=== PATIENT | female | born 1975 | race Caucasian/White ===

== ENCOUNTER 2018-03-30 13:54 | Emergency (ER) | payer BC ==
--- OUTSIDE RECORDS SUMMARY | 2018-03-30 13:57 | XMS REPORT ---
:1975 Author Organization eClinicalWorks Care Team Providers Name Role Phone Karoline Kellerh Provider Role Unavailable Allergies No Known Allergies Problems Problem Type Condition Code Onset Dates Condition Status Assessment Hypothyroidism E03.9 Active Problem Asthma without status asthmaticus J45.909 Active or acute exacerbation Assessment Diabetes mellitus type 2, E11.9 Active uncontrolled, without complications Problem Diabetes mellitus type 2, E11.9 Active uncontrolled, without complications Problem Mixed hyperlipidemia E78.2 Active Problem Hypothyroidism E03.9 Active Problem Irritable bowel syndrome without K58.9 Active diarrhea Problem 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 Problem Benign essential hypertension I10 Active Problem Atherosclerotic heart disease of I25.10 Active [place] coronary artery without angina pectoris Assessment 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 Assessment Atherosclerotic heart disease of I25.10 Active [place] coronary artery without angina pectoris Assessment Asthma without status asthmaticus J45.909 Active or acute exacerbation Assessment Mixed hyperlipidemia E78.2 Active Assessment Irritable bowel syndrome without K58.9 Active diarrhea Assessment Benign essential hypertension I10 Active Medications Medication Code Code Instructions Start End Status Dosage System Date [facility] 69444934679 72 MCG Orally Active 1 capsule Once a day on an empty stomach Clopidogrel [facility] 89790077708 75 MG Orally Active 1 tablet Bisulfate Once a day Aspirin ND 58263592702 81 MG Orally Active 1 tablet Once a day Atorvastatin [facility] 90158785050 80 MG Orally Active 1 tablet Calcium Once a day Synthroid ND 88943690778 25 MCG Orally Active 1 tablet Once a day on an empty stomach in the morning Breo Ellipta ND 49726073261 100-25 MCG/INH Active 1 puff Inhalation Once a day Colace [facility] 82138399157 100 MG Orally Active 1 capsule Once a day as needed Toujeo SoloStar [facility] 71206836346 300 UNIT/ML Active Inject 50 Subcutaneous units Ventolin HFA [facility] 23059209017 90 MCG/ACT Active 2 puffs as Inhalation needed every 6 hrs Carvedilol [facility] 59127782049 12.5 MG Orally Active not defined Results No Known Results Summary Purpose eClinicalWorks Submission
--- OUTSIDE RECORDS SUMMARY | 2018-03-30 13:57 | XMS REPORT ---
:1975 Author Organization eClinicalWorks Care Team Providers Name Role Phone Keller, [facility] Provider Role Unavailable Allergies, Adverse Reactions, Alerts Substance Reaction Event Type MORPHINE breaks out in a rash Drug Allergy Problems Problem Type Condition Code Onset Dates [...] Problem Atherosclerotic heart disease of I25.10 Active [place] coronary artery without angina pectoris Assessment 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 Assessment Atherosclerotic heart disease of I25.10 Active [place] coronary artery without angina pectoris Assessment Asthma without status asthmaticus J45.909 Active or acute exacerbation Assessment Mixed hyperlipidemia E78.2 Active Assessment Irritable bowel syndrome without K58.9 Active diarrhea Assessment Benign essential hypertension I10 Active Medications Medication Code Code Instructions Start End Status Dosage System Date Date Aspirin ND 23661060865 81 MG Orally Active 1 tablet Once a day Toujeo SoloStar [facility] 71848231914 300 UNIT/ML Active Inject 30 Subcutaneous units BID Ventolin HFA ND 10778184128 90 MCG/ACT Active 2 puffs as Inhalation needed every 6 hrs Jardiance ND 17815874000 10 MG Orally February 23Apr 24, Active 1 tablet Once a day 2017 2017 Atorvastatin ND 53356505361 80 MG Orally Active 1 tablet Calcium Once a day Victoza ND 62039583608 18 MG/3ML February 23Apr 24, Active as directed Subcutaneous 2017 2017 Once a day Toujeo SoloStar ND 43005307311 300 unit/mL Active INJECT UNDER THE SKIN 15 UNITS AT BEDTIME DAILY Carvedilol ND 34788517663 12.5 MG Orally Active 1 tab BID Synthroid NDC 79938260375 25 MCG Orally Active 1 tablet on Once a day an empty stomach in the morning Breo Ellipta [facility] 16452174898 100-25 MCG/INH Active 1 puff Inhalation Once a day Colace [facility] 17470420544 100 MG Orally Active 1 capsule Once a day as needed Linzess [facility] 74688675530 72 MCG Orally Active 1 capsule Once a day on an empty stomach Clopidogrel [facility] 72750026934 75 MG Orally Active 1 tablet Bisulfate Once a day Results No Known Results Summary Purpose eClinicalWorks Submission
--- OUTSIDE RECORDS SUMMARY | 2018-03-30 13:57 | XMS REPORT ---
:1975 Author Organization eClinicalWorks Care Team Providers Name Role Phone Krishna He Provider Role Unavailable Allergies No Known Allergies Problems Problem Type Condition Code Onset Dates Condition Status Problem Asthma without status asthmaticus J45.909 Active or acute exacerbation Problem Diabetes mellitus type 2, E11.9 Active uncontrolled, without complications Problem Mixed hyperlipidemia E78.2 Active Problem Hypothyroidism E03.9 Active Problem Irritable bowel syndrome without K58.9 Active diarrhea Problem 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 Problem Benign essential hypertension I10 Active Problem Atherosclerotic heart disease of I25.10 Active [place] coronary artery without angina pectoris Medications No Known Medications Results No Known Results Summary Purpose eClinicalWorks Submission
[2018-03-30 16:59] LABS: Absolute Lymphocytes (CBC) 1.5 K/uL (0.7-4.9); Absolute Monocytes 0.5 K/uL (0.1-1.3); Absolute Neutrophil 5.5 K/uL (1.8-8.0); Basophils % 0.4 % (0-1.3); Eosinophils % 1.5 % (0-4.4); MCV 88.2 fL (80-100); MPV 9.4 fL (7.6-11.3); Monocytes % 6.7 % (3.3-12.3); RBC Red Blood Cell Count 4.77 M/uL (3.86-4.86)
[2018-03-30 17:02] LABS: Urine Blood 1+ (NEG); Urine Glucose 2+ (NEG); Urine Protein 3+ (NEG); Urine pH 5.5 (5.0-7.0)
[2018-03-30 17:02] LABS: Urine Bacteria <20 /HPF (<20); Urine RBC <5 /HPF (NONE SEEN)
[2018-03-30 17:03] LABS: Urine Culture Reflex Order NOT NEEDED; Urine Yeast FEW (NONE SEEN)
[2018-03-30 17:17] LABS: Bilirubin Direct 0.1 mg/dL (0-0.2); Bilirubin Total 0.4 mg/dL (0.2-1.0); Potassium 4.1 mmol/L (3.5-5.1); Protein, Total 7.1 g/dL (6.4-8.2)
--- NOTE | 2018-03-30 17:42 | RAD REPORT ---
EXAM DESCRIPTION: US - Abdomen Exam Limited - 03/30/2018 3:19 pm CLINICAL HISTORY: Abdominal pain. COMPARISON: 2014 FINDINGS: The patient was not NPO which limits evaluation somewhat The gallbladder wall is not thickened. A gallstone is not seen. The biliary tree is normal caliber. IMPRESSION: Unremarkable gallbladder ultrasound.
[2018-03-30] MEDS ORDERED: MAGNE/ALUM HYDROXD 30 ML UCUP ONE (18:28)
[2018-03-30] MEDS ORDERED: LIDOCAINE VISCOUS 2% SOLN 15 ML UDC ONE (18:29)
--- NOTE | 2018-03-30 18:32 | EDPHYS ---
Physician Documentation [facility] Name: Elis Smart Age: 42 yrs Sex: Female : 1975 Arrival Date: 03/30/2018 Time: 14:00 Bed 24 Private MD: None, None ED Physician Gustavo Rosas HPI: 03/30 16:00 This 42 yrs old Female presents to ER via Ambulatory with complaints of pm1 Abdominal Pain. 16:00 The patient presents with abdominal pain in the epigastric area. Onset: The pm1 symptoms/episode began/occurred 2 day(s) ago. The symptoms do not radiate. Associated signs and symptoms: Pertinent negatives: nausea, vomiting, and diarrhea, chest pain, dysuria, fever, shortness of breath. The symptoms are described as burning. Modifying factors: The symptoms are alleviated by Nexium from her father. the symptoms are aggravated by drinking, food. The patient has not recently seen a physician, the patient's primary care provider is Dr. Keller. 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 - Social history:: Smoking status: Patient/guardian denies using tobacco. - Ebola Screening: : No symptoms or risks identified at this time. ROS: 16:00 Constitutional: Negative for fever, chills, and weight loss, Eyes: Negative for injury, pm1 pain, redness, and discharge, ENT: Negative for injury, pain, and discharge, Neck: Negative for injury, pain, and swelling, Cardiovascular: Negative for chest pain, palpitations, and edema, Respiratory: Negative for shortness of breath, cough, wheezing, and pleuritic chest pain. 16:00 Back: Negative for injury and pain, : Negative for injury, bleeding, discharge, and swelling, MS/Extremity: Negative for injury and deformity, Skin: Negative for injury, rash, and discoloration, Neuro: Negative for headache, weakness, numbness, tingling, and seizure. 16:00 Abdomen/GI: Positive for abdominal pain, Negative for nausea, vomiting, and diarrhea. Exam: 16:00 Constitutional: This is a well developed, well nourished patient who is awake, alert, pm1 and in no acute distress. Head/Face: Normocephalic, atraumatic. Eyes: Pupils equal round and reactive to light, extra-ocular motions intact. Lids and lashes normal. Conjunctiva and sclera are non-icteric and not injected. Cornea within normal limits. Periorbital areas with no swelling, redness, or edema. ENT: Nares patent. No nasal discharge, no septal abnormalities noted. Tympanic membranes are normal and external auditory canals are clear. Oropharynx with no redness, swelling, or masses, exudates, or evidence of obstruction, uvula midline. Mucous membranes moist. Neck: Trachea midline, no thyromegaly or masses palpated, and no cervical lymphadenopathy. Supple, full range of motion without nuchal rigidity, or vertebral point tenderness. No Meningismus. Chest/axilla: Normal chest wall appearance and motion. Nontender with no deformity. No lesions are appreciated. Cardiovascular: Regular rate and rhythm with a normal S1 and S2. No gallops, murmurs, or rubs. Normal PMI, no JVD. No pulse deficits. Respiratory: Lungs have equal breath sounds bilaterally, clear to auscultation and percussion. No rales, rhonchi or wheezes noted. No increased work of breathing, no retractions or nasal flaring. 16:00 Back: No spinal tenderness. No costovertebral tenderness. Full range of motion. Skin: Warm, dry with normal turgor. Normal color with no rashes, no lesions, and no evidence of cellulitis. MS/ Extremity: Pulses equal, no cyanosis. Neurovascular intact. Full, normal range of motion. 16:00 Abdomen/GI: Inspection: abdomen appears normal, Bowel sounds: normal, Palpation: abdomen is soft and non-tender. 16:00 Neuro: Orientation: is normal, Motor: is normal, no acute changes, moves all fours. Vital Signs: 14:22 BP 143 / 83; Pulse 92; Resp 16; Temp 98.4; Pulse Ox 100% on R/A; Weight 83.46 kg; hb Height 5 ft. 3 in. (160.02 cm); Pain 7/10; 18:52 BP 140 / 88; Pulse 88; Resp 17; Pulse Ox 100% on R/A; kr2 14:22 Body Mass Index 32.59 (83.46 kg, 160.02 cm) hb MDM: 16:31 Patient medically screened. pm1 18:17 Data reviewed: vital signs. Data interpreted: Pulse oximetry: on room air is 100 %. pm1 Interpretation: normal. 18:25 Counseling: I had a detailed discussion with the patient and/or guardian regarding: the pm1 historical points, exam findings, and any diagnostic results supporting the discharge/admit diagnosis, lab results, radiology results, the need for outpatient follow up, to return to the emergency department if symptoms worsen or persist or if there are any questions or concerns that arise at home. 19:00 ED course: Pain resolved with Gi cocktail. pm1 03/30 15:07 Order name: Urine Culture [facility] 03/30 15:07 Order name: Urine Microscopic Only; Complete Time: 17:44 [facility] 03/30 16:30 Order name: Basic Metabolic Panel; Complete Time: 17:44 pm03/30 16:30 Order name: CBC with Diff; Complete Time: 17:44 pm03/30 16:30 Order name: Hepatic Function; Complete Time: 17:44 pm1 03/30 16:30 Order name: Lipase; Complete Time: 17:44 pm1 03/30 15:07 Order name: US Abdomen Limited; Complete Time: 17:44 sn 03/30 15:07 Order name: Urine Dipstick-Ancillary (obtain specimen); Complete Time: 15:46 [facility] 03/30 15:07 Order name: FSBS; Complete Time: 16:51 [facility] 03/30 16:40 Order name: Glucose, Ancillary Testing; Complete Time: 17:44 EDRI 03/30 16:48 Order name: Urine Dipstick--Ancillary (enter results); Complete Time: 17:44 ag 03/30 16:48 Order name: Urine --Ancillary (enter results); Complete Time: 17:44 ag 03/30 16:30 Order name: Urine Test (obtain specimen); Complete Time: 18:13 pm1 03/30 16:30 Order name: Labs collected and sent; Complete Time: 16:51 pm1 Administered Medications: 18:26 CANCELLED (Physician Discretion; donnatol unavailable): GI Cocktail with - pm1 (Maalox Suspension 30 ml, Lidocaine Liquid 2 % 20 ml, Phenobarbital-Belladonna 10 ml) PO once 18:31 Drug: GI Cocktail without - (Maalox Suspension 30 ml, Lidocaine Liquid 2 % 15 kr2 ml) Route: PO; 18:50 Follow up: Response: No adverse reaction; Pain is decreased kr2 Point of Care Testing: Blood Glucose: 16:37 Blood Glucose: 226 mg/dL; jp3 Ranges: Critical Glucose Levels:Adult <50 mg/dl or >400 mg/dl <40 mg/dl or >180 mg/dl Disposition: 03/31 09:33 Co-signature as Attending Physician, Gustavo Rosas MD I agree with the assessment and savanna plan of care. Disposition: 03/30/18 18:32 Discharged to Home. Impression: Unspecified abdominal pain. - Condition is Stable. - Discharge Instructions: Abdominal Pain, Adult, Gastroesophageal Reflux Disease, Adult. - Prescriptions for Pepcid 20 mg Oral Tablet - take 1 tablet by ORAL route every 12 hours for 10 days; 20 tablet. - Medication Reconciliation Form, Thank You Letter form. - Follow up: Orlando Tadeo MD; When: 2 - 3 days; Reason: Recheck today's complaints, Continuance of care, Re-evaluation by your physician. - Problem is new. - Symptoms have improved. Signatures: Dispatcher [employer] EDGustavo Lundberg MD MD cha Therrien, Shelly, LIVE IN HOUSEKEEPER NANNY-C LIVE IN HOUSEKEEPER NANNY-Csnw Homero Jessica, BUNDLE WRAPPER BUNDLE WRAPPER pm1 Sole Davila, DIANA RN Tameka Vasquez RN RN kr2 Corrections: (The following items were deleted from the chart) 03/30 18:26 18:21 GI Cocktail with - (Maalox 30 ml, Lidocaine 20 ml, pm1 Phenobarbital-Belladonna 10 ml) PO once ordered. pm1 18:38 16:30 IV Saline Lock ordered. pm1 kr2 18:54 18:32 03/30/2018 18:32 Discharged to Home. Impression: Unspecified abdominal pain. kr2 Condition is Stable. Forms are Medication Reconciliation Form, Thank You Letter, Antibiotic Education, Prescription Opioid Use. Follow up: Orlando Tadeo; When: 2 - 3 days; Reason: Recheck today's complaints, Continuance of care, Re-evaluation by your physician. Problem is new. Symptoms have improved. pm1
--- NOTE | 2018-03-30 18:32 | ER ---
Nurse's Notes [facility] Name: Elis Smart Age: 42 yrs Sex: Female : 1975 Arrival Date: 03/30/2018 Time: 14:00 Bed 24 Private MD: None, None Diagnosis: Unspecified abdominal pain Presentation: 03/30 14:20 Presenting complaint: Patient states: Heartburn x 3 days, upper abdominal pain since hb last night. Pain is wore after eating/drinking. Pt also reports she vomited x 2 yesterday. Denies fever/diarrhea. Transition of care: patient was not received from another setting of care. Onset of symptoms was March 28, 2018. Risk Assessment: Do you want to hurt yourself or someone else? Patient reports no desire to harm self or others. Initial Sepsis Screen: Does the patient meet any 2 criteria? No. Patient's initial sepsis screen is negative. Does the patient have a suspected source of infection? No. Patient's initial sepsis screen is negative. Care prior to arrival: None. 14:20 Method Of Arrival: Ambulatory hb 14:20 Acuity: ERIK 3 hb Triage Assessment: 16:58 General: Appears in no apparent distress. uncomfortable, well groomed, Behavior is kr2 calm, cooperative, appropriate for age. Pain: Complains of pain in diaphragm and xyphoid area Pain currently is 7 out of 10 on a pain scale. Quality of pain is described as burning, gnawing, Is continuous, Alleviated by nothing. Aggravated by eating. GI: Bowel sounds present X 4 quads. Abd is soft X 4 quads. 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 - Social history:: Smoking status: Patient/guardian denies using tobacco. - Ebola Screening: : No symptoms or risks identified at this time. Screenin:58 Abuse screen: Denies threats or abuse. Denies injuries from another. Nutritional kr2 screening: No deficits noted. Tuberculosis screening: No symptoms or risk factors identified. Fall Risk None identified. Assessment: 16:30 General: Appears in no apparent distress. uncomfortable, well groomed, well developed, kr2 well nourished, Behavior is calm, cooperative, appropriate for age. Pain: Complains of pain in diaphragm and xyphoid area Pain currently is 7 out of 10 on a pain scale. Quality of pain is described as burning, gnawing, Is continuous, Alleviated by nothing. Aggravated by eating. Neuro: Level of Consciousness is awake, alert, obeys commands, Oriented to person, place, time, situation, Appropriate for age. Cardiovascular: Capillary refill < 3 seconds in bilateral fingers Patient's skin is warm and dry. Respiratory: Airway is patent Respiratory effort is even, unlabored, Respiratory pattern is regular, symmetrical. GI: Abdomen is flat, non-distended, Reports nausea, vomiting. GI: Bowel sounds present X 4 quads. GI: Abd is soft X 4 quads. : Denies burning with urination. EENT: Oral mucosa is moist. Derm: Skin is intact, is healthy with good turgor, Skin is pink, warm \T\ dry. Musculoskeletal: Circulation, motion, and sensation intact. 17:30 Reassessment: Patient appears in no apparent distress at this time. Patient and/or kr2 family updated on plan of care and expected duration. Pain level reassessed. Patient is alert, oriented x 3, equal unlabored respirations, skin warm/dry/pink. 18:19 Reassessment: Patient appears in no apparent distress at this time. Patient and/or kr2 family updated on plan of care and expected duration. Pain level reassessed. Patient is alert, oriented x 3, equal unlabored respirations, skin warm/dry/pink. Vital Signs: 14:22 BP 143 / 83; Pulse 92; Resp 16; Temp 98.4; Pulse Ox 100% on R/A; Weight 83.46 kg; hb Height 5 ft. 3 in. (160.02 cm); Pain 7/10; 18:52 BP 140 / 88; Pulse 88; Resp 17; Pulse Ox 100% on R/A; kr2 14:22 Body Mass Index 32.59 (83.46 kg, 160.02 cm) hb ED Course: 14:00 Patient arrived in ED. sb2 14:00 None, None is Private Physician. sb2 14:22 Triage completed. hb 14:25 Arm band placed on right wrist. hb 15:10 Patient taken to ultrasound. hr 15:18 US Abdomen Limited In Process Unspecified. EDMS 15:46 Urine Culture Sent. mh5 15:46 Urine Microscopic Only Sent. mh5 15:47 Urine collected: clean catch specimen, clear. mh5 16:30 Homero Jessica NP is PHCP. pm1 16:30 Gustavo Rosas MD is Attending Physician. pm1 16:31 Tameka Benton, DIANA is Primary Nurse. kr2 16:50 Initial lab(s) drawn, by va, sent to lab. Missed attempt(s): 22 gauge in left forearm. kr2 16:59 Patient has correct armband on for positive identification. Bed in low position. Call kr2 light in reach. Side rails up X 1. Pulse ox on. NIBP on. Door closed. 18:31 Orlando Tadeo MD is Referral Physician. pm1 18:53 No provider procedures requiring assistance completed. kr2 18:53 Patient did not have IV access during this emergency room visit. kr2 Administered Medications: 18:26 CANCELLED (Physician Discretion; donnatol unavailable): GI Cocktail with - pm1 (Maalox Suspension 30 ml, Lidocaine Liquid 2 % 20 ml, Phenobarbital-Belladonna 10 ml) PO once 18:31 Drug: GI Cocktail without - (Maalox Suspension 30 ml, Lidocaine Liquid 2 % 15 kr2 ml) Route: PO; 18:50 Follow up: Response: No adverse reaction; Pain is decreased kr2 Point of Care Testing: Blood Glucose: 16:37 Blood Glucose: 226 mg/dL; jp3 Ranges: Outcome: 18:32 Discharge ordered by . pm1 18:53 Discharged to home ambulatory, with family. kr2 18:53 Condition: improved 18:53 Discharge instructions given to patient, Instructed on discharge instructions, follow up and referral plans. medication usage, Demonstrated understanding of instructions, follow-up care, medications, Prescriptions given X 1. 18:54 Patient left the ED. kr2 Signatures: Dispatcher [employer] EDMS Maria A Garcia Patrick, NP FEDERAL MEDIATOR pm1 Sole Davila RN RN Jacinta Carreno [facility] Tameka Benton RN RN kr2 Rosie Huizar 2 Vasile Bennett jp3 Corrections: (The following items were deleted from the chart) 18:53 18:53 IV discontinued, intact, bleeding controlled, No redness/swelling at site. kr2 Pressure dressing applied, kr2
[2018-03-30 19:49] VITALS: TEMP 98.4; O2SAT 100
[2018-03-30 19:50] VITALS: BP 140/88
== END 2018-03-30 18:54 | disposition home or self-care (01) ==
LOC: ER 13:54
DX: R10.9 Unspecified abdominal pain (principal); E11.9 Type 2 diabetes mellitus without complications; Z79.4 Long term (current) use of insulin; Z88.6 Allergy status to analgesic agent; Z88.0 Allergy status to penicillin
CPT/HCPCS: 36415; 76705; 80048; 80076; 81003; 81015; 81025; 82962; 83690; 85025; 87086; 87088; 99284

== ENCOUNTER 2021-06-25 13:07 | Observation (INO) | payer OTHER ==
[2021-06-25] MEDS ORDERED: ALBUTEROL 2.5 MG/3 ML NEB SOL NEB PRN (15:13)
[2021-06-25] MEDS ORDERED: ONDANSETRON 4 MG/2 ML VIAL IV PRN (15:13)
[2021-06-25 15:16] VITALS: BMI 33.8
--- NOTE | 2021-06-25 15:20 | P.HP ---
Certification for Inpatient Patient admitted to: Observation With expected LOS: <2 Midnights Practitioner: I am a practitioner with admitting privileges, knowledge of patient current condition, hospital course, and medical plan of care. Services: Services provided to patient in accordance with Admission requirements found in Title 42 Section 412.3 of the Code of Federal Regulations Patient History Date of Service: 06/25/21 Reason for admission: Bilateral pneumonia, hyperkalemia History of Present Illness: 46-year-old female, PMH: Encephalocele, CAD s/p CABGx3 2016, hypertension, insulin-dependent diabetes mellitus type 2, asthma, GERD, hyperlipidemia. Transferred to this hospital from [facility] due to bilateral pneumonia and electrolyte abnormalities. Potassium was 6, low calcium, THONY (creatinine 2). Patient reports having a "very bad" productive cough cough associated with some shortness of breath over the last 3 days. She denies any fevers/chills, reports some chest soreness from coughing episodes, no abdominal pain, no diarrhea, no dysuria. She reported feeling short of breath, and her oxygen saturation was 97 air with no movement. On arrival to our medical floor, she reports feeling a little bit better, still feels short of breath, requesting nebulizer treatment she has history of asthma, otherwise reports no significant issues/symptoms going on. ER provider reported patient was treated with Kayexalate, IV calcium and was transferred over here. Allergies morphine Allergy (Intermediate, Verified 06/25/21 15:35) Hives/Rash Home Medications: Ascorbic Acid [Vitamin C] 250 mg PO DAILY 06/25/21 Aspirin [Aspirin EC 81 MG] 81 mg PO BID 06/25/21 Aspirin [Karuna Chewable] 81 mg PO BID 6AM 6PM 06/25/21 Atorvastatin Calcium [Lipitor] 80 mg PO BEDTIME 06/25/21 Atorvastatin Calcium [Lipitor] 80 mg PO BEDTIME 06/25/21 Cholecalciferol (Vitamin D3) [Vitamin D3] 1,000 unit PO DAILY 06/25/21 Dulaglutide [Trulicity] 1.5 mg SQ EVERY 7TH DAY 06/25/21 Dulaglutide [Trulicity] 1.5 mg SQ EVERY 7TH DAY 06/25/21 Furosemide 40 mg PO DAILY 06/25/21 Furosemide [Lasix] 40 mg PO DAILY 06/25/21 Glipizide [Glipizide ER] 5 mg PO BEDTIME 06/25/21 Glipizide [Glipizide ER] 5 mg PO BEDTIME 06/25/21 Insulin Glargine,Hum.rec.anlog [Toujeo Solostar] 30 unit SQ BID 06/25/21 Insulin Glargine,Hum.rec.anlog [Toujeo Solostar] 50 unit SQ BID 06/25/21 Metoprolol Tartrate 100 mg PO BID 6AM 6PM 06/25/21 Metoprolol Tartrate [Lopressor] 100 mg PO BID 06/25/21 Pantoprazole [Protonix Tab] 40 mg PO DAILY 06/25/21 Pantoprazole [Protonix Tab] 40 mg PO DAILY 06/25/21 Ramipril [Altace] 10 mg PO DAILY 06/25/21 Ramipril [Altace] 10 mg PO DAILY 06/25/21 - Past Medical/Surgical History Has patient received pneumonia vaccine in the past: No Diabetic: Yes -: DM-2, insulin-dependent -: Omphalocele -: CAD s/p CABG -: Bilateral tubal ligation -: tonsilectomy -: CABG - Family History Father -: Hypertension, Lung disease, Diabetes mother' -: Hypertension, Diabetes, Stroke, Cancer - Social History Smoking Status: Never smoker Alcohol use: No CD- Drugs: No Caffeine use: No Place of Residence: Home Review of Systems 10-point ROS is otherwise unremarkable Physical Examination - Physical Exam General: Alert, In no apparent distress, Oriented x3 HEENT: Mucous membr. moist/pink, Sclerae nonicteric Neck: Supple, No LAD Respiratory: Crackles/rales (At bases bilaterally) Cardiovascular: Regular rate/rhythm, No murmurs Capillary refill: <2 Seconds Gastrointestinal: Soft and benign, Non-distended, No tenderness Musculoskeletal: No erythema, No tenderness Integumentary: No rashes, No significant lesion Neurological: Normal speech, Normal strength at 5/5 x4 extr, Normal affect Assessment and Plan - Advance Directives Does patient have a Living Will: No Does patient have a Durable POA for Healthcare: No Physician Review Additional Text: Problem list Bilateral pneumonia, without acute hypoxemia h/o asthma CAD s/p CABGx3 2016 h/o Phrenic nerve injury Hypertension Hyperlipidemia THONY, likely prerenal/hypovolemia Bilateral pneumonia, treated with IV Levaquin, continue Check chest x-ray tomorrow morning Repeat labs, evaluate potassium, received Kayexalate in the ER Patient with a history of asthma, continue with nebulizer treatments Continue home medications once confirmed Insulin sliding scale Pulmonology consulted Blood cultures ordered VTE: Lovenox Code: Full Dispo: Anticipate DC home in 1-2 days. Time Spent Managing Pts Care (In Minutes): 60
[2021-06-25 15:57] LABS: Basophils % 0.3 % (0-1.3); Hematocrit 30.3 % (36.0-45.0); Lymphocytes % 10.8 % (15.3-44.8); MPV 9.6 fL (7.6-11.3)
[2021-06-25] MEDS ORDERED: NA CHLORIDE 0.9% 1,000 ML IV SCH (16:00)
[2021-06-25] MEDS ORDERED: Levofloxacin 750mg IV 750 MG/150 ML BAG IV SCH (16:00)
[2021-06-25] MEDS ORDERED: INFLUENZA VACCINE (for 6+ mo) 0.5 ML DOSE IMVAC ONE (16:00)
[2021-06-25] MEDS: INSULIN -REGULAR HUMAN 50 UNIT/0.5 ML ML SQ SCH ×2 (16:02→21:00)
[2021-06-25] MEDS: ENOXAPARIN 40 MG/0.4 ML SQ SCH (16:05)
[2021-06-25 16:09] LABS: Albumin 2.1 g/dL (3.4-5.0); Bilirubin Total 0.3 mg/dL (0.2-1.0); Magnesium 1.9 mg/dL (1.8-2.4); Potassium 4.5 mmol/L (3.5-5.1); Protein, Total 5.8 g/dL (6.4-8.2)
[2021-06-25] MEDS: ALBUTEROL 2.5 MG/3 ML NEB SOL NEB SCH (19:52)
[2021-06-25] MEDS: IPRATROPIUM BROM 0.5MG/2.5ML NEB SCH (19:52)
[2021-06-25] MEDS: BENZONATATE 100 MG CAP PO PRN (21:10)
[2021-06-25] MEDS: ACETAMINOPHEN 500 MG TAB PO PRN (23:12)
[2021-06-25 23:38] LABS: Urine Appearance CLOUDY (Clear); Urine Bilirubin NEGATIVE (Negative); Urine Blood 2+ (Negative); Urine Color YELLOW (Yellow); Urine Glucose 2+ (Negative); Urine Protein 3+ (Negative); Urine Specific Gravity 1.015 (1.005-1.030); Urine pH 5.5 (5.0-7.0)
[2021-06-25 23:40] LABS: Urine Microscopic Reflex ORDER UMIC
[2021-06-25 23:56] LABS: UR PROTEIN 700.6 mg/dL (<11.9)
[2021-06-26 00:10] LABS: Urine Bacteria 20-50 /HPF (<20); Urine Coarse Granular Casts 0-5 /LPF (NONE SEEN); Urine RBC <5 /HPF (NONE SEEN); Urine Urothelial Cells <5 /HPF (NONE SEEN)
[2021-06-26] MEDS ORDERED: ZOLPIDEM TARTRATE 5 MG TABLET PO PRN (01:28)
[2021-06-26] MEDS: IPRATROPIUM BROM 0.5MG/2.5ML NEB SCH ×4 (02:00→20:00)
[2021-06-26] MEDS: ALBUTEROL 2.5 MG/3 ML NEB SOL NEB SCH ×4 (02:00→20:00)
[2021-06-26] MEDS: BENZONATATE 100 MG CAP PO PRN ×3 (04:19→18:17)
[2021-06-26 06:21] LABS: Albumin 1.9 g/dL (3.4-5.0); Bilirubin Total 0.2 mg/dL (0.2-1.0); Magnesium 1.7 mg/dL (1.8-2.4); Potassium 4.4 mmol/L (3.5-5.1); Protein, Total 5.6 g/dL (6.4-8.2)
[2021-06-26 07:05] LABS: Absolute Lymphocytes (CBC) 0.9 K/uL (0.7-4.9); Basophils % 0.2 % (0-1.3); Hematocrit 29.5 % (36.0-45.0); Lymphocytes % 12.9 % (15.3-44.8); MPV 9.5 fL (7.6-11.3)
[2021-06-26] MEDS: INSULIN -REGULAR HUMAN 50 UNIT/0.5 ML ML SQ SCH ×4 (07:30→20:37)
[2021-06-26] MEDS: HYDRALAZINE HCL 20 MG/ML VIAL IV PRN ×2 (08:07→21:52)
[2021-06-26] MEDS: ENOXAPARIN 40 MG/0.4 ML SQ SCH (08:07)
[2021-06-26] MEDS: ACETAMINOPHEN 500 MG TAB PO PRN (08:11)
[2021-06-26] MEDS ORDERED: VITAMIN D 1000 UNIT TAB PO SCH (09:00)
[2021-06-26] MEDS: ASPIRIN EC 81 MG TAB PO SCH ×2 (09:00→20:44)
[2021-06-26] MEDS ORDERED: FUROSEMIDE 40 MG/4 ML VIAL IV ONE (09:00)
[2021-06-26] MEDS: PANTOPRAZOLE 40MG TABLET PO SCH (10:49)
[2021-06-26] MEDS: INSULIN GLARGINE 100 UNITS/ML SQ SCH ×2 (10:49→20:44)
[2021-06-26] MEDS: ASCORBIC ACID 500 MG TABLET PO SCH (10:49)
--- NOTE | 2021-06-26 12:14 | P.CNS ---
Date of Consult: 06/26/21 Reason for Consult: Cough Chief Complaint: Bilateral pneumonia, hyperkalemia History of Present Illness: Patient is 38-year the patient is 46 years of age admitted with sudden onset of cough and some shortness of breath denies any fever chills no prior history of obstructive airways disease history of coronary artery disease status post CABG elevated right hemidiaphragm patient does not smoke Allergies morphine Allergy (Intermediate, Verified 06/25/21 15:35) Hives/Rash Home Medications: Ascorbic Acid [Vitamin C] 250 mg PO DAILY 06/25/21 Aspirin [Aspirin EC 81 MG] 81 mg PO BID 06/25/21 Aspirin [Karuna Chewable] 81 mg PO BID 6AM 6PM 06/25/21 Atorvastatin Calcium [Lipitor] 80 mg PO BEDTIME 06/25/21 Atorvastatin Calcium [Lipitor] 80 mg PO BEDTIME 06/25/21 Cholecalciferol (Vitamin D3) [Vitamin D3] 1,000 unit PO DAILY 06/25/21 Dulaglutide [Trulicity] 1.5 mg SQ EVERY 7TH DAY 06/25/21 Dulaglutide [Trulicity] 1.5 mg SQ EVERY 7TH DAY 06/25/21 Furosemide 40 mg PO DAILY 06/25/21 Furosemide [Lasix] 40 mg PO DAILY 06/25/21 Glipizide [Glipizide ER] 5 mg PO BEDTIME 06/25/21 Glipizide [Glipizide ER] 5 mg PO BEDTIME 06/25/21 Insulin Glargine,Hum.rec.anlog [Toujeo Solostar] 30 unit SQ BID 06/25/21 Insulin Glargine,Hum.rec.anlog [Toujeo Solostar] 50 unit SQ BID 06/25/21 Metoprolol Tartrate 100 mg PO BID 6AM 6PM 06/25/21 Metoprolol Tartrate [Lopressor] 100 mg PO BID 06/25/21 Pantoprazole [Protonix Tab] 40 mg PO DAILY 06/25/21 Pantoprazole [Protonix Tab] 40 mg PO DAILY 06/25/21 Ramipril [Altace] 10 mg PO DAILY 06/25/21 Ramipril [Altace] 10 mg PO DAILY 06/25/21 - Past Medical/Surgical History Diabetic: Yes -: DM-2, insulin-dependent -: Omphalocele -: CAD s/p CABG -: Bilateral tubal ligation -: tonsilectomy -: CABG - Family History Father Medical History: Hypertension, Lung disease, Diabetes mother' Medical History: Hypertension, Diabetes, Stroke, Cancer - Social History Smoking Status: Unknown if ever smoked Alcohol use: No CD- Drugs: No Caffeine use: No Place of Residence: Home Review of Systems 10-point ROS is otherwise unremarkable Respiratory: Cough, Shortness of Breath Physical Examination Temp Pulse Resp BP Pulse Ox 98.6 F 107 H 20 143/71 H 96 06/26/21 11:57 06/26/21 11:57 06/26/21 11:57 06/26/21 11:57 06/26/21 11:57 General: Alert, Oriented x3, Mild distress Respiratory: Clear to auscultation bilaterally, Friction rub Cardiovascular: Regular rate/rhythm, Normal S1 S2 Gastrointestinal: Soft and benign Musculoskeletal: No clubbing, No swelling, No warmth Integumentary: No rashes, No breakdown Neurological: Normal speech Laboratory Data (last 24 hrs) 06/26/21 06:51: WBC 6.70 D, Hgb 9.6 L, Hct 29.5 L, Plt Count 148 L 06/26/21 05:39: Sodium 140, Potassium 4.4, BUN 34 H, Creatinine 2.01 H, Glucose 191 H, Magnesium 1.7 L, Total Bilirubin 0.2, AST 20, ALT 20, Alkaline Phosphatase 73 06/25/21 15:32: Sodium 143, Potassium 4.5, BUN 33 H, Creatinine 1.72 H, Glucose 187 H, Magnesium 1.9, Total Bilirubin 0.3, AST 12 L, ALT 21, Alkaline Phosphatase 80 06/25/21 15:32: WBC 9.30, Hgb 10.1 L, Hct 30.3 L, Plt Count 155 - Problems (1) Cough Current Visit: Yes Status: Acute Plan: Patient is 46 years patient is 46 years of age admitted with sudden onset of cough chest x-ray shows cardiomegaly elevated right hemidiaphragm otherwise clear patient is mildly anemic patient is mildly anemic otherwise normal white count vital signs oxygen vital signs oxygenation stable patient patient has renal insufficiency procalcitonin level is procalcitonin level is negative doubt pneumonia 1 dose of Lasix 1 dose of Lasix labs for tomorrow including BNP/renal ultrasound
[2021-06-26] MEDS: METOPROLOL TAR 50 MG TAB PO SCH ×2 (12:59→18:18)
--- NOTE | 2021-06-26 13:13 | P.PN ---
Subjective Date of Service: 06/26/21 Chief Complaint: Bilateral pneumonia, hyperkalemia Patient complaining of generalized malaise, and headache. She denies nausea. She endorsed nonproductive cough. Renal function is worse today. No recorded fever. Physical Examination - Vital Signs Temperature: 98.6 F Blood Pressure: 143/71 Pulse: 107 Respirations: 20 Pulse Ox (%): 96 - Studies Laboratory Data (last 24 hrs) 06/26/21 06:51: WBC 6.70 D, Hgb 9.6 L, Hct 29.5 L, Plt Count 148 L 06/26/21 05:39: Sodium 140, Potassium 4.4, BUN 34 H, Creatinine 2.01 H, Glucose 191 H, Magnesium 1.7 L, Total Bilirubin 0.2, AST 20, ALT 20, Alkaline Phosphatase 73 06/25/21 15:32: Sodium 143, Potassium 4.5, BUN 33 H, Creatinine 1.72 H, Glucose 187 H, Magnesium 1.9, Total Bilirubin 0.3, AST 12 L, ALT 21, Alkaline Phosphatase 80 06/25/21 15:32: WBC 9.30, Hgb 10.1 L, Hct 30.3 L, Plt Count 155 Microbiology Data (last 24 hrs): 06/25/21 15:40 Blood - Blood Anaerobic Blood Culture - Final 06/25/21 15:32 Blood - Blood Anaerobic Blood Culture - Final Assessment And Plan Physician Review Additional Text: General: Not in acute distress. Eyes: Anicteric sclera. Conjunctiva not pale. Neck: Supple, no lymphadenopathy, no neck mass. Chest: Symmetrical breathing movement. Chest wall is nontender to palpation. Lungs: Clear to auscultation bilaterally. Adequate breath sounds bilaterally. No rhonchi, mild bibasilar rales. Heart: Heart sounds 1 and 2 heard and normal, tachycardia, regular rhythm. No murmur. Abdomen: Soft, nondistended, nontender, normal bowel sounds, no organomegaly. Extremities: No pitting edema bilateral lower extremities, no calf tenderness bilaterally lower extremities, no digital cyanosis. Neurology: Oriented x3, no focal motor deficits. Psychiatry: Normal thought content, normal behavior. Skin: Warm and dry. No rashes or ulcers. Problem list Bilateral pneumonia, without acute hypoxemia h/o asthma CAD s/p CABGx3 2017. Acute diastolic heart failure h/o Phrenic nerve injury Hypertension Hyperlipidemia THONY, likely prerenal. Hypoalbuminemia Metabolic acidosis Accelerated hypertension. Plan: Continue Levaquin for pneumonia. I suspect left-sided pleural effusion and acute diastolic heart failure. Patient with an anion gap metabolic acidosis and worsening renal function. Nephrology-Dr. Queen consulted to assist with management. Check urine protein, urea/creatinine ratio. Trial of IV Lasix. Patient with a history of asthma, continue with nebulizer treatments Continue home BP medications. Hydralazine IV p.r.n.. Insulin sliding scale Pulmonology input appreciated. Blood cultures and sputum cultures are pending. VTE: Lovenox Code: Full
--- NOTE | 2021-06-26 13:33 | RAD REPORT ---
EXAM DESCRIPTION: RAD - Chest Single View - 06/26/2021 6:26 am CLINICAL HISTORY: Pneumonia COMPARISON: October 2017 TECHNIQUE: AP portable chest image was obtained 06/26/2021 6:26 am . FINDINGS: The patient has significant right hemidiaphragm elevation similar to comparison. There is chronic atelectasis at the right base. Right base in posterior gutter acute lung parenchymal findings could be obscured. Overall lung volumes reduced compared to the prior study. No focal left lung fiel d finding identified. Cardiomediastinal silhouette is prominent due to portable technique and shallow inspiration. CABG prado rgical changes are present. Significant failure or volume overload are doubtful. No measurable pleural effusion and no pneumothorax. No acute bony abnormality seen. No acute aortic findings suspected. IMPRESSION: Chest exam is limited as detailed above. An acute cardiopulmonary process or significant change from 2018 not identified.
--- NOTE | 2021-06-26 14:47 | RAD REPORT ---
EXAM DESCRIPTION: US - Renal Ultrasound-Complete - 06/26/2021 2:34 pm COMPARISON: None FINDINGS: The right kidney measures 10 cm with a normal echotexture. The left kidney measures 9 cm with a normal echotexture. 1.6 centimeter hypoechoic mass Hydronephrosis is not seen. No gross abnormality of bladder IMPRESSION: 1.6 centimeter hypoechoic mass left kidney probably a benign complex cyst. Follow up ult rasound in 6 months is recommended for re-evaluation
--- NOTE | 2021-06-26 15:20 | RAD REPORT ---
EXAM DESCRIPTION: RAD - Chest Pa And Lat (2 Views) - 06/26/2021 2:27 pm CLINICAL HISTORY: Possible pneumonia COMPARISON: Chest Single View dated 06/26/2021; Chest Pa And Lat (2 Views) dated 10/16/2017; Chest Pa And Lat (2 Views) dated 08/21/2017; Chest Pa And Lat (2 Views) dated 05/19/2017 FINDINGS: Lines: None. Lungs: No evidence of edema or pneumonia. Similar elevation of the right hemidiaphragm. Pleural: No significant pleural effusions or pneumothorax. Cardiac: The heart size is within normal limits. Bones: No acute fractures. Other: IMPRESSION: No acute cardiopulmonary disease.
--- NOTE | 2021-06-26 17:58 | P.CNS ---
Date of Consult: 06/26/21 Reason for Consult: THONY/ CKD Requesting Physician: salma padilla Chief Complaint: Bilateral pneumonia, hyperkalemia History of Present Illness: 46-year-old female, PMH: Encephalocele, CAD s/p CABGx3 2016, hypertension, insulin-dependent diabetes mellitus type 2, asthma, GERD, hyperlipidemia. Transferred to this hospital from [facility] due to bilateral pneumonia and electrolyte abnormalities. Potassium was 6, low calcium, THONY (creatinine 2). Patient reports having a "very bad" productive cough cough associated with some shortness of breath over the last 3 days. She denies any fevers/chills, reports some chest soreness from coughing episodes, no abdominal pain, no diarrhea, no dysuria. She reported feeling short of breath, and her oxygen saturation was 97 air with no movement. On arrival to our medical floor, she reports feeling a little bit better, still feels short of breath, requesting nebulizer treatment she has history of asthma, otherwise reports no significant issues/symptoms going on. ER provider reported patient was treated with Kayexalate, IV calcium and was transferred over here. No NSAIDs. Good urine output. Allergies morphine Allergy (Intermediate, Verified 06/25/21 15:35) Hives/Rash Home medications list reviewed: Yes Home Medications: Ascorbic Acid [Vitamin C] 250 mg PO DAILY 06/25/21 Aspirin [Aspirin EC 81 MG] 81 mg PO BID 06/25/21 Aspirin [Karuna Chewable] 81 mg PO BID 6AM 6PM 06/25/21 Atorvastatin Calcium [Lipitor] 80 mg PO BEDTIME 06/25/21 Atorvastatin Calcium [Lipitor] 80 mg PO BEDTIME 06/25/21 Cholecalciferol (Vitamin D3) [Vitamin D3] 1,000 unit PO DAILY 06/25/21 Dulaglutide [Trulicity] 1.5 mg SQ EVERY 7TH DAY 06/25/21 Dulaglutide [Trulicity] 1.5 mg SQ EVERY 7TH DAY 06/25/21 Furosemide 40 mg PO DAILY 06/25/21 Furosemide [Lasix] 40 mg PO DAILY 06/25/21 Glipizide [Glipizide ER] 5 mg PO BEDTIME 06/25/21 Glipizide [Glipizide ER] 5 mg PO BEDTIME 06/25/21 Insulin Glargine,Hum.rec.anlog [Toujeo Solostar] 30 unit SQ BID 06/25/21 Insulin Glargine,Hum.rec.anlog [Toujeo Solostar] 50 unit SQ BID 06/25/21 Metoprolol Tartrate 100 mg PO BID 6AM 6PM 06/25/21 Metoprolol Tartrate [Lopressor] 100 mg PO BID 06/25/21 Pantoprazole [Protonix Tab] 40 mg PO DAILY 06/25/21 Pantoprazole [Protonix Tab] 40 mg PO DAILY 06/25/21 Ramipril [Altace] 10 mg PO DAILY 06/25/21 Ramipril [Altace] 10 mg PO DAILY 06/25/21 - Past Medical/Surgical History Diabetic: Yes -: DM-2, insulin-dependent -: Omphalocele -: CAD s/p CABG -: Bilateral tubal ligation -: tonsilectomy -: CABG - Family History Father Medical History: Hypertension, Lung disease, Diabetes mother' Medical History: Hypertension, Diabetes, Stroke, Cancer - Social History Smoking Status: Unknown if ever smoked Alcohol use: No CD- Drugs: No Caffeine use: No Place of Residence: Home Review of Systems 10-point ROS is otherwise unremarkable General: Weakness, Malaise Cardiovascular: Edema Physical Examination Temp Pulse Resp BP Pulse Ox 98.6 F 80 18 151/69 H 98 06/26/21 16:00 06/26/21 16:00 06/26/21 16:00 06/26/21 16:00 06/26/21 16:00 General: Oriented x3, Cooperative Neck: Supple Respiratory: Clear to auscultation bilaterally Cardiovascular: Regular rate/rhythm, Edema Gastrointestinal: Soft and benign, Non-distended Musculoskeletal: No clubbing, No contractures Integumentary: No rashes, No cyanosis Neurological: Normal speech Laboratory Data (last 24 hrs) 06/26/21 06:51: WBC 6.70 D, Hgb 9.6 L, Hct 29.5 L, Plt Count 148 L 06/26/21 05:39: Sodium 140, Potassium 4.4, BUN 34 H, Creatinine 2.01 H, Glucose 191 H, Magnesium 1.7 L, Total Bilirubin 0.2, AST 20, ALT 20, Alkaline Phosphatase 73 Imagings Data: EXAM DESCRIPTION: RAD - Chest Pa And Lat (2 Views) - 06/26/2021 2:27 pm CLINICAL HISTORY: Possible pneumonia COMPARISON: Chest Single View dated 06/26/2021; Chest Pa And Lat (2 Views) dated 10/16/2017; Chest Pa And Lat (2 Views) dated 08/21/2017; Chest Pa And Lat (2 Views) dated 05/19/2017 FINDINGS: Lines: None. Lungs: No evidence of edema or pneumonia. Similar elevation of the right hemidiaphragm. Pleural: No significant pleural effusions or pneumothorax. Cardiac: The heart size is within normal limits. Bones: No acute fractures. Other: IMPRESSION: No acute cardiopulmonary disease. EXAM DESCRIPTION: US - Renal Ultrasound-Complete - 06/26/2021 2:34 pm COMPARISON: None FINDINGS: The right kidney measures 10 cm with a normal echotexture. The left kidney measures 9 cm with a normal echotexture. 1.6 centimeter hypoechoic mass Hydronephrosis is not seen. No gross abnormality of bladder IMPRESSION: 1.6 centimeter hypoechoic mass left kidney probably a benign complex cyst. Follow up ultrasound in 6 months is recommended for re-evaluation EXAM DESCRIPTION: RAD - Chest Single View - 06/26/2021 6:26 am CLINICAL HISTORY: Pneumonia COMPARISON: October 2017 TECHNIQUE: AP portable chest image was obtained 06/26/2021 6:26 am . FINDINGS: The patient has significant right hemidiaphragm elevation similar to comparison. There is chronic atelectasis at the right base. Right base in posterior gutter acute lung parenchymal findings could be obscured. Overall lung volumes reduced compared to the prior study. No focal left lung field finding identified. Cardiomediastinal silhouette is prominent due to portable technique and shallow inspiration. CABG surgical changes are present. Significant failure or volume overload are doubtful. No measurable pleural effusion and no pneumothorax. No acute bony abnormality seen. No acute aortic findings suspected. IMPRESSION: Chest exam is limited as detailed above. An acute cardiopulmonary process or significant change from 2018 not identified. Conclusions/Impression: THONY of unclear etiology CKD III with protienuria likely nephrotic syndrome -No NSAIDs Acidosis -Monitor level Hypocalcemia -Increase Vitamin D3 Hypomagnesemia -Start MagOx qhs HTN with CKD/ CHF -Change Metoprolol to Coreg Diastolic CHF, chronic -Change Metoprolol to Coreg -Check echocardiogram DM II with CKD, Polyneuropathy and Hyperglycemia -Continue Lantus -RISS Severe Hypoalbuminemia likely nephrotic syndrome -Consider CELESTE/ ARB as tolerated Anemia in chronic illness -Monitor H&H Thank you kindly for the consultation. Case reviewed with Dr. Padilla.
[2021-06-26] MEDS ORDERED: ATORVASTATIN 80 MG TAB PO SCH (21:00)
[2021-06-26] MEDS: GUAIFENESIN/DM 5 ML UCUP PO PRN (21:51)
[2021-06-27] MEDS: IPRATROPIUM BROM 0.5MG/2.5ML NEB SCH ×3 (02:00→13:03)
[2021-06-27] MEDS: ALBUTEROL 2.5 MG/3 ML NEB SOL NEB SCH ×3 (02:00→13:02)
[2021-06-27 02:13] LABS: UR PROTEIN 511.2 mg/dL (<11.9); Urine Protein/Creatinine Ratio 10.02 ratio (<0.15)
[2021-06-27] MEDS ORDERED: carvediloL 25 MG TAB PO SCH (06:00)
[2021-06-27 07:07] LABS: Basophils % 0.4 % (0-1.3); Hematocrit 29.6 % (36.0-45.0); Lymphocytes % 17.7 % (15.3-44.8); MPV 9.7 fL (7.6-11.3); RBC Red Blood Cell Count 3.45 M/uL (3.86-4.86)
[2021-06-27 07:18] LABS: Magnesium 1.9 mg/dL (1.8-2.4); Phosphorus 3.5 mg/dL (2.5-4.9); Uric Acid 6.2 mg/dL (2.6-6.0)
[2021-06-27] MEDS: INSULIN -REGULAR HUMAN 50 UNIT/0.5 ML ML SQ SCH ×2 (07:30→11:30)
[2021-06-27] MEDS ORDERED: CALCITROL 0.25 MCG CAP PO SCH (09:00)
[2021-06-27] MEDS: INSULIN GLARGINE 100 UNITS/ML SQ SCH (09:00)
[2021-06-27] MEDS ORDERED: VITAMIN D 1000 UNIT TAB PO SCH (09:00)
[2021-06-27] MEDS ORDERED: ENOXAPARIN 30 MG/0.3 ML SQ SCH (09:00)
[2021-06-27 09:01] VITALS: O2SAT 99
[2021-06-27] MEDS: ASPIRIN EC 81 MG TAB PO SCH (10:11)
[2021-06-27] MEDS: ASCORBIC ACID 500 MG TABLET PO SCH (10:12)
[2021-06-27] MEDS: PANTOPRAZOLE 40MG TABLET PO SCH (10:12)
[2021-06-27] MEDS: GUAIFENESIN/DM 5 ML UCUP PO PRN (10:13)
--- NOTE | 2021-06-27 11:17 | P.DS ---
Admission Date: 06/25/21 Discharge Date: 06/27/21 Disposition: ROUTINE DISCHARGE Discharge Condition: FAIR Reason for Admission: Bilateral pneumonia, hyperkalemia - Problems (1) Hyperkalemia Status: Acute (2) Chronic kidney disease, stage 3 Status: Acute (3) Proteinuria Status: Acute (4) Urinary tract infectious disease Onset Date: 06/12/15 Status: Acute Brief History of Present Illness: 46-year-old female, PMH: Encephalocele, CAD s/p CABGx3 2016, hypertension, insulin-dependent diabetes mellitus type 2, asthma, GERD, hyperlipidemia. Transferred to this hospital from [facility] due to bilateral pneumonia and electrolyte abnormalities. Potassium was 6, low calcium, THONY (creatinine 2). Patient reports having a "very bad" productive cough cough associated with some shortness of breath over the last 3 days. She denies any fevers/chills, reports some chest soreness from coughing episodes, no abdominal pain, no diarrhea, no dysuria. She reported feeling short of breath, and her oxygen saturation was 97 air with no movement. On arrival to our medical floor, she reports feeling a little bit better, still feels short of breath, requesting nebulizer treatment she has history of asthma, otherwise reports no significant issues/symptoms going on. ER provider reported patient was treated with Kayexalate, IV calcium and was transferred to the medical floor. Hospital Course: h/o asthma CAD s/p CABGx3 2017 h/o Phrenic nerve injury Hypertension Hyperlipidemia Patient placed under observation on the medical floor and treated with antibiotics for possible pneumonia. Chest x-ray was read no acute infiltrate. I suspect patient cough is related to her asthma. Hyperkalemia was corrected in the ED after which potassium level was stable. Patient with an anion gap metabolic acidosis. It appears the renal function is baseline. Nephrology-Dr. Queen consulted to assist with management. Urine protein, urea/creatinine ratio suggests significant proteinuria. Patient treated with IV Lasix briefly and transitioned to home dose Lasix on discharge Patient with a history of asthma, treated with nebulizer treatments Continued home BP medications. Blood sugar managed with Insulin sliding scale Seen by pulmonary who recommended Lasix therapy. Urine culture: Mixed growth. Blood culture: / bottles yielded coagulase negative Staph which is likely a skin contaminant. Patient discharged with Levaquin to complete 7 days of antibiotic treatment. Vital Signs/Physical Exam: Temp Pulse Resp BP Pulse Ox 98.7 F 82 16 185/81 H 98 06/27/21 08:00 06/27/21 08:00 06/27/21 08:00 06/27/21 08:00 06/27/21 08:00 General: Alert, In no apparent distress HEENT: Mucous membr. moist/pink Neck: Supple, JVD not distended Respiratory: Clear to auscultation bilaterally, Normal air movement Cardiovascular: No edema, Regular rate/rhythm, Normal S1 S2 Gastrointestinal: Soft and benign, Non-distended Musculoskeletal: No swelling Integumentary: No rashes Neurological: Normal strength at 5/5 x4 extr Laboratory Data at Discharge: WBC 5.90 K/uL (4.3-10.9) 06/27/21 06:03 Hgb 10.0 g/dL (12.0-15.0) L 06/27/21 06:03 Hct 29.6 % (36.0-45.0) L 06/27/21 06:03 Plt Count 166 K/uL (152-406) 06/27/21 06:03 Sodium 143 mmol/L (136-145) 06/27/21 06:03 Potassium 4.0 mmol/L (3.5-5.1) 06/27/21 06:03 BUN 36 mg/dL (7-18) H 06/27/21 06:03 Creatinine 2.15 mg/dL (0.55-1.3) H 06/27/21 06:03 Glucose 102 mg/dL (74-106) 06/27/21 06:03 Uric Acid 6.2 mg/dL (2.6-6.0) H 06/27/21 06:03 Phosphorus 3.5 mg/dL (2.5-4.9) 06/27/21 06:03 Magnesium 1.9 mg/dL (1.8-2.4) 06/27/21 06:03 Total Bilirubin 0.2 mg/dL (0.2-1.0) 06/26/21 05:39 AST 20 U/L (15-37) 06/26/21 05:39 ALT 20 U/L (12-78) 06/26/21 05:39 Alkaline Phosphatase 73 U/L (45-117) 06/26/21 05:39 Home Medications: Ascorbic Acid [Vitamin C] 250 mg PO DAILY 06/25/21 Aspirin [Aspirin EC 81 MG] 81 mg PO BID 06/25/21 Aspirin [Karuna Chewable Aspirin] 81 mg PO BID 6AM 6PM 06/25/21 Atorvastatin Calcium [Lipitor] 80 mg PO BEDTIME 06/25/21 Atorvastatin Calcium [Lipitor] 80 mg PO BEDTIME 06/25/21 Cholecalciferol (Vitamin D3) [Vitamin D3] 1,000 unit PO DAILY 06/25/21 Dulaglutide [Trulicity] 1.5 mg SQ EVERY 7TH DAY 06/25/21 Furosemide 40 mg PO DAILY 06/25/21 Glipizide [Glipizide ER] 5 mg PO BEDTIME 06/25/21 Insulin Glargine,Hum.rec.anlog [Toujeo Solostar] 30 unit SQ BID 06/25/21 Pantoprazole [Protonix Tab*] 40 mg PO DAILY 06/25/21 Ramipril [Altace] 10 mg PO DAILY 06/25/21 Calcitrol [Rocaltrol*] 0.5 mcg PO DAILY #30 cap 06/27/21 Guaif/Dm [Robitussin Dm*] 10 ml PO Q6H PRN #30 ucup 06/27/21 Magnesium Oxide [Mag 0X*] 400 mg PO BEDTIME #30 tab 06/27/21 carvediloL [Coreg*] 25 mg PO BID 6AM 6PM #60 tab 06/27/21 levoFLOXacin [Levaquin*] 500 mg PO Q48H #3 tab 06/27/21 New Medications: carvediloL [Coreg*] 25 mg PO BID 6AM 6PM #60 tab levoFLOXacin [Levaquin*] 500 mg PO Q48H #3 tab Magnesium Oxide [Mag 0X*] 400 mg PO BEDTIME #30 tab Guaif/Dm [Robitussin Dm*] 10 ml PO Q6H PRN #30 ucup PRN Reason: Cough Calcitrol [Rocaltrol*] 0.5 mcg PO DAILY #30 cap Diet: ADA Activity: Ad alfredo Followup: Edwin Queen DO [ACTIVE - CAN ADMIT] - 1-2 Weeks
[2021-06-27 12:28] VITALS: BP 176/73; TEMP 97.5
--- NOTE | 2021-06-27 13:27 | ECHO ---
HEIGHT: 5 ft 2 in WEIGHT: 192 lb 3 oz DATE OF STUDY: 06/27/[address]: Marcio Leary MD 2-DIMENSIONAL: YES M.MODE: YES DOPPLER: YES COLOR FLOW: YES TDS: PORTABLE: DEFINITY: BUBBLE STUDY: DIAGNOSIS: RULE OUT CONGESTIVE HEART FAILURE CARDIAC HISTORY: CATHERIZATION: NO SURGERY: YES PROSTHETIC VALVE: NO PACEMAKER: NO MEASUREMENTS (cm) DIASTOLIC (NORMALS) SYSTOLIC (NORMALS) IVSd 1.1 (0.6-1.2) LA Diam 3.9 (1.9-4.0) LVEF 68% LVIDd 4.0 (3.5-5.7) LVIDs 2.5 (2.0-3.5) %FS 38% LVPWd 1.2 (0.6-1.2) Ao Diam 2.6 (2.0-3.7) 2 DIMENSIONAL ASSESSMENT: RIGHT ATRIUM: NORMAL LEFT ATRIUM: NORMAL RIGHT VENTRICLE: NORMAL LEFT VENTRICLE: NORMAL TRICUSPID VALVE: NORMAL MITRAL VALVE: NORMAL PULMONIC VALVE: NORMAL AORTIC VALVE: NORMAL PERICARDIAL EFFUSION: NONE AORTIC ROOT: NORMAL LEFT VENTRICULAR WALL MOTION: DECREASED LEFT VENTRICULAR COMPLIANCE DOPPLER/COLOR FLOW: MILD TRICUSPID REGURGITATION COMMENTS: DECREASED LEFT VENTRICULAR COMPLIANCE. DIASTOLIC DYSFUNCTION. MILD TRICUSPID REGURGITATION. NORMAL RIGHT VENTRICULAR SYSTOLIC PRESSURE. TECHNOLOGIST: CAM MCDONALD
[2021-06-27] MEDS ORDERED: INFLUENZA VACCINE (for 6+ mo) 0.5 ML DOSE IMVAC ONE (15:00)
[2021-06-27] MEDS ORDERED: levoFLOXacin 750 MG TAB PO SCH (18:00)
[2021-06-27] MEDS ORDERED: levoFLOXacin 500 MG TAB PO SCH (18:00)
[2021-06-27] MEDS ORDERED: MAGNESIUM OXIDE 400 MG TAB PO SCH (21:00)
--- OUTSIDE RECORDS SUMMARY | 2021-07-20 00:52 | XMS REPORT | Continuity of Care Document ---
:1975 Author Organization [facility] t Address [address] [place] [place] [address] Care Team Providers Name Role Phone Devyn, Kaila Attending Clinician Unavailable LARRY Attending Clinician Unavailable Fausto Warren DO Attending Clinician FAUSTINA Attending Clinician Unavailable Hunter ORTIZ, M Attending Clinician Varghese YOUNG S Attending Clinician Yaniv MESSER, Bruno Attending Clinician FARZAD SUAREZ Attending Clinician Unavailable Faustina MESSER Attending Clinician Larry MESSER Attending Clinician Wojciech Attending Clinician Saad DUGAN Attending Clinician Marge MESSER Attending Clinician Doctor Unassigned, Name Attending Clinician Unavailable Cj CYR Attending Clinician Unavailable Cj Galeana Attending Clinician Farzad Suarez MD Attending Clinician Tana CHAIREZ Attending Clinician Unavailable MARGE Admitting Clinician Unavailable Kaila Shepard Admitting Clinician Unavailable Yaniv MESSER, Osagbaroghemwetian Admitting Clinician [phone] Marge MESSER Admitting Clinician Payers Payer Name Policy Type Policy Number Effective Date Expiration Date S binta [employer] BLUE [id number] 2020 ADVANTAGE [facility] 00:00:00 Problems Condition Condition Condition Status Onset Resolution Last Treating Co mments Source Name Details Category Date Date Treatment Clinician Date Encounter Encounter Disease Active 2019-09 Uni vers for for 2-10 ity of pre-operat [place]oper[place] venancio venancio 00 Medical cardiovasc cardiovasc Br anch ular ular clearance clearance Abscess of Abscess of Disease Active 2019- U nivers pubic pubic 2-09 ity of region region 00:00: [place] [address] Medical Branch Anemia Anemia Disease Active 2020-0 Univers 9-13 ity of 00:00: [place] 00 Medical Branch Excessive Excessive Disease Active 2020-0 Uni vers bleeding bleeding 9-13 ity of in in 00:00: [place] premenopau premenopau 00 Me dical shivani period shivani period Br anch 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 9-13 ity of disease disease 00:00: [place] involving involving 00 [place] coronary coronary artery of artery of [place] heart heart without without angina angina pectoris pectoris Paroxysmal Paroxysmal Disease Active 2020-0 U nivers atrial atrial 9-13 ity of fibrillati fibrillati 00:00: [place] on with on with 00 Medical RVR RVR Branch Chronic Chronic Disease Active 2020-0 Univers diastolic diastolic 9-13 ity of congestive congestive 00:00: [place] heart heart 00 Medical failure failure Branch Essential Essential Disease Active 2020-0 Uni vers hypertensi hypertensi 9-13 it y of on on 00:00: [place] 00 Medical Branch THONY (acute THONY (acute Disease Active 2020-0 U nivers kidney kidney 9-13 ity of injury) injury) 00:00: [place] 00 Medical Branch Symptomati Symptomati Disease Active 2020-0 U nivers c anemia c anemia 9-12 ity of 00:00: [address] Obesity Obesity Disease Active 2020-0 Univers (BMI (BMI 9-12 ity of 30-39.9) 30-39.9) 00:00: [address] No known No known Disease Unive rs active active ity of problems problems [facility] Allergies, Adverse Reactions, Alerts Allergy Allergy Status Severity Reaction(s) Onset Inactive Treating Comm ents Source Name Type Date Date Clinician Morphine Propensi Active Rash 2016-09 Univer s ty to 09-21 ity of adverse 00:00: [place] reaction 00 Medical s Branch MORPHINE DRUG Active Low Rash 2016-09 Univers INGREDI 09-21 ity of 00:00: [place] [address] Medical Branch MORPHINE Adverse Active breaks out [facility] a [facility] Social History Social Habit Start Date Stop Date Quantity Comments Source Exposure to Not sure [facility] SARS-CoV-2 [facility] (event) [facility] Tobacco use and 2020-08-18 2020-08-18 Never used Universit y of exposure 00:00:00 00:00:00 [facility] Alcohol intake 2020-08-18 2020-08-18 Ex-drinker University 00:00:00 00:00:00 (finding) [facility] Sex [birth year] At [birth year] Universit y of 00:00:00 00:00:00 [facility] Smoking Status Start Date Stop Date Source Unknown if [facility] smoked [facility] Former smoker 2020-08-18 00:00:00 2020-08-18 00:00:00 Universi ty of [facility] Never smoker University [facility] Medications Ordered Filled Start Stop Current Ordering Indication Dosage Frequency Signature Comments Components Source Medication Medication Date Date Medication? Clinician (SIG) Name Name ergocalcife 2019-09- No [id number] Take 1 Univers rol, 2-17 03-18 capsule by ity of vitamin d2, 00:00: 04:[place] 1,250 mcg 00 :00 weekly for Medi [place] (50,000 90 days. Branch unit) capsule ergocalcife 2019-09- No [id number] Take 1 Univers rol, 2-17 03-18 capsule by ity of vitamin d2, 00:00: 04:59 [place] 1,250 mcg 00 :00 weekly for Medi [place] (50,000 90 days. Branch unit) capsule SITagliptin 2019-09 Yes 100mg Take 100 U nivers 100 mg 2-12 mg by ity of tablet 00:07: mouth [place] [address] daily. Medical Branch atorvastati 2019-09 Yes 80mg Take 80 mg Univers n 80 mg 2-12 by mouth ity of tablet 00:07: at [place] [address] bedtime. Medical Branch aspirin 81 2019-09 Yes 81mg Take 81 mg U nivers mg chewable 2-12 by mouth ity of tablet 00:07: daily. [place] [address] Medical Branch insulin 2019-09 Yes 50U inject 50 Unive rs glargine 2-12 Units ity of U-300 conc 00:07: under the [place] (TOUJEO MAX 17 skin 2 Medica l U-300 (two) Branch SOLOSTAR) times 300 unit/mL daily. (3 mL) InPn dulaglutide 2019-09 Yes 1.5U inject 1.5 Univers (TRULICITY) 2-12 Units ity of 1.5 mg/0.5 00:07: under the [place] mL PnIj 17 skin Medical weekly. Branch Every Friday vitC/E/Zn/c 2019-09 Yes Take by Un rupinder opper/lutei 2-12 mouth 2 ity o f n/zeaxan 00:07: (two) [place] (ICAPS 17 times Medical AREDS2 daily. Branch ORAL) bromfenac 2019-09 Yes 4[drp] Place 4 Uni vers sodium 2-12 Drops in ity of (PROLENSA 00:07: each [place] OPHTHALMIC) 17 daily. X Medi [place] 90 days Branch for cataract surgery prednisoLON 2019- Yes 1[drp] Place 1 U nivers E acetate 1 2-12 Drop in ity o f % 00:07: left eye 4 [place] ophthalmic 17 (four) Medical suspension times Branch drops daily. ciprofloxac 2019-09 Yes 1[drp] Place 1 U nivers in HCl 0.3 2-12 Drop in ity of % opthalmic 00:07: [place]. [place] drops 17 4 times Medical daily for Branch 10 days SITagliptin 2019- Yes 100mg Take 100 U nivers 100 mg 2-12 mg by ity of tablet 00:07: mouth [place] [address] daily. Medical Branch atorvastati 2019-09 Yes 80mg Take 80 mg Univers n 80 mg 2-12 by mouth ity of tablet 00:07: at [place] [address] bedtime. Medical Branch aspirin 81 2019-09 Yes 81mg Take 81 mg U nivers mg chewable 2-12 by mouth ity of tablet 00:07: daily. [place] [address] Medical Branch insulin 2019- Yes 50U inject 50 Unive rs glargine 2-12 Units ity of U-300 conc 00:07: under the [place] (TOUJEO MAX 17 skin 2 Medica l U-300 (two) Branch SOLOSTAR) times 300 unit/mL daily. (3 mL) InPn dulaglutide 2019-09 Yes 1.5U inject 1.5 Univers (TRULICITY) 2-12 Units ity of 1.5 mg/0.5 00:07: under the [place] mL PnIj 17 skin Medical weekly. Branch Every Friday vitC/E/Zn/c 2019- Yes Take by Un rupinder opper/lutei 2-12 mouth 2 ity o f n/zeaxan 00:07: (two) [place] (ICAPS 17 times Medical AREDS2 daily. Branch ORAL) bromfenac 2019-09 Yes 4[drp] Place 4 Uni vers sodium 2-12 Drops in ity of (PROLENSA 00:07: each eye [facility] s OPHTHALMIC) daily. X Medi [place] 90 days Branch for cataract surgery prednisoLON 2019- Yes 1[drp] Place 1 U nivers E acetate 1 2-12 Drop in ity o f % 00:07: left eye 4 [place] ophthalmic 17 (four) Medical suspension times Branch drops daily. ciprofloxac 2019- Yes 1[drp] Place 1 U nivers in HCl 0.3 2-12 Drop in ity of % opthalmic 00:07: left eye. [place] drops 17 4 times Medical daily for Branch 10 days SITagliptin 2019- Yes 100mg Take 100 U nivers 100 mg 2-12 mg by ity of tablet 00:07: mouth [place] [address] daily. Medical Branch atorvastati 2019-09 Yes 80mg Take 80 mg Univers n 80 mg 2-12 by mouth ity of tablet 00:07: at [place] [address] bedtime. Medical Branch aspirin 81 2019-09 Yes 81mg Take 81 mg U nivers mg chewable 2-12 by mouth ity of tablet 00:07: daily. [place] 17 Medical Branch insulin 2019-09 Yes 50U inject 50 Unive rs glargine 2-12 Units ity of U-300 conc 00:07: under the [place] (TOUJEO MAX 17 skin 2 Medica l U-300 (two) Branch SOLOSTAR) times 300 unit/mL daily. (3 mL) InPn dulaglutide 2019-09 Yes 1.5U inject 1.5 Univers (TRULICITY) 2-12 Units ity of 1.5 mg/0.5 00:07: under the [place] mL PnIj 17 skin Medical weekly. Branch Every Friday vitC/E/Zn/c 2019-09 Yes Take by Un rupinder opper/lutei 2-12 mouth 2 ity o f n/zeaxan 00:07: (two) [place] (ICAPS 17 times Medical AREDS2 daily. Branch ORAL) bromfenac 2019-09 Yes 4[drp] Place 4 Uni vers sodium 2-12 Drops in ity of (PROLENSA 00:07: each [place] OPHTHALMIC) 17 daily. X Medi [place] 90 days Branch for cataract surgery prednisoLON 2019-09 Yes 1[drp] Place 1 U nivers E acetate 1 2-12 Drop in ity o f % 00:07: left eye 4 [place] ophthalmic 17 (four) Medical suspension times Branch drops daily. ciprofloxac 2019-09 Yes 1[drp] Place 1 U nivers in HCl 0.3 2-12 Drop in ity of % opthalmic 00:07: left [place]. [place] drops 17 4 times Medical daily for Branch 10 days furosemide 2019-09- No [id number] 40mg Take 1 Univers 40 mg 2-12 -12 tablet by ity of tablet 00:00: 05:59 mouth [place] 00 :00 every Medical Friday, Branch and Friday for 30 days. furosemide 2019-09- No [id number] 40mg Take 1 Univers 40 mg 2-12 -12 tablet by ity of tablet 00:00: 05:59 mouth [place] 00 :00 every Medical Friday, Branch and Friday for 30 days. flu vaccine 2019-09 2020- No .5mL 0.5 mL, Un rupinder 6 months 10-19 Intramuscu ity of and up (PF) 21:45: 22:11 lar, ONCE, [place] (FLUZONE 00 :00 1 dose, Medical QUAD Fri Branch 08/18/20 (PF)) at 1545, syringe 0.5 Routine mL calcitrioL 2019-09 Yes .5ug 0.5 mcg, Uni vers (ROCALTROL) 10-19 Oral, ity of capsule 0.5 15:00: DAILY, [place] mcg 00 First dose Medical on Fri Branch 08/18/20 at 0900, Until Discontinu ed, Routine heparin 2019-09 Yes 5000U 5,000 Univers (porcine) 10-19 Units, ity of injection 12:00: Subcutaneo [place] 5,000 Units 00 us, Q8H, Medi [place] First dose Branch on Fri08/18/20 at 0600, Until Discontinu ed, Routine atorvastati 2019-09 Yes 80mg 80 mg, Univ ers n (LIPITOR) 10-19 Oral, QHS, it y of tablet 80 03:00: First dose [place] mg 00 on [place] Medical 08/17/20 Branch at 2100, Until Discontinu ed, Routine traMADoL 50 2019-09- No [id number] 50mg Take 1 Uni vers mg tablet 10-19 tablet by ity of 00:00: 05:59 mouth 2 [place] 00 :00 (two) Medical times Branch daily as needed for Pain (scale 4-6) for up to 7 days. Indication s: acute pain traMADoL 50 2019-09- No [id number] 50mg Take 1 Uni vers mg tablet 10-19 tablet by ity of 00:00: 05:59 mouth 2 [place] 00 :00 (two) Medical times Branch daily as needed for Pain (scale 4-6) for up to 7 days. Indication s: acute pain amoxicillin 2019-09- No [id number] 500mg Take 1 Univers -pot 10-19 tablet by ity of clavulanate 00:00: 05:59 mouth 3 [place] 500 mg 00 :00 (three) Medical 500-125 mg times Branch tablet daily for 5 days. amoxicillin 2019-09- No [id number] 500mg Take 1 Univers -pot 10-19 tablet by ity of clavulanate 00:00: 05:59 mouth 3 [place] 500 mg 00 :00 (three) Medical 500-125 mg times Branch tablet daily for 5 days. ascorbic 2019-09 Yes 500mg 500 mg, Unive rs acid 2-10 Oral, TID, ity of (vitamin C) 20:00: First dose [place] (VITAMIN C) 00 on [place] Medica l tablet 500 08/17/20 Branc h mg at 1400, Until Discontinu ed, Routine vancomycin 2019-09 Yes 1000mg 1,000 mg, Univers (VANCOCIN) 2-10 IV ity of 1,000 mg in 19:00: Piggyback, [place] NaCl 0.9% 00 Q18H, Medical (NS) 250 mL First dose Br anch VIAL-MATE (after IV last piggyback reorder) on [place] 08/17/20 at 1300, Until Discontinu ed, 250 mL
Reas on for Anti-Infec tive: Documented Infection< br>Documen benny Infection Site: Skin / Soft Tissue
Duration of Therapy: Other (see Comments) FENTanyl PF 2019-09- No 25ug 25 mcg, Un rupinder (SUBLIMAZE 10-18- Slow IV ity o f (PF)) 18:26: 20:27 Push, [place] injection 44 :32 Q5MIN PRN, Medi [place] 25 mcg 4 doses, Branch Starting [place] 08/17/20 at 1226, Until [place] 08/17/20 at 1427, Routine, Pain (scale 4-6), PACU HYDROcodone 2019-09 2020- No 1{tbl} 1 tablet, Univers -acetaminop -06 19-12 Oral, ity of hen (NORCO 18:15: 02:14 Q4HPRN, Raj[place] as 5) 5-325 mg 28 :28 Starting Medi [place] tablet 1 [place] Branch tablet 08/17/20 at 1215, Until Fri08/18/20 at 2014, Routine, Pain (scale 4-6), Hold for SBP<110, DBP<60, RR<12, and/or drowsiness /sedation FENTanyl PF 2019-09- No 50ug 50 mcg, Un rupinder (SUBLIMAZE 10-18 Slow IV ity o f (PF)) 18:15: 14:45 Push, [place] injection 00 :00 Q4HPRN, 4 Medic al 50 mcg doses, Branch Starting [place] 08/17/20 at 1215, Until Discontinu ed, Routine, Pain (scale 7-10), Hold for SBP<110, DBP<60, RR<12, and/or drowsiness /sedation magnesium 2019- Yes 400mg 400 mg, Univ ers oxide 2-10 Oral, BID, ity of (MAG-OX 17:00: First dose [place] 400) tablet 00 on [facility] Medica l 400 mg 08/17/20 Branch at 1100, Until Discontinu ed, Routine lactated 2019-09 2020- No 1000mL at 42 Unive rs ringers IV 2-10 12-10 mL/hr, ity of infusion 15:30: 15:41 1,000 mL, Raji as 1,000 mL 00 :00 IV Medical Infusion, Branch ONCE, 1 dose, [facility] 08/17/20 at 0930, Routine, DSU Pre-op furosemide 2019-09 Yes 20mg 20 mg, Unive rs (LASIX) 2-10 Oral, ity of tablet 20 15:00: DAILY, [place] mg 00 First dose Medical (after Branch last modificati on) on [place] 08/17/20 at 0900, Until Discontinu ed, Routine aspirin 2019-09 Yes 81mg 81 mg, Univers chewable 2-10 Oral, ity of tablet 81 15:00: DAILY, [place] mg 00 First dose Medical on [place] Branch 08/17/20 at 0900, Until Discontinu ed, Routine SITagliptin 2019-09 Yes 100mg 100 mg, Un rupinder (JANUVIA) 2-10 Oral, ity of tablet 100 15:00: DAILY, [place] mg 00 First dose Medical on [place] Branch 08/17/20 at 0900, Until Discontinu ed, Routine zinc 2019- Yes 220mg 220 mg, Univers sulfate 2-10 Oral, ity of (ORAZINC) 15:00: DAILY, [place] capsule 220 00 First dose Me dical mg on [facility] Branch 08/17/20 at 0900, Until Discontinu ed, Routine ergocalcife 2019- Yes [id number] 50,000 Un rupinder rol 2-10 Units, ity of (vitamin 15:00: Oral, [place] d2) 00 QWEEKLY, Medical (CALCIFEROL First dose Br anch ) capsule on [place] 50,000 08/17/20 Units at 0900, Until Discontinu ed, Routine insulin 2019- Yes 25U 25 Units, Unive rs glargine 2-10 Subcutaneo ity o f (LANTUS 14:00: us, BID, [place] U-100) 00 First dose Medical injection (after Branch 25 Units last modificati on) on [facility] 08/17/20 at 0800, Until Discontinu ed, Routine metoprolol 2019-09 Yes 100mg 100 mg, Uni vers tartrate 2-10 Oral, BID, ity o f (LOPRESSOR) 14:00: First dose [place] tablet 100 00 on [facility] Medical mg 08/17/20 Branch at 0800, Until Discontinu ed, Routine nystatin 2019-09 Yes Topical, Unive rs (NYSTOP) 2-10 BID, First ity o f powder 14:00: dose on [place] 00 [facility] Medical 08/17/20 Branch at 0800, Until Discontinu ed, Routine lactobacill 2019-09 Yes 1{tbl} 1 tablet, Univers us 2-10 Oral, BID, ity of acidophilus 13:30: First dose [place] (ACIDOPHILL 00 on [place] Medica l US) 25 08/17/20 Branch million at 0730, cell -100 Until mg captab 1 Discontinu tablet ed, Routine Sliding 2019-09 Yes Subcutaneo Univ ers Scale 2-10 us, AC, ity of Insulin-Reg 13:30: First dose [place] ular + Fsbg 00 on [place] Medica l Testing 08/17/20 Branch at 0730, Until Discontinu ed, Routine NaCl 0.9% 2019-09 2020- No 1000mL at 42 Univ ers (NS) IV 2-10 12-11 mL/hr, IV ity of infusion 13:30: 16:37 Infusion, [place] 1,000 mL 00 :08 CONTINUOUS Medic al , Starting Branch [place] 08/17/20 at 0730, Until 08/18/20 at 1037, Routine FENTanyl PF 2019-09 2020- No 50ug 50 mcg, Un rupinder (SUBLIMAZE 2-10 12-10 Slow IV ity o f (PF)) 06:37: 18:15 Push, [place] injection 58 :15 Q3HPRN, Medical 50 mcg Starting Branch Mayrjane 08/17/20 at 0037, Until [place] 08/17/20 at 1215, Routine, Pain (scale 7-10), Hold for SBP<110, DBP<60, RR<12, and/or drowsiness /sedation glucagon 2019-09 Yes 1mg 1 mg, Univers (GLUCAGEN 2-10 Intramuscu ity of DIAGNOSTIC 04:25: lar, PRN, [place] KIT) 38 Starting Medical injection 1 Wed Branch mg 08/16/20 at 2225, Until Discontinu ed, AMADO, Blood Glucose < or = 70 mg/dL and patient is unable to swallow or has mental changes. dextrose 50 2019-09 Yes 25mL 25 mL, Univ ers % in water 2-10 Slow IV ity of (D50W) 04:25: Push, PRN, [place] injection 38 Starting Medica l 25 mL Wed Branch 08/16/20 at 2225, Until Discontinu ed, AMADO, Blood Glucose < or = 70 mg/dL and patient is unable to swallow or has mental status changes. piperacilli 2019-09 Yes 3.375g 3.375 g, Univers n-tazobacta 2-10 IV ity of m (ZOSYN) 03:30: [place]back, [place] 3.375 g in 00 Q6H ABX, Medic al NaCl 0.9% First dose Bran ch (NS) 100 mL on Wed MINI-BAG 08/16/20 at 2130, Until Discontinu ed, 100 mL
R rui for Anti-Infec tive: Documented Infection< br>Documen benny Infection Site: Skin / Soft Tissue
Duration of Therapy: 14 days HYDROmorpho 2019-09 2020- No 1mg 1 mg, Slow Univers ne 2-10 12-10 IV Push, ity of (DILAUDID) 03:30: 02:25 ONCE, 1 [place] as injection 1 00 :00 dose, Wed Med ical mg 08/16/20 at Branch 2130, Routine
Use approved by (Faculty): ADC PROVIDER NaCl 0.9% 2019-09- No 1000mL at 125 Uni vers (NS) IV 2-10 12-10 mL/hr, IV ity of infusion 02:30: 13:20 Infusion, [place] as 1,000 mL 00 :18 CONTINUOUS Medic al , Starting Branch [facility] 08/16/20 at 2030, Until [place] 08/17/20 at 0720, Routine docusate 2019-09 Yes 100mg 100 mg, Unive rs (COLACE) 2-10 Oral, ity of capsule 100 02:24: BIDPRN, Raj[place] as mg 33 Starting Medical [facility] Branch 08/16/20 at 2023, Until Discontinu ed, Routine, Constipati on ondansetron 2019-09 Yes 4mg 4 mg, Slow Univers (ZOFRAN 2-10 IV Push, ity of (PF)) 02:24: Q6HPRN, [place] injection 4 23 Starting Medi [place] mg [facility] 08/16/20 at 2023, Until Discontinu ed, Routine, Nausea and Vomiting (N/V) FENTanyl PF 2019-09- No 50ug 50 mcg, Un rupinder (SUBLIMAZE 2-10 12-10 Slow IV ity o f (PF)) 02:24: 06:38 Push, [place] injection 19 :32 Q3HPRN, Medical 50 mcg Starting Branch [facility] 08/16/20 at 2023, Until [place] 08/17/20 at 0038, Routine, Pain (scale 7-10) acetaminoph 2019-09 Yes 650mg 650 mg, Un rupinder en 2-10 Oral, ity of (TYLENOL) 02:24: Q6HPRN, [place] tablet 650 12 Starting Medic al mg [facility] 08/16/20 at 2023, Until Discontinu ed, Routine, Pain (scale 1-3) ondansetron 2019-09- No 4mg 4 mg, Slow Univers (ZOFRAN 2-10 12-10 IV Push, ity of (PF)) 01:00: 00:23 ONCE, 1 [place] injection 4 00 :00 dose, Fri Med ical mg 08/16/20 at Branch 1900, AMADO FENTanyl PF 2019-09- No 50ug 50 mcg, Un rupinder (SUBLIMAZE 2-10 12-10 Slow IV ity o f (PF)) 01:00: 00:23 Push, [place] injection 00 :00 ONCE, 1 Medical 50 mcg dose, [facility] Branch 08/16/20 at 1900, STAT vancomycin 2019-09 2020- No 1000mg 1,000 mg, Univers (VANCOCIN) 2-10 12-10 IV ity of 1,000 mg in 01:00: 01:49 Piggyback, [place] NaCl 0.9% 00 :00 ONCE, 1 Medical (NS) 250 mL dose, Fri [facility] VIAL-MATE 08/16/20 at IV 1900, 250 piggyback mL
Reas on for Anti-Infec tive: Documented Infection< br>Documen benny Infection Site: Skin / Soft Tissue
Duration of Therapy: Other (see Comments) NaCl 0.9% 2019-09 No 30mL/kg at 999 Un rupinder (NS) bolus 2-10 12-10 mL/hr, ity of infusion 01:00: 02:38 2,625 mL [place] 2,625 mL 00 :00 (30 mL/kg Medica l ?87.5 kg), Branch IV Infusion, ONCE, 1 dose, Fri08/16/20 at 1900, STAT apixaban 2019-09 Yes 5144 2.5mg Take 1 Univer s (ELIQUIS) 2-01 tablet by ity o f 2.5 mg 00:00: mouth 2 [place] tablet 00 (two) Medical times Branch daily. Indication s: prevention of thromboemb olism in paroxysmal atrial fibrillati on apixaban 2019-09 Yes 5144 2.5mg Take 1 Univer s (ELIQUIS) 2-01 tablet by ity o f 2.5 mg 00:00: mouth 2 [place] tablet 00 (two) Medical times Branch daily. Indication s: prevention of thromboemb olism in paroxysmal atrial fibrillati on apixaban 2019-09 Yes 5144 2.5mg Take 1 Univer s (ELIQUIS) 2-01 tablet by ity o f 2.5 mg 00:00: mouth 2 [place] tablet 00 (two) Medical times Branch daily. Indication s: prevention of thromboemb olism in paroxysmal atrial fibrillati on apixaban 2019-09 Yes 5144 2.5mg Take 1 Univer s (ELIQUIS) 2-01 tablet by ity o f 2.5 mg 00:00: mouth 2 [place] tablet 00 (two) Medical times Branch daily. Indication s: prevention of thromboemb olism in paroxysmal atrial fibrillati on SITagliptin 2019-09 Yes 100mg Take 100 U nivers 100 mg 1-24 mg by ity of tablet 20:09: mouth [place] [address] daily. Medical Branch atorvastati 2019-09 Yes 80mg Take 80 mg Univers n 80 mg 1-24 by mouth ity of tablet 20:09: at [place] [address] bedtime. Medical Branch aspirin 81 2019-09 Yes 81mg Take 81 mg U nivers mg chewable 1-24 by mouth ity of tablet 20:09: daily. [place] 44 Medical Branch insulin 2019-09 Yes 50U inject 50 Unive rs glargine 1-24 Units ity of U-300 conc 20:09: under the [place] (TOUJEO MAX 44 skin 2 Medica l U-300 (two) Branch SOLOSTAR) times 300 unit/mL daily. (3 mL) InPn dulaglutide 2019-09 Yes 1.5U inject 1.5 Univers (TRULICITY) 1-24 Units ity of 1.5 mg/0.5 20:09: under the [place] mL PnIj 44 skin Medical weekly. Branch vitC/E/Zn/c 2019-09 Yes Take by Un rupinder opper/lutei 1-24 mouth 2 ity o f n/zeaxan 20:09: (two) [place] (ICAPS 44 times Medical AREDS2 daily. Branch ORAL) bromfenac 2019-09 Yes 4[drp] Place 4 Uni vers sodium 1-24 Drops in ity of (PROLENSA 20:09: each eye [facility] s OPHTHALMIC) 44 daily. X Medi [place] 90 days Branch for cataract surgery prednisoLON 2019-09 Yes 1[drp] Place 1 U nivers E acetate 1 1-24 Drop in ity o f % 20:09: left eye 4 [place] ophthalmic 44 (four) Medical suspension times Branch drops daily. ciprofloxac 2019-09 Yes 1[drp] Place 1 U nivers in HCl 0.3 1-24 Drop in ity of % opthalmic 20:09: left eye. [place] drops 44 4 times Medical daily for Branch 10 days SITagliptin 2019-09 Yes 100mg Take 100 U nivers 100 mg 1-24 mg by ity of tablet 20:09: mouth [place] [id number] daily. Medical Branch atorvastati 2019-09 Yes 80mg Take 80 mg Univers n 80 mg 1-24 by mouth ity of tablet 20:09: at [place] [address] bedtime. Medical Branch aspirin 81 2019-09 Yes 81mg Take 81 mg U nivers mg chewable 1-24 by mouth ity of tablet 20:09: daily. [place] [id number] Medical Branch insulin 2019-09 Yes 50U inject 50 Unive rs glargine 1-24 Units ity of U-300 conc 20:09: under the [place] (TOUJEO MAX 44 skin 2 Medica l U-300 (two) Branch SOLOSTAR) times 300 unit/mL daily. (3 mL) InPn dulaglutide 2019-09 Yes 1.5U inject 1.5 Univers (TRULICITY) 1-24 Units ity of 1.5 mg/0.5 20:09: under the [place] mL PnIj 44 skin Medical weekly. Branch vitC/E/Zn/c 2019-09 Yes Take by Un rupinder opper/lutei 1-24 mouth 2 ity o f n/zeaxan 20:09: (two) [place] (ICAPS 44 times Medical AREDS2 daily. Branch ORAL) bromfenac 2019-09 Yes 4[drp] Place 4 Uni vers sodium 1-24 Drops in ity of (PROLENSA 20:09: each eye [facility] s OPHTHALMIC) daily. X Medi [place] 90 days Branch for cataract surgery prednisoLON 2019-09 Yes 1[drp] Place 1 U nivers E acetate 1 1-24 Drop in ity o f % 20:09: left eye 4 [place] ophthalmic 44 (four) Medical suspension times Branch drops daily. ciprofloxac 2019-09 Yes 1[drp] Place 1 U nivers in HCl 0.3 1-24 Drop in ity of % opthalmic 20:09: left eye. [place] drops 44 4 times Medical daily for Branch 10 days SITagliptin 2019-09 Yes 100mg Take 100 U nivers 100 mg 1-24 mg by ity of tablet 20:09: mouth [place] [id number] daily. Medical Branch atorvastati 2019-09 Yes 80mg Take 80 mg Univers n 80 mg 1-24 by mouth ity of tablet 20:09: at [place] [address] bedtime. Medical Branch aspirin 81 2019-09 Yes 81mg Take 81 mg U nivers mg chewable 1-24 by mouth ity of tablet 20:09: daily. [place] [id number] Medical Branch insulin 2019-09 Yes 50U inject 50 Unive rs glargine 1-24 Units ity of U-300 conc 20:09: [place] (TOUJEO MAX 44 skin 2 Medica l U-300 (two) Branch [facility]) times 300 unit/mL daily. (3 mL) InPn dulaglutide 2019-09 Yes 1.5U inject 1.5 [facility] (TRULICITY) 1-24 Units ity of 1.5 mg/0.5 20:09: under the [place] mL PnIj 44 skin Medical weekly. Branch vitC/E/Zn/c 2019-09 Yes Take by Un rupinder opper/lutei 1-24 mouth 2 ity o f n/zeaxan 20:09: (two) [place] (ICAPS 44 times Medical AREDS2 daily. Branch ORAL) bromfenac 2019-09 Yes 4[drp] Place 4 Uni vers sodium 1-24 Drops in ity of (PROLENSA 20:09: [place] OPHTHAL[place] 44 daily. X Medi [place] 90 days Branch for cataract surgery prednisoLON 2019-09 Yes 1[drp] Place 1 U nivers E acetate 1 1-24 Drop in ity o f % 20:09: left eye 4 [place] ophthalmic 44 (four) Medical suspension times Branch drops daily. ciprofloxac 2019-09 Yes 1[drp] Place 1 U nivers in HCl 0.3 1-24 Drop in ity of % opthalmic 20:09: [place]. [place] drops 44 4 times Medical daily for Branch 10 days SITagliptin 2019-09 Yes 100mg Take 100 U nivers 100 mg 1-24 mg by ity of tablet 20:09: mouth [place] [id number] daily. Medical Branch atorvastati 2019-09 Yes 80mg Take 80 mg Univers n 80 mg 1-24 by mouth ity of tablet 20:09: at [place] [address] bedtime. Medical Branch aspirin 81 2019-09 Yes 81mg Take 81 mg U nivers mg chewable 1-24 by mouth ity of tablet 20:09: daily. [place] [address] Medical Branch insulin 2019-09 Yes 50U inject 50 Unive rs glargine 1-24 Units ity of U-300 conc 20:09: under the [place] (TOUJEO MAX 44 skin 2 Medica l U-300 (two) Branch [facility]) times 300 unit/mL daily. (3 mL) InPn dulaglutide 2019-09 Yes 1.5U inject 1.5 [facility] (TRULICITY) 1-24 Units ity of 1.5 mg/0.5 20:09: under the [place] mL PnIj 44 skin Medical weekly. Branch vitC/E/Zn/c 2019-09 Yes Take by Un rupinder opper/lutei 1-24 mouth 2 ity o f n/zeaxan 20:09: (two) [place] (ICAPS 44 times Medical AREDS2 daily. Branch ORAL) bromfenac 2019-09 Yes 4[drp] Place 4 Uni vers sodium 1-24 Drops in ity of (PROLENSA 20:09: [place] OPHTHALMIC) 44 daily. X Medi [place] 90 days Branch for cataract surgery prednisoLON 2019-09 Yes 1[drp] Place 1 U nivers E acetate 1 1-24 Drop in ity o f % 20:09: left eye 4 [place] ophthalmic 44 (four) Medical suspension times Branch drops daily. ciprofloxac 2019-09 Yes 1[drp] Place 1 U nivers in HCl 0.3 1-24 Drop in ity of % opthalmic 20:09: left eye. [place] drops 44 4 times Medical daily for Branch 10 days apixaban 2019-09 Yes 5144 5mg Take 2 Univers (ELIQUIS) 1-24 tablets by ity of 2.5 mg 00:00: mouth 2 [place] tablet 00 (two) Medical times Branch daily. Indication s: prevention of thromboemb olism in paroxysmal atrial fibrillati on apixaban 2019-09 Yes 5144 5mg Take 2 Univers (ELIQUIS) 1-24 tablets by ity of 2.5 mg 00:00: mouth 2 [place] tablet 00 (two) Medical times Branch daily. Indication s: prevention of thromboemb olism in paroxysmal atrial fibrillati on apixaban 2019-09 Yes 5144 5mg Take 2 [facility] (ELIQUIS) 1-24 tablets by ity of 2.5 mg 00:00: mouth 2 [place] tablet 00 (two) Medical times Branch daily. Indication s: prevention of thromboemb olism in paroxysmal atrial fibrillati on apixaban 2019-09 2020- No 5144 5mg Take 2 Univer s (ELIQUIS) 1-24 12-01 tablets by ity of 2.5 mg 00:00: 00:00 mouth 2 [place] tablet 00 :00 (two) Medical times Branch daily. Indication s: prevention of thromboemb olism in paroxysmal atrial fibrillati on aspirin 2020-0 Yes 81mg 81 mg, Univers chewable 9-15 Oral, ity of tablet 81 14:00: DAILY, [place] mg 00 First dose Medical on Fri Branch 05/23/20 at 0900, Until Discontinu ed, Routine SITagliptin 2020-0 Yes 100mg Take 100 U nivers 100 mg 9-14 mg by ity of tablet 17:03: mouth [place] daily. Medical Branch atorvastati 2020-0 Yes 80mg Take 80 mg Univers n 80 mg 9-14 by mouth ity of tablet 17:03: at [place] bedtime. Medical Branch aspirin 81 2020-0 Yes 81mg Take 81 mg U nivers mg chewable 9-14 by mouth ity of tablet 17:03: daily. [place] Medical Branch insulin 2020-0 Yes 50U inject 50 Unive rs glargine 9-14 Units ity of U-300 conc 17:03: under the [place] (TOUJEO MAX 01 skin 2 Medica l U-300 (two) Branch [facility]) times 300 unit/mL daily. (3 mL) InPn dulaglutide 2020-0 Yes 1.5U inject 1.5 [facility] (TRULICITY) 9-14 Units ity of 1.5 mg/0.5 17:03: under the [place] mL PnIj 01 skin Medical weekly. Branch vitC/E/Zn/c 2020-0 Yes Take by Un rupinder opper/lutei 9-14 mouth 2 ity o f n/zeaxan 17:03: (two) [place] (ICAPS 01 times Medical AREDS2 daily. Branch ORAL) bromfenac 2020-0 Yes 4[drp] Place 4 Uni vers sodium 9-14 Drops in ity of (PROLENSA 17:03: [place] OPHTHALMIC) 01 daily. X Medi [place] 90 days Branch for cataract surgery prednisoLON 2020-0 Yes 1[drp] Place 1 U nivers E acetate 1 9-14 Drop in ity o f % 17:03: left eye 4 [place] ophthalmic 01 (four) Medical suspension times Branch drops daily. ciprofloxac 2020-0 Yes 1[drp] Place 1 U nivers in HCl 0.3 9-14 Drop in ity of % opthalmic 17:03: left eye. [place] drops 01 4 times Medical daily for Branch 10 days SITagliptin 2020-0 Yes 100mg Take 100 U nivers 100 mg 9-14 mg by ity of tablet 17:03: mouth [place] 01 daily. Medical Branch atorvastati 2020-0 Yes 80mg Take 80 mg Univers n 80 mg 9-14 by mouth ity of tablet 17:03: at [place] bedtime. Medical Branch aspirin 81 2020-0 Yes 81mg Take 81 mg U nivers mg chewable 9-14 by mouth ity of tablet 17:03: daily. [place] Medical Branch insulin 2020-0 Yes 50U inject 50 Unive rs glargine 9-14 Units ity of U-300 conc 17:03: under the [place] (TOUJEO MAX 01 skin 2 Medica l U-300 (two) Branch [facility]) times 300 unit/mL daily. (3 mL) InPn dulaglutide 2020-0 Yes 1.5U inject 1.5 [facility] (TRULICITY) 9-14 Units ity of 1.5 mg/0.5 17:03: under the [place] mL PnIj 01 skin Medical weekly. Branch vitC/E/Zn/c 2020-0 Yes Take by Un rupinder opper/lutei 9-14 mouth 2 ity o f n/zeaxan 17:03: (two) [place] (ICAPS 01 times Medical AREDS2 daily. Branch ORAL) bromfenac 2020-0 Yes 4[drp] Place 4 Uni vers sodium 9-14 Drops in ity of (PROLENSA 17:03: [place] OPHTHALMIC) 01 daily. X [place]i [place] 90 days Branch for cataract surgery prednisoLON 2020-0 Yes 1[drp] Place 1 U nivers E acetate 1 9-14 Drop in ity o f % 17:03: left eye 4 [place] ophthalmic 01 (four) Medical suspension times Branch drops daily. ciprofloxac 2020-0 Yes 1[drp] Place 1 U nivers in HCl 0.3 9-14 Drop in ity of % opthalmic 17:03: left eye. [place] drops 01 4 times Medical daily for Branch 10 days SITagliptin 2020-0 Yes 100mg Take 100 U nivers 100 mg 9-14 mg by ity of tablet 17:03: mouth [place] 01 daily. Medical Branch atorvastati 2020-0 Yes 80mg Take 80 mg Univers n 80 mg 9-14 by mouth ity of tablet 17:03: at [place] bedtime. Medical Branch aspirin 81 2020-0 Yes 81mg Take 81 mg U nivers mg chewable 9-14 by mouth ity of tablet 17:03: daily. [place] Medical Branch insulin 2020-0 Yes 50U inject 50 Unive rs glargine 9-14 Units ity of U-300 conc 17:03: under the [place] (TOUJEO MAX 01 skin 2 Medica l U-300 (two) Branch [facility]) times 300 unit/mL daily. (3 mL) InPn dulaglutide 2020-0 Yes 1.5U inject 1.5 [facility] (TRULICITY) 9-14 Units ity of 1.5 mg/0.5 17:03: under the [place] mL PnIj 01 skin Medical weekly. Branch vitC/E/Zn/c 2020-0 Yes Take by Un rupinder opper/lutei 9-14 mouth 2 ity o f n/zeaxan 17:03: (two) [place] (ICAPS 01 times Medical AREDS2 daily. Branch ORAL) SITagliptin 2020-0 Yes 100mg Take 100 U nivers 100 mg 9-14 mg by ity of tablet 17:03: mouth [place] 01 daily. Medical Branch atorvastati 2020-0 Yes 80mg Take 80 mg Univers n 80 mg 9-14 by mouth ity of tablet 17:03: at [place] bedtime. Medical Branch aspirin 81 2020-0 Yes 81mg Take 81 mg U nivers mg chewable 9-14 by mouth ity of tablet 17:03: daily. [place] [address] Medical Branch insulin 2020-0 Yes 50U inject 50 Unive rs glargine 9-14 Units ity of U-300 conc 17:03: under the [place] (TOUJEO MAX 01 skin 2 Medica l U-300 (two) Branch [facility]) times 300 unit/mL daily. (3 mL) InPn dulaglutide 2020-0 Yes 1.5U inject 1.5 [facility] (TRULICITY) 9-14 Units ity of 1.5 mg/0.5 17:03: under the [place] mL PnIj 01 skin Medical weekly. Branch vitC/E/Zn/c 2020-0 Yes Take by Un rupinder opper/lutei 9-14 mouth 2 ity o f n/zeaxan 17:03: (two) [place] (ICAPS 01 times Medical AREDS2 daily. Branch ORAL) bromfenac 2020-0 Yes 4[drp] Place 4 Uni vers sodium 9-14 Drops in ity of (PROLENSA 17:03: each [place] OPHTHALMIC) 01 daily. X Medi [place] 90 days Branch for cataract surgery prednisoLON 2020-0 Yes 1[drp] Place 1 U nivers E acetate 1 9-14 Drop in ity o f % 17:03: left eye 4 [place] ophthalmic 01 (four) Medical suspension times Branch drops daily. ciprofloxac 2020-0 Yes 1[drp] Place 1 U nivers in HCl 0.3 9-14 Drop in ity of % opthalmic 17:03: left eye. [place] drops 01 4 times Medical daily for Branch 10 days SITagliptin 2020-0 Yes 100mg Take 100 U nivers 100 mg 9-14 mg by ity of tablet 17:03: mouth [place] daily. Medical Branch atorvastati 2020-0 Yes 80mg Take 80 mg Univers n 80 mg 9-14 by mouth ity of tablet 17:03: at [place] bedtime. Medical Branch aspirin 81 2020-0 Yes 81mg Take 81 mg U nivers mg chewable 9-14 by mouth ity of tablet 17:03: daily. [place] Medical Branch insulin 2020-0 Yes 50U inject 50 Unive rs glargine 9-14 Units ity of U-300 conc 17:03: under the [place] (TOUJEO MAX 01 skin 2 Medica l U-300 (two) Branch [facility]) times 300 unit/mL daily. (3 mL) InPn dulaglutide 2020-0 Yes 1.5U inject 1.5 [facility] (TRULICITY) 9-14 Units ity of 1.5 mg/0.5 17:03: under the [place] mL PnIj 01 skin Medical weekly. Branch vitC/E/Zn/c 2020-0 Yes Take by Un rupinder opper/lutei 9-14 mouth 2 ity o f n/zeaxan 17:03: (two) [place] (ICAPS 01 times Medical AREDS2 daily. Branch ORAL) bromfenac 2020-0 Yes 4[drp] Place 4 Uni vers sodium 9-14 Drops in ity of (PROLENSA 17:03: [place] OPHTHALMIC) 01 daily. X Medi [place] 90 days Branch for cataract surgery prednisoLON 2020-0 Yes 1[drp] Place 1 U nivers E acetate 1 9-14 Drop in ity o f % 17:03: left eye 4 [place] ophthalmic 01 (four) Medical suspension times Branch drops daily. ciprofloxac 2020-0 Yes 1[drp] Place 1 U nivers in HCl 0.3 9-14 Drop in ity of % opthalmic 17:03: left eye. [place] drops 01 4 times Medical daily for Branch 10 days furosemide 2019-0 2020- No 20mg Take 20 mg Univers 20 mg 05-22 by mouth ity of tablet 13:52: 00:00 every [place] 50 :00 morning Medical and Branch evening. atorvastati 0 Yes 80mg 80 mg, Univ ers n (LIPITOR) 05-22 Oral, QHS, it y of tablet 80 02:00: First dose [place] mg 00 on [facility] 05/21/20 at Branch 2100, Until Discontinu ed, Routine amiodarone 2019-2019- No .5mg/mi 0.5 mg/min Univers (CORDARONE) 05-22 n (16.6667 ity of 900 mg in 01:45: 13:26 mL/hr, [place] D5W 500 mL 00 :20 rounded to Med ical infusion 16.67 [facility] mL/hr), IV Infusion, CONTINUOUS , Starting 05/21/20 at 2045, For 18 hours
A ll amiodarone infusions must be administer ed using a 0.22 micron in line filter. Administer via central line if available. Amiodarone infusions with concentrat ions > 2 mg/mL must be administer ed via central line.
furosemide 2019-0 2020- No 40mg 40 mg, IV U nivers (LASIX) 05-22 Push, ity of injection 01:00: 12:04 Q12H, [place] 40 mg 00 :19 First dose Medical (after [facility] last modificati on) on [place] 05/21/20 at 2000, Until Discontinu ed, AMADO amiodarone 2019- 2020- No 1mg/min 1 mg/min Univers (CORDARONE) 05-21 (33.3333 ity of 900 mg in 19:45: 01:44 mL/hr, [place] D5W 500 mL 00 :00 rounded to Med ical infusion 33.33 Branch mL/hr), IV Infusion, CONTINUOUS , Starting [place] 05/21/20 at 1445, For 6 hours
A ll amiodarone infusions must be administer ed using a 0.22 micron in line filter. Administer via central line if available. Amiodarone infusions with concentrat ions > 2 mg/mL must be administer ed via central line.
metoprolol 2019- No 5mg 5 mg, Slow Univers (LOPRESSOR) 05-21 IV Push, ity of injection 5 19:00: 17:58 Q8H, First [place] mg 00 :04 dose on [facility] 05/21/20 at 1400, Until Discontinu ed, Routine amiodarone 2019- 2020- No 1mg/min 1 mg/min Univers (CORDARONE) 05-21 (33.3333 ity of 900 mg in 18:45: 19:33 mL/hr, [place] D5W 500 mL 00 :18 rounded to Med ical infusion 33.33 Branch mL/hr), IV Infusion, CONTINUOUS , Starting [place] 05/21/20 at 1345
Al l amiodarone infusions must be administer ed using a 0.22 micron in line filter. Administer via central line if available. Amiodarone infusions with concentrat ions > 2 mg/mL must be administer ed via central line.
amiodarone 2019- 2020- No 150mg 150 mg, IV Univers 150 mg/100 05-21 Piggyback, it y of mL 18:45: 18:03 ONCE, 1 [place] (NEXTERONE) 00 :00 dose, [place] Med ical RTU 05/21/20 at Branch infusion 1345 150 mg acetaminoph Yes 500mg 500 mg, Un rupinder en 05-21 Oral, ity of (TYLENOL) 17:50: Q6HPRN, [place] tablet 500 14 Starting Medic al mg [facility] 05/21/20 at 1250, Until Discontinu ed, Routine, Pain (scale 1-3), Temp > 38.5 C hydralAZINE 2020-0 Yes 10mg 10 mg, [facility] ers (APRESOLINE 05-21 Intravenou it y of ) injection 15:37: s, PRN - [place] 10 mg 05 SEE Medical INSTRUCTIO Branch NS, Starting [place] 05/21/20 at 1037, Until Discontinu ed, Routine, Hypertensi ve emergency, Hypertensi on, Q4h for SBP>160 or DBP>100 SITagliptin 2020-0 Yes 100mg 100 mg, Un rupinder (JANUVIA) 05-21 Oral, ity of tablet 100 14:00: DAILY, [place] mg 00 First dose Medical on [facility] 05/21/20 at 0900, Until Discontinu ed, Routine lisinopriL 2020-0 2020- No 10mg 10 mg, [facility] ers (PRINIVIL,Z 05-21-14 Oral, ity of ESTRIL) 14:00: 12:04 DAILY, [place] tablet 10 00 :19 First dose Medi [place] mg on [facility] 05/21/20 at 0900, Until Discontinu ed, Routine metoprolol 2020-0 Yes 100mg 100 mg, Uni vers tartrate 05-21 Oral, BID, ity o f (LOPRESSOR) 13:00: First dose [place] tablet 100 00 on [place] Medical mg 05/21/20 at Branch 0800, Until Discontinu ed, Routine cefTRIAXone 2020-0 Yes 1000mg 1,000 mg, Univers (ROCEPHIN) 05-21 IV ity of 1,000 mg in 07:00: Piggyback, [place] NaCl 0.9% 00 Q12H ABX, Medic al (NS) 50 mL First dose Bra [facility] MINI-BAG on [place] 05/21/20 at 0200, Until Discontinu ed, 50 mL
R rui for Anti-Infec tive: Empiric Therapy for Suspected Infection< br>Empiric Therapy Site: Urine
D uration of therapy: 7 days azithromyci 2020-0 2020- No 500mg 500 mg, IV Univers n 05-21-18 Piggyback, ity of (ZITHROMAX) 07:00: 06:59 Q24H ABX, [place] 500 mg in 00 :00 5 doses, Medica l NaCl 0.9% First dose Bran ch (NS) 250 mL on [place] VIAL-MATE 05/21/20 at IV 0200, Last piggyback dose on [place] 05/25/20 at 0200, 250 mL
Reas on for Anti-Infec tive: Empiric Therapy for Suspected Infection< br>Empiric Therapy Site: Respirator y
Durat ion of therapy: 7 days lactobacill 2020-0 Yes 1{tbl} 1 tablet, Univers us 05-21 Oral, BID, ity of acidophilus 06:00: First dose [place] (ACIDOPHILL 00 on [place] Medica l US) 25 05/21/20 at Branch million 0100, cell -100 Until mg captab 1 Discontinu tablet ed, Routine insulin 2020-0 Yes 50U 50 Units, Unive rs glargine 05-21 Subcutaneo ity o f (LANTUS 05:45: us, BID, [place] U-100) 00 First dose Medical injection on [facility] 50 Units 05/21/20 at 0045, Until Discontinu ed Polyethylen 2020-0 Yes 17g 17 g, Unive rs e Glycol 05-21 Oral, ity of 3350 05:45: DAILY, [place] (MIRALAX) 00 First dose Medi [place] powder 17 g on [facility] 05/21/20 at 0045, Until Discontinu ed, Routine sennosides 2020-0 Yes 8.6mg 8.6 mg, Uni vers (SENOKOT) 05-21 Oral, BID, ity of tablet 8.6 05:45: First dose [place] mg 00 on [facility] 05/21/20 at Branch 0045, Until Discontinu ed, Routine docusate 2020-0 Yes 100mg 100 mg, Unive rs (COLACE) 05-21 Oral, BID, ity o f capsule 100 05:45: First dose [place] mg 00 on [facility] 05/21/20 at Branch 0045, Until Discontinu ed, Routine Sliding 2020-0 Yes Subcutaneo Univ ers Scale 05-21 us, TID ity of Insulin - 05:45: MEALS+HS, [place] as Aspart 00 First dose Medical (NOVOLOG) + on [facility] Fsbg 05/21/20 at Testing 0045, Until Discontinu ed, Routine bisacodyL 2020-0 2020- No 10mg 10 mg, Unive rs (DULCOLAX) 05-21 Rectal, ity o f suppository 05:45: 01:59 QHS, 3 [place] 10 mg 00 :00 doses, Medical First dose Branch on [place] 05/21/20 at 0045, Last dose on 05/22/20 at 2100, Routine furosemide 2019- 2020- No 40mg 40 mg, IV U nivers (LASIX) 05-21 Push, Q8H, ity o f injection 05:45: 22:40 First dose [place] 40 mg 00 :39 on [facility] 05/21/20 at Branch 0045, Until Discontinu ed, AMADO ondansetron 2019-0 Yes 4mg 4 mg, Slow Univers (ZOFRAN 05-21 IV Push, ity of (PF)) 05:31: Q6HPRN, [place] injection 4 38 Starting Medi [place] mg [facility] 05/21/20 at 0031, Until Discontinu ed, Routine, Nausea and Vomiting (N/V) glucagon Yes 1mg 1 mg, Univers (GLUCAGEN 05-21 Intramuscu ity of DIAGNOSTIC 05:29: lar, PRN, [place] KIT) 27 Starting Medical injection 1 [facility] mg 05/21/20 at 0029, Until Discontinu ed, AMADO, Blood Glucose < or = 70 mg/dL and patient is unable to swallow or has mental changes. dextrose 50 2019-0 Yes 25mL 25 mL, Univ ers % in water 05-21 Slow IV ity of (D50W) 05:29: Push, PRN, [place] injection 27 Starting Medica l 25 mL [facility] 05/21/20 at 0029, Until Discontinu ed, AMADO, Blood Glucose < or = 70 mg/dL and patient is unable to swallow or has mental status changes. NaCl 0.9% 2019-2019- No 250mL 250 mL, IV Univers (NS) IV 05-21 Infusion, ity of Line 01:30: 03:11 ONCE, 1 [place] Priming and 00 :00 dose, Sat Med ical [place] 05/20/20 at Branc h Fluid Only 2029, 250 250 mL mL sulfamethox 2019-0 2020- No [id number] 1{tbl} Take 1 Univers azole-trime 8-17 -28 tablet by it y of thoprim 00:00: 04:59 mouth 2 [place] (BACTRIM 00 :00 (two) Medical DS) 800-160 times Branch mg per daily for tablet 10 days. sulfamethox 2020-0 2020- No [id number] 1{tbl} Take 1 Univers azole-trime 8-17 -28 tablet by it y of thoprim 00:00: 04:59 mouth 2 [place] (BACTRIM 00 :00 (two) Medical DS) 800-160 times Branch mg per daily for tablet 10 days. sulfamethox 2020-0 2020- No [id number] 1{tbl} Take 1 [facility] azole-trime 8-17 -28 tablet by it y of thoprim 00:00: 04:59 mouth 2 [place] (BACTRIM 00 :00 (two) Medical DS) 800-160 times Branch mg per daily for tablet 10 days. insulin 2020-0 Yes 50U inject 50 Unive rs glargine 7-22 Units ity of U-300 conc 19:04: under the [place] (TOUJEO MAX 03 skin 2 Medica l U-300 (two) Branch [facility]) times 300 unit/mL daily. (3 mL) InPn dulaglutide 2020-0 Yes 1.5U inject 1.5 Univers (TRULICITY) 7-22 Units ity of 1.5 mg/0.5 19:04: under the [place] mL PnIj 03 skin Medical weekly. Branch vitC/E/Zn/c 2020-0 Yes Take by Un rupinder opper/lutei 7-22 mouth 2 ity o f n/zeaxan 19:04: (two) [place] (ICAPS 03 times Medical AREDS2 daily. Branch ORAL) SITagliptin 2020-0 Yes 100mg Take 100 U nivers 100 mg 7-22 mg by ity of tablet 19:04: mouth [place] 03 daily. Medical Branch atorvastati 2020-0 Yes 80mg Take 80 mg Univers n 80 mg 7-22 by mouth ity of tablet 19:04: at [place] 03 bedtime. Medical Branch furosemide 2020-0 Yes 20mg Take 20 mg U nivers 20 mg 7-22 by mouth ity of tablet 19:04: every [place] 03 morning Medical and Branch evening. aspirin 81 2020-0 Yes 81mg Take 81 mg U nivers mg chewable 7-22 by mouth ity of tablet 19:04: daily. [place] [address] Medical Branch insulin 2020-0 Yes 50U inject 50 Unive rs glargine 7-22 Units ity of U-300 conc 19:04: under the [place] (TOUJEO MAX 03 skin 2 Medica l U-300 (two) Branch [facility]) times 300 unit/mL daily. (3 mL) InPn dulaglutide 2020-0 Yes 1.5U inject 1.5 Univers (TRULICITY) 7-22 Units ity of 1.5 mg/0.5 19:04: under the [place] mL PnIj 03 skin Medical weekly. Branch vitC/E/Zn/c 2020-0 Yes Take by Un rupinder opper/lutei 7-22 mouth 2 ity o f n/zeaxan 19:04: (two) [place] (ICAPS 03 times Medical AREDS2 daily. Branch ORAL) SITagliptin 2020-0 Yes 100mg Take 100 U nivers 100 mg 7-22 mg by ity of tablet 19:04: mouth [place] 03 daily. Medical Branch atorvastati 2020-0 Yes 80mg Take 80 mg Univers n 80 mg 7-22 by mouth ity of tablet 19:04: at [place] [address] bedtime. Medical Branch furosemide 2020-0 Yes 20mg Take 20 mg U nivers 20 mg 7-22 by mouth ity of tablet 19:04: every [place] 03 morning Medical and Branch evening. aspirin 81 2020-0 Yes 81mg Take 81 mg U nivers mg chewable 7-22 by mouth ity of tablet 19:04: daily. [place] [address] Medical Branch insulin 2020-0 Yes 50U inject 50 Unive rs glargine 7-22 Units ity of U-300 conc 19:04: under the [place] (TOUJEO MAX 03 skin 2 Medica l U-300 (two) Branch [facility]) times 300 unit/mL daily. (3 mL) InPn dulaglutide 2020-0 Yes 1.5U inject 1.5 Univers (TRULICITY) 7-22 Units ity of 1.5 mg/0.5 19:04: under the [place] mL PnIj 03 skin Medical weekly. Branch vitC/E/Zn/c 2020-0 Yes Take by Un rupinder opper/lutei 7-22 mouth 2 ity o f n/zeaxan 19:04: (two) [place] (ICAPS 03 times Medical AREDS2 daily. Branch ORAL) SITagliptin 2020-0 Yes 100mg Take 100 U nivers 100 mg 7-22 mg by ity of tablet 19:04: mouth [place] 03 daily. Medical Branch atorvastati 2020-0 Yes 80mg Take 80 mg Univers n 80 mg 7-22 by mouth ity of tablet 19:04: at [place] 03 bedtime. Medical Branch furosemide 2020-0 Yes 20mg Take 20 mg U nivers 20 mg 7-22 by mouth ity of tablet 19:04: every [place] 03 morning Medical and Branch evening. aspirin 81 2020-0 Yes 81mg Take 81 mg U nivers mg chewable 7-22 by mouth ity of tablet 19:04: daily. [place] 03 Medical Branch insulin 2020-0 Yes 50U inject 50 Unive rs glargine 7-22 Units ity of U-300 conc 19:04: under the [place] (TOUJEO MAX 03 skin 2 Medica l U-300 (two) Branch [facility]) times 300 unit/mL daily. (3 mL) InPn dulaglutide 2020-0 Yes 1.5U inject 1.5 [facility] (TRULICITY) 7-22 Units ity of 1.5 mg/0.5 19:04: under the [place] mL PnIj 03 skin Medical weekly. Branch vitC/E/Zn/c 2020-0 Yes Take by Un rupinder opper/lutei 7-22 mouth 2 ity o f n/zeaxan 19:04: (two) [place] [facility] Medical AREDS2 daily. Branch ORAL) SITagliptin 2020-0 Yes 100mg Take 100 U nivers 100 mg 7-22 mg by ity of tablet 19:04: mouth [place] 03 daily. Medical Branch atorvastati 2020-0 Yes 80mg Take 80 mg Univers n 80 mg 7-22 by mouth ity of tablet 19:04: at [place] 03 bedtime. Medical Branch furosemide 2020-0 Yes 20mg Take 20 mg U nivers 20 mg 7-22 by mouth ity of tablet 19:04: every [place] 03 morning Medical and Branch evening. aspirin 81 2020-0 Yes 81mg Take 81 mg U nivers mg chewable 7-22 by mouth ity of tablet 19:04: daily. [place] Medical Branch insulin 2020-0 Yes 50U inject 50 Unive rs glargine 7-22 Units ity of U-300 conc 19:04: under the [place] (TOUJEO MAX 03 skin 2 Medica l U-300 (two) Branch [facility]) times 300 unit/mL daily. (3 mL) InPn dulaglutide 2020-0 Yes 1.5U inject 1.5 [facility] (TRULICITY) 7-22 Units ity of 1.5 mg/0.5 19:04: under the [place] mL PnIj 03 skin Medical weekly. Branch vitC/E/Zn/c 2020-0 Yes Take by Un rupinder opper/lutei 7-22 mouth 2 ity o f n/zeaxan 19:04: (two) [place] (ICAPS 03 times Medical AREDS2 daily. Branch ORAL) SITagliptin 2020-0 Yes 100mg Take 100 U nivers 100 mg 7-22 mg by ity of tablet 19:04: mouth [place] 03 daily. Medical Branch atorvastati 2020-0 Yes 80mg Take 80 mg Univers n 80 mg 7-22 by mouth ity of tablet 19:04: at [place] 03 bedtime. Medical Branch furosemide 2020-0 Yes 20mg Take 20 mg U nivers 20 mg 7-22 by mouth ity of tablet 19:04: every [place] 03 morning Medical and Branch evening. aspirin 81 2020-0 Yes 81mg Take 81 mg U nivers mg chewable 7-22 by mouth ity of tablet 19:04: daily. [place] [address] Medical Branch insulin 2020-0 Yes 50U inject 50 Unive rs glargine 7-22 Units ity of U-300 conc 19:04: under the [place] (TOUJEO MAX 03 skin 2 Medica l U-300 (two) Branch [facility]) times 300 unit/mL daily. (3 mL) InPn dulaglutide 2020-0 Yes 1.5U inject 1.5 [facility] (TRULICITY) 7-22 Units ity of 1.5 mg/0.5 19:04: under the [place] mL PnIj 03 skin Medical weekly. Branch vitC/E/Zn/c 2020-0 Yes Take by Un rupinder opper/lutei 7-22 mouth 2 ity o f n/zeaxan 19:04: (two) [place] (ICAPS 03 times Medical AREDS2 daily. Branch ORAL) SITagliptin 2020-0 Yes 100mg Take 100 U nivers 100 mg 7-22 mg by ity of tablet 19:04: mouth [place] 03 daily. Medical Branch atorvastati 2020-0 Yes 80mg Take 80 mg Univers n 80 mg 7-22 by mouth ity of tablet 19:04: at [place] 03 bedtime. Medical Branch furosemide 2020-0 Yes 20mg Take 20 mg U nivers 20 mg 7-22 by mouth ity of tablet 19:04: every [place] 03 morning Medical and Branch evening. aspirin 81 2020-0 Yes 81mg Take 81 mg U nivers mg chewable 7-22 by mouth ity of tablet 19:04: daily. [place] 03 Medical Branch insulin 2020-0 Yes 50U inject 50 Unive rs glargine 7-22 Units ity of U-300 conc 19:04: [place] (TOUJEO MAX 03 skin 2 Medica l U-300 (two) Branch SOLOSTAR) times 300 unit/mL daily. (3 mL) InPn dulaglutide 2020-0 Yes 1.5U inject 1.5 Univers (TRULICITY) 7-22 Units ity of 1.5 mg/0.5 19:04: [place] the [place] mL PnIj 03 skin Medical weekly. Branch vitC/E/Zn/c 2020-0 Yes Take by Un rupinder opper/lutei 7-22 mouth 2 ity o f n/zeaxan 19:04: (two) [place] ([facility] 03 times Medical AREDS2 daily. Branch ORAL) SITagliptin 2020-0 Yes 100mg Take 100 U nivers 100 mg 7-22 mg by ity of tablet 19:04: mouth [place] 03 daily. Medical Branch atorvastati 2020-0 Yes 80mg Take 80 mg Univers n 80 mg 7-22 by mouth ity of tablet 19:04: at [place] 03 bedtime. Medical Branch furosemide 2020-0 Yes 20mg Take 20 mg U nivers 20 mg 7-22 by mouth ity of tablet 19:04: every [place] 03 morning Medical and Branch evening. aspirin 81 2020-0 Yes 81mg Take 81 mg U nivers mg chewable 7-22 by mouth ity of tablet 19:04: daily. [place] [address] Medical Branch insulin 2020-0 Yes 50U inject 50 Unive rs glargine 7-22 Units ity of U-300 conc 19:04: [place] (TOUJEO MAX 03 skin 2 Medica l U-300 (two) Branch [facility]) times 300 unit/mL daily. (3 mL) InPn dulaglutide 2020-0 Yes 1.5U inject 1.5 Univers (TRULICITY) 7-22 Units ity of 1.5 mg/0.5 19:04: [place] the [place] mL PnIj 03 skin Medical weekly. Branch vitC/E/Zn/c 2020-0 Yes Take by Un rupinder opper/lutei 7-22 mouth 2 ity o f n/zeaxan 19:04: (two) [place] ([facility] 03 times Medical AREDS2 daily. Branch ORAL) SITagliptin 2020-0 Yes 100mg Take 100 U nivers 100 mg 7-22 mg by ity of tablet 19:04: mouth [place] 03 daily. Medical Branch atorvastati 2020-0 Yes 80mg Take 80 mg Univers n 80 mg 7-22 by mouth ity of tablet 19:04: at [place] [address] bedtime. Medical Branch furosemide 2020-0 Yes 20mg Take 20 mg U nivers 20 mg 7-22 by mouth ity of tablet 19:04: every [place] [address] morning Medical and Branch evening. aspirin 81 2020-0 Yes 81mg Take 81 mg U nivers mg chewable 7-22 by mouth ity of tablet 19:04: daily. [place] [address] Medical Branch insulin 2020-0 Yes 50U inject 50 Unive rs glargine 7-22 Units ity of U-300 conc 19:04: [place] (TOUJEO MAX 03 skin 2 Medica l U-300 (two) Branch [facility]) times 300 unit/mL daily. (3 mL) InPn dulaglutide 2020-0 Yes 1.5U inject 1.5 Univers (TRULICITY) 7-22 Units ity of 1.5 mg/0.5 19:04: under the [place] mL PnIj 03 skin Medical weekly. Branch vitC/E/Zn/c 2020-0 Yes Take by Un rupinder opper/lutei 7-22 mouth 2 ity o f n/zeaxan 19:04: (two) [place] (IC[facility] 03 times Medical AREDS2 daily. Branch ORAL) SITagliptin 2020-0 Yes 100mg Take 100 U nivers 100 mg 7-22 mg by ity of tablet 19:04: mouth [place] 03 daily. Medical Branch atorvastati 2020-0 Yes 80mg Take 80 mg Univers n 80 mg 7-22 by mouth ity of tablet 19:04: at [place] 03 bedtime. Medical Branch furosemide 2020-0 Yes 20mg Take 20 mg U nivers 20 mg 7-22 by mouth ity of tablet 19:04: every [place] 03 morning Medical and Branch evening. aspirin 81 2020-0 Yes 81mg Take 81 mg U nivers mg chewable 7-22 by mouth ity of tablet 19:04: daily. [place] Medical Branch insulin 2020-0 Yes 50U inject 50 Unive rs glargine 7-22 Units ity of U-300 conc 19:04: under the [place] (TOUJEO MAX 03 skin 2 Medica l U-300 (two) Branch SOLOSTHI) times 300 unit/mL daily. (3 mL) InPn dulaglutide 2020-0 Yes 1.5U inject 1.5 Univers (TRULICITY) 7-22 Units ity of 1.5 mg/0.5 19:04: under the [place] mL PnIj 03 skin Medical weekly. Branch vitC/E/Zn/c 2020-0 Yes Take by Un rupinder opper/lutei 7-22 mouth 2 ity o f n/zeaxan 19:04: (two) [place] ([facility] 03 times Medical AREDS2 daily. Branch ORAL) SITagliptin 2020-0 Yes 100mg Take 100 U nivers 100 mg 7-22 mg by ity of tablet 19:04: mouth [place] 03 daily. Medical Branch atorvastati 2020-0 Yes 80mg Take 80 mg Univers n 80 mg 7-22 by mouth ity of tablet 19:04: at [place] 03 bedtime. Medical Branch furosemide 2020-0 Yes 20mg Take 20 mg U nivers 20 mg 7-22 by mouth ity of tablet 19:04: every [place] 03 morning Medical and Branch evening. aspirin 81 2020-0 Yes 81mg Take 81 mg U nivers mg chewable 7-22 by mouth ity of tablet 19:04: daily. [place] 03 Medical Branch insulin 2020-0 Yes 50U inject 50 Unive rs glargine 7-22 Units ity of U-300 conc 19:04: under the [place] (TOUJEO MAX 03 skin 2 Medica l U-300 (two) Branch SOLOSTAR) times 300 unit/mL daily. (3 mL) InPn dulaglutide 2020-0 Yes 1.5U inject 1.5 Univers (TRULICITY) 7-22 Units ity of 1.5 mg/0.5 19:04: under the [place] mL PnIj 03 skin Medical weekly. Branch vitC/E/Zn/c 2020-0 Yes Take by Un rupinder opper/lutei 7-22 mouth 2 ity o f n/zeaxan 19:04: (two) [place] ([facility] 03 times Medical AREDS2 daily. Branch ORAL) SITagliptin 2020-0 Yes 100mg Take 100 U nivers 100 mg 7-22 mg by ity of tablet 19:04: mouth [place] 03 daily. Medical Branch atorvastati 2020-0 Yes 80mg Take 80 mg Univers n 80 mg 7-22 by mouth ity of tablet 19:04: at [place] 03 bedtime. Medical Branch furosemide 2020-0 Yes 20mg Take 20 mg U nivers 20 mg 7-22 by mouth ity of tablet 19:04: every [place] 03 morning Medical and Branch evening. aspirin 81 2020-0 Yes 81mg Take 81 mg U nivers mg chewable 7-22 by mouth ity of tablet 19:04: daily. [place] 03 Medical Branch carvediloL 2020-0 Yes [id number] 12.5mg Take 1 Univers 12.5 mg 7-03 tablet by ity of tablet 00:00: mouth 2 [place] 00 (two) Medical times Branch daily with meals. carvediloL 2020-0 2020- No [id number] 12.5mg Take 1 Univers 12.5 mg 7-03 07-15 tablet by ity of tablet 00:00: 00:00 mouth 2 [place] 00 :00 (two) Medical times Branch daily with meals. metoprolol 2020-0 2020- No 100mg Take 100 U nivers tartrate 6-22 06-22 mg by ity of 100 mg 19:28: 00:00 mouth 2 [place] tablet 37 :00 (two) Medical times Branch daily. metoprolol 2020-0 2020- No 100mg Take 100 U nivers tartrate 6-22 06-22 mg by ity of 100 mg 19:28: 00:00 mouth 2 [place] tablet 37 :00 (two) Medical times Branch daily. vitC/E/Zn/c 2020-0 Yes Take by Un rupinder opper/lutei 6-22 mouth 2 ity o f n/zeaxan 19:00: (two) [place] (ICAPS 40 times Medical AREDS2 daily. Branch ORAL) vitC/E/Zn/c 2020-0 Yes Take by Un rupinder opper/lutei 6-22 mouth 2 ity o f n/zeaxan 19:00: (two) [place] (ICAPS 40 times Medical AREDS2 daily. Branch ORAL) vitC/E/Zn/c 2020-0 Yes Take by Un rupinder opper/lutei 6-22 mouth 2 ity o f n/zeaxan 19:00: (two) [place] (ICAPS 40 times Medical AREDS2 daily. Branch ORAL) vitC/E/Zn/c 2020-0 Yes Take by Un rupinder opper/lutei 6-22 mouth 2 ity o f n/zeaxan 19:00: (two) [place] ([facility] 40 times Medical AREDS2 daily. Branch ORAL) aspirin 81 2020-0 Yes 81mg Take 81 mg U nivers mg chewable 6-22 by mouth ity of tablet 19:00: daily. [address] Branch insulin 2020-0 Yes 50U inject 50 Unive rs glargine 6-22 Units ity of U-300 conc 19:00: under the [place] (TOUJEO MAX 39 skin 2 Medica l U-300 (two) Branch SOLOSTAR) times 300 unit/mL daily. (3 mL) InPn dulaglutide 2020-0 Yes 1.5U inject 1.5 Univers (TRULICITY) 6-22 Units ity of 1.5 mg/0.5 19:00: under the [place] mL PnIj 39 skin Medical weekly. Branch aspirin 81 2020-0 Yes 81mg Take 81 mg U nivers mg chewable 6-22 by mouth ity of tablet 19:00: daily. [address] insulin 2020-0 Yes 50U inject 50 Unive rs glargine 6-22 Units ity of U-300 conc 19:00: under the [place] (TOUJEO MAX 39 skin 2 Medica l U-300 (two) Branch [facility]) times 300 unit/mL daily. (3 mL) InPn dulaglutide 2020-0 Yes 1.5U inject 1.5 Univers (TRULICITY) 6-22 Units ity of 1.5 mg/0.5 19:00: under the [place] mL [facility] 39 skin Medical weekly. Branch aspirin 81 2020-0 Yes 81mg Take 81 mg U nivers mg chewable 6-22 by mouth ity of tablet 19:00: daily. [address] insulin 2020-0 Yes 50U inject 50 Unive rs glargine 6-22 Units ity of U-300 conc 19:00: under the [place] (TOUJEO MAX 39 skin 2 Medica l U-300 (two) Branch [facility]) times 300 unit/mL daily. (3 mL) InPn dulaglutide 2020-0 Yes 1.5U inject 1.5 Univers (TRULICITY) 6-22 Units ity of 1.5 mg/0.5 19:00: under the [place] mL [facility] 39 skin Medical weekly. Branch aspirin 81 2020-0 Yes 81mg Take 81 mg U nivers mg chewable 6-22 by mouth ity of tablet 19:00: daily. [address] insulin 2020-0 Yes 50U inject 50 Unive rs glargine 6-22 Units ity of U-300 conc 19:00: under the [place] (TOUJEO MAX 39 skin 2 Medica l U-300 (two) Branch [facility]) times 300 unit/mL daily. (3 mL) InPn dulaglutide 2020-0 Yes 1.5U inject 1.5 Univers (TRULICITY) 6-22 Units ity of 1.5 mg/0.5 19:00: under the [place] mL [facility] 39 skin Medical weekly. Branch SITagliptin 2020-0 Yes 100mg Take 100 U nivers 100 mg 6-22 mg by ity of tablet 18:57: mouth [place] 45 daily. Medical Branch atorvastati 2020-0 Yes 80mg Take 80 mg Univers n 80 mg 6-22 by mouth ity of tablet 18:57: at [place] 45 bedtime. Medical Branch furosemide 2020-0 Yes 20mg Take 20 mg U nivers 20 mg 6-22 by mouth ity of tablet 18:57: every [place] 45 morning Medical and Branch evening. SITagliptin 2020-0 Yes 100mg Take 100 U nivers 100 mg 6-22 mg by ity of tablet 18:57: mouth [place] 45 daily. Medical Branch atorvastati 2020-0 Yes 80mg Take 80 mg Univers n 80 mg 6-22 by mouth ity of tablet 18:57: at [place] 45 bedtime. Medical Branch furosemide 2020-0 Yes 20mg Take 20 mg U nivers 20 mg 6-22 by mouth ity of tablet 18:57: every [place] 45 morning Medical and Branch evening. SITagliptin 2020-0 Yes 100mg Take 100 U nivers 100 mg 6-22 mg by ity of tablet 18:57: mouth [place] 45 daily. Medical Branch atorvastati 2020-0 Yes 80mg Take 80 mg Univers n 80 mg 6-22 by mouth ity of tablet 18:57: at [place] 45 bedtime. Medical Branch furosemide 2020-0 Yes 20mg Take 20 mg U nivers 20 mg 6-22 by mouth ity of tablet 18:57: every [place] 45 morning Medical and Branch evening. SITagliptin 2020-0 Yes 100mg Take 100 U nivers 100 mg 6-22 mg by ity of tablet 18:57: mouth [place] 45 daily. Medical Branch atorvastati 2020-0 Yes 80mg Take 80 mg Univers n 80 mg 6-22 by mouth ity of tablet 18:57: at [place] 45 bedtime. Medical Branch furosemide 2020-0 Yes 20mg Take 20 mg U nivers 20 mg 6-22 by mouth ity of tablet 18:57: every [place] 45 morning Medical and Branch evening. ramipril 10 2020-0 Yes 10mg Take 1 Univ ers mg capsule 6-22 capsule by ity of 00:00: mouth [place] 00 daily. Medical Branch ramipril 10 2020-0 Yes 10mg Take 1 Univ ers mg capsule 6-22 capsule by ity of 00:00: mouth [place] 00 daily. Medical Branch ramipril 10 2020-0 Yes 10mg Take 1 Univ ers mg capsule 6-22 capsule by ity of 00:00: mouth [place] 00 daily. Medical Branch ramipril 10 2020-0 Yes 10mg Take 1 Univ ers mg capsule 6-22 capsule by ity of 00:00: mouth [place] 00 daily. Medical Branch ramipril 10 2020-0 Yes 10mg Take 1 Univ ers mg capsule 6-22 capsule by ity of 00:00: mouth [place] 00 daily. Medical Branch ramipril 10 2020-0 Yes 10mg Take 1 Univ ers mg capsule 6-22 capsule by ity of 00:00: mouth [place] 00 daily. Medical Branch ramipril 10 2020-0 Yes 10mg Take 1 Univ ers mg capsule 6-22 capsule by ity of 00:00: mouth [place] 00 daily. Medical Branch ramipril 10 2020-0 Yes 10mg Take 1 Univ ers mg capsule 6-22 capsule by ity of 00:00: mouth [place] 00 daily. Medical Branch ramipril 10 2020-0 Yes 10mg Take 1 Univ ers mg capsule 6-22 capsule by ity of 00:00: mouth [place] 00 daily. Medical Branch carvediloL 2020-0 Yes [id number] 25mg Take 1 U nivers 25 mg 6-22 tablet by ity of tablet 00:00: mouth 2 00 (two) Medical times Branch daily with meals. ramipril 10 2019-0 Yes 10mg Take 1 Univ ers mg capsule 6-22 capsule by ity of 00:00: mouth [place] 00 daily. Medical Branch ramipril 10 2019-0 Yes 10mg Take 1 Univ ers mg capsule 6-22 capsule by ity of 00:00: mouth [place] 00 daily. Medical Branch ramipril 10 2019-0 Yes 10mg Take 1 Univ ers mg capsule 6-22 capsule by ity of 00:00: mouth [place] 00 daily. Medical Branch carvediloL 2020-0 Yes [id number] 25mg Take 1 U nivers 25 mg 6-22 tablet by ity of tablet 00:00: mouth 2 (two) Medical times Branch daily with meals. ramipril 10 2019-0 Yes 10mg Take 1 Univ ers mg capsule 6-22 capsule by ity of 00:00: mouth [place] 00 daily. Medical Branch ramipril 10 2020-0 Yes 10mg Take 1 Univ ers mg capsule 6-22 capsule by ity of 00:00: mouth [place] 00 daily. Medical Branch ramipril 10 2020-0 Yes 10mg Take 1 Univ ers mg capsule 6-22 capsule by ity of 00:00: mouth [place] 00 daily. Medical Branch ramipril 10 2020-0 2020- No 10mg Take 1 Uni vers mg capsule 6-22 09-14 capsule by it y of 00:00: 00:00 mouth [place] 00 :00 daily. Medical Branch carvediloL 2020-0 2020- No [id number] 25mg Take 1 Univers 25 mg 02-27- tablet by ity of tablet 00:00: 00:00 mouth 2 [place] 00 :00 (two) Medical times Branch daily with meals. metoprolol 2020-0 Yes 100mg Take 100 Un rupinder tartrate 6-09 mg by ity of 100 mg 00:00: mouth 2 [place] tablet 00 (two) Medical times Branch daily. metoprolol 2020-0 Yes 100mg Take 100 Un rupinder tartrate 6-09 mg by ity of 100 mg 00:00: mouth 2 [place] tablet 00 (two) Medical times Branch daily. metoprolol 2020-0 Yes 100mg Take 100 Un rupinder tartrate 6-09 mg by ity of 100 mg 00:00: mouth 2 [place] tablet 00 (two) Medical times Branch daily. metoprolol 2020-0 Yes 100mg Take 100 Un rupinder tartrate 6-09 mg by ity of 100 mg 00:00: mouth 2 [place] tablet 00 (two) Medical times Branch daily. metoprolol 2020-0 Yes 100mg Take 100 Un rupinder tartrate 6-09 mg by ity of 100 mg 00:00: mouth 2 [place] tablet 00 (two) Medical times Branch daily. metoprolol 2020-0 Yes 100mg Take 100 Un rupinder tartrate 6-09 mg by ity of 100 mg 00:00: mouth 2 [place] tablet 00 (two) Medical times Branch daily. metoprolol 2020-0 Yes 100mg Take 100 Un rupinder tartrate 6-09 mg by ity of 100 mg 00:00: mouth 2 [place] tablet 00 (two) Medical times Branch daily. metoprolol 2020-0 Yes 100mg Take 100 Un rupinder tartrate 6-09 mg by ity of 100 mg 00:00: mouth 2 [place] tablet 00 (two) Medical times Branch daily. metoprolol 2020-0 Yes 100mg Take 100 Un rupinder tartrate 6-09 mg by ity of 100 mg 00:00: mouth 2 [place] tablet 00 (two) Medical times Branch daily. metoprolol 2020-0 Yes 100mg Take 100 Un rupinder tartrate 6-09 mg by ity of 100 mg 00:00: mouth 2 [place] tablet 00 (two) Medical times Branch daily. metoprolol 2020-0 Yes 100mg Take 100 Un rupinder tartrate 6-09 mg by ity of 100 mg 00:00: mouth 2 [place] tablet 00 (two) Medical times Branch daily. metoprolol 2020-0 Yes 100mg Take 100 Un rupinder tartrate 6-09 mg by ity of 100 mg 00:00: mouth 2 [place] tablet 00 (two) Medical times Branch daily. metoprolol 2020-0 Yes 100mg Take 100 Un rupinder tartrate 6-09 mg by ity of 100 mg 00:00: mouth 2 [place] tablet 00 (two) Medical times Branch daily. metoprolol 2020-0 Yes 100mg Take 100 Un rupinder tartrate 6-09 mg by ity of 100 mg 00:00: mouth 2 [place] tablet 00 (two) Medical times Branch daily. metoprolol 2020-0 Yes 100mg Take 100 Un rupinder tartrate 6-09 mg by ity of 100 mg 00:00: mouth 2 [place] tablet 00 (two) Medical times Branch daily. metoprolol 2020-0 Yes 100mg Take 100 Un rupinder tartrate 6-09 mg by ity of 100 mg 00:00: mouth 2 [place] tablet 00 (two) Medical times Branch daily. metoprolol 2020-0 Yes 100mg Take 100 Un rupinder tartrate 6-09 mg by ity of 100 mg 00:00: mouth 2 [place] tablet 00 (two) Medical times Branch daily. metoprolol 2020-0 Yes 100mg Take 100 Un rupinder tartrate 6-09 mg by ity of 100 mg 00:00: mouth 2 [place] tablet 00 (two) Medical times Branch daily. metoprolol 2020-0 Yes 100mg Take 100 Un rupinder tartrate 6-09 mg by ity of 100 mg 00:00: mouth 2 [place] tablet 00 (two) Medical times Branch daily. metoprolol 2020-0 Yes 100mg Take 100 Un rupinder tartrate 6-09 mg by ity of 100 mg 00:00: mouth 2 [place] tablet 00 (two) Medical times Branch daily. metoprolol 2020-0 Yes 100mg Take 100 Un rupinder tartrate 6-09 mg by ity of 100 mg 00:00: mouth 2 [place] tablet 00 (two) Medical times Branch daily. metoprolol 2020-0 Yes 100mg Take 100 Un rupinder tartrate 6-09 mg by ity of 100 mg 00:00: mouth 2 [place] tablet 00 (two) Medical times Branch daily. metoprolol 2020-0 Yes 100mg Take 100 Un rupinder tartrate 6-09 mg by ity of 100 mg 00:00: mouth 2 [place] tablet 00 (two) Medical times Branch daily. metoprolol 2020-0 Yes 100mg Take 100 Un rupinder tartrate 6-09 mg by ity of 100 mg 00:00: mouth 2 [place] tablet 00 (two) Medical times Branch daily. Eliquis Eliquis Yes He [address] [facility] Aspirin Aspirin Yes He [address] [facility] ProAir HFA ProAir HFA Yes He [address] [facility] Furosemide Furosemide Yes He T C [facility] Linzess Linzess Yes He [address] [facility] Breo Breo Yes He [address] [facility] Ellipta Ellipta [facility] Toujeo Toujeo Yes He inject [address] [facility] [address] SoloStar SoloStar [facility] Trulicity Trulicity Yes He [address] [facility] Januvia Januvia Yes He [address] [facility] Ramipril Ramipril Yes He [address] [facility] Atorvastati Atorvastati Yes He [address] [facility] n Calcium n Calcium [facility] Colace Colace Yes He [address] [facility] Metoprolol Metoprolol Yes He [address] Tartrate Tartrate [facility] with food [facility] Synthroid Synthroid Yes He [address] [facility] stomach in [facility] the Outpat[facility] morning ent Clinics No known No Univers medications ity of [facility] Immunizations Ordered Filled Immunization Date Status Comments [facility] e Immunization Name Name Influenza Virus 2020-08-18 Completed Universit y of Vaccine Quad .5 mL 00:00:00 [place] [facility] IM 6+ MO Branch Influenza Virus 2020-08-18 Completed Universit y of Vaccine Quad .5 mL 00:00:00 [place] [facility] IM 6+ MO Branch Influenza Virus 2020-08-18 Completed Universit y of Vaccine Quad .5 mL 00:00:00 [place] [facility] IM 6+ MO Branch Influenza Virus 2019-05-27 Completed Universit y of Vaccine Quad IM 3+ 00:00:00 [facility] Influenza Virus 2019-05-27 Completed Universit y of Vaccine Quad IM 3+ 00:00:00 [facility] Influenza Virus 2019-05-27 Completed Universit y of Vaccine Quad IM 3+ 00:00:00 [facility] Influenza Virus 2019-05-27 Completed Universit y of Vaccine Quad IM 3+ 00:00:00 [facility] Influenza Virus 2019-05-27 Completed Universit y of Vaccine Quad IM 3+ 00:00:00 [facility] Influenza Virus 2019-05-27 Completed Universit y of Vaccine Quad IM 3+ 00:00:00 [facility] Influenza Virus 2019-05-27 Completed Universit y of Vaccine Quad IM 3+ 00:00:00 [facility] Influenza Virus 2019-05-27 Completed Universit y of Vaccine Quad IM 3+ 00:00:00 [facility] Influenza Virus 2019-05-27 Completed Universit y of Vaccine Quad IM 3+ 00:00:00 [facility] Afluria single dose Afluria single dose 2019-05-27 Completed [facility] - 00:00:00 [facility] Vital Signs Vital Name Observation Time Observation Value Comments Source Systolic blood 2020-08-18 17:53:00 145 mm[Hg] Univer sity of pressure [facility] Diastolic blood 2020-08-18 17:53:00 77 mm[Hg] Unive rsity of pressure [facility] Heart rate 2020-08-18 17:53:00 68 /min [facility] Body temperature 2020-08-18 17:53:00 36.61 Mónica [facility] ersity [facility] Respiratory rate 2020-08-18 17:53:00 20 /min [facility] in 2020-08-18 17:53:00 95 /min University of Arterial blood by [place] [facility] [place] Pulse oximetry Branch Body height 2020-08-17 14:22:00 157.5 cm Universi ty of [place] [facility] Body weight 2020-08-17 14:22:00 87.5 kg [facility]i ty [facility] [place] [facility] BMI 2020-08-17 14:22:00 35.27 kg/m2 [facility] [place] [facility] Systolic blood 2020-08-01 20:08:00 147 mm[Hg] Univer sity of pressure [place] [facility] Diastolic blood 2020-08-01 20:08:00 85 mm[Hg] Unive rsity of pressure [place] [facility] Heart rate 2020-08-01 20:07:00 98 /min [facility]i [facility] [place] [facility] Body height 2020-08-01 20:07:00 157.5 cm [facility] [place] [facility] Body weight 2020-08-01 20:07:00 86.682 kg [facility] [place] [facility] BMI 2020-08-01 20:07:00 34.95 kg/m2 [facility] [place] [facility] Oxygen saturation in 2020-08-01 20:07:00 95 /min University of Arterial blood by [facility] [place] [facility] [place] Pulse oximetry Branch Systolic blood 2020-07-03 19:00:00 137 mm[Hg] Univer sity of pressure [place] [facility] Diastolic blood 2020-07-03 19:00:00 81 mm[Hg] Unive rsity of pressure [place] [facility] Heart rate 2020-07-03 19:00:00 87 /min Universi ty [facility] [place] [facility] Respiratory rate 2020-07-03 19:00:00 19 /min Univ ersity of [place] [facility] Body height 2020-07-03 19:00:00 160 cm Universi ty [facility] [place] [facility] Body weight 2020-07-03 19:00:00 87.091 kg [facility]i ty [facility] [place] [facility] BMI 2020-07-03 19:00:00 34.01 kg/m2 [facility] ty [facility] [place] [facility] Oxygen saturation in 2020-07-03 19:00:00 96 /min [facility] of Arterial blood by [place] [facility] [place] Pulse oximetry Branch Systolic blood 2020-05-22 13:00:00 131 mm[Hg] Univer sity of pressure [place] [facility] Diastolic blood 2020-05-22 13:00:00 114 mm[Hg] Unive rsity of pressure [place] [facility] Heart rate 2020-05-22 13:00:00 66 /min Universi ty [facility] [place] [facility] Respiratory rate 2020-05-22 13:00:00 17 /min Univ ersity of [place] [facility] Oxygen saturation in 2020-05-22 13:00:00 100 /min University of Arterial blood by [facility] [place] [facility] [place] Pulse oximetry Branch Body temperature 2020-05-22 12:19:00 35.72 Mónica Univ ersity of [place] [facility] Body weight 2020-05-21 14:01:00 92.806 kg [facility] [place] [facility] BMI 2020-05-21 14:01:00 37.42 kg/m2 [facility] [place] [facility] Systolic blood 2020-05-22 13:00:00 131 mm[Hg] Univer sity of pressure [place] [facility] Diastolic blood 2020-05-22 13:00:00 114 mm[Hg] Unive rsity of pressure [place] [facility] Heart rate 2020-05-22 13:00:00 66 /min [facility]i ty [facility] [place] [facility] Respiratory rate 2020-05-22 13:00:00 17 /min Univ ersity of [place] [facility] Oxygen saturation in 2020-05-22 13:00:00 100 /min University of Arterial blood by [facility] [place] [facility] [place] Pulse oximetry Branch Body temperature 2020-05-22 12:19:00 35.72 Mónica Univ ersity of [place] [facility] Body weight 2020-05-21 14:01:00 92.806 kg [facility]i ty [facility] [place] [facility] BMI 2020-05-21 14:01:00 37.42 kg/m2 [facility] [place] [facility] Systolic blood 2020-03-29 19:13:00 155 mm[Hg] Univer sity of pressure [place] [facility] Diastolic blood 2020-03-29 19:13:00 89 mm[Hg] Unive rsity of pressure [place] [facility] Heart rate 2020-03-29 19:07:00 105 /min [facility]i ty [facility] [place] [facility] Respiratory rate 2020-03-29 19:07:00 19 /min Univ ersity of [place] [facility] Body height 2020-03-29 19:07:00 160 cm [facility]i ty [facility] [place] [facility] Body weight 2020-03-29 19:07:00 90.357 kg [facility]i [facility] [place] [facility] BMI 2020-03-29 19:07:00 35.29 kg/m2 [facility]i ty [facility] [place] [facility] Oxygen saturation in 2020-03-29 19:07:00 94 /min University of Arterial blood by [facility] Pulse oximetry Branch Systolic blood 2020-03-29 19:13:00 155 mm[Hg] Univer sity of [facility] Diastolic blood 2020-03-29 19:13:00 89 mm[Hg] Unive rsity of pressure [facility] Heart rate 2020-03-29 19:07:00 105 /min [facility] Respiratory rate 2020-03-29 19:07:00 19 /min Univ [facility] Body height 2020-03-29 19:07:00 160 cm [facility] Body weight 2020-03-29 19:07:00 90.357 kg [facility] BMI 2020-03-29 19:07:00 35.29 kg/m2 [facility] Oxygen saturation in 2020-03-29 19:07:00 94 /min [facility] of Arterial blood by [facility] Pulse oximetry Branch Respiratory rate 2020-04-26 15:39:00 20 /min Univ [facility] Body height 2020-04-26 15:39:00 157.5 cm [facility] Body weight 2020-04-26 15:39:00 89.177 kg [facility] BMI 2020-04-26 15:39:00 35.96 kg/m2 [facility] Oxygen saturation in 2020-04-26 15:39:00 98 /min [facility] of Arterial blood by [facility] Pulse oximetry Branch Systolic blood 2020-04-21 15:21:00 157 mm[Hg] Univer sity of pressure [facility] Diastolic blood 2020-04-21 15:21:00 79 mm[Hg] Unive rsity of pressure [facility] Heart rate 2020-04-21 15:21:00 75 /min [facility] Body temperature 2020-04-21 15:21:00 36.11 Mónica [facility] Respiratory rate 2020-04-21 15:21:00 18 /min [facility] Body weight 2020-04-21 15:21:00 90.266 kg [facility] BMI 2020-04-21 15:21:00 35.25 kg/m2 [facility] Systolic blood 2020-02-28 19:09:00 171 mm[Hg] Univer sity of pressure [facility] Diastolic blood 2020-02-28 19:09:00 92 mm[Hg] [facility] Heart rate 2020-02-28 19:09:00 88 /min [facility] Respiratory rate 2020-02-28 18:56:00 20 /min [facility] Body height 2020-02-28 18:56:00 160 cm [facility] Body weight 2020-02-28 18:56:00 92.579 kg [facility] BMI 2020-02-28 18:56:00 36.15 kg/m2 [facility] Oxygen saturation in 2020-02-28 18:56:00 100 /min [facility] blood by [facility] Pulse oximetry Branch Procedures Procedure Date / Time Performing Clinician Source Performed POCT GLUCOSE 2020-08-18 17:53:00 Yaniv [facility] (AUTOMATED) [facility] POCT GLUCOSE 2020-08-18 13:37:00 Yaniv [facility] (AUTOMATED) [facility] URIC ACID 2020-08-18 11:15:00 Marge [facility] MAGNESIUM 2020-08-18 11:15:00 Marge [facility] COMP. METABOLIC PANEL 2020-08-18 11:15:00 Boris Hope [facility] ([id number]) [facility] CBC WITH DIFF 2020-08-18 11:15:00 Marge [facility] N-TERMINAL PRO-BNP 2020-08-18 11:15:00 Boris Hope [facility] FOLATE 2020-08-18 00:52:00 Yaniv [facility] VITAMIN D, 25-OH 2020-08-18 00:52:00 Marge [facility] POCT GLUCOSE 2020-08-17 22:36:00 Yaniv [facility] (AUTOMATED) [facility] POCT GLUCOSE 2020-08-17 19:35:00 Yaniv [facility] (AUTOMATED) [facility] ASPIRATE OR ABSCESS 2020-08-17 17:30:00 Vivian Mercer [facility] CULTURE(AEROBIC/ANAEROB [facility] IC) INCISION AND DRAINAGE 2020-08-17 16:52:00 Vivian Mercer [facility] ECHO ROUTINE W/DOPPLER 2020-08-17 15:01:45 Annabelle Chairez [facility] COLOR [facility] POCT GLUCOSE 2020-08-17 13:26:00 Yaniv [facility] (AUTOMATED) [facility] URIC ACID 2020-08-17 11:32:00 [facility] VITAMIN B12, LEVEL 2020-08-17 11:32:00 Yaniv [facility] N-TERMINAL PRO-BNP 2020-08-17 11:32:00 [facility] BASIC METABOLIC PANEL 2020-08-17 11:31:00 Yaniv [facility] (NA, K, CL, CO2, [facility] GLUCOSE, BUN, CREATININE, CA) IRON PANEL 2020-08-17 11:31:00 Yaniv [facility] CBC WITH DIFF 2020-08-17 11:31:00 Yaniv [facility] VITAMIN D, 25-OH 2020-08-17 11:30:00 Yaniv [facility] POCT TEST 2020-08-17 00:23:00 Elicia Kwong [facility] BLOOD CULTURE SCREEN 2020-08-17 00:14:00 Elicia Kwong [facility] MAGNESIUM 2020-08-17 00:14:00 [facility] COMP. METABOLIC PANEL 2020-08-17 00:14:00 Elicia Kwong [facility] ([id number]) Medical Branch CBC WITH DIFF 2020-08-17 00:14:[address] [facility] URINALYSIS 2020-08-17 00:14:[address] [facility] LACTIC ACID WHOLE BLOOD 2020-08-17 00:14:00 Elicia Kwong [facility] COVID-19 (ID NOW RAPID 2020-08-17 00:14:00 Elicia Kwong [facility] TESTING) Medical Branch CONSENT/REFUSAL FOR 2020-08-16 21:52:53 Doctor Unassigned, No Un [facility] DIAGNOSIS AND TREATMENT Name Medical Branch POCT GLUCOSE 2020-05-22 12:18:00 Marge [facility] (AUTOMATED) Medical Branch PHOSPHORUS 2020-05-22 07:03:00 Marge [facility] MAGNESIUM 2020-05-22 07:03:00 Marge [facility] BASIC METABOLIC PANEL 2020-05-22 07:03:[address] [facility] (NA, K, CL, CO2, Medical Branch GLUCOSE, BUN, CREATININE, CA) CBC WITH DIFF 2020-05-22 07:03:00 Marge [facility] N-TERMINAL PRO-BNP 2020-05-22 07:03:00 Marge venkata [facility] Medical Branch POCT GLUCOSE 2020-05-22 05:20:00 Marge [facility] (AUTOMATED) Medical Branch POCT GLUCOSE 2020-05-21 21:57:00 Marge [facility] (AUTOMATED) [facility] Branch BASIC METABOLIC PANEL 2020-05-21 18:54:[address] [facility] (NA, K, CL, CO2, Medical Branch GLUCOSE, BUN, CREATININE, CA) CBC WITH DIFF 2020-05-21 18:54:00 Marge [facility] POCT GLUCOSE 2020-05-21 16:44:00 Marge [facility] (AUTOMATED) [facility] TRANSFUSE PACKED RBC 2020-05-21 15:01:57 Marge venkata [facility] PREPARE PACKED RBC 2020-05-21 12:44:57 Marge venkata [facility] POCT GLUCOSE 2020-05-21 11:17:00 Marge [facility] (AUTOMATED) [facility] Branch TRANSFUSE PACKED RBC 2020-05-21 11:06:21 Tamar Nash [facility] PHOSPHORUS 2020-05-21 09:54:00 Marge [facility] MAGNESIUM 2020-05-21 09:54:00 Marge [facility] BASIC METABOLIC PANEL 2020-05-21 09:54:[address] [facility] (NA, K, CL, CO2, Medical Branch GLUCOSE, BUN, CREATININE, CA) CBC WITH DIFF 2020-05-21 09:54:00 Marge [facility] GLYCOSYLATED HEMOGLOBIN 2020-05-21 09:54:00 Marge [facility] (A1C) [facility] PROTHROMBIN TIME / INR 2020-05-21 09:54:00 Marge [facility] N-TERMINAL PRO-BNP 2020-05-21 09:54:00 Marge venkata [facility] PREPARE PACKED RBC 2020-05-21 08:33:02 Tamar Nash [facility] TRANSFUSE PACKED RBC 2020-05-21 08:15:36 Tamar Nash [facility] SODIUM, URINE RANDOM 2020-05-21 08:06:00 Marge venkata [facility] PROTEIN CREAT RATIO 2020-05-21 08:06:00 Marge [facility] URINE RANDOM [facility] URINE CULTURE 2020-05-21 07:53:00 Marge [facility] UREA NITROGEN, URINE 2020-05-21 07:52:00 Marge venkata [facility] Branch PROCALCITONIN 2020-05-21 07:43:00 Marge [facility] POCT GLUCOSE 2020-05-21 06:58:00 Marge [facility] (AUTOMATED) Medical Branch COVID-19 (ID NOW RAPID 2020-05-21 01:33:00 [facility] Medical Branch HB ABO GROUPING 2020-05-21 01:28:00 Saad [facility] ASSIGNMENT OF BENEFITS 2020-05-21 01:21:20 Doctor Unassigned, No [facility] Name [facility] XR CHEST 2 VW 2020-05-21 00:39:17 Saad [facility] CREATINE KINASE 2020-05-21 00:34:00 Marge [facility] URIC ACID 2020-05-21 00:34:00 Marge [facility] TROPONIN I 2020-05-21 00:34:00 Saad [facility] THYROID STIMULATING 2020-05-21 00:34:00 Marge [facility] HORMONE [facility] HEPATIC FUNCTION PANEL 2020-05-21 00:34:00 [facility] ([id number] (ALB,T.PRO,BILI [facility] T,BU/BC,ALT,AST,ALK PHOS) BASIC METABOLIC PANEL 2020-05-21 00:34:00 [facility] (NA, K, CL, CO2, Medical Branch GLUCOSE, BUN, CREATININE, CA) LIPID PANEL 2020-05-21 00:34:00 Marge [facility] ([id number])(TOTAL Medical Branch CHOLESTEROL, TRIGLYCERIDES, HDL) CBC WITH DIFF 2020-05-21 00:34:00 Saad [facility] URINALYSIS 2020-05-21 00:34[facility] 2020-05-21 00:34:[address] [facility]-12 LEAD 2020-05-21 00:17:58 Saad [facility] CONSENT/REFUSAL FOR 2020-05-21 00:02:02 Doctor Unassigned, No [facility] DIAGNOSIS AND TREATMENT Name Medical Branch MEDICAL 2020-05-17 05:01:00 Doctor Unassigned, No [facility] RELEASE/CLEARANCE FORMS Name Medical Branch EXTERNAL PROVIDER 2020-05-08 05:01:00 Doctor Unassigned, No Univ [facility] RECORDS Name Medical Branch REFERRAL- 2020-04-18 05:01:00 Doctor Unassigned, No [facility]QUEST/RESPONSE Name Medical [facility] EXTERNAL PROVIDER - [facility] 2020-02-15 05:01:00 Doctor Unassigned, N o [facility] REFERRAL Name Medical Branch Encounters Start End Encounter Admission Attending Care Care Encounter Source Date/Time Date/Time Type Type Clinicians Facility Department ID 2021-07-07 Emergency [facility] [id number] Univers 10:18:41 ity of [facility] 2021-07-[address] [facility] JACQUELINE [id number] Univers 17:22:44 ity of [facility] 2021-07-06 Emergency [facility] [id number] Univers 17:13:41 ity [facility] 2020-06-15 Inpatient JUAN FRANCISCO Shepard, [facility] [id number] [facility] 14:00:00 [place] [id number] [facility] 2021-06-27 2021-06-27 [id number] 2021-06-25 2021-06-25 Out[facility] [id number] [facility] 2021-05-30 2021-05-30 Out[facility] [id number] [facility] 2021-05-02 2021-05-02 [facility] [id number] [facility] 2021-04-25 2021-04-25 Outpatient [facility] [id number] [facility] 2021-04-10 2021-04-10 Outpatient [facility] [id number] [facility] 2021-04-05 2021-04-05 [facility] [id number] 2021-03-09 2021-03-09 Outpatient [facility] [id number] [facility] 2021-03-06 2021-03-06 Outpatient [facility] [id number] [facility] 2021-02-02 2021-02-02 [facility] [id number] [facility] 2021-01-31 2021-01-31 [facility] [id number] [facility] 2021-01-09 2021-01-09 [facility] [id number] [facility] 2021-01-01 2021-01-01 Outpatient Colten SHELDON [facility] [id number] Univers 13:00:00 13:00:00 [facility] [id number] [facility] 2021-01-01 2021-01-01 Outpatient Colten SHELDON [facility] [id number] Univers 13:00:00 13:00:00 [facility] 2020-12-13 2020-12-13 [facility] [id number] [facility] 2020-11-23 2020-11-[address] [facility] [id number] Univers 00:00:00 00:00:00 Outreach [facility] [id number] i ty of [facility] [id number] Agustin COVARRUBIAS [phone] Mt dical 388 Branch 2020-10-31 2020-10-31 Outpatient R FAUSTINA [facility] [id number] Univers 13:00:00 13:00:00 BRUNO [id number] ity [facility] 2020-10-31 2020-10-31 [facility] [id number] Univers 13:00:00 13:00:00 BRUNO ity [facility] 2020-10-09 2020-10-09 Outpatient [facility] [id number] Univers 13:00:00 13:00:00 [id number] ity [facility] 2020-10-09 2020-10-09 Outpatient R [facility] [id number] Univers 13:00:00 13:00:00 ity [facility] 2020-09-22 2020-09-22 Outpatient R [facility] [id number] Univers 16:00:00 16:00:00 [id number] ity [facility] 2020-09-22 2020-09-22 Outpatient R [facility] [id number] Univers 16:00:00 16:00:00 ity [facility] 2020-09-15 2020-09-15 Outpatient [facility]LMLC [facility] [id number] [facility] Renny [facility]man [facility] 2020-09-11 2020-09-11 Outpatient [facility] [id number] Univers 16:00:00 16:00:00 [id number] ity [facility] 2020-09-11 2020-09-11 Outpatient R [facility] [id number] Univers 16:00:00 16:00:00 ity [facility] 2020-08-21 2020-08-21 Transition Audelia Harrison 1.2.840.114 [id number] Univers 00:00:00 00:00:00 of Care Ailyn Bird [id number] i ty of [id number] [place] [phone] [address] 2020-08-16 2020-08-18 [facility] Elicia Kwong [facility] [id number] Univers 16:26:00 18:00:00 Encounter Elayne Purvis on [id number] ity of [id number] [id number] [address] 2020-08-18 2020-08-18 Outpatient Colten BEILA [facility] [id number] Univers 10:00:00 10:00:00 FLAKITA [id number] [facility] 2020-08-18 2020-08-18 Outpatient Colten SUAREZ [facility] [id number] Univers 10:00:00 10:00:00 FLAKITA [facility] 2020-08-18 2020-08-18 Outpatient STLMLC [facility]LML[facility] [id number] [facility] 2020-08-11 2020-08-11 Outpatient STLMLC [facility]LMLC [id number] [facility] 2020-08-09 2020-08-09 Outpatient STLMLC [facility]LMLC [id number] [facility] 2020-08-04 2020-08-04 [facility] [id number] Univers 00:00:00 00:00:00 Bruno Wolford [id number] i ty [place] [id number] Profess[place] [phone] [address] 2020-08-01 2020-08-01 Office [facility] 1.2.840.114 [id number] Univers 13:53:25 14:13:25 Visit Bruno Wolford [id number] i ty of [place] [id number] Profess[place] [phone] Mt dic[address] 2020-08-01 2020-08-01 Outpatient R FAUSTINA [facility] [id number] Univers 14:00:00 14:00:00 [facility]UNO [id number] [facility] 2020-08-01 2020-08-01 Outpatient R FAUSTINA, [facility] [id number] Univers 14:00:00 14:00:00 BRUNO ity [facility] 2020-07-21 2020-07-21 Outpatient STLMLC STLC [id number] [facility] 2020-07-03 2020-07-03 [facility] [id number] Univers 13:50:39 14:38:20 Visit Celso Meyer [id number] ity of [place] [id number] [phone] Mt dical nal 059 [facility] 2020-07-03 2020-07-03 [facility] [id number] Univers 14:00:00 14:00:00 CELSO [id number] ity o [facility] 2020-07-03 2020-07-03 [facility] [id number] Univers 14:00:00 14:00:00 [facility] 2020-06-02 2020-06-02 Outpatient [facility]LMLC [facility] [id number] [facility] 2020-06-02 2020-06-02 Outpatient [facility]LMLC [facility] [id number] [facility] 2020-05-26 2020-05-26 Outpatient Colten SUAREZ [facility] [id number] Univers 11:30:00 11:30:00 FLAKITA [facility] 2020-05-26 2020-05-26 Outpatient Colten SUAREZ [facility] [id number] Univers 11:00:00 11:00:00 FLAKITA [id number] [facility] 2020-05-23 2020-05-23 Transition Audelia Jeffrey [id number] Univers 00:00:00 00:00:00 of Care Beverley Bird [id number] ity of [place] [id number] [phone] [address] 2020-05-23 2020-05-23 Transition Audelia Jeffrey 1.2.840.114 [id number] 00:00:00 00:00:00 of Care Beverley iBrd [id number] [place] [id number] [facility] 2020-05-20 2020-05-22 [facility] 1.2.840. 114 [id number] [facility] 19:11:00 10:00:00 Encounter Boris Hope [id number] ity of [id number] [phone] [facility] [address] [place] [address] 2020-05-20 2020-05-22 [facility] 1.2.840. 114 [id number] 19:11:00 10:00:00 Encounter Boris Hope [id number] [place] [id number] [place] [phone] [facility] 2020-05-17 2020-05-17 Orders Doctor BOGGS 1.2.840.114 [id number] Univers 00:00:00 00:00:00 Only Unassigned, JONI [id number] ity of [place] [facility] [id number] Raji as [phone] [facility] [address] [facility] 2020-05-17 2020-05-17 Orders Doctor BOGGS 1.2.840.114 [id number] 00:00:00 00:00:00 Only Unassigned, JONI [id number] [place] [facility] [id number] [id number] 009 2020-03-29 2020-05-16 Office [facility] 1.2.840.114 [id number] Univers 13:49:58 10:41:42 Visit Celso Meyer [id number] ity of [place] [id number] [facility] [phone] [facility] 2020-03-29 2020-05-16 [facility] 1.2.840.114 [id number] 13:49:58 10:41:42 Visit Celso Meyer [id number] [place] [id number] Professio [phone] [address] 2020-05-16 2020-05-16 Telephone [facility] [id number] Univers 00:00:00 00:00:00 Zakpetey Meyer [id number] ity of [id number] [phone] Mt dical [address] 2020-05-16 2020-05-16 Telephone [facility] [id number] 00:00:00 00:00:00 Celso Meyer [id number] [place] [id number] Professio [phone] [address] 2020-05-08 2020-05-08 Orders Doctor FLAKITA 1.2.840.114 [id number] Univers 00:00:00 00:00:00 Only Unassigned, JONI [id number] [facility] [id number] Raji as [phone] [address] 2020-05-05 2020-05-05 Outpatient [facility] [id number] Univers 11:00:00 11:00:00 FLAKITA [id number] ity [facility] 2020-05-05 2020-05-05 Outpatient Colten [facility] [id number] Univers 11:00:00 11:00:00 FLAKITA mora [facility] 2020-04-26 2020-04-26 Outpatient R KLARISSA [facility] [id number] Univers 13:15:00 13:15:00 ANH [id number] ity [facility] 2020-04-26 2020-04-26 Outpatient R KLARISSA, [facility] [id number] Univers 13:15:00 13:15:00 ANH twyla [facility] 2020-04-26 2020-04-26 [facility] 1.2.840.114 [id number] Univers 10:26:49 10:53:55 Visit Anh Meyer [id number] ity of [place] [id number] [phone] Mt dic[address] 2020-04-24 2020-04-24 Telephone [facility] [id number] Univers 00:00:00 00:00:00 Flakita Mitch [id number] i ty of [place] [id number] [phone] Mt dic[address] 2020-04-21 2020-04-21 Office [facility] 1.2.840.114 [id number] Univers 10:00:40 10:38:55 Visit Flakita Meyer [id number] i ty of [place] [id number] [place] [phone] [address] 2020-04-21 2020-04-21 Outpatient Colten SUAREZ [facility] [id number] Univers 10:15:00 10:15:00 FLAKITA [id number] ity [facility] 2020-04-21 2020-04-21 Outpatient Colten SUAREZ [facility] [id number] Univers 10:15:00 10:15:00 FLAKITA mora [facility] 2020-04-18 2020-04-18 Orders Doctor FLAKITA 1.2.840.114 [id number] Univers 00:00:00 00:00:00 Only Unassigned, JONI [id number] ity of [place] [facility] [id number] Raji as [phone] [address] 2020-04-17 2020-04-17 [facility] [id number] 09:32:00 09:32:00 t [employer] [facility] Medicine Medicine Outpati ent Clinics 2020-04-12 2020-04-12 [facility] [id number] 11:30:00 11:30:00 t [employer] [facility] Medicine l Medicine Outpati ent [facility] 2020-03-29 2020-03-29 Outpatient Colten SHELDON [facility] [id number] Univers 14:00:00 14:00:00 CELSO [id number] ity o f [facility] 2020-03-29 2020-03-29 Outpatient R LARRY, [facility] [id number] Univers 14:00:00 14:00:00 ZAKPETEY ity o f [facility] 2020-03-16 2020-03-16 Telephone [facility] [id number] Univers 00:00:00 00:00:00 Celso Meyer [id number] ity of [id number] [phone] Mt dical nal 9 [facility] 2020-03-06 2020-03-06 Telephone [facility] [id number] Univers 00:00:00 00:00:00 Celso Meyer [id number] ity of [place] [id number] [phone] Mt dical nal 9 [facility] 2020-03-02 2020-03-02 Out[facility] [id number] [facility] 09:53:00 09:53:00 [employer] [facility] 2020-02-28 2020-02-28 Office [facility] 1.2.840.114 [id number] Univers 13:14:31 14:34:50 Visit Celso Meyer [id number] it[place] of [id number] [phone] Mt dicri nal 9 [facility] 2020-02-28 2020-02-28 Outpatient R LARRY, [facility] [id number] [facility] 13:40:00 13:40:00 CELSO mora o f [facility] 2020-02-24 2020-02-24 Outpatient R CONTRERAS, [facility] [id number] [facility] 14:00:00 14:00:00 SENDIL ittwyla [facility] 2020-02-22 2020-02-22 [id number] [facility] 16:41:00 16:41:00 [employer] [facility] 2020-02-15 2020-02-15 Orders Doctor FLAKITA [id number] Univers 00:00:00 00:00:00 Only Unassigned, JONI [id number] ity of [place] [facility] [id number] Raji as [id number] [address] 2020-02-11 2020-02-11 [facility] [id number] 10:45:00 10:45:00 t [employer] [facility] Medicine Outpati ent Clinics 2019-11-26 2019-11-26 [facility] [id number] 10:47:00 10:47:00 t [employer] [facility] Medicine Outpati ent Clinics 2019-11-23 2019-11-23 [facility] [id number] 14:00:00 14:00:00 t [employer] [facility] Medicine Outpati ent Clinics 2019-09-28 2019-09-28 [facility] [id number] 15:15:00 15:15:00 t [employer] [facility] Medicine Medicine Outpati ent Clinics 2019-07-06 2019-07-06 [facility] [id number] 10:00:00 10:00:00 t [employer] [facility] Medicine Outpati ent Clinics 2019-06-23 2019-06-23 [facility] [id number] 15:15:00 15:15:00 t [employer] [facility] Medicine Outpati ent Clinics 2019-05-27 2019-05-27 [facility] [id number] 15:00:00 15:00:00 t [employer] [facility] Medicine Outpati ent Clinics 2019-04-27 2019-04-27 [facility] [id number] 10:35:00 10:35:00 t [employer] [facility] Medicine Outpati ent Clinics 2019-04-22 2019-04-22 [facility] [id number] 15:15:00 15:15:[address] Luke s - Drive [facility] l Medicine Outpati ent Clinics 2019-02-25 2019-02-25 [facility] [id number] 10:15:00 10:15:[address] Luke s - Drive [facility] Medicine l Medicine Outpati ent Clinics 2018-09-21 2018-09-21 [facility] [id number] 14:30:00 14:30:00 t Swink [employer] Luke s - Drive [facility] Medicine l Medicine Outpati ent Clinics 2018-08-25 2018-08-25 [facility] [id number] 14:18:00 14:18:00 t Swink [employer] Please s - Drive [facility] Medicine l Medicine Outpati ent Clinics 2018-05-01 2018-05-01 [facility] [id number] 14:21:00 14:21:00 t Swink [employer] Please s - Drive [facility] Medicine l Medicine Outpati ent Clinics 2018-04-23 2018-04-23 [facility] [id number] 13:00:00 13:00:00 t Swink [employer] Luke s - Drive [facility] Medicine l Medicine Outpati ent Clinics 2018-04-01 2018-04-01 [facility] [id number] 15:48:00 15:48:00 t Swink [employer] Please s - Drive [facility] Medicine l Medicine Outpati ent Clinics 2018-03-31 2018-03-31 [facility] [id number] 10:18:00 10:18:00 t Swink [employer] Luke s - Drive [facility] Medicine l Medicine Outpati ent Clinics 2018-03-12 2018-03-12 [facility] [id number] 13:42:00 13:42:00 t Swink [employer] Please s - Drive [facility] Medicine l Medicine Outpati ent Clinics 2018-02-23 2018-02-23 [facility] [id number] 13:00:00 13:00:00 t Swink [employer] Please s - Drive [facility] Medicine l Medicine Outpati ent Clinics 2017-12-23 2017-12-23 Outpatient Eliezer Delacruz [id number] 14:00:00 14:00:00 [facility] Results Test Description Test Time Test Comments Results Result Comments Source POCT GLUCOSE (AUTOMATED) 2020-08-18 17:59:00 Test Item Value Reference Range Interpretation Comme nts POCT GLU (test code = 9333450334) 111 mg/dL 70-110 H Lab Interpretation (test code = 54620-8) [facility]normal [facility]2020-08-18 14:14:00 Test Item Value Reference Range Interpretation Comments POCT GLU (test code = 7669437744) 202 mg/dL 70-110 H Lab Interpretation (test code = Abnormal 25612-4) [facility] [id number] 13:29:00 Test Item Value Reference Range Interpretation Comments NT-proBNP (test code 2190 pg/mL See_Comment H [Autom ated = 8025774529) message] The system which generated this result transmitted reference range : <=125. The reference range was not used to interpret this result as normal/abnormal . JAQUELIN (test code = JAQUELIN) Biotin has been reported to cause a negative bias, interpret results relative to patient's use of biotin. Lab Interpretation Abnormal (test code = 94740-2) [facility]2020-12-11 13:21:00 Test Item Value Reference Range Interpretation Comments MAGNESIUM (test code = 7066147883) 2.1 mg/dL 1.7-2.4 Lab Interpretation (test code = Normal 15276-0) [facility] METABOLIC PANEL (79341)2020-08-18 13:21:00 Test Item Value Reference Range Interpretation Comments NA (test code = 135 mmol/L 135-145 8884903730) K (test code = 4.3 mmol/L 3.5-5 5332998657) CL (test code = 105 mmol/L 98-108 9401113341) CO2 TOTAL (test code = 23 mmol/L 23-31 5342405895) AGAP (test code = 2-16 4351044018) BUN (test code = 27 mg/dL 7-23 H 4346599162) GLUCOSE (test code = 213 mg/dL 70-110 H 5693245893) CREATININE (test code = 2.44 mg/dL 0.5-1.04 H 1470349813) TOTAL BILI (test code = 0.3 mg/dL 0.1-1.4 1574686049) CALCIUM (test code = 7.6 mg/dL 8.6-10.6 L 4088859845) T PROTEIN (test code = 5.8 g/dL 6.3-8.2 L 2604182231) ALBUMIN (test code = 2.8 g/dL 3.5-5 L 9707490408) ALK PHOS (test code = 91 U/L 34-122 7817668585) ALTv (test code = 10 U/L 5-35 1742-6) AST(SGOT) (test code = 18 U/L 13-40 5495074705) eGFR Calculation mL/min/1.73m2 (Non-) (test code = 7507225284) eGFR Calculation mL/min/1.73m2 () (test code = 1653443202) JAQUELIN (test code = JAQUELIN) Association of Glomerular Filtration Rate (GFR) and Staging of Kidney Disease* + --+ --+ ------+| GFR (mL/min/1.73 m2) ?| With Kidney Damage ?| ?Without Kidney Damage+ --------+ --------+ +| ?>90 ?| ?Stage one ?| ? Normal ?+ ---+ ---+ -------+| ?60-89 ?| ?Stage two ?| ? Decreased GFR ? + --+ --+ ------+| ?30-59 ?| ?Stage three ?| ? Stage three ? + --+ --+ ------+| ?15-29 ?| ?Stage four ? | ? Stage four ?+ ---+ ---+ -------+| ?<15 (or dialysis) ? ?| ?Stage five ? | ? Stage five ?+ ---+ ---+ -------+ *Each stage assumes the associated GFR level has been in effect for at least three months. ?Stages 1 to 5, with or without kidney disease, indicate chronic kidney disease. Notes: Determination of stages one and two (with eGFR >59mL/min/1.73 m2) requires estimation of kidney damage for at least three months as defined by structural or functional abnormalities of the kidney, manifested by either:Pathological abnormalities or Markers of kidney damage (including abnormalities in the composition of the blood or urine or abnormalities in imaging tests). Lab Interpretation Abnormal (test code = 00266-3) [facility] [id number] 13:21:00 Test Item Value Reference Range Interpretation Comments URIC ACID (test code = 4195782065) 6.2 mg/dL 2.9-6 H Lab Interpretation (test code = Abnormal 25638-7) [facility] TexasCB WITH [id number] 13:04:00 Test Item Value Reference Range Interpretation Comments WBC (test code = See_Comment [Automated 6690-2) message] The sy stem which generated this result transmitted reference range : 4.30 - 11.10 10*3/?L. The reference range was not used to interpret this result as normal/abnormal . RBC (test code = See_Comment L [Automated 789-8) message] The sy stem which generated this result transmitted reference range : 3.93 - 5.25 10*6/?L. The reference range was not used to interpret this result as normal/abnormal . HGB (test code = 8.9 g/dL 11.6-15 L 718-7) HCT (test code = 28.8 % 35.7-45.2 L 4544-3) MCV (test code = 88.9 fL 80.6-95.5 787-2) MCH (test code = 27.5 pg 25.9-32.8 785-6) MCHC (test code = 30.9 g/dL 31.6-35.1 L 786-4) RDW-SD (test code = 46.8 fL 39-49.9 27114-5) RDW-CV (test code = 14.7 % 12-15.5 788-0) PLT (test code = See_Comment L [Automated 777-3) message] The sy stem which generated this result transmitted reference range : 166 - 358 10*3/ ?L. The reference r michael was not used to interpret this result as normal/abnormal . MPV (test code = 11.4 fL 9.5-12.9 54416-3) NRBC/100 WBC (test See_Comment [Automat ed code = 9243123513) message] The system which generated this result transmitted reference range : 0.0 - 10.0 /100 WBCs. The refer ence range was not u sed to interpret th is result as normal/abnormal . NRBC x10^3 (test code <0.01 See_Comment [Auto mated = 8343029709) message] The s ystem which generated this result transmitted reference range : 10*3/?L. The reference range was not used to interpret this result as normal/abnormal . GRAN MAT (NEUT) % 71.6 % (test code = 770-8) IMM GRAN % (test code 0.30 % = 6857152055) LYMPH % (test code = 15.6 % 736-9) MONO % (test code = 8.7 % 5905-5) EOS % (test code = 3.5 % 713-8) BASO % (test code = 0.3 % 706-2) GRAN MAT x10^3(ANC) 4.44 10*3/uL 1.88-7.09 (test code = 9980871041) IMM GRAN x10^3 (test <0.03 0-0.06 code = 6950778996) LYMPH x10^3 (test code 0.97 10*3/uL 1.32-3.29 L = 731-0) MONO x10^3 (test code 0.54 10*3/uL 0.33-0.92 = 742-7) EOS x10^3 (test code = 0.22 10*3/uL 0.03-0.39 711-2) BASO x10^3 (test code <0.03 0.01-0.07 = 704-7) Lab Interpretation Abnormal (test code = 96941-7) [facility], [id number] 06:40:00 Test Item Value Reference Range Interpretation Comments VIT D 25OH (test code = <13 25-80 L 17294-6) JAQUELIN (test code = JAQUELIN) Deficiency: <20 ng/mLInsufficiency: 20-24 ng/mLOptimal: 25-80 ng/mL Lab Interpretation (test Abnormal code = 69687-1) [facility] TexasFOLATE2020-12-11 06:32:00 Test Item Value Reference Range Interpretation Comments FOLATE SER (test code = 9.5 ng/mL 3-20 Biot in has been 8307528388) reported to cau se a positive bias, interpret resul ts relative to patient's use o f biotin. Lab Interpretation (test Normal code = 38146-1) [facility] B12, [id number] 00:38:00 Test Item Value Reference Range Interpretation Comments VIT B12 (test code = 451 pg/mL 240-930 2083208925) JAQUELIN (test code = JAQUELIN) Biotin has been reported to cause a positive bias, interpret results relative to patient's use of biotin. Lab Interpretation (test Normal code = 47839-6) [facility] GLUCOSE (AUTOMATED)2020-08-17 22:47:00 Test Item Value Reference Range Interpretation Comments POCT GLU (test code = 271 mg/dL 70-110 H Notifi ed Provider [id number]) Lab Interpretation (test Abnormal code = 13712-2) [facility] GLUCOSE (AUTOMATED)2020-08-17 19:45:00 Test Item Value Reference Range Interpretation Comments POCT GLU (test code = 8238698675) 180 mg/dL 70-110 H Lab Interpretation (test code = Abnormal 19169-7) [facility] [id number] 18:40:00 Test Item Value Reference Range Interpretation Comments URIC ACID (test code = 6442833381) 6.7 mg/dL 2.9-6 H Lab Interpretation (test code = Abnormal 31897-0) [facility]AL [id number] 17:32:00 Test Item Value Reference Range Interpretation Comments NT-proBNP (test code 1970 pg/mL See_Comment H Hemolyz ed = 8490746944) specimen [Automated message] The system which generated this result transmitted reference range : <=125. The reference range was not used to interpret this result as normal/abnormal . JAQUELIN (test code = JAQUELIN) Biotin has been reported to cause a negative bias, interpret results relative to patient's use of biotin. Lab Interpretation Abnormal (test code = 98410-1) [facility], [id number] 17:23:00 Test Item Value Reference Range Interpretation Comments VIT D 25OH (test code = <13 25-80 L 45836-5) JAQUELIN (test code = JAQUELIN) Deficiency: <20 ng/mLInsufficiency: 20-24 ng/mLOptimal: 25-80 ng/mL Lab Interpretation (test Abnormal code = 69876-8) [facility] GLUCOSE (AUTOMATED)2020-08-17 14:13:00 Test Item Value Reference Range Interpretation Comments POCT GLU (test code = 5002857353) 191 mg/dL 70-110 H Lab Interpretation (test code = Abnormal 23132-1) [facility] Metabolic Panel (NA, K, CL, CO2, GLUCOSE, BUN, CREATININE, CA)2020-08-17 13:55:00 Test Item Value Reference Range Interpretation Comments NA (test code = 134 mmol/L 135-145 L 5468387161) K (test code = 4.2 mmol/L 3.5-5 2181216718) CL (test code = 107 mmol/L 98-108 2726389099) CO2 TOTAL (test code = 21 mmol/L 23-31 L 7843901576) AGAP (test code = 2-16 5576841773) BUN (test code = 26 mg/dL 7-23 H 9721825017) GLUCOSE (test code = 185 mg/dL 70-110 H 9025101960) CREATININE (test code = 1.69 mg/dL 0.5-1.04 H 6039216470) CALCIUM (test code = 8.1 mg/dL 8.6-10.6 L 3338487317) eGFR Calculation mL/min/1.73m2 (Non-) (test code = 0331759780) eGFR Calculation mL/min/1.73m2 () (test code = 1584235882) JAQUELIN (test code = JAQUELIN) Association of Glomerular Filtration Rate (GFR) and Staging of Kidney Disease* + --+ --+ ------+| GFR (mL/min/1.73 m2) ?| With Kidney Damage ?| ?Without Kidney Damage+ --------+ --------+ +| ?>90 ?| ?Stage one ?| ? Normal ?+ ---+ ---+ -------+| ?60-89 ?| ?Stage two ?| ? Decreased GFR ? + --+ --+ ------+| ?30-59 ?| ?Stage three ?| ? Stage three ? + --+ --+ ------+| ?15-29 ?| ?Stage four ? | ? Stage four ?+ ---+ ---+ -------+| ?<15 (or dialysis) ? ?| ?Stage five ? | ? Stage five ?+ ---+ ---+ -------+ *Each stage assumes the associated GFR level has been in effect for at least three months. ?Stages 1 to 5, with or without kidney disease, indicate chronic kidney disease. Notes: Determination of stages one and two (with eGFR >59mL/min/1.73 m2) requires estimation of kidney damage for at least three months as defined by structural or functional abnormalities of the kidney, manifested by either:Pathological abnormalities or Markers of kidney damage (including abnormalities in the composition of the blood or urine or abnormalities in imaging tests). Lab Interpretation Abnormal (test code = 42018-2) [facility] TexasIRON [id number] 13:45:00 Test Item Value Reference Range Interpretation Comments IRON (test code = 40 ug/dL 50-160 L Slight hem olysis 3763618788) TIBC (test code = 197 ug/dL 250-410 L 1242283760) % FE SAT (test code = 20 % 20-50 3427709073) Lab Interpretation (test Abnormal code = 65860-7) [facility] with [id number] 13:02:00 Test Item Value Reference Range Interpretation Comments WBC (test code = See_Comment [Automated 6690-2) message] The sy stem which generated this result transmitted reference range : 4.30 - 11.10 10*3/?L. The reference range was not used to interpret this result as normal/abnormal . RBC (test code = See_Comment L [Automated 789-8) message] The sy stem which generated this result transmitted reference range : 3.93 - 5.25 10*6/?L. The reference range was not used to interpret this result as normal/abnormal . HGB (test code = 9.0 g/dL 11.6-15 L 718-7) HCT (test code = 28.4 % 35.7-45.2 L 4544-3) MCV (test code = 89.9 fL 80.6-95.5 787-2) MCH (test code = 28.5 pg 25.9-32.8 785-6) MCHC (test code = 31.7 g/dL 31.6-35.1 786-4) RDW-SD (test code = 47.7 fL 39-49.9 39905-4) RDW-CV (test code = 14.8 % 12-15.5 788-0) PLT (test code = See_Comment L [Automated 777-3) message] The sy stem which generated this result transmitted reference range : 166 - 358 10*3/ ?L. The reference r michael was not used to interpret this result as normal/abnormal . MPV (test code = 12.5 fL 9.5-12.9 34515-9) NRBC/100 WBC (test See_Comment [Automat ed code = 5292840778) message] The system which generated this result transmitted reference range : 0.0 - 10.0 /100 WBCs. The refer ence range was not u sed to interpret th is result as normal/abnormal . NRBC x10^3 (test code <0.01 See_Comment [Auto mated = 1286804306) message] The s ystem which generated this result transmitted reference range : 10*3/?L. The reference range was not used to interpret this result as normal/abnormal . GRAN MAT (NEUT) % 76.0 % (test code = 770-8) IMM GRAN % (test code 0.20 % = 1645247330) LYMPH % (test code = 13.0 % 736-9) MONO % (test code = 8.1 % 5905-5) EOS % (test code = 2.3 % 713-8) BASO % (test code = 0.4 % 706-2) GRAN MAT x10^3(ANC) 6.26 10*3/uL 1.88-7.09 (test code = 0374012360) IMM GRAN x10^3 (test <0.03 0-0.06 code = 2679664908) LYMPH x10^3 (test code 1.07 10*3/uL 1.32-3.29 L = 731-0) MONO x10^3 (test code 0.67 10*3/uL 0.33-0.92 = 742-7) EOS x10^3 (test code = 0.19 10*3/uL 0.03-0.39 711-2) BASO x10^3 (test code 0.03 10*3/uL 0.01-0.07 = 704-7) Lab Interpretation Abnormal (test code = 85201-7) [facility] [id number] 02:45:00 Test Item Value Reference Range Interpretation Comments MAGNESIUM (test code = 3203936794) 1.7 mg/dL 1.7-2.4 Lab Interpretation (test code = Normal 02265-7) [facility]2020-12-10 01:13:00 Test Item Value Reference Range Interpretation Comments APPEARANCE (test code = Hazy Clear A 4909124002) COLOR (test code = Yellow Yellow 8435992172) PH (test code = 4.8-8.0 5248223687) SP GRAVITY (test code = 1.003-1.030 3519655777) GLU U QUAL (test code = 500 mg/dL Normal A 3249120845) BLOOD (test code = 1+ Negative A 2403893047) KETONES (test code = 5 mg/dL Negative A 5263508789) PROTEIN (test code = 500 mg/dL Negative A 2887-8) UROBILIN (test code = Normal Normal 5526518436) BILIRUBIN (test code = Negative Negative 1977809980) NITRITE (test code = Negative Negative 7112885545) LEUK DEBBIE (test code = Negative Negative 8915360886) RBC/HPF (test code = See_Comment H [Autom ated message] 5395821688) The system Intell[employer] generated this result transmit benny reference range : 0 - 3 HPF. The refe rence range was not u sed to interpret th is result as normal/abnormal . WBC/HPF (test code = See_Comment H [Autom ated message] 4687846753) The system Intell[employer] generated this result transmit benny reference range : 0 - 5 HPF. The refe rence range was not u sed to interpret th is result as normal/abnormal . BACTERIA (test code = Few Negative A 5397953347) MUCOUS (test code = Slight Negative LPF A 9918713780) SQ EPITH (test code = HPF 5652644539) HYAL CAST (test code = See_Comment H [Aut omated message] 5369627765) The system Intell[employer] generated this result transmit benny reference range : <=2 LPF. The refere nce range was not u sed to interpret th is result as normal/abnormal . Lab Interpretation (test Abnormal code = 60155-0) [facility]. METABOLIC PANEL (25333)2020-08-17 01:02:00 Test Item Value Reference Range Interpretation Comments NA (test code = 132 mmol/L 135-145 L 6314048338) K (test code = 4.7 mmol/L 3.5-5 3340822775) CL (test code = 101 mmol/L 98-108 8558090008) CO2 TOTAL (test code = 26 mmol/L 23-31 5710739862) AGAP (test code = 2-16 9378745077) BUN (test code = 24 mg/dL 7-23 H 4890905632) GLUCOSE (test code = 265 mg/dL 70-110 H 8189847584) CREATININE (test code = 1.33 mg/dL 0.5-1.04 H 0493486724) TOTAL BILI (test code = 0.4 mg/dL 0.1-1.1 7444213434) CALCIUM (test code = 9.2 mg/dL 8.6-10.6 2477792318) T PROTEIN (test code = 6.0 g/dL 6.3-8.2 L 0240508851) ALBUMIN (test code = 3.1 g/dL 3.5-5 L 8353151304) ALK PHOS (test code = 105 U/L 34-122 0477639885) ALTv (test code = 10 U/L 5-35 1742-6) AST(SGOT) (test code = 17 U/L 13-40 0051349138) eGFR Calculation mL/min/1.73m2 (Non-) (test code = 8496707831) eGFR Calculation mL/min/1.73m2 () (test code = 9602210538) JAQUELIN (test code = JAQUELIN) Association of Glomerular Filtration Rate (GFR) and Staging of Kidney Disease* + --+ --+ ------+| GFR (mL/min/1.73 m2) ?| With Kidney Damage ?| ?Without Kidney Damage+ --------+ --------+ +| ?>90 ?| ?Stage one ?| ? Normal ?+ ---+ ---+ -------+| ?60-89 ?| ?Stage two ?| ? Decreased GFR ? + --+ --+ ------+| ?30-59 ?| ?Stage three ?| ? Stage three ? + --+ --+ ------+| ?15-29 ?| ?Stage four ? | ? Stage four ?+ ---+ ---+ -------+| ?<15 (or dialysis) ? ?| ?Stage five ? | ? Stage five ?+ ---+ ---+ -------+ *Each stage assumes the associated GFR level has been in effect for at least three months. ?Stages 1 to 5, with or without kidney disease, indicate chronic kidney disease. Notes: Determination of stages one and two (with eGFR >59mL/min/1.73 m2) requires estimation of kidney damage for at least three months as defined by structural or functional abnormalities of the kidney, manifested by either:Pathological abnormalities or Markers of kidney damage (including abnormalities in the composition of the blood or urine or abnormalities in imaging tests). Lab Interpretation Abnormal (test code = 38103-2) [facility]OVID[facility] (ID NOW RAPID TESTING)2020-08-17 00:52:00 Test Item Value Reference Range Interpretation Comments SARS-CoV-2 Rapid ID NOW Not Detected Not Detected (test code = 98038-2) JAQUELIN (test code = JAQUELIN) ID NOW COVID-19 Assay is an isothermal nucleic acid amplification test intended for the qualitative detection of nucleic acid from SARS-CoV-2 viral RNA in nasopharyngeal (SHIFT NURSE MANAGER) specimens. It is used under Emergency Use Authorization (EUA) by FDA. The limit of detection (LOD) of the assay is 125 Genome Equivalents/mL. A positive result is indicative of the presence of SARS-CoV-2 RNA. ?Clinical correlation with patient history and other diagnostic information is necessary to determine patient infection status. A negative (Not Detected) result does not preclude SARS-CoV-2 infection. In patients with clinical symptoms and other tests that are consistent with SARS-CoV-2 infection, negative results should be treated as presumptive negative and a new specimen should be tested with alternative PCR molecular test. Invalid: Please collect a new specimen for repeat patient testing if clinically indicated. Lab Interpretation Normal (test code = 08230-4) [facility] WITH [id number] 00:40:00 Test Item Value Reference Range Interpretation Comments WBC (test code = See_Comment [Automated 4590-2) message] The sy stem which generated this result transmitted reference range : 4.30 - 11.10 10*3/?L. The reference range was not used to interpret this result as normal/abnormal . RBC (test code = See_Comment L [Automated 789-8) message] The sy stem which generated this result transmitted reference range : 3.93 - 5.25 10*6/?L. The reference range was not used to interpret this result as normal/abnormal . HGB (test code = 10.9 g/dL 11.6-15 L 718-7) HCT (test code = 33.1 % 35.7-45.2 L 4544-3) MCV (test code = 86.9 fL 80.6-95.5 787-2) MCH (test code = 28.6 pg 25.9-32.8 785-6) MCHC (test code = 32.9 g/dL 31.6-35.1 786-4) RDW-SD (test code = 44.7 fL 39-49.9 49160-4) RDW-CV (test code = 14.4 % 12-15.5 788-0) PLT (test code = See_Comment [Automated 777-3) message] The sy stem which generated this result transmitted reference range : 166 - 358 10*3/ ?L. The reference r michael was not used to interpret this result as normal/abnormal . MPV (test code = 11.3 fL 9.5-12.9 19535-6) NRBC/100 WBC (test See_Comment [Automat ed code = 6050951104) message] The system which generated this result transmitted reference range : 0.0 - 10.0 /100 WBCs. The refer ence range was not u sed to interpret th is result as normal/abnormal . NRBC x10^3 (test code <0.01 See_Comment [Auto mated = 9682149888) message] The s ystem which generated this result transmitted reference range : 10*3/?L. The reference range was not used to interpret this result as normal/abnormal . GRAN MAT (NEUT) % 83.2 % (test code = 770-8) IMM GRAN % (test code 0.20 % = 6534448046) LYMPH % (test code = 8.5 % 736-9) MONO % (test code = 6.7 % 5905-5) EOS % (test code = 1.1 % 713-8) BASO % (test code = 0.3 % 706-2) GRAN MAT x10^3(ANC) 8.55 10*3/uL 1.88-7.09 H (test code = 0948083255) IMM GRAN x10^3 (test <0.03 0-0.06 code = 0832932959) LYMPH x10^3 (test code 0.87 10*3/uL 1.32-3.29 L = 731-0) MONO x10^3 (test code 0.69 10*3/uL 0.33-0.92 = 742-7) EOS x10^3 (test code = 0.11 10*3/uL 0.03-0.39 711-2) BASO x10^3 (test code 0.03 10*3/uL 0.01-0.07 = 704-7) Lab Interpretation Abnormal (test code = 65141-3) [id number] 00:23:00 Test Item Value Reference Range Interpretation Comments POCT PREG (test code = 1605) negative On board controls acceptable with C present Line (test code = 3574) Lab Interpretation (test code = Normal 08904-2) [facility] [place] Whole [id number] 00:22:00 Test Item Value Reference Range Interpretation Comments LACTIC ACID (test code = 1.43 mmol/L 0702664574) [facility] [place]- PELVIS [id number] 15:08:00 Patient Name: MARIS KENNEY Unit No: [id number] EXAMS: CPT CODE: [id number] US PELVIS COMPLETE 55017 PELVIC ULTRASOUND, 06/15/2020: COMPARISON: None CLINICAL HISTORY: UTERINE VAG BLEEDING TECHNIQUE: Transabdominal and endovaginal scanning was performed. FINDINGS: The uterus measures 7.3 x 4.1 x 4.9 cm. The endometrial cavity is empty with a thickness of 4 mm. No uterine fibroids were seen. There is a nabothian cyst in the region of the cervix. The right ovary measures 1.9 x 1.0 x 1.5 cm and appears normal. Doppler flow is demonstrated in the right ovary.The left ovary measures 3.5 x 2.2 x 2.1 cm and contains a 2 cm small complex cyst, likely representing hemorrhagic cyst. Doppler flow is demonstrated in the left ovary. No free fluid is evident. IMPRESSION: Probable 2 cm small hemorrhagic left ovarian cyst. at 1508 Reported and signed by: Bobby Lafleur MD CC: France Shepard MD Technologist: Hermelinda Rich RDMS Probe: Trnscrbd D/ (5070) [id number].[email or web address] Orig Print D/T: S: 06/15/2020 (1337) [facility] NAME: MARIS KENNEY Radiology Department PHYS: France Covarrubias [address] : 1975 AGE: 44 SEX: F [place] [address] LOC: Enio.RAD PHONE #: [phone] EXAM DATE: 06/15/2020 STATUS: REG CLI FAX #: [phone] RAD NO: Page 1 Signed Report Patient Name: MARIS KENNEY Unit No: [id number] EXAMS: CPT CODE: [id number] US PELVIS COMPLETE 00291 <Continued> [facility] NAME: MARIS KENNEY Radiology Department PHYS: France Covarrubias [address] : 1975 AGE: 44 SEX: F [place] [address] LOC: Enio.RAD PHONE #: [phone] EXAM DATE: 06/15/2020 STATUS: REG CLI FAX #: [phone] RAD NO: Page 2 Signed Report- US TRANSVAGINAL W/[id number] 15:08:00 Patient Name: MARIS KENNEY Unit No: [id number] EXAMS: CPT CODE: [id number] US TRANSVAGINAL W/PELVIS 99950 PELVIC ULTRASOUND, 06/15/2020: COMPARISON: None CLINICAL HISTORY: UTERINE VAG BLEEDING TECHNIQUE: Transabdominal and endovaginal scanning was performed. FINDINGS: The uterus measures 7.3 x 4.1 x 4.9 cm. The endometrial cavity is empty with a thickness of 4 mm. No uterine fibroids were seen. There is a nabothian cyst in the region of the cervix. The right ovary measures 1.9 x 1.0 x 1.5 cm and appears normal. Doppler flow is demonstrated in the right ovary.The left ovary measures 3.5 x 2.2 x 2.1 cm and contains a 2 cm small complex cyst, likely representing hemorrhagic cyst. Doppler flow is demonstrated in the left ovary. No free fluid is evident. IMPRESSION: Probable 2 cm small hemorrhagic left ovarian cyst. at 1508 Reported and signed by: Bobby Lafleur MD CC: France Shepard MD Technologist: Hermelinda Rich RDMS Probe: [id number] Trnscrbd D/ (1508) [id number].[email or web address] Orig Print D/T: S: 06/15/2020 (1511) [facility] NAME: MARIS KENNEY Radiology Department PHYS: France Covarrubias [address] : 1975 AGE: 44 SEX: F [place], [place] [address] LOC: F.RAD PHONE #: [phone] EXAM DATE: 06/15/2020 STATUS: REG CLI FAX #: [phone] RAD NO: Page 1 Signed Report Patient Name: MARIS KENNEY Unit No: [id number] EXAMS: CPT CODE: [id number] US TRANSVAGINAL W/PELVIS 02055 <Continued> [facility] NAME: MARIS KENNEY Radiology Department PHYS: France Covarrubias [address] : 1975 AGE: 44 SEX: F [place], [place] [address] LOC: BernardinoRAD PHONE #: [phone] EXAM DATE: 06/15/2020 STATUS: REG CLI FAX #: [phone] RAD NO: Page 2 Signed Report- DUP AB/PEL/SC/[id number] 15:08:00 Patient Name: MARIS KENNEY Unit No: [id number] EXAMS: CPT CODE: [id number] DUP AB/PEL/SC/LTD 51952 PELVIC ULTRASOUND, 06/15/2020: COMPARISON: None CLINICAL HISTORY: UTERINE VAG BLEEDING TECHNIQUE: Transabdominal and endovaginal scanning was performed. FINDINGS: The uterus measures 7.3 x 4.1 x 4.9 cm. The endometrial cavity is empty with a thickness of 4 mm. No uterine fibroids were seen. There is a nabothian cyst in the region of the cervix. The right ovary measures 1.9 x 1.0 x 1.5 cm and appears normal. Doppler flow is demonstrated in the right ovary.The left ovary measures 3.5 x 2.2 x 2.1 cm and contains a 2 cm small complex cyst, likely representing hemorrhagic cyst. Doppler flow is demonstrated in the left ovary. No free fluid is evident. IMPRESSION: Probable 2 cm small hemorrhagic left ovarian cyst. at 1508 Reported and signed by: Bobby Lafleur MD CC: France Shepard MD Technologist: Hermelinda Rich RDMS Probe: Trnscrbd D/ (1508) t.[email or web address] Orig Print D/T: S: 06/15/2020 (1511) [facility] NAME: MARIS KENNEY Radiology Department PHYS: France Covarrubias [address] : 1975 AGE: 44 SEX: F [place], [place] [address] LOC: BernardinoRAD PHONE #: [phone] EXAM DATE: 06/15/2020 STATUS: REG CLI FAX #: [phone] RAD NO: Page 1 Signed Report Patient Name: MARIS KENNEY Unit No: [id number] EXAMS: CPT CODE: [id number] DUP AB/PEL/SC/LTD 15501 <Continued> [facility] NAME: MARIS KENNEY Radiology Department PHYS: France Covarrubias [address] : 1975 AGE: 44 SEX: F [place], [place] [address] LOC: F.RAD PHONE #: [phone] EXAM DATE: 06/15/2020 STATUS: REG CLI FAX #: [phone] RAD NO: Page 2 Signed ReportPOCT GLUCOSE (AUTOMATED)2020-05-22 13:45:00 Test Item Value Reference Range Interpretation Comments POCT GLU (test code = 6745779495) 109 mg/dL 70-110 Lab Interpretation (test code = Normal 19290-1) [facility] [id number] 12:05:00 Test Item Value Reference Range Interpretation Comments URINE CULTURE (test < 10,000 CFU/mL mixed code = 630-4) aerobic organisms - suggests endogenous microbial contamination [facility] TexasN-TERMINAL [id number] 09:00:00 Test Item Value Reference Range Interpretation Comments NT-proBNP (test code 3630 pg/mL See_Comment H [Autom ated = 2284550380) message] The system which generated this result transmitted reference range : <=125. The reference range was not used to interpret this result as normal/abnormal . JAQUELIN (test code = JAQUELIN) Biotin has been reported to cause a negative bias, interpret results relative to patient's use of biotin. Lab Interpretation Abnormal (test code = 81825-3) [facility] METABOLIC PANEL (NA, K, CL, CO2, GLUCOSE, BUN, CREATININE, CA)2020-05-22 08:51:00 Test Item Value Reference Range Interpretation Comments NA (test code = 135 mmol/L 135-145 7172440868) K (test code = 3.6 mmol/L 3.5-5 3884799136) CL (test code = 103 mmol/L 98-108 3853342113) CO2 TOTAL (test code = 25 mmol/L 23-31 6353956509) AGAP (test code = 2-16 0593296251) BUN (test code = 41 mg/dL 7-23 H 2805117777) GLUCOSE (test code = 110 mg/dL 70-110 6253971882) CREATININE (test code = 1.98 mg/dL 0.5-1.04 H 5026059747) CALCIUM (test code = 8.9 mg/dL 8.6-10.6 6882949833) eGFR Calculation mL/min/1.73m2 (Non-) (test code = 3953235052) eGFR Calculation mL/min/1.73m2 () (test code = 6927741493) JAQUELIN (test code = JAQUELIN) Association of Glomerular Filtration Rate (GFR) and Staging of Kidney Disease* + --+ --+ ------+| GFR (mL/min/1.73 m2) ?| With Kidney Damage ?| ?Without Kidney Damage+ --------+ --------+ +| ?>90 ?| ?Stage one ?| ? Normal ?+ ---+ ---+ -------+| ?60-89 ?| ?Stage two ?| ? Decreased GFR ? + --+ --+ ------+| ?30-59 ?| ?Stage three ?| ? Stage three ? + --+ --+ ------+| ?15-29 ?| ?Stage four ? | ? Stage four ?+ ---+ ---+ -------+| ?<15 (or dialysis) ? ?| ?Stage five ? | ? Stage five ?+ ---+ ---+ -------+ *Each stage assumes the associated GFR level has been in effect for at least three months. ?Stages 1 to 5, with or without kidney disease, indicate chronic kidney disease. Notes: Determination of stages one and two (with eGFR >59mL/min/1.73 m2) requires estimation of kidney damage for at least three months as defined by structural or functional abnormalities of the kidney, manifested by either:Pathological abnormalities or Markers of kidney damage (including abnormalities in the composition of the blood or urine or abnormalities in imaging tests). Lab Interpretation Abnormal (test code = 80693-8) [facility] Test Item Value Reference Range Interpretation Comments MAGNESIUM (test code = 1983234333) 2.3 mg/dL 1.7-2.4 Lab Interpretation (test code = Normal 80854-2) [facility]2020-09-14 08:51:00 Test Item Value Reference Range Interpretation Comments PHOSPHORUS (test code = 3476832181) 4.5 mg/dL 2.5-5 Lab Interpretation (test code = Normal 32448-1) [facility] WITH [id number] 08:48:00 Test Item Value Reference Range Interpretation Comments WBC (test code = See_Comment [Automated 6690-2) message] The sy stem which generated this result transmitted reference range : 4.30 - 11.10 10*3/?L. The reference range was not used to interpret this result as normal/abnormal . RBC (test code = See_Comment L [Automated 789-8) message] The sy stem which generated this result transmitted reference range : 3.93 - 5.25 10*6/?L. The reference range was not used to interpret this result as normal/abnormal . HGB (test code = 9.2 g/dL 11.6-15 L 718-7) HCT (test code = 29.0 % 35.7-45.2 L 4544-3) MCV (test code = 83.1 fL 80.6-95.5 787-2) MCH (test code = 26.4 pg 25.9-32.8 785-6) MCHC (test code = 31.7 g/dL 31.6-35.1 786-4) RDW-SD (test code = 43.6 fL 39-49.9 93421-4) RDW-CV (test code = 14.6 % 12-15.5 788-0) PLT (test code = See_Comment [Automated 777-3) message] The sy stem which generated this result transmitted reference range : 166 - 358 10*3/ ?L. The reference r michael was not used to interpret this result as normal/abnormal . MPV (test code = 12.2 fL 9.5-12.9 83850-3) NRBC/100 WBC (test See_Comment [Automat ed code = 6534882930) message] The system which generated this result transmitted reference range : 0.0 - 10.0 /100 WBCs. The refer ence range was not u sed to interpret th is result as normal/abnormal . NRBC x10^3 (test code See_Comment [Auto mated = 2806096912) message] The s ystem which generated this result transmitted reference range : 10*3/?L. The reference range was not used to interpret this result as normal/abnormal . GRAN MAT (NEUT) % 64.2 % (test code = 770-8) IMM GRAN % (test code 0.30 % = 5695558197) LYMPH % (test code = 24.4 % 736-9) MONO % (test code = 7.8 % 5905-5) EOS % (test code = 2.9 % 713-8) BASO % (test code = 0.4 % 706-2) GRAN MAT x10^3(ANC) 4.44 10*3/uL 1.88-7.09 (test code = 3085230096) IMM GRAN x10^3 (test <0.03 0-0.06 code = 2730879313) LYMPH x10^3 (test code 1.69 10*3/uL 1.32-3.29 = 731-0) MONO x10^3 (test code 0.54 10*3/uL 0.33-0.92 = 742-7) EOS x10^3 (test code = 0.20 10*3/uL 0.03-0.39 711-2) BASO x10^3 (test code 0.03 10*3/uL 0.01-0.07 = 704-7) Lab Interpretation Abnormal (test code = 84561-6) [facility] GLUCOSE (AUTOMATED)2020-05-22 05:24:00 Test Item Value Reference Range Interpretation Comments POCT GLU (test code = 3798069343) 100 mg/dL 70-110 Lab Interpretation (test code = Normal 17968-0) [facility] GLUCOSE (AUTOMATED)2020-05-21 21:59:00 Test Item Value Reference Range Interpretation Comments POCT GLU (test code = 8678262181) 295 mg/dL 70-110 H Lab Interpretation (test code = Abnormal 60249-5) [facility] (NA, K, CL, CO2, GLUCOSE, BUN, CREATININE, CA)2020-05-21 19:35:00 Test Item Value Reference Range Interpretation Comments NA (test code = 135 mmol/L 135-145 1076033714) K (test code = 3.9 mmol/L 3.5-5 4335260410) CL (test code = 101 mmol/L 98-108 5270582700) CO2 TOTAL (test code = 23 mmol/L 23-31 6834771299) AGAP (test code = 2-16 0428170235) BUN (test code = 39 mg/dL 7-23 H 9962722826) GLUCOSE (test code = 175 mg/dL 70-110 H 2566421333) CREATININE (test code = 1.75 mg/dL 0.5-1.04 H 1470943699) CALCIUM (test code = 8.7 mg/dL 8.6-10.6 4999783153) eGFR Calculation mL/min/1.73m2 (Non-) (test code = 2078074975) eGFR Calculation mL/min/1.73m2 () (test code = 3463557602) JAQUELIN (test code = JAQUELIN) Association of Glomerular Filtration Rate (GFR) and Staging of Kidney Disease* + --+ --+ ------+| GFR (mL/min/1.73 m2) ?| With Kidney Damage ?| ?Without Kidney Damage+ --------+ --------+ +| ?>90 ?| ?Stage one ?| ? Normal ?+ ---+ ---+ -------+| ?60-89 ?| ?Stage two ?| ? Decreased GFR ? + --+ --+ ------+| ?30-59 ?| ?Stage three ?| ? Stage three ? + --+ --+ ------+| ?15-29 ?| ?Stage four ? | ? Stage four ?+ ---+ ---+ -------+| ?<15 (or dialysis) ? ?| ?Stage five ? | ? Stage five ?+ ---+ ---+ -------+ *Each stage assumes the associated GFR level has been in effect for at least three months. ?Stages 1 to 5, with or without kidney disease, indicate chronic kidney disease. Notes: Determination of stages one and two (with eGFR >59mL/min/1.73 m2) requires estimation of kidney damage for at least three months as defined by structural or functional abnormalities of the kidney, manifested by either:Pathological abnormalities or Markers of kidney damage (including abnormalities in the composition of the blood or urine or abnormalities in imaging tests). Lab Interpretation Abnormal (test code = 70891-5) [facility] WITH [id number] 19:09:00 Test Item Value Reference Range Interpretation Comments WBC (test code = See_Comment [Automated 6690-2) message] The sy stem which generated this result transmitted reference range : 4.30 - 11.10 10*3/?L. The reference range was not used to interpret this result as normal/abnormal . RBC (test code = See_Comment L [Automated 789-8) message] The sy stem which generated this result transmitted reference range : 3.93 - 5.25 10*6/?L. The reference range was not used to interpret this result as normal/abnormal . HGB (test code = 9.5 g/dL 11.6-15 L 718-7) HCT (test code = 29.2 % 35.7-45.2 L 4544-3) MCV (test code = 83.0 fL 80.6-95.5 787-2) MCH (test code = 27.0 pg 25.9-32.8 785-6) MCHC (test code = 32.5 g/dL 31.6-35.1 786-4) RDW-SD (test code = 42.5 fL 39-49.9 38780-1) RDW-CV (test code = 14.2 % 12-15.5 788-0) PLT (test code = See_Comment [Automated 777-3) message] The sy stem which generated this result transmitted reference range : 166 - 358 10*3/ ?L. The reference r michael was not used to interpret this result as normal/abnormal . MPV (test code = 11.6 fL 9.5-12.9 80548-0) NRBC/100 WBC (test See_Comment [Automat ed code = 3894141842) message] The system which generated this result transmitted reference range : 0.0 - 10.0 /100 WBCs. The refer ence range was not u sed to interpret th is result as normal/abnormal . NRBC x10^3 (test code See_Comment [Auto mated = 6579285794) message] The s ystem which generated this result transmitted reference range : 10*3/?L. The reference range was not used to interpret this result as normal/abnormal . GRAN MAT (NEUT) % 72.3 % (test code = 770-8) IMM GRAN % (test code 0.40 % = 7001929727) LYMPH % (test code = 17.5 % 736-9) MONO % (test code = 7.1 % 5905-5) EOS % (test code = 2.3 % 713-8) BASO % (test code = 0.4 % 706-2) GRAN MAT x10^3(ANC) 4.99 10*3/uL 1.88-7.09 (test code = 7946479061) IMM GRAN x10^3 (test 0.03 10*3/uL 0-0.06 code = 5566879381) LYMPH x10^3 (test code 1.21 10*3/uL 1.32-3.29 L = 731-0) MONO x10^3 (test code 0.49 10*3/uL 0.33-0.92 = 742-7) EOS x10^3 (test code = 0.16 10*3/uL 0.03-0.39 711-2) BASO x10^3 (test code 0.03 10*3/uL 0.01-0.07 = 704-7) Lab Interpretation Abnormal (test code = 20748-1) [facility]ALCITONIN2020-09-13 18:37:00 Test Item Value Reference Range Interpretation Comments Procalcitonin (test 0.06 ng/mL <0.07 code = 6746481572) JAQUELIN (test code = JAQUELIN) INTERPRETATION OF PROCALCITONIN RESULTS IN ADULTS >= 18 YEARS OF AGE Initiation and discontinuation of antibiotics on patients with suspected or confirmed Lower Respiratory Tract Infection in Adults >= 18 years of age. + +-------- --------+ + -----+|Procalcitonin |Interpretation ?|Antibiotic ? ? |Considerations ? |ng/mL ? | ?|recommendation | ? + +-------- --------+ + -----+| <0.1 ? | Bacterial ? ? ?| Strongly ? ? ?| ? | ?| infection very | discouraged ? | Overruling: ? | ?| unlikely ? ? ? | ? | ? Clinically unstable ? ? ? + +-------- --------+ + ? High risk for adverse ? ? | <0.25 ?| Bacterial ? ? ?| Discouraged ? | ? outcome ? | ?| infection ? ? ?| ? | ? SEE IMPORTANT NOTE ?| ?| unlikely ? ? ? | ? | ? + +-------- --------+ + -----+| >=0.25 ? ? ? | Bacterial ? ? ?| Encouraged ? ?| ? | ?| infection ? ? ?| ? | ? | ?| likely ? | ? | Consider treatment failure ?+ +------- ---------+ -+ if levels does not decrease | >0.5 ? | Bacterial ? ? ?| Strongly ? ? ?| appropriately ? | ?| infection very | encouraged ? ?| ? | ?| likely ? | ? | ? + +-------- --------+ + -----+ Discontinuation of antibiotics in high-acuity patients with suspected or confirmed sepsis in Adults >= 18 years of age. + +-------- --------+ + -----+|Procalcitonin |Interpretation ?|Antibiotic ? ? |Considerations ? |ng/mL ? | ?|recommendation | ? + +-------- --------+ + -----+| <0.25 ?| Bacterial ? ? ?| Strongly ? ? ?| ? | ?| infection very | discouraged ? | Overruling: ? | ?| unlikely ? ? ? | ? | ? Clinically unstable ? ? ? + +-------- --------+ + ? High risk for adverse ? ? | <0.5 or drop | Bacterial ? ? ?| Discouraged ? | ? outcome ? | >80% from ? ?| infection ? ? ?| ? | ? SEE IMPORTANT NOTE ?| highest PCT ?| unlikely ? ? ? | ? | ? | level ?| ?| ? | ? + +-------- --------+ + -----+| >=0.5 ?| Bacterial ? ? ?| Encouraged ? ?| ? | ?| infection ? ? ?| ? | ? | ?| likely ? | ? | Consider treatment failure ?+ +------- ---------+ -+ if levels does not decrease | >1.0 ? | Bacterial ? ? ?| Strongly ? ? ?| appropriately ? | ?| infection very | encouraged ? ?| ? | ?| likely ? | ? | ? + +-------- --------+ + -----+ Percentage of drop of Procalcitonin calculation for Discontinuation of antibiotics in high-acuity patients with suspected or confirmed sepsis in Adults >= 18 years of age. ? Procalcitonin highest{}-Procalcitonin current{}Delta Procalcitonin = x100% ? Procalcitonin current {} IMPORTANT NOTE: Procalcitonin may be elevated without bacterial infection by physiologic stress related to trauma, nelson, chronic dialysis, metastatic cancer, surgery in the past seven days, malaria, some fungal infections, and some forms of vasculitis. The interpretation algorithm may not apply to patients with immunosuppression (equivalent of >10 mg of prednisone daily), HIV with CD4 cell count < 350 cells/mm3, active malignancy on systemic chemotherapy, solid organ transplant or hematopoietic stem cell transplantation, or hospital acquired pneumonia. Additionally, some clinical trials of procalcitonin have excluded patients with shock requiring vasopressor use, acute respiratory failure requiring mechanical ventilation, or those with known lung abscess/empyema. For further information please refer to:[email or web address] Lab Interpretation Normal (test code = 30452-0) [facility] GLUCOSE (AUTOMATED)2020-05-21 16:46:00 Test Item Value Reference Range Interpretation Comments POCT GLU (test code = 3452769440) 99 mg/dL 70-110 Lab Interpretation (test code = Normal 32423-6) [facility], URINE [id number] 16:27:00 Test Item Value Reference Range Interpretation Comments UREA N UR (test code = 6142354236) 212 mg/dL [facility] TexasPrepare Packed RBC (in units), 1 Units 2020-05-21 12:44:57 Test Item Value Reference Range Interpretation Comments Cross Match Result Compatible (test code = 4409) ISBT Blood Type Code (test code = 926089) Unit Blood Type (test A Pos code = 4410) Unit Number (test [id number] code = 4411) Blood Expiration Date & Time (test code = 396372) Status Information Issued (test code = 4412) Product Red Blood Cells Identification (test code = 4413) Product Code (test G2240G89 Performed at [facility] code = 4414) Laboratory Services - [facility] Blood [address] [place], [place] [id number] Free: [phone] A No. [id number] [facility] TexasPROTHROMBIN TIME / [id number] 11:22:00 Test Item Value Reference Range Interpretation Comments PROTIME PATIENT (test See_Comment H [Auto mated message] code = 5964-2) The system Diwanee generated this result transmitted ref erence range: 12.0 - 1 4.7 Seconds. The reference range was not used to int erpret this result as normal/abnormal . INR (test code = 6301-6) Nor mal INR <1.1; Warfarin Therap eutic range 2.0 to 3. 0 or 2.5 to 3.5, dep ending upon the indica tions. Lab Interpretation (test Abnormal code = 14004-8) [facility] GLUCOSE (AUTOMATED)2020-05-21 11:21:00 Test Item Value Reference Range Interpretation Comments POCT GLU (test code = 7720120038) 163 mg/dL 70-110 H Lab Interpretation (test code = Abnormal 67369-2) [facility] WITH [id number] 11:15:00 Test Item Value Reference Range Interpretation Comments WBC (test code = See_Comment [Automated 6690-2) message] The sy stem which generated this result transmitted reference range : 4.30 - 11.10 10*3/?L. The reference range was not used to interpret this result as normal/abnormal . RBC (test code = See_Comment L [Automated 789-8) message] The sy stem which generated this result transmitted reference range : 3.93 - 5.25 10*6/?L. The reference range was not used to interpret this result as normal/abnormal . HGB (test code = 6.6 g/dL 11.6-15 L 718-7) HCT (test code = 21.6 % 35.7-45.2 L 4544-3) MCV (test code = 85.4 fL 80.6-95.5 787-2) MCH (test code = 26.1 pg 25.9-32.8 785-6) MCHC (test code = 30.6 g/dL 31.6-35.1 L 786-4) RDW-SD (test code = 44.5 fL 39-49.9 76188-2) RDW-CV (test code = 14.4 % 12-15.5 788-0) PLT (test code = See_Comment [Automated 777-3) message] The sy stem which generated this result transmitted reference range : 166 - 358 10*3/ ?L. The reference r michael was not used to interpret this result as normal/abnormal . MPV (test code = 12.5 fL 9.5-12.9 40063-2) NRBC/100 WBC (test See_Comment [Automat ed code = 4853534272) message] The system which generated this result transmitted reference range : 0.0 - 10.0 /100 WBCs. The refer ence range was not u sed to interpret th is result as normal/abnormal . NRBC x10^3 (test code See_Comment [Auto mated = 2693740207) message] The s ystem which generated this result transmitted reference range : 10*3/?L. The reference range was not used to interpret this result as normal/abnormal . GRAN MAT (NEUT) % 67.3 % (test code = 770-8) IMM GRAN % (test code 0.50 % = 3438347412) LYMPH % (test code = 22.1 % 736-9) MONO % (test code = 7.8 % 5905-5) EOS % (test code = 2.0 % 713-8) BASO % (test code = 0.3 % 706-2) GRAN MAT x10^3(ANC) 4.14 10*3/uL 1.88-7.09 (test code = 3895367371) IMM GRAN x10^3 (test 0.03 10*3/uL 0-0.06 code = 3403797180) LYMPH x10^3 (test code 1.36 10*3/uL 1.32-3.29 = 731-0) MONO x10^3 (test code 0.48 10*3/uL 0.33-0.92 = 742-7) EOS x10^3 (test code = 0.12 10*3/uL 0.03-0.39 711-2) BASO x10^3 (test code <0.03 0.01-0.07 = 704-7) Lab Interpretation Abnormal (test code = 48540-4) [facility] METABOLIC PANEL (NA, K, CL, CO2, GLUCOSE, BUN, CREATININE, CA)2020-05-21 11:07:00 Test Item Value Reference Range Interpretation Comments NA (test code = 135 mmol/L 135-145 3780554291) K (test code = 3.9 mmol/L 3.5-5 7693148004) CL (test code = 103 mmol/L 98-108 9811456242) CO2 TOTAL (test code = 22 mmol/L 23-31 L 6586928910) AGAP (test code = 2-16 8531430116) BUN (test code = 43 mg/dL 7-23 H 8900279023) GLUCOSE (test code = 195 mg/dL 70-110 H 1742492380) CREATININE (test code = 1.73 mg/dL 0.5-1.04 H 1350388385) CALCIUM (test code = 8.5 mg/dL 8.6-10.6 L 7294148528) eGFR Calculation mL/min/1.73m2 (Non-) (test code = 5560062908) eGFR Calculation mL/min/1.73m2 () (test code = 3229222538) JAQUELIN (test code = JAQUELIN) Association of Glomerular Filtration Rate (GFR) and Staging of Kidney Disease* + --+ --+ ------+| GFR (mL/min/1.73 m2) ?| With Kidney Damage ?| ?Without Kidney Damage+ --------+ --------+ +| ?>90 ?| ?Stage one ?| ? Normal ?+ ---+ ---+ -------+| ?60-89 ?| ?Stage two ?| ? Decreased GFR ? + --+ --+ ------+| ?30-59 ?| ?Stage three ?| ? Stage three ? + --+ --+ ------+| ?15-29 ?| ?Stage four ? | ? Stage four ?+ ---+ ---+ -------+| ?<15 (or dialysis) ? ?| ?Stage five ? | ? Stage five ?+ ---+ ---+ -------+ *Each stage assumes the associated GFR level has been in effect for at least three months. ?Stages 1 to 5, with or without kidney disease, indicate chronic kidney disease. Notes: Determination of stages one and two (with eGFR >59mL/min/1.73 m2) requires estimation of kidney damage for at least three months as defined by structural or functional abnormalities of the kidney, manifested by either:Pathological abnormalities or Markers of kidney damage (including abnormalities in the composition of the blood or urine or abnormalities in imaging tests). Lab Interpretation Abnormal (test code = 71240-4) [facility] [id number] 10:53:00 Test Item Value Reference Range Interpretation Comments NT-proBNP (test code 3750 pg/mL See_Comment H [Autom ated = 9495757106) message] The system which generated this result transmitted reference range : <=125. The reference range was not used to interpret this result as normal/abnormal . JAQUELIN (test code = JAQUELIN) Biotin has been reported to cause a negative bias, interpret results relative to patient's use of biotin. Lab Interpretation Abnormal (test code = 47046-2) [facility]Glycosylated Hemoglobin (A1C)2020-05-21 10:46:00 Test Item Value Reference Range Interpretation Comments HGB A1C (test code = 9.8 % 4-6 H 4548-4) JAQUELIN (test code = JAQUELIN) %A1C (NGSP) Interpretation (ADA)4.8-5.6 ? ? Normal or (Non-Diabetic Range)5.7-6.4 ? ? Increased Risk (Pre-Diabetic)>6.5 ?Diabetes Indicated Lab Interpretation Abnormal (test code = 69375-0) [facility]2020-09-13 10:45:00 Test Item Value Reference Range Interpretation Comments MAGNESIUM (test code = 8621891490) 2.3 mg/dL 1.7-2.4 Lab Interpretation (test code = Normal 29588-2) [facility]PHOSPHORUS2020-09-13 10:45:00 Test Item Value Reference Range Interpretation Comments PHOSPHORUS (test code = 4432546916) 3.8 mg/dL 2.5-5 Lab Interpretation (test code = Normal 84599-6) [facility] TexasPROTEIN CREAT RATIO URINE [id number] 09:00:00 Test Item Value Reference Range Interpretation Comments T. PROT U (test code = 123 mg/dL 2888-6) CREAT U (test code = 21.7 mg/dL 1329260501) Protein/Creatinine Ratio 0.0-2.0 H Urine (test code = 9118652477) JAQUELIN (test code = JAQUELIN) Random Urine Total Protein Reference Ranges Random Specimen: ? Less than 10 mg/dLFirst Morning Specimen: ? ?Less than 20 mg/dL ? Lab Interpretation (test Abnormal code = 29743-3) [facility] TexasSODIUM, URINE [id number] 08:55:00 Test Item Value Reference Range Interpretation Comments NA URINE (test code = 6050769057) 105 mmol/L [facility] TexasTHYROID STIMULATING [id number] 08:35:00 Test Item Value Reference Range Interpretation Comments TSH (test code = See_Comment [Automated message] 6664519434) The system Intellicyt generated this result transmitted ref erence range: 0.45 - 4 .70 mIU/L. The refe rence range was not u sed to interpret this result as normal/abnor mal. Lab Interpretation (test Normal code = 41656-4) [facility] TexasPrepare Packed RBC (in units), 2 Units 2020-05-21 08:33:02 Test Item Value Reference Range Interpretation Comments Cross Match Result Compatible (test code = 4409) ISBT Blood Type Code (test code = 165716) Unit Blood Type (test A Pos code = 4410) Unit Number (test [id number] code = 4411) Blood Expiration Date & Time (test code = 470795) Status Information Issued (test code = 4412) Product Red Blood Cells Identification (test code = 4413) Product Code (test J5532X71 Performed at [facility] code = 4414) Laboratory Services - [facility] [address] [place], [place] [address]Toll Free: [phone] A No. [id number] [facility] TexasURIC [id number] 08:15:00 Test Item Value Reference Range Interpretation Comments URIC ACID (test code = 5546058632) 10.4 mg/dL 2.9-6 H Lab Interpretation (test code = Abnormal 07568-6) [facility] TexasCREATINE [id number] 08:15:00 Test Item Value Reference Range Interpretation Comments CK (test code = 0106611207) 108 U/L 33-194 Lab Interpretation (test code = Normal 47850-7) [facility] TexasLipid Panel (Total Cholesterol, Triglycerides, HDL) - [id number] 08:05:00 Test Item Value Reference Range Interpretation Comments CHOL (test code = 101 mg/dL 120-200 L 8686785307) HDL (test code = 32 mg/dL >50 L 6931023651) HDLC RATIO (test code = See_Comment [Au tomated message] 4833966252) The system Sirnaomicsic h generated this result transmit benny reference range : <=4.5. The refe rence range was not u sed to interpret th is result as normal/abnormal . TRIG (test code = 277 mg/dL 30-170 H 7760852592) LDL CHOL (test code = 14 mg/dL See_Comment [Auto mated message] 66187-1) The system Intellicyt generated this result transmit benny reference range : <=160. The refe rence range was not u sed to interpret th is result as normal/abnormal . VLDL (test code = 55 mg/dL 5-60 3595566759) Lab Interpretation (test Abnormal code = 47481-7) [facility] TexasPOCT GLUCOSE (AUTOMATED)2020-05-21 07:18:00 Test Item Value Reference Range Interpretation Comments POCT GLU (test code = 5298963696) 318 mg/dL 70-110 H Lab Interpretation (test code = Abnormal 68650-4) [facility] TexasChest 2 [id number] 05:14:57 Right lower lobe consolidation, atelectasis versus pneumonia. Stable cardiomegaly. Preliminary Report Dictated by Resident: Elvis Deleon MD., have reviewed this study and agree with the abovereport.XR CHEST 2 VW Comparison: 07/22/2017 History: SOB Technique: Frontal radiograph Findings: Stable elevation of the right hemidiaphragm noted with right basilarconsolidation. Dense consolidation overlies in the lower thoracic spine inthe lateral projection. No pleural effusion, focal consolidation, orpneumothorax is identified. The cardiomediastinal silhouette is enlarged, un changed. Prior sternotomy. No acute osseous abnormality is present. [facility], Radiant Results Inft User - 05/21/2020 12:16 AM CDTXR CHEST 2 VWComparison: 07/22/2017History: SOB Technique: Frontal radiographFindings:Stable elevation of the right hemidiaphragm noted with right basilarconsolidation. Dense con solidation overlies in the lower thoracic spine inthe lateral projection. No pleural effusion, focalconsolidation, orpneumothorax is identified. The cardiomediastinal silhouette is enlarged, unchanged. Prior sternotomy.No acute osseous abnormality is present.IMPRESSIONRight lower lobe consolidation, a telectasis versus pneumonia.Stable cardiomegaly.Preliminary Report Dictated by Resident: Elvis Goldberg MD., have reviewed this study and agree with the abovereport.[facility] TexasType and Screen - ONCE [id number] 02:33:43 Test Item Value Reference Range Interpretation Comments ABO & RH (test AB Positive Performed at [facility] code = 20) Laboratory Serv [facility] Blood Bank[address] [place], [place] [address]Toll Free: [phone] A No. [id number] IAT (test code = Negative Performed a t [facility] 1185) Laboratory Serv [facility] Blood Bank[address] [place], [place] [address]Toll Free: [phone] A No. [id number] [facility] TexasCOVID-19 (ID NOW RAPID TESTING)2020-05-21 02:15:00 Test Item Value Reference Range Interpretation Comments SARS-CoV-2 Rapid ID NOW Not Detected Not Detected (test code = 17498-2) JAQUELIN (test code = JAQUELIN) ID NOW COVID-19 Assay is an isothermal nucleic acid amplification test intended for the qualitative detection of nucleic acid from SARS-CoV-2 viral RNA in nasopharyngeal (SHIFT NURSE MANAGER) specimens. It is used under Emergency Use Authorization (EUA) by FDA. The limit of detection (LOD) of the assay is 125 Genome Equivalents/mL. A positive result is indicative of the presence of SARS-CoV-2 RNA. ?Clinical correlation with patient history and other diagnostic information is necessary to determine patient infection status. A negative (Not Detected) result does not preclude SARS-CoV-2 infection. In patients with clinical symptoms and other tests that are consistent with SARS-CoV-2 infection, negative results should be treated as presumptive negative and a new specimen should be tested with alternative PCR molecular test. Invalid: Please collect a new specimen for repeat patient testing if clinically indicated. Lab Interpretation Normal (test code = 97398-5) [facility] TexasTroponin [id number] 01:34:00 Test Item Value Reference Range Interpretation Comments TROPONIN I (test 0.020 ng/mL See_Comment [Automated code = 2764141023) message] The system which generated this result transmitted reference range : <=0.034. The reference range was not used to interpret this result as normal/abnormal . JAQUELIN (test code = Equal or Less than JAQUELIN) 0.034 ng/ml---Normal ?Note: Cardiac troponin begins to rise 3-4 hours after the onset of ischemia. Repeat in 4-6 hours if the sample was drawn within 3-4 hours of the onset of the symptom and found normal. Between 0.035 and 0.120 ng/mL--- Borderline. Questionable myocardial injury or necrosis ? ?Note: Serial measurement may be necessary to confirm or exclude the diagnosis of myocardial injury or necrosis; Clinical correlation (symptoms, EKGs, imaging studies, and others) required; Repeat in 4-6 hours if clinically indicated. ? Equal or Higher than 0.121 ng/mL---Abnormal. Myocardial Injury or Necrosis Likely ? Biotin has been reported to cause a negative bias, interpret results relative to patient's use of biotin. ? Lab Interpretation Normal (test code = 33168-2) [facility] TexasUrinalysis2020-09-13 01:31:00 Test Item Value Reference Range Interpretation Comments APPEARANCE (test code = Hazy Clear A 9911966139) COLOR (test code = Yellow Yellow 6381044243) PH (test code = 4.8-8.0 0970224448) SP GRAVITY (test code = 1.003-1.030 4661672471) GLU U QUAL (test code = 500 mg/dL Normal A 5243147352) BLOOD (test code = 1+ Negative A 5305968565) KETONES (test code = Negative Negative 0964387543) PROTEIN (test code = 100 mg/dL Negative A 2887-8) UROBILIN (test code = Normal Normal 8886501855) BILIRUBIN (test code = Negative Negative 0980788431) NITRITE (test code = Negative Negative 0311420304) LEUK DEBBIE (test code = 500/uL Negative A 0017955714) RBC/HPF (test code = See_Comment H [Autom ated message] 8135224918) The system Intellicyt generated this result transmit benny reference range : 0 - 3 HPF. The refe rence range was not u sed to interpret th is result as normal/abnormal . WBC/HPF (test code = See_Comment H [Autom ated message] 6446945144) The system Intellicyt generated this result transmit benny reference range : 0 - 5 HPF. The refe rence range was not u sed to interpret th is result as normal/abnormal . BACTERIA (test code = Few Negative A 3276414948) MUCOUS (test code = Slight Negative LPF A 8169923237) SQ EPITH (test code = HPF 0145252293) Lab Interpretation (test Abnormal code = 45919-5) [facility] TexasN-TERMINAL [id number] 01:30:00 Test Item Value Reference Range Interpretation Comments NT-proBNP (test code 4010 pg/mL See_Comment H [Autom ated = 6058165365) message] The system which generated this result transmitted reference range : <=125. The reference range was not used to interpret this result as normal/abnormal . JAQUELIN (test code = JAQUELIN) Biotin has been reported to cause a negative bias, interpret results relative to patient's use of biotin. Lab Interpretation Abnormal (test code = 15483-8) [facility] TexasBasi Metabolic Panel (NA, K, CL, CO2, GLUCOSE, BUN, CREATININE, CA)2020-05-21 01:23:00 Test Item Value Reference Range Interpretation Comments NA (test code = 133 mmol/L 135-145 L 8588099982) K (test code = 4.7 mmol/L 3.5-5 0169859014) CL (test code = 98 mmol/L 98-108 6440773771) CO2 TOTAL (test code = 22 mmol/L 23-31 L 7733587721) AGAP (test code = 2-16 1497644748) BUN (test code = 39 mg/dL 7-23 H 8735820232) GLUCOSE (test code = 303 mg/dL 70-110 H 9120353525) CREATININE (test code = 1.96 mg/dL 0.5-1.04 H 5003429043) CALCIUM (test code = 9.0 mg/dL 8.6-10.6 5701621127) eGFR Calculation mL/min/1.73m2 (Non-) (test code = 3425164129) eGFR Calculation mL/min/1.73m2 () (test code = 6645377327) JAQUELIN (test code = JAQUELIN) Association of Glomerular Filtration Rate (GFR) and Staging of Kidney Disease* + --+ --+ ------+| GFR (mL/min/1.73 m2) ?| With Kidney Damage ?| ?Without Kidney Damage+ --------+ --------+ +| ?>90 ?| ?Stage one ?| ? Normal ?+ ---+ ---+ -------+| ?60-89 ?| ?Stage two ?| ? Decreased GFR ? + --+ --+ ------+| ?30-59 ?| ?Stage three ?| ? Stage three ? + --+ --+ ------+| ?15-29 ?| ?Stage four ? | ? Stage four ?+ ---+ ---+ -------+| ?<15 (or dialysis) ? ?| ?Stage five ? | ? Stage five ?+ ---+ ---+ -------+ *Each stage assumes the associated GFR level has been in effect for at least three months. ?Stages 1 to 5, with or without kidney disease, indicate chronic kidney disease. Notes: Determination of stages one and two (with eGFR >59mL/min/1.73 m2) requires estimation of kidney damage for at least three months as defined by structural or functional abnormalities of the kidney, manifested by either:Pathological abnormalities or Markers of kidney damage (including abnormalities in the composition of the blood or urine or abnormalities in imaging tests). Lab Interpretation Abnormal (test code = 07025-7) [facility] TexasHepatic Function Panel (ALB, T.PRO, BILI T, BU/BC, ALT, AST, ALK PHOS)2020-05-21 01:23:00 Test Item Value Reference Range Interpretation Comments TOTAL BILI (test code = 2946010541) 0.3 mg/dL 0.1-1.1 BILI UNCON (test code = 5345731340) 0.5 mg/dL 0.1-1.1 BILI CONJ (test code = 0377816107) 0.0 mg/dL 0-0.3 T PROTEIN (test code = 2800513606) 6.2 g/dL 6.3-8.2 L ALBUMIN (test code = 7334147584) 3.4 g/dL 3.5-5 L ALK PHOS (test code = 6289999570) 90 U/L 34-122 ALTv (test code = 1742-6) 26 U/L 5-35 AST(SGOT) (test code = 0749750978) 26 U/L 13-40 Lab Interpretation (test code = Abnormal 95688-3) [facility] with [id number] 01:09:00 Test Item Value Reference Range Interpretation Comments WBC (test code = See_Comment [Automated 6690-2) message] The sy stem which generated this result transmitted reference range : 4.30 - 11.10 10*3/?L. The reference range was not used to interpret this result as normal/abnormal . RBC (test code = See_Comment L [Automated 789-8) message] The sy stem which generated this result transmitted reference range : 3.93 - 5.25 10*6/?L. The reference range was not used to interpret this result as normal/abnormal . HGB (test code = 5.2 g/dL 11.6-15 L 718-7) HCT (test code = 17.3 % 35.7-45.2 L 4544-3) MCV (test code = 82.4 fL 80.6-95.5 787-2) MCH (test code = 24.8 pg 25.9-32.8 L 785-6) MCHC (test code = 30.1 g/dL 31.6-35.1 L 786-4) RDW-SD (test code = 42.9 fL 39-49.9 97869-1) RDW-CV (test code = 14.5 % 12-15.5 788-0) PLT (test code = See_Comment [Automated 777-3) message] The sy stem which generated this result transmitted reference range : 166 - 358 10*3/ ?L. The reference r michael was not used to interpret this result as normal/abnormal . MPV (test code = 12.3 fL 9.5-12.9 13662-9) NRBC/100 WBC (test See_Comment [Automat ed code = 8170043090) message] The system which generated this result transmitted reference range : 0.0 - 10.0 /100 WBCs. The refer ence range was not u sed to interpret th is result as normal/abnormal . NRBC x10^3 (test code See_Comment [Auto mated = 5728060863) message] The s ystem which generated this result transmitted reference range : 10*3/?L. The reference range was not used to interpret this result as normal/abnormal . GRAN MAT (NEUT) % 71.5 % (test code = 770-8) IMM GRAN % (test code 0.30 % = 0443593240) LYMPH % (test code = 20.2 % 736-9) MONO % (test code = 6.2 % 5905-5) EOS % (test code = 1.5 % 713-8) BASO % (test code = 0.3 % 706-2) GRAN MAT x10^3(ANC) 4.82 10*3/uL 1.88-7.09 (test code = 4485397950) IMM GRAN x10^3 (test <0.03 0-0.06 code = 4358255714) LYMPH x10^3 (test code 1.36 10*3/uL 1.32-3.29 = 731-0) MONO x10^3 (test code 0.42 10*3/uL 0.33-0.92 = 742-7) EOS x10^3 (test code = 0.10 10*3/uL 0.03-0.39 711-2) BASO x10^3 (test code <0.03 0.01-0.07 = 704-7) Lab Interpretation Abnormal (test code = 25597-5) [facility]"
== END 2021-06-27 15:00 | disposition home or self-care (01) ==
LOC: 2ND 14:30
PROVIDERS: ADMIT Hospitalist; ATTEND Internal Medicine
DX: E87.5 Hyperkalemia (principal); N39.0 Urinary tract infection, site not specified; R80.9 Proteinuria, unspecified; I13.0 Hypertensive heart and chronic kidney disease with heart failure and stage 1 through stage 4 chronic kidney disease, or unspecified chronic kidney disease; I50.32 Chronic diastolic (congestive) heart failure; N18.30 Chronic kidney disease, stage 3 unspecified; E11.22 Type 2 diabetes mellitus with diabetic chronic kidney disease; N17.9 Acute kidney failure, unspecified; D63.8 Anemia in other chronic diseases classified elsewhere; J45.909 Unspecified asthma, uncomplicated; E11.65 Type 2 diabetes mellitus with hyperglycemia; E11.42 Type 2 diabetes mellitus with diabetic polyneuropathy; E87.2 Acidosis; E83.51 Hypocalcemia; E83.42 Hypomagnesemia; E88.09 Other disorders of plasma-protein metabolism, not elsewhere classified; E86.1 Hypovolemia; Q79.2 Exomphalos; I25.10 Atherosclerotic heart disease of native coronary artery without angina pectoris; E78.5 Hyperlipidemia, unspecified; K21.9 Gastro-esophageal reflux disease without esophagitis; Q01.9 Encephalocele, unspecified; Z23 Encounter for immunization; Z95.1 Presence of aortocoronary bypass graft; Z79.4 Long term (current) use of insulin; Z79.82 Long term (current) use of aspirin; Z88.6 Allergy status to analgesic agent; Z87.828 Personal history of other (healed) physical injury and trauma; Z98.51 Tubal ligation status; Z82.49 Family history of ischemic heart disease and other diseases of the circulatory system; Z83.3 Family history of diabetes mellitus; Z82.3 Family history of stroke; Z80.9 Family history of malignant neoplasm, unspecified
CPT/HCPCS: 36415; 71045; 71046; 76770; 80048; 80053; 81003; 81015; 82570; 82947; 83735; 83880; 84100; 84145; 84156; 84300; 84550; 85025; 86335; 87040; 87070; 87086; 87088; 87205; 90471; 93306; 94010; 94640; 94760; G0378; G0379; J0360; J1650; J1815; J1940; J7030; Q2035

== ENCOUNTER 2022-05-16 09:30 | Emergency (ER) | payer OTHER ==
--- OUTSIDE RECORDS SUMMARY | 2022-05-16 09:50 | XMS REPORT | Continuity of Care Document ---
:1975 Author Organization [facility] t Address [address] [place] [place] [address] Care Team Providers Name Role Phone He Keller Primary Care Physician He Keller Attending Clinician Unavailable France Shepard Attending Clinician Unavailable Thomas Benítez Attending Clinician Unavailable Quentin MESSER, Iker BLoren Attending Clinician Yandy Abdi MA Attending Clinician Unavailable Hang Crandall Attending Clinician Provider , Not In System Attending Clinician Unavailable ANG HARDING Attending Clinician Unavailable Only, Ang Db Test Attending Clinician Unavailable Marko DUGAN, Ang Attending Clinician LARRY, CELSO Attending Clinician Unavailable Alex Warren DO Attending Clinician BRUNO WEEMS Attending Clinician Unavailable Hunter ORTIZ, Ailyn Hsieh Attending Clinician Varghese YOUNG, Elicia S Attending Clinician Yaniv MESSER, Elayne Carr Attending Clinician [phone] FLAKITA CELAYA Attending Clinician Unavailable Faustina MESSER, Bruno Attending Clinician Larry MESSER, Celso Attending Clinician Beverley Jeffrey Attending Clinician Saad LACQUER MAKER, Tamar Attending Clinician Herminia MESSER, Sherrie Attending Clinician Doctor Unassigned, Herricks Attending Clinician Unavailable KLARISSA, ANH A Attending Clinician Unavailable Klarissa DUGAN, Anh A Attending Clinician Belia MESSER, Flakita Valentin Attending Clinician ANNABELLE CHAIREZ.H. Attending Clinician Unavailable Coleen Saavedra Attending Clinician Valeria Wing Attending Clinician Keny Lebron Attending Clinician Konstantin Saavedra Attending Clinician Jaiden Palafox Attending Clinician SHERRIE HOPE Admitting Clinician Unavailable France Shepard Admitting Clinician Unavailable Yaniv MESSER, Elayne Carr Admitting Clinician [phone] Sherrie Hope MD Admitting Clinician Coleen Saavedra Admitting Clinician Valeria Wing Admitting Clinician Keny Lebron Admitting Clinician Konstantin Saavedra Admitting Clinician Jaiden Palafox Admitting Clinician Payers Payer Name Policy Type Policy Number Effective Date Expiration Date Kaila REDDY [id number] 2020 ADVANTAGE HMO 00:00:00 MAURA SHETH PLS [id number] 2020 HMO 00:00:00 Problems Condition Condition Condition Status Onset [...] pubic 2-09 ity of region region 00:00: [place] 00 Medical Branch Anemia Anemia Disease Active 2020- Univers 9-13 ity of 00:00: [place] 00 Medical Branch Excessive Excessive Disease Active 2019- Uni vers bleeding bleeding 9-13 ity of in in 00:00: [place] premenopau premenopau 00 Me dical shivani period shivani period Br anch Coronary Coronary Disease Active 2019- Unive rs artery artery 9-13 ity of disease disease 00:00: [place] involving involving 00 [place] Branch coronary coronary artery of artery of quina[place] quinault heart heart without without angina angina pectoris pectoris PAF PAF Disease Active 2020- Univers (paroxysma (paroxysma 9-13 it y of l atrial l atrial 00:00: [place] fibrillati fibrillati 00 Me dical on) on) Branch Chronic Chronic Disease Active 2019- Univers diastolic diastolic 9-13 ity of congestive congestive [place] heart heart 00 Medical failure failure Branch Essential Essential Disease Active 2020- Uni vers hypertensi hypertensi 9-13 it y of on on 00:00: [place] 00 Medical Branch TOHNY (acute THONY (acute Disease Active 2020-0 U nivers kidney kidney 9-13 ity of injury) injury) 00:00: [place] 00 Medical Branch Paroxysmal Paroxysmal Disease Active 2020-0 U nivers atrial atrial 9-13 ity of fibrillati fibrillati [place] with on with 00 Medical RVR RVR Branch Symptomati Symptomati Disease Active 2020-0 U nivers c anemia c anemia 9-12 ity of 00:00: [address] Obesity Obesity Disease Active Univers (BMI (BMI 9-12 ity of 30-39.9) 30-39.9) 00:00: [address] Atrial Atrial Disease Active 2017-09 Methodi fibrillati fibrillati 0-29 st on with on with 00:00: Hospita rapid rapid 00 l ventricula ventricula r response r response Dyspnea Dyspnea Disease Active 2017-09 Methodi 0-11 st 00:00: Hospita 00 l HYPOTENSIO HYPOTENSI Diagnosis Active 2016-092017-08-06 Memoria N ON Active 09-21 21:48:00 l 07/22/2017 00:00: Bruce over[place] [address] CORONARY CORONARY Diagnosis Active 2017-06-12 Memoria ARTERY ARTERY 05-30 09:19:00 l DISEASE DISEASE 00:00: Caleb Active 00 05/30/2017 [facility] SOB, SOB, Diagnosis Active 2017-05-26 Mem oria TACHYCARDI TACHYCARDI 05-26 17:40:00 l A A Active 00:00: Claeb 05/26/[address] [facility] DIABETES, DIABETES, Diagnosis Active 2017-05-26 Memoria A FIB A FIB 05-26 20:23:00 l Active 00:00: Caleb 05/26/[address] [facility] DIABETES, DIABETES, Diagnosis Active 2017-06-03 Memoria PAROXYSMAL PAROXYSMAL 05-26 21:56:00 l A FIB, A FIB, 00:00: [place] NSTEMI NSTEMI 00 Active 05/26/[address] [facility] SMALL SMALL Diagnosis Active 2016-10-02 Mem oria BOWEL BOWEL 09-26 22:07:00 l OBSTRUCTIO OBSTRUCTIO 00:00: Patrick gibson N N Active 00 09/26/[address] [facility] ABDOMINAL ABDOMINAL Diagnosis Active 2014-092015-07-02 Memoria PAIN PAIN 16:16:00 l Active 00:00: [place]aleb 07/02/2015 00 [facility] SEPSIS SEPSIS Diagnosis Active 2014-092015-07-04 Me moria Active 13:58:00 l 07/02/2015 00:00: Bruce overton [address] Shortness Shortness Problem 2017-06-01 Memoria of breath of breath 02:08:08 l 06/01/2017 Bruce overton [facility] Hypertensi Hypertens Problem Resolve 2022-03-31 Memoria ve venancio d 03:51:08 l disorder, disorder, Herm maynor systemic systemic arterial arterial (disorder) (disorder) Resolved Problem 03/31/2022 [facility] Acute Acute Problem Active 2022-03-31 Memor ia non-ST non-ST 03:51:08 l segment segment Caleb elevation elevation myocardial myocardial infarction infarction (disorder) (disorder) Active Problem 03/31/2022 [facility] Coronary Coronary Problem Active 2022-03-31 Memoria arterioscl arterioscl 03:51:08 l erosis erosis Caleb (disorder) (disorder) Active Problem 03/31/2022 [facility] Diabetes Diabetes Problem Active 2022-03-31 Memoria mellitus mellitus 03:51:08 l (disorder) (disorder) He rmann Active Problem 03/31/2022 [facility] 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 SEPSIS DUE SEPSIS Diagnosis Active 2015-07-04 Memoria TO OTHER DUE TO 13:58:00 l SPECIFIED OTHER [place] STAPHYLOCO SPECIFIED STAPHYLOCO Active [facility] SHORTNESS SHORTNESS Diagnosis Active 2017-05-26 Memoria OF BREATH OF BREATH 17:40:00 l [facility] 2 TYPE 2 Diagnosis Active 2017-06-03 Me moria DIABETES DIABETES 21:56:00 l MELLITUS MELLITUS Bruce n WITHOUT WITHOUT COMPLIC COMPLIC Active [facility] UNSPECIFIE UNSPECIFI Diagnosis Active 2017-06-03 Memoria D ATRIAL ED ATRIAL 21:56:00 l FIBRILLATI FIBRILLATI He rmann ON ON Active [facility] NON-ST NON-ST Diagnosis Active 2017-06-03 Me moria ELEVATION ELEVATION 21:56:00 l (NSTEMI) (NSTEMI) Bruce n MYOCARDIAL MYOCARDIAL INF INF Active [facility] No known No known Disease Unive rs active active ity of problems problems [facility] Allergies, Adverse Reactions, Alerts Allergy Allergy Status Severity Reaction(s) Onset Inactive Treating Comm ents Source Name Type Date Date Clinician Morphine Propensi Active Method i ty to 06-02 st adverse 00:00: Hospita reaction 00 l s to drug Morphine Propensi Active Rash 2016-09 Univer s ty to 09-21 ity of adverse 00:00: [place] reaction 00 Medical s Branch MORPHINE DRUG Active Low Rash 2016-09 Univers INGREDI 09-21 ity of 00:00: [place] 00 Medical Branch penicill penicill Active Memori a ins ins l [place] iodine iodine Active Memoria l [place] Morphine Morphine Active Moderate Judson el Sulfate Sulfate l Caleb MORPHINE Adverse Active breaks out Com mon Reaction in a rash Spiri t [facility] Family History Family Member Diagnosis Comments Start Date Stop Date Source Natural mother Arthritis [facility] Natural mother Lymphoma [facility] Natural betsy [facility] Stroke [facility] Social History Social Habit Start Date Stop Date Quantity Comments Source Exposure to Yes University of SARS-CoV-2 [facility] (event) [place] Alcohol intake 2022-03-22 2022-03-22 Current [facility] 00:00:00 00:00:00 non-drinker of alcohol (finding) Tobacco use and 2018-06-02 2018-06-02 Smokeless tobacco [facility] exposure 00:00:00 00:00:00 non-user Social History 2017-06-05 2017-06-05 [facility] 12:10:13 12:10:13 Sex [birth year] [facility] 00:00:00 00:00:00 Smoking Status Start Date Stop Date Source Unknown if ever smoked [facility] Former smoker 2020-05-21 00:00:00 2020-05-21 00:00:00 [facility] Never smoked tobacco [facility] ospital Medications Ordered Filled Start Stop Current Ordering Indication Dosage Frequency Signature Comments Components Source Medication Medication Date Date Medication? Clinician (SIG) Name Name budesonide/ Inhale. [facility] formoterol 04-19 st fumarate 11:42: 00:00 Hospita (SYMBICORT 48 :00 l INHL) aspirin Yes 81mg Q.5D Take 81 mg Meth crissy (ECOTRIN) 8-[address] 81 MG 14:52: (two) Hospita enteric 48 times a l coated day. tablet amIODarone Yes 1 tablet Met hodi (PACERONE) 8-[address] 200 MG 14:52: for 90 Hospita tablet 48 days l glipiZIDE Yes 5mg Take 5 mg Met hodi (GLUCOTROL) 8-[address] 5 MG tablet 14:52: Hospit a 48 l famotidine Yes Methodi (PEPCID) 40 5-01 st MG tablet 00:00: Hospita 00 l ramipriL 2020-09 Yes 10mg Take 10 mg Met hodi (ALTACE) 10 2-[address] MG capsule 00:00: Hospita 00 l sodium 2020-09- No 650mg Take 650 Metho di bicarbonate 2-09 12-[address] 650 mg 00:00: 05:59 mouth. Hospita tablet 00 :00 l calcitrioL 2020-09 Yes 2 capsules M ethodi (ROCALTROL) 1-[address] 0.25 MCG 00:00: Once a day Hos robbie capsule 00 for 90 l days carvediloL 2020-09 Yes 1 tablet Met hodi (COREG) 25 1-[address] MG tablet 00:00: Orally Hospit a 00 Twice a l day for 90 days ergocalcife 2019-09- No [id number] Take 1 Univers rol, 2-17 03-18 capsule by ity of vitamin d2, 00:00: 04:59 [place] 1,250 mcg 00 :00 weekly for Medi [place] (50,000 90 days. Branch unit) capsule ergocalcife 2019-09- No [id number] Take 1 Univers rol, 2-17 03-18 capsule by ity of vitamin d2, 00:00: 04:59 [place] 1,250 mcg 00 :00 weekly for Medi [place] (50,000 90 days. Branch unit) capsule SITagliptin 2019-09 Yes 100mg Take 100 U nivers 100 mg 2-12 mg by ity of tablet 00:07: mouth [place] 17 daily. Medical Branch atorvastati 2019-09 Yes 80mg Take 80 mg Univers n 80 mg 2-12 by mouth ity of tablet 00:07: at [place] [address] bedtime. Medical Branch aspirin 81 2019-09 Yes 81mg Take 81 mg U nivers mg chewable 2-12 by mouth ity of tablet 00:07: daily. [place] [address] Medical Branch insulin 2019- Yes 50U inject [...] Every Friday vitC/E/Zn/c 2019-09 Yes Take by Uni vers opper/lutei 2-12 mouth 2 ity o f n/zeaxan 00:07: (two) [place] (ICAPS 17 times Medical AREDS2 daily. Branch ORAL) bromfenac 2019-09 Yes 4[drp] Place 4 Uni vers sodium 2-12 Drops in ity of (PROLENSA 00:07: each eye [facility] OPHTHALMIC) daily. X Medi [place] 90 days Branch for cataract surgery prednisoLON 2019-09 Yes 1[drp] Place 1 U nivers E acetate 1 2-12 Drop in ity o f % 00:07: left eye 4 [place] ophthalmic 17 (four) Medical suspension times Branch drops daily. ciprofloxac 2019-09 Yes 1[drp] Place 1 U nivers in HCl 0.3 2-12 Drop in ity of % opthalmic 00:07: [place]. [place] drops 17 4 times Medical daily for Branch 10 days SITagliptin 2019- Yes 100mg Take 100 U nivers 100 mg 2-12 mg by ity of tablet 00:07: mouth [place] [address] daily. Medical Branch atorvastati 2019-09 Yes 80mg Take 80 mg Univers n 80 mg 2-12 by mouth ity of tablet 00:07: at [place] [address] bedtime. Medical Branch aspirin 81 2019-09 Yes 81mg Take 81 mg U nivers mg chewable 2-12 by mouth ity of tablet 00:07: daily. [place] [address] Medical Branch insulin 2019-09 Yes 50U inject [...] Every Friday vitC/E/Zn/c 2019-09 Yes Take by Uni vers opper/lutei 2-12 mouth 2 ity o f n/zeaxan 00:07: (two) [place] (ICAPS 17 times Medical AREDS2 daily. Branch ORAL) bromfenac 2019-09 Yes 4[drp] Place 4 Uni vers sodium 2-12 Drops in ity of (PROLENSA 00:07: each eye [facility] s OPHTHALMIC) daily. X Medi [place] 90 days Branch for cataract surgery prednisoLON 2019-09 Yes 1[drp] Place 1 U nivers E acetate 1 2-12 Drop in ity o f % 00:07: left eye 4 [place] ophthalmic 17 (four) Medical suspension times Branch drops daily. ciprofloxac 2019-09 Yes 1[drp] Place 1 U nivers in HCl 0.3 2-12 Drop in ity of % opthalmic 00:07: [place]. [place] drops 17 4 times Medical daily for Branch 10 days SITagliptin 2019- Yes 100mg Take 100 U nivers 100 mg 2-12 mg by ity of tablet 00:07: mouth [place] [address] daily. Medical Branch atorvastati 2019-09 Yes 80mg Take 80 mg Univers n 80 mg 2-12 by mouth ity of tablet 00:07: at [place] [address] bedtime. Medical Branch aspirin 81 2019-09 Yes 81mg Take 81 mg U nivers mg chewable 2-12 by mouth ity of tablet 00:07: daily. [place] [address] Medical Branch insulin 2019-09 Yes 50U inject [...] Every Friday vitC/E/Zn/c 2019-09 Yes Take by Uni vers opper/lutei 2-12 mouth 2 ity o f n/zeaxan 00:07: (two) [place] (ICAPS 17 times Medical AREDS2 daily. Branch ORAL) bromfenac 2019-09 Yes 4[drp] Place 4 Uni vers sodium 2-12 Drops in ity of (PROLENSA 00:07: each eye [place] OPHTHALMIC) 17 daily. X Medi [place] 90 days Branch for cataract surgery prednisoLON 2019-09 Yes 1[drp] Place 1 U nivers E acetate 1 2-12 Drop in ity o f % 00:07: left eye 4 [place] ophthalmic 17 (four) Medical suspension times Branch drops daily. ciprofloxac 2019-09 Yes 1[drp] Place 1 U nivers in HCl 0.3 2-12 Drop in ity of % opthalmic 00:07: left eye. [place] drops 17 4 times Medical daily for Branch 10 days furosemide 2019-09- No [id number] 40mg Take 1 Univers 40 mg 2-12 -12 tablet by ity of tablet 00:00: 05:59 mouth [place] 00 :00 every Medical Friday, Branch and Friday for 30 days. furosemide 2019-09- No [id number] 40mg Take 1 Univers 40 mg 2-12 -12 tablet by ity of tablet 00:00: 05:59 mouth [place] 00 :00 every Medical Friday, Branch and Friday for 30 days. flu vaccine 2019-09 2020- No .5mL 0.5 mL, Un rupinder 6 months 2-11 12-11 Intramuscu ity of and up (PF) 21:45: 22:11 lar, ONCE, [place] (FLUZONE 00 :00 1 dose, Medical QUAD Fri Branch 08/18/20 (PF)) at 1545, syringe 0.5 Routine mL SITagliptin 2019-09 Yes 100mg Take 100 U nivers 100 mg 2-11 mg by ity of tablet 18:07: mouth [place] [address] daily. Medical Branch atorvastati 2019-09 Yes 80mg Take 80 mg Univers n 80 mg 2-11 by mouth ity of tablet 18:07: at [place] [address] bedtime. Medical Branch aspirin 81 2019-09 Yes 81mg Take 81 mg U nivers mg chewable 2-11 by mouth ity of tablet 18:07: daily. [place] [address] Medical Branch insulin 2019-09 Yes 50U inject 50 Unive rs glargine 2-11 Units ity of U-300 conc 18:07: [place] (TOUJEO MAX 17 skin 2 Medica l U-300 (two) Branch SOLOSTAR) times 300 unit/mL daily. (3 mL) InPn dulaglutide 2019-09 Yes 1.5U inject 1.5 Univers (TRULICITY) 2-11 Units ity of 1.5 mg/0.5 18:07: under the [place] mL PnIj 17 skin Medical weekly. Branch Every Friday vitC/E/Zn/c 2019-09 Yes Take by Uni vers opper/lutei 2-11 mouth 2 ity o f n/zeaxan 18:07: (two) [place] (ICAPS 17 times Medical AREDS2 daily. Branch ORAL) bromfenac 2019-09 Yes 4[drp] Place 4 Uni vers sodium 2-11 Drops in ity of (PROLENSA 18:07: each eye [place] OPHTHALMIC) 17 daily. X Medi [place] 90 days Branch for cataract surgery prednisoLON 2019-09 Yes 1[drp] Place 1 U nivers E acetate 1 2-11 Drop in ity o f % 18:07: left eye 4 [place] ophthalmic 17 (four) Medical suspension times Branch drops daily. ciprofloxac 2019-09 Yes 1[drp] Place 1 U nivers in HCl 0.3 2-11 Drop in ity of % opthalmic 18:07: left eye. [place] drops 17 4 times Medical daily for Branch 10 days calcitrioL 2019-09 Yes .5ug 0.5 mcg, Uni vers (ROCALTROL) 2-11 Oral, ity of capsule 0.5 15:00: DAILY, [place] mcg 00 First dose Medical on Fri Branch 08/18/20 at 0900, Until Discontinu ed, Routine heparin 2019-09 Yes 5000U 5,000 Univers (porcine) 2-11 Units, ity of injection 12:00: Subcutaneo [place] 5,000 Units 00 us, Q8H, Medi [place] First dose Branch on Fri08/18/20 at 0600, Until Discontinu ed, Routine atorvastati 2019-09 Yes 80mg 80 mg, Univ ers n (LIPITOR) 2-11 Oral, QHS, it y of tablet 80 03:00: First dose [place] mg 00 on [facility] Medical 08/17/20 Branch at 2100, Until Discontinu ed, Routine traMADoL 50 2019-09 2020- No [id number] 50mg Take 1 Uni vers [...] Indication s: acute pain amoxicillin 2019-09- No [id number] 500mg Take 1 Univers -pot 10-19 tablet by ity of clavulanate 00:00: 05:59 mouth 3 [place] 500 mg 00 :00 (three) Medical 500-125 mg times Branch tablet daily for 5 days. amoxicillin 2019-09 2020- No [id number] 500mg Take 1 Univers -pot 10-19 tablet by ity of clavulanate 00:00: 05:59 mouth 3 [place] 500 mg 00 :00 (three) Medical 500-125 mg times Branch tablet daily for 5 days. ascorbic 2019-09 Yes 500mg 500 mg, Unive rs acid 2-10 Oral, TID, ity of (vitamin C) 20:00: First dose [place] (VITAMIN C) 00 on [facility] Medica l tablet 500 08/17/20 Branc h mg at 1400, Until Discontinu ed, Routine vancomycin 2019-09 Yes 1000mg 1,000 mg, Univers (VANCOCIN) 2-10 IV ity of 1,000 mg in 19:00: Piggyback, [place] NaCl 0.9% 00 Q18H, Medical (NS) 250 mL First dose Br anch VIAL-MATE (after IV last piggyback reorder) on Maryjane 08/17/20 at 1300, Until Discontinu ed, 250 mL
Reas on for Anti-Infec tive: Documented Infection< br>Documen benny Infection Site: Skin / Soft Tissue
Duration of Therapy: Other (see Comments) FENTanyl PF 2019-09- No 25ug 25 mcg, Un rupinder (SUBLIMAZE 2- 12-10 Slow IV ity o f (PF)) 18:26: 20:27 Push, [place] injection 44 :32 Q5MIN PRN, Medi [place] 25 mcg 4 doses, Branch Starting [place] 08/17/20 at 1226, Until [place] 08/17/20 at 1427, Routine, Pain (scale 4-6), PACU HYDROcodone 2019-09- No 1{tbl} 1 tablet, Univers -acetaminop 2-10 12-12 Oral, ity of hen (NORCO 18:15: 02:14 Q4HPRN, Raji as 5) 5-325 mg 28 :28 Starting Medi [place] tablet 1 [place] Branch tablet 08/17/20 at 1215, Until 08/18/20 at 2014, Routine, Pain (scale 4-6), Hold for SBP<110, DBP<60, RR<12, and/or drowsiness /sedation FENTanyl PF 2019-09- No 50ug 50 mcg, Un rupinder (SUBLIMAZE 2- 12-11 Slow IV ity o f (PF)) 18:15: 14:45 Push, [place] injection 00 :00 Q4HPRN, 4 Medic al 50 mcg doses, Branch Starting [place] 08/17/20 at 1215, Until Discontinu ed, Routine, Pain (scale 7-10), Hold for SBP<110, DBP<60, RR<12, and/or drowsiness /sedation magnesium 2019-09 Yes 400mg 400 mg, Univ ers oxide 2-10 Oral, BID, ity of (MAG-OX 17:00: First dose [place] 400) tablet 00 on [facility] Medica l 400 mg 08/17/20 Branch at 1100, Until Discontinu ed, Routine lactated 2019-09 2020- No 1000mL at 42 Unive rs ringers IV 2-10 12-10 mL/hr, ity of infusion 15:30: 15:41 1,000 mL, Raji as 1,000 mL 00 :00 IV Medical Infusion, Branch ONCE, 1 dose, [facility] 08/17/20 at 0930, Routine, DSU Pre-op furosemide 2019-09 Yes 20mg 20 mg, Unive rs (LASIX) 2-10 Oral, ity of tablet 20 15:00: DAILY, [place] mg 00 First dose Medical (after Branch last modificati on) on [facility] 08/17/20 at 0900, Until Discontinu ed, Routine aspirin 2019-09 Yes 81mg 81 mg, Univers chewable 2-10 Oral, ity of tablet 81 15:00: DAILY, [place] mg 00 First dose Medical on [facility] 08/17/20 at 0900, Until Discontinu ed, Routine SITagliptin 2019-09 Yes 100mg 100 mg, Un rupinder (JANUVIA) 2-10 Oral, ity of tablet 100 15:00: DAILY, [place] mg 00 First dose Medical on [facility] 08/17/20 at 0900, Until Discontinu ed, Routine zinc 2019-09 Yes 220mg 220 mg, Univers sulfate 2-10 Oral, ity of (ORAZINC) 15:00: DAILY, [place] capsule 220 00 First dose Me dical mg on [facility] 08/17/20 at 0900, Until Discontinu ed, Routine ergocalcife 2019-09 Yes [id number] 50,000 Un rupinder rol 2-10 Units, ity of (vitamin 15:00: Oral, [place] d2) 00 QWEEKLY, Medical (CALCIFEROL First dose Br anch ) capsule on [facility] 50,000 08/17/20 Units at 0900, Until Discontinu ed, Routine insulin 2019-09 Yes 25U 25 Units, Unive rs glargine 2-10 Subcutaneo ity o f (LANTUS 14:00: us, BID, [place] U-100) 00 First dose Medical injection (after Branch 25 Units last modificati on) on [facility] 08/17/20 at 0800, Until Discontinu ed, Routine metoprolol 2019-09 Yes 100mg 100 mg, Uni vers tartrate 2-10 Oral, BID, ity o f (LOPRESSOR) 14:00: First dose [place] tablet 100 00 on [place] Medical mg 08/17/20 Branch at 0800, Until Discontinu ed, Routine nystatin 2019-09 Yes Topical, Unive rs (NYSTOP) 2-10 BID, First ity o f powder 14:00: dose on [place] 00 [facility] Medical 08/17/20 Branch at 0800, Until Discontinu ed, Routine lactobacill 2019-09 Yes 1{tbl} 1 tablet, Univers us 2-10 Oral, BID, ity of acidophilus 13:30: First dose [place] (ACIDOPHILL 00 on [place] Medica l US) 25 08/17/20 Branch million at 0730, cell -100 Until mg captab 1 Discontinu tablet ed, Routine Sliding 2019-09 Yes Subcutaneo Univ ers Scale 2-10 us, AC, ity of Insulin-Reg 13:30: First dose [place] ular + Fsbg 00 on [place] Medica l Testing 08/17/20 Branch at 0730, Until Discontinu ed, Routine NaCl 0.9% 2019-09 2020- No 1000mL at 42 [facility] ers (NS) IV 2-10 12-11 mL/hr, IV ity of infusion 13:30: 16:37 Infusion, Raji as 1,000 mL 00 :08 CONTINUOUS Medic al , Starting Branch [facility] 08/17/20 at 0730, Until Fri08/18/20 at 1037, Routine FENTanyl PF 2019-09 2020- No 50ug 50 mcg, Un rupinder (SUBLIMAZE 2-10 12-10 Slow IV ity o f (PF)) 06:37: 18:15 Push, [place] injection 58 :15 Q3HPRN, Medical 50 mcg Starting Branch [facility] 08/17/20 at 0037, Until [place] 08/17/20 at [...] dose Bran ch (NS) 100 mL on Fri MINI-BAG 08/16/20 at 2130, Until Discontinu ed, [...] approved by (Faculty): ADC PROVIDER NaCl 0.9% 2019-09 2020- No 1000mL at 125 Uni vers (NS) IV 2-10 12-10 mL/hr, IV ity of infusion 02:30: 13:20 Infusion, Raji as 1,000 mL 00 :18 CONTINUOUS Medic al , Starting Branch 08/16/20 at 2030, Until [place] 08/17/20 at 0720, Routine docusate 2019-09 Yes 100mg 100 mg, Unive rs (COLACE) 2-10 Oral, ity of capsule 100 02:24: BIDPRN, Raji as mg 33 Starting Medical Wed Branch 08/16/20 at 2024, Until Discontinu ed, Routine, Constipati on ondansetron 2019-09 Yes 4mg 4 mg, Slow Univers (ZOFRAN 2-10 IV Push, ity of (PF)) 02:24: Q6HPRN, [place] injection 4 23 Starting Medi [place] mg [facility] 08/16/20 at 2023, Until Discontinu ed, Routine, Nausea and Vomiting (N/V) FENTanyl PF 2019-09- No 50ug 50 mcg, Un rupinder (SUBLIMAZE 2-10 12-10 Slow IV ity o f (PF)) 02:24: 06:38 Push, [place] injection 19 :32 Q3HPRN, Medical 50 mcg Starting Branch [facility] 08/16/20 at 2023, Until [place] 08/17/20 at 0038, Routine, Pain (scale 7-10) acetaminoph 2019-09 Yes 650mg 650 mg, Un rupinder en 2-10 Oral, ity of (TYLENOL) 02:24: Q6HPRN, [place] tablet 650 12 Starting Medic al mg [facility] 08/16/20 at 2023, Until Discontinu ed, Routine, Pain (scale 1-3) ondansetron 2019-09- No 4mg 4 mg, Slow Univers (ZOFRAN 2-10 12-10 IV Push, ity of (PF)) 01:00: 00:23 ONCE, 1 [place] injection 4 00 :00 dose, [facility] Med ical mg 08/16/20 at Branch 1900, AMADO FENTanyl PF 2019-09- No 50ug 50 mcg, Un rupinder (SUBLIMAZE 2-10 12-10 Slow IV ity o f (PF)) 01:00: 00:23 Push, [place] injection 00 :00 ONCE, 1 Medical 50 mcg dose, [facility] 08/16/20 at 1900, STAT vancomycin 2019-09 2020- No 1000mg 1,000 mg, Univers (VANCOCIN) 2-10 12-10 IV ity of 1,000 mg in 01:00: 01:49 Piggyback, [place] NaCl 0.9% 00 :00 ONCE, 1 Medical (NS) 250 mL dose, [facility] VIAL-MATE 08/16/20 at IV 1900, 250 piggyback mL
Reas on for Anti-Infec tive: Documented Infection< br>Documen benny Infection Site: Skin / Soft Tissue
Duration of Therapy: Other (see Comments) NaCl 0.9% 2019-09 2020- No 30mL/kg at 999 Un rupinder (NS) bolus 2-10 12-10 mL/hr, ity of infusion 01:00: 02:38 2,625 mL [place] 2,625 mL 00 :00 (30 mL/kg Medica l ?87.5 kg), Branch IV Infusion, ONCE, 1 dose, 08/16/20 at 1900, STAT apixaban 2019-09 Yes 5144 [...] mg by ity of tablet 20:09: mouth [place] 44 daily. Medical Branch atorvastati 2019-09 Yes 80mg Take 80 mg Univers n 80 mg 1-24 by mouth ity of tablet 20:09: at [place] 44 bedtime. Medical Branch aspirin 81 2019-09 Yes 81mg Take 81 mg U nivers mg chewable 1-24 by mouth ity of tablet 20:09: daily. [place] [address] Medical Branch insulin 2019-09 Yes 50U inject [...] weekly. Branch vitC/E/Zn/c 2019-09 Yes Take by Uni vers opper/lutei 1-24 mouth 2 ity o f n/zeaxan 20:09: (two) [place] (ICAPS 44 times Medical AREDS2 daily. Branch [...] mg by ity of tablet 20:09: mouth [place] [address] daily. Medical Branch atorvastati 2019-09 Yes 80mg Take 80 mg Univers n 80 mg 1-24 by mouth ity of tablet 20:09: at [place] [address] bedtime. Medical Branch aspirin 81 2019-09 Yes 81mg Take 81 mg U nivers mg chewable 1-24 by mouth ity of tablet 20:09: daily. [place] [address] Medical Branch insulin 2019-09 Yes 50U inject 50 Unive rs glargine 1-24 Units ity of U-300 conc 20:09: under the [place] (TOUJEO MAX 44 skin 2 Medica l U-300 (two) Branch [facility]) times 300 unit/mL daily. (3 mL) InPn dulaglutide 2019-09 Yes 1.5U inject 1.5 Univers (TRULICITY) 1-24 Units ity of 1.5 mg/0.5 20:09: under the [place] mL PnIj 44 skin Medical weekly. Branch vitC/E/Zn/c 2019-09 Yes Take by Uni vers opper/lutei 1-24 mouth 2 ity o f n/zeaxan 20:09: (two) [place] (ICAPS 44 times Medical AREDS2 daily. Branch ORAL) bromfenac 2019-09 Yes 4[drp] Place 4 Uni vers sodium 1-24 Drops in ity of (PROLENSA 20:09: each eye [place] OPHTHALMIC) 44 daily. X Medi [place] 90 days Branch for cataract surgery prednisoLON 2019-09 Yes 1[drp] Place 1 U nivers E acetate 1 1-24 Drop in ity o f % 20:09: left eye 4 [place] ophthalmic 44 (four) Medical suspension times Branch drops daily. ciprofloxac 2019-09 Yes 1[drp] Place 1 U nivers in HCl 0.3 1-24 Drop in ity of % opthalmic 20:09: left eye. [place] drops 44 4 times Medical daily for Branch 10 days SITagliptin 2019-09 Yes 100mg Take 100 U nivers 100 mg 1-24 mg by ity of tablet 20:09: mouth [place] [address] daily. Medical Branch atorvastati 2019-09 Yes 80mg Take 80 mg Univers n 80 mg 1-24 by mouth ity of tablet 20:09: at [place] [address] bedtime. Medical Branch aspirin 81 2019-09 Yes 81mg Take 81 mg U nivers mg chewable 1-24 by mouth ity of tablet 20:09: daily. [place] [address] Medical Branch insulin 2019-09 Yes 50U inject 50 Unive rs glargine 1-24 Units ity of U-300 conc 20:09: under the [place] (TOUJEO MAX 44 skin 2 Medica l U-300 (two) Branch [facility]) times 300 unit/mL daily. (3 mL) InPn dulaglutide 2019-09 Yes 1.5U inject 1.5 Univers (TRULICITY) 1-24 Units ity of 1.5 mg/0.5 20:09: under the [place] mL PnIj 44 skin Medical weekly. Branch vitC/E/Zn/c 2019-09 Yes Take by Uni vers opper/lutei 1-24 mouth 2 ity o f n/zeaxan 20:09: (two) [place] (ICAPS 44 times Medical AREDS2 daily. Branch ORAL) bromfenac 2019-09 Yes 4[drp] Place 4 Uni vers sodium 1-24 Drops in ity of (PROLENSA 20:09: each [place] OPHTHALMIC) 44 daily. X Medi [place] 90 days Branch for cataract surgery prednisoLON 2019-09 Yes 1[drp] Place 1 U nivers E acetate 1 1-24 Drop in ity o f % 20:09: left eye 4 [place] ophthalmic 44 (four) Medical suspension times Branch drops daily. ciprofloxac 2019-09 Yes 1[drp] Place 1 U nivers in HCl 0.3 1-24 Drop in ity of % opthalmic 20:09: left eye. [place] drops 44 4 times Medical daily for Branch 10 days SITagliptin 2019-09 Yes 100mg Take 100 U nivers 100 mg 1-24 mg by ity of tablet 20:09: mouth [place] [address] daily. Medical Branch atorvastati 2019-09 Yes 80mg Take 80 mg Univers n 80 mg 1-24 by mouth ity of tablet 20:09: at [place] [address] bedtime. Medical Branch aspirin 81 2019-09 Yes 81mg Take 81 mg U nivers mg chewable 1-24 by mouth ity of tablet 20:09: daily. [place] [address] Medical Branch insulin 2019-09 Yes 50U inject 50 Unive rs glargine 1-24 Units ity of U-300 conc 20:09: under the [place] (TOUJEO MAX 44 skin 2 Medica l U-300 (two) Branch [facility]) times 300 unit/mL daily. (3 mL) InPn dulaglutide 2019-09 Yes 1.5U inject 1.5 Univers (TRULICITY) 1-24 Units ity of 1.5 mg/0.5 20:09: under the [place] mL PnIj 44 skin Medical weekly. Branch vitC/E/Zn/c 2019-09 Yes Take by Uni vers opper/lutei 1-24 mouth 2 ity o f n/zeaxan 20:09: (two) [place] (ICAPS 44 times Medical AREDS2 daily. Branch [...] olism in paroxysmal atrial fibrillati on aspirin Yes 81mg 81 mg, Univers chewable 9-15 [...] by mouth ity of tablet 17:03: at [place] [address] bedtime. Medical Branch aspirin 81 2020-0 Yes 81mg Take 81 mg U nivers mg chewable 9-14 by mouth ity of tablet 17:03: daily. [place] [address] Medical Branch insulin 2020-0 Yes 50U inject [...] weekly. Branch vitC/E/Zn/c 2020-0 Yes Take by Uni vers opper/lutei 9-14 mouth 2 ity o f n/zeaxan 17:03: (two) [place] (ICAPS 01 times Medical AREDS2 daily. Branch [...] by mouth ity of tablet 17:03: at [place] bedtime. Medical Branch aspirin 81 2020-0 Yes 81mg Take 81 mg U nivers mg chewable 9-14 by mouth ity of tablet 17:03: daily. [place] Medical Branch insulin 2020-0 Yes 50U inject [...] weekly. Branch vitC/E/Zn/c 2020-0 Yes Take by Uni vers opper/lutei 9-14 mouth 2 ity o f n/zeaxan 17:03: (two) [place] (ICAPS 01 times Medical AREDS2 daily. Branch [...] by mouth ity of tablet 17:03: at [place] [address] bedtime. Medical Branch aspirin 81 2020-0 Yes 81mg Take 81 mg U nivers mg chewable 9-14 by mouth ity of tablet 17:03: daily. [place] [address] Medical Branch insulin 2020-0 Yes 50U inject 50 Unive rs glargine 9-14 Units ity of U-300 conc 17:03: under the [place] (TOUJEO MAX 01 skin 2 Medica l U-300 (two) Branch [facility]) times 300 unit/mL daily. (3 mL) InPn dulaglutide 2020-0 Yes 1.5U inject 1.5 Univers (TRULICITY) 9-14 Units ity of 1.5 mg/0.5 17:03: under the [place] mL PnIj skin Medical weekly. Branch vitC/E/Zn/c 2020-0 Yes Take by Uni vers opper/lutei 9-14 mouth 2 ity o f n/zeaxan 17:03: (two) [place] [facility] Medical AREDS2 daily. Branch ORAL) SITagliptin 2020-0 Yes 100mg Take 100 U nivers 100 mg 9-14 mg by ity of tablet 17:03: mouth [place] 01 daily. Medical Branch atorvastati 2020-0 Yes 80mg Take 80 mg Univers n 80 mg 9-14 by mouth ity of tablet 17:03: at [place] [address] bedtime. Medical Branch aspirin 81 2020-0 Yes 81mg Take 81 mg U nivers mg chewable 9-14 by mouth ity of tablet 17:03: daily. [place] [address] Medical Branch insulin 2020-0 Yes 50U inject 50 Unive rs glargine 9-14 Units ity of U-300 conc 17:03: under the [place] (TOUJEO MAX 01 skin 2 Medica l U-300 (two) Branch [facility]) times 300 unit/mL daily. (3 mL) InPn dulaglutide 2020-0 Yes 1.5U inject 1.5 Univers (TRULICITY) 9-14 Units ity of 1.5 mg/0.5 17:03: under the [place] mL PnIj 01 skin Medical weekly. Branch vitC/E/Zn/c 2020-0 Yes Take by Uni vers opper/lutei 9-14 mouth 2 ity o f n/zeaxan 17:03: (two) [place] (ICAPS 01 times Medical AREDS2 daily. Branch ORAL) bromfenac 2020-0 Yes 4[drp] Place 4 Uni vers sodium 9-14 Drops in ity of (PROLENSA 17:03: each [place] OPHTHALMIC) 01 daily. X Medi [place] 90 days Branch for cataract surgery prednisoLON 2020-0 Yes 1[drp] Place 1 U nivers E acetate 1 9-14 Drop in ity o f % 17:03: left eye 4 [place] ophthalmic 01 (four) Medical suspension times Branch drops daily. ciprofloxac 2020-0 Yes 1[drp] Place 1 U nivers in HCl 0.3 9-14 Drop in ity of % opthalmic 17:03: left eye. [place] drops 01 4 times Medical daily for Branch 10 days SITagliptin 2020-0 Yes 100mg Take 100 U nivers 100 mg 9-14 mg by ity of tablet 17:03: mouth [place] daily. Medical Branch atorvastati 2020-0 Yes 80mg Take 80 mg Univers n 80 mg 9-14 by mouth ity of tablet 17:03: at [place] bedtime. Medical Branch aspirin 81 2020-0 Yes 81mg Take 81 mg U nivers mg chewable 9-14 by mouth ity of tablet 17:03: daily. [place] [address] Medical Branch insulin 2020-0 Yes 50U inject [...] weekly. Branch vitC/E/Zn/c 2020-0 Yes Take by Uni vers opper/lutei 9-14 mouth 2 ity o f n/zeaxan 17:03: (two) [place] (ICAPS 01 times Medical AREDS2 daily. Branch ORAL) bromfenac 2020-0 Yes 4[drp] Place 4 Uni vers sodium 9-14 Drops in ity of (PROLENSA 17:03: each [place] OPHTHALMIC) 01 daily. X Medi [place] 90 days Branch for cataract surgery prednisoLON 2020-0 Yes 1[drp] Place 1 U nivers E acetate 1 -14 Drop in ity o f % 17:03: left eye 4 [place] ophthalmic 01 (four) Medical suspension times Branch drops daily. ciprofloxac 2020-0 Yes 1[drp] Place 1 U nivers in HCl 0.3 -14 Drop in ity of % opthalmic 17:03: left eye. [place] drops 01 4 times Medical daily for Branch 10 days furosemide 2019-0 2020- No 20mg Take 20 mg Univers 20 mg 05-22 by mouth ity of tablet 13:52: 00:00 every [place] 50 :00 morning Medical and Branch evening. atorvastati 2019-0 Yes 80mg 80 mg, Univ ers n (LIPITOR) 05-22 Oral, QHS, it y of tablet 80 02:00: First dose [place] mg 00 on [facility] 05/21/20 at Branch 2100, Until Discontinu ed, Routine amiodarone 2019- No .5mg/mi 0.5 mg/min Univers (CORDARONE) 05-22 n (16.6667 ity of 900 mg in 01:45: 13:26 mL/hr, [place] D5W 500 mL 00 :20 rounded to Med ical infusion 16.67 [place] mL/hr), IV Infusion, CONTINUOUS , Starting 05/21/20 at 2045, For 18 hours
A ll amiodarone infusions must be administer ed using a 0.22 micron in line filter. Administer via central line if available. Amiodarone infusions with concentrat ions > 2 mg/mL must be administer ed via central line.
furosemide 2019-2019- No 40mg 40 mg, IV U nivers (LASIX) 05-22 Push, ity of injection 01:00: 12:04 Q12H, [place] 40 mg 00 :19 First dose Medical (after [place] last modificati on) on [place] 05/21/20 at 2000, Until Discontinu ed, AMADO amiodarone 2019-2019- No 1mg/min 1 mg/min Univers (CORDARONE) 05-21 (33.3333 ity of 900 mg in 19:45: 01:44 mL/hr, [place] D5W 500 mL 00 :00 rounded to Med ical infusion 33.33 Branch mL/hr), IV Infusion, CONTINUOUS , Starting [place] 05/21/20 at 1445, For 6 hours
A [...] First [place] mg 00 :04 dose on Medical [facility] 05/21/20 at 1400, Until Discontinu ed, Routine amiodarone 2019- No 1mg/min 1 mg/min Univers (CORDARONE) 05-21 (33.3333 ity of 900 mg in 18:45: 19:33 mL/hr, [place] D5W 500 mL 00 :18 rounded to Med ical infusion 33.33 Branch mL/hr), IV Infusion, CONTINUOUS , Starting [place] 05/21/20 at 1345
Al l amiodarone infusions must be administer ed using a 0.22 micron in line filter. Administer via central line if available. Amiodarone infusions with concentrat ions > 2 mg/mL must be administer ed via central line.
amiodarone 2019- No 150mg 150 mg, IV Univers 150 mg/100 05-21 Piggyback, it y of mL 18:45: 18:03 ONCE, 1 [place] (NEXTERONE) 00 :00 dose, [place] Med ical RTU 05/21/20 at Branch infusion 1345 150 mg acetaminoph Yes 500mg 500 mg, Un rupinder en 05-21 Oral, ity of (TYLENOL) 17:50: Q6HPRN, [place] tablet 500 14 Starting Medic al mg Sun [place] 05/21/20 at 1250, Until Discontinu ed, Routine, Pain (scale 1-3), Temp > 38.5 C hydralAZINE Yes 10mg 10 mg, Univ ers (APRESOLINE 05-21 Intravenou it y of ) injection 15:37: s, PRN - [place] 10 mg 05 SEE Medical INSTRUCTIO Branch NS, Starting [place] 05/21/20 at 1037, Until Discontinu ed, Routine, Hypertensi ve emergency, Hypertensi on, Q4h for SBP>160 or DBP>100 SITagliptin 2020-0 Yes 100mg 100 mg, Un rupinder (JANUVIA) 05-21 Oral, ity of tablet 100 14:00: DAILY, [place] mg 00 First dose Medical on [place] Branch 05/21/20 at 0900, Until Discontinu ed, Routine lisinopriL 2020-0 2020- No 10mg 10 mg, [facility] ers (PRINIVIL,Z 05-2114 Oral, ity of ESTRIL) 14:00: 12:04 DAILY, [place] tablet 10 00 :19 First dose Medi [place] mg on [place] Branch 05/21/20 at 0900, Until Discontinu ed, Routine metoprolol 2020-0 Yes 100mg 100 mg, Uni vers tartrate 05-21 Oral, BID, ity o f (LOPRESSOR) 13:00: First dose [place] tablet 100 00 on [place] Medical mg 05/21/20 at Branch 0800, Until Discontinu ed, Routine cefTRIAXone 2020-0 Yes 1000mg 1,000 mg, Univers (ROCEPHIN) 05-21 IV ity of 1,000 mg in 07:00: Piggyback, [place] NaCl 0.9% 00 Q12H ABX, Medic al (NS) 50 mL First dose Bra [facility] MINI-BAG on [place] 05/21/20 at 0200, Until Discontinu ed, 50 mL
R rui for Anti-Infec tive: Empiric Therapy for Suspected Infection< br>Empiric Therapy Site: Urine
D uration of therapy: 7 days azithromyci 2020-0 2020- No 500mg 500 mg, IV Univers n [id number] Piggyback, ity of (ZITHROMAX) 07:00: 06:59 Q24H ABX, [place] 500 mg in 00 :00 5 doses, Medica l NaCl 0.9% First dose Bran ch (NS) 250 mL on Sun VIAL-MATE 05/21/20 at IV 0200, Last piggyback dose on [place] 05/25/20 at 0200, 250 mL
Reas on for Anti-Infec tive: Empiric Therapy for Suspected Infection< br>Empiric Therapy Site: Respirator y
Durat ion of therapy: 7 days lactobacill 2020-0 Yes 1{tbl} 1 tablet, Univers us 05-21 Oral, BID, ity of acidophilus 06:00: First dose [place] ([facility]OPHILL [facility] 05/21/20 at Branch million 0100, cell -100 Until mg captab 1 Discontinu tablet ed, Routine insulin 2020-0 Yes 50U 50 Units, Unive rs glargine 05-21 Subcutaneo ity o f (LANTUS 05:45: us, BID, [place] U-100) 00 First dose Medical injection on [facility] 50 Units 05/21/20 at 0045, Until Discontinu ed Polyethylen 2020-0 Yes 17g 17 g, Unive rs e Glycol 05-21 Oral, ity of 3350 05:45: DAILY, [place] (MIRALAX) 00 First dose Medi [place] powder 17 g on [facility] 05/21/20 at 0045, Until Discontinu ed, Routine sennosides 2020-0 Yes 8.6mg 8.6 mg, Uni vers (SENOKOT) 05-21 Oral, BID, ity of tablet 8.6 05:45: First dose [place] mg 00 on [facility] 05/21/20 at Branch 0045, Until Discontinu ed, Routine docusate 2020-0 Yes 100mg 100 mg, Unive rs (COLACE) 05-21 Oral, BID, ity o f capsule 100 05:45: First dose [place] mg 00 on [facility] 05/21/20 at Branch 0045, Until Discontinu ed, Routine Sliding 2020-0 Yes Subcutaneo Univ ers Scale 05-21 us, TID ity of Insulin - 05:45: MEALS+HS, [place] Aspart 00 First dose Medical (NOVOLOG) + on [facility]sbg 05/21/20 at Testing 0045, Until Discontinu ed, Routine bisacodyL 2020-0 2020- No 10mg 10 mg, Unive rs (DULCOLAX) 05-21 09-16 Rectal, ity o f suppository 05:45: 01:59 QHS, 3 [place] 10 mg 00 :00 doses, Medical First dose Branch on [place] 05/21/20 at 0045, Last dose on 05/22/20 at 2100, Routine furosemide 2020-0 2020- No 40mg 40 mg, IV U nivers (LASIX) 05-21 Push, Q8H, ity o f injection 05:45: 22:40 First dose [place] 40 mg 00 :39 on [place] Medical 05/21/20 at Branch 0045, Until Discontinu ed, AMADO ondansetron 2020-0 Yes 4mg 4 mg, Slow Univers (ZOFRAN 05-21 IV Push, ity of (PF)) 05:31: Q6HPRN, [place] injection 4 38 Starting Medi [place] mg [facility] 05/21/20 at 0031, Until Discontinu ed, Routine, Nausea and Vomiting (N/V) glucagon 2020-0 Yes 1mg 1 mg, Univers (GLUCAGEN 05-21 Intramuscu ity of DIAGNOSTIC 05:29: lar, PRN, [place] KIT) 27 Starting Medical injection 1 Sun Branch mg 05/21/20 at 0029, Until Discontinu ed, AMADO, Blood Glucose < or = 70 mg/dL and patient is unable to swallow or has mental changes. dextrose 50 2020-0 Yes 25mL 25 mL, Univ ers % in water 05-21 Slow IV ity of (D50W) 05:29: Push, PRN, [place] injection 27 Starting Medica l 25 mL [facility] 05/21/20 at 0029, Until Discontinu ed, AMADO, Blood Glucose < or = 70 mg/dL and patient is unable to swallow or has mental status changes. NaCl 0.9% 2020-0 2020- No 250mL 250 mL, IV Univers (NS) IV 05-21 Infusion, ity of Line 01:30: 03:11 ONCE, 1 [place] Priming and 00 :00 dose, Sat Med ical [place] 05/20/20 at [facility] h Fluid Only 2029, 250 250 mL mL sulfamethox 2020-0 2020- No [id number] 1{tbl} Take 1 [facility] azole-trime 8-17 08-28 tablet by it y of oprim 00:00: 04:59 mouth 2 [place] (BACTRIM 00 :00 (two) Medical DS) 800-160 times Branch mg per daily for tablet 10 days. sulfamethox 2020-0 2020- No [id number] 1{tbl} Take 1 Univers azole-trime 8-28 tablet by it y of thoprim 00:00: 04:59 mouth 2 [place] (BACTRIM 00 :00 (two) Medical DS) 800-160 times Branch mg per daily for tablet 10 days. sulfamethox 2020-0 2020- No [id number] 1{tbl} Take 1 Univers azole-trime 04-24-28 tablet by it y of thoprim 00:00: [...] weekly. Branch vitC/E/Zn/c 2020-0 Yes Take by Uni vers opper/lutei 7-22 mouth 2 ity o f n/zeaxan 19:04: (two) [place] (ICAPS 03 times Medical AREDS2 daily. Branch ORAL) SITagliptin 2020-0 Yes 100mg Take 100 U nivers 100 mg 7-22 mg by ity of tablet 19:04: mouth [place] 03 daily. Medical Branch atorvastati 2020-0 Yes 80mg Take 80 mg Univers n 80 mg 7-22 by mouth ity of tablet 19:04: at [place] 03 bedtime. Medical Branch furosemide 2020-0 Yes 20mg Take 20 mg U nivers 20 mg 7-22 by mouth ity of tablet 19:04: every [place] 03 morning Medical and Branch evening. aspirin 81 2020-0 Yes 81mg Take 81 mg U nivers mg chewable 7-22 by mouth ity of tablet 19:04: daily. [place] 03 Medical Branch insulin 2020-0 Yes 50U inject 50 Unive rs glargine 7-22 Units ity of U-300 conc 19:04: under the [place] (TOUJEO MAX 03 skin 2 Medica l U-300 (two) Branch [facility]) times 300 unit/mL daily. (3 mL) InPn dulaglutide 2020-0 Yes 1.5U inject 1.5 Univers (TRULICITY) 7-22 Units ity of 1.5 mg/0.5 19:04: under the [place] mL PnIj 03 skin Medical weekly. Branch vitC/E/Zn/c 2020-0 Yes Take by Uni vers opper/lutei 7-22 mouth 2 ity o f n/zeaxan 19:04: (two) [place] (ICA 03 times Medical AREDS2 daily. Branch ORAL) SITagliptin 2020-0 Yes 100mg Take 100 U nivers 100 mg 7-22 mg by ity of tablet 19:04: mouth [place] 03 daily. Medical Branch atorvastati 2020-0 Yes 80mg Take 80 mg Univers n 80 mg 7-22 by mouth ity of tablet 19:04: at [place] 03 bedtime. Medical Branch furosemide 2020-0 Yes 20mg Take 20 mg U nivers 20 mg 7-22 by mouth ity of tablet 19:04: every [place] 03 morning Medical and Branch evening. aspirin 81 2020-0 Yes 81mg Take 81 mg U nivers mg chewable 7-22 by mouth ity of tablet 19:04: daily. [place] 03 Medical Branch insulin 2020-0 Yes 50U inject 50 Unive rs glargine 7-22 Units ity of U-300 conc 19:04: under the [place] (TOUJEO MAX 03 skin 2 Medica l U-300 (two) Branch [facility]) times 300 unit/mL daily. (3 mL) InPn dulaglutide 2020-0 Yes 1.5U inject 1.5 Univers (TRULICITY) 7-22 Units ity of 1.5 mg/0.5 19:04: under the [place] mL PnIj 03 skin Medical weekly. Branch vitC/E/Zn/c 2020-0 Yes Take by Uni vers opper/lutei 7-22 mouth 2 ity o f n/zeaxan 19:04: (two) [place] (ICA 03 times Medical AREDS2 daily. Branch ORAL) SITagliptin 2020-0 Yes 100mg Take 100 U nivers 100 mg 7-22 mg by ity of tablet 19:04: mouth [place] 03 daily. Medical Branch atorvastati 2020-0 Yes 80mg Take 80 mg Univers n 80 mg 7-22 by mouth ity of tablet 19:04: at [place] 03 bedtime. Medical Branch furosemide 2020-0 Yes 20mg Take 20 mg U nivers 20 mg 7-22 by mouth ity of tablet 19:04: every [place] 03 morning Medical and Branch evening. aspirin 81 2020-0 Yes 81mg Take 81 mg U nivers mg chewable 7-22 by mouth ity of tablet 19:04: daily. [place] Medical Branch insulin 2020-0 Yes 50U inject [...] weekly. Branch vitC/E/Zn/c 2020-0 Yes Take by Uni vers opper/lutei 7-22 mouth 2 ity o f n/zeaxan 19:04: (two) [place] (ICAPS 03 times Medical AREDS2 daily. Branch ORAL) SITagliptin 2020-0 Yes 100mg Take 100 U nivers 100 mg 7-22 mg by ity of tablet 19:04: mouth [place] 03 daily. Medical Branch atorvastati 2020-0 Yes 80mg Take 80 mg Univers n 80 mg 7-22 by mouth ity of tablet 19:04: at [place] 03 bedtime. Medical Branch furosemide 2020-0 Yes 20mg Take 20 mg U nivers 20 mg 7-22 by mouth ity of tablet 19:04: every [place] 03 morning Medical and Branch evening. aspirin 81 2020-0 Yes 81mg Take 81 mg U nivers mg chewable 7-22 by mouth ity of tablet 19:04: daily. [place] 03 Medical Branch insulin 2020-0 Yes 50U inject 50 Unive rs glargine 7-22 Units ity of U-300 conc 19:04: under the [place] (TOUJEO MAX 03 skin 2 Medica l U-300 (two) Branch [facility]) times 300 unit/mL daily. (3 mL) InPn dulaglutide 2020-0 Yes 1.5U inject 1.5 Univers (TRULICITY) 7-22 Units ity of 1.5 mg/0.5 19:04: under the [place] mL PnIj 03 skin Medical weekly. Branch vitC/E/Zn/c 2020-0 Yes Take by Uni vers opper/lutei 7-22 mouth 2 ity o f n/zeaxan 19:04: (two) [place] (ICAPS 03 times Medical AREDS2 daily. Branch ORAL) SITagliptin 2020-0 Yes 100mg Take 100 U nivers 100 mg 7-22 mg by ity of tablet 19:04: mouth [place] 03 daily. Medical Branch atorvastati 2020-0 Yes 80mg Take 80 mg Univers n 80 mg 7-22 by mouth ity of tablet 19:04: at [place] 03 bedtime. Medical Branch furosemide 2020-0 Yes 20mg Take 20 mg U nivers 20 mg 7-22 by mouth ity of tablet 19:04: every [place] 03 morning Medical and Branch evening. aspirin 81 2020-0 Yes 81mg Take 81 mg U nivers mg chewable 7-22 by mouth ity of tablet 19:04: daily. [place] [address] Medical Branch insulin 2020-0 Yes 50U inject 50 Unive rs glargine 7-22 Units ity of U-300 conc 19:04: under the [place] (TOUJEO MAX 03 skin 2 Medica l U-300 (two) Branch [facility]) times 300 unit/mL daily. (3 mL) InPn dulaglutide 2020-0 Yes 1.5U inject 1.5 Univers (TRULICITY) 7-22 Units ity of 1.5 mg/0.5 19:04: under the [place] mL PnIj 03 skin Medical weekly. Branch vitC/E/Zn/c 2020-0 Yes Take by Uni vers opper/lutei 7-22 mouth 2 ity o f n/zeaxan 19:04: (two) [place] (ICAPS 03 times Medical AREDS2 daily. Branch ORAL) SITagliptin 2020-0 Yes 100mg Take 100 U nivers 100 mg 7-22 mg by ity of tablet 19:04: mouth [place] 03 daily. Medical Branch atorvastati 2020-0 Yes 80mg Take 80 mg Univers n 80 mg 7-22 by mouth ity of tablet 19:04: at [place] 03 bedtime. Medical Branch furosemide 2020-0 Yes 20mg Take 20 mg U nivers 20 mg 7-22 by mouth ity of tablet 19:04: every [place] 03 morning Medical and Branch evening. aspirin 81 2020-0 Yes 81mg Take 81 mg U nivers mg chewable 7-22 by mouth ity of tablet 19:04: daily. [place] Medical Branch insulin 2020-0 Yes 50U inject [...] weekly. Branch vitC/E/Zn/c 2020-0 Yes Take by Uni vers opper/lutei 7-22 mouth 2 ity o f n/zeaxan 19:04: (two) [place] (ICAPS 03 times Medical AREDS2 daily. Branch ORAL) SITagliptin 2020-0 Yes 100mg Take 100 U nivers 100 mg 7-22 mg by ity of tablet 19:04: mouth [place] 03 daily. Medical Branch atorvastati 2020-0 Yes 80mg Take 80 mg Univers n 80 mg 7-22 by mouth ity of tablet 19:04: at [place] 03 bedtime. Medical Branch furosemide 2020-0 Yes 20mg Take 20 mg U nivers 20 mg 7-22 by mouth ity of tablet 19:04: every [place] 03 morning Medical and Branch evening. aspirin 81 2020-0 Yes 81mg Take 81 mg U nivers mg chewable 7-22 by mouth ity of tablet 19:04: daily. [place] Medical Branch insulin 2020-0 Yes 50U inject 50 Unive rs glargine 7-22 Units ity of U-300 conc 19:04: under the [place] (TOUJEO MAX 03 skin 2 Medica l U-300 (two) Branch [facility]) times 300 unit/mL daily. (3 mL) InPn dulaglutide 2020-0 Yes 1.5U inject 1.5 Univers (TRULICITY) 7-22 Units ity of 1.5 mg/0.5 19:04: under the [place] mL PnIj 03 skin Medical weekly. Branch vitC/E/Zn/c 2020-0 Yes Take by Uni vers opper/lutei 7-22 mouth 2 ity o f n/zeaxan 19:04: (two) [place] (ICAPS 03 times Medical AREDS2 daily. Branch ORAL) SITagliptin 2020-0 Yes 100mg Take 100 U nivers 100 mg 7-22 mg by ity of tablet 19:04: mouth [place] 03 daily. Medical Branch atorvastati 2020-0 Yes 80mg Take 80 mg Univers n 80 mg 7-22 by mouth ity of tablet 19:04: at [place] 03 bedtime. Medical Branch furosemide 2020-0 Yes 20mg Take 20 mg U nivers 20 mg 7-22 by mouth ity of tablet 19:04: every [place] 03 morning Medical and Branch evening. aspirin 81 2020-0 Yes 81mg Take 81 mg U nivers mg chewable 7-22 by mouth ity of tablet 19:04: daily. [place] [facility] insulin 2020-0 Yes 50U inject 50 Unive rs glargine 7-22 Units ity of U-300 conc 19:04: [place] (TOUJEO MAX 03 skin 2 Medica l U-300 (two) Branch [facility]) times 300 unit/mL daily. (3 mL) InPn dulaglutide 2020-0 Yes 1.5U inject 1.5 Univers (TRULICITY) 7-22 Units ity of 1.5 mg/0.5 19:04: [place] mL PnIj 03 skin Medical weekly. Branch vitC/E/Zn/c 2020-0 Yes Take by Uni vers opper/lutei 7-22 mouth 2 ity o f n/zeaxan 19:04: (two) [place] (ICAPS 03 times Medical AREDS2 daily. Branch ORAL) SITagliptin 2020-0 Yes 100mg Take 100 U nivers 100 mg 7-22 mg by ity of tablet 19:04: mouth [place] 03 daily. Medical Branch atorvastati 2020-0 Yes 80mg Take 80 mg Univers n 80 mg 7-22 by mouth ity of tablet 19:04: at [place] 03 bedtime. Medical Branch furosemide 2020-0 Yes 20mg Take 20 mg U nivers 20 mg 7-22 by mouth ity of tablet 19:04: every [place] 03 morning Medical and Branch evening. aspirin 81 2020-0 Yes 81mg Take 81 mg U nivers mg chewable 7-22 by mouth ity of tablet 19:04: daily. [place] [facility] insulin 2020-0 Yes 50U inject 50 Unive rs glargine 7-22 Units ity of U-300 conc 19:04: [place] (TOUJEO MAX 03 skin 2 Medica l U-300 (two) Branch [facility]) times 300 unit/mL daily. (3 mL) InPn dulaglutide 2020-0 Yes 1.5U inject 1.5 Univers (TRULICITY) 7-22 Units ity of 1.5 mg/0.5 19:04: [place] mL PnIj 03 skin Medical weekly. Branch vitC/E/Zn/c 2020-0 Yes Take by Uni vers opper/lutei 7-22 mouth 2 ity o f n/zeaxan 19:04: (two) [place] (ICAPS 03 times Medical AREDS2 daily. Branch ORAL) SITagliptin 2020-0 Yes 100mg Take 100 U nivers 100 mg 7-22 mg by ity of tablet 19:04: mouth [place] 03 daily. Medical Branch atorvastati 2020-0 Yes 80mg Take 80 mg Univers n 80 mg 7-22 by mouth ity of tablet 19:04: at [place] 03 bedtime. Medical Branch furosemide 2020-0 Yes 20mg Take 20 mg U nivers 20 mg 7-22 by mouth ity of tablet 19:04: every [place] 03 morning Medical and Branch evening. aspirin 81 2020-0 Yes 81mg Take 81 mg U nivers mg chewable 7-22 by mouth ity of tablet 19:04: daily. [place] [facility] insulin 2020-0 Yes 50U inject [...] weekly. Branch vitC/E/Zn/c 2020-0 Yes Take by Uni vers opper/lutei 7-22 mouth 2 ity o f n/zeaxan 19:04: (two) [place] (ICAPS 03 times Medical AREDS2 daily. Branch ORAL) SITagliptin 2020-0 Yes 100mg Take 100 U nivers 100 mg 7-22 mg by ity of tablet 19:04: mouth [place] 03 daily. Medical Branch atorvastati 2020-0 Yes 80mg Take 80 mg Univers n 80 mg 7-22 by mouth ity of tablet 19:04: at [place] 03 bedtime. Medical Branch furosemide 2020-0 Yes 20mg Take 20 mg U nivers 20 mg 7-22 by mouth ity of tablet 19:04: every [place] 03 morning Medical and Branch evening. aspirin 81 2020-0 Yes 81mg Take 81 mg U nivers mg chewable 7-22 by mouth ity of tablet 19:04: daily. [place] 03 Medical Branch carvediloL 2020-0 Yes [id number] 12.5mg Take 1 Univers 12.5 mg 7-03 tablet by ity of tablet 00:00: mouth 2 [place] 00 (two) Medical times Branch daily with meals. carvediloL 2020-0 2020- No [id number] 12.5mg Take 1 Univers 12.5 mg 7-03 07-15 tablet by ity of tablet 00:00: 00:00 mouth 2 [place] 00 :00 (two) Medical times Branch daily with meals. metoprolol 2020-0 2020- No 100mg Take 100 U nivers tartrate 6-22 06-22 mg by ity of 100 mg 19:28: 00:00 mouth 2 [place] tablet 37 :00 (two) Medical times Branch daily. metoprolol 2020-0 2020- No 100mg Take 100 U nivers tartrate 6-22 06-22 mg by ity of 100 mg 19:28: 00:00 mouth 2 [place] tablet 37 :00 (two) Medical times Branch daily. vitC/E/Zn/c 2020-0 Yes Take by Uni vers opper/lutei 6-22 mouth 2 ity o f n/zeaxan 19:00: (two) [place] (ICAPS 40 times Medical AREDS2 daily. Branch ORAL) vitC/E/Zn/c 2020-0 Yes Take by Uni vers opper/lutei 6-22 mouth 2 ity o f n/zeaxan 19:00: (two) [place] (ICAPS 40 times Medical AREDS2 daily. Branch ORAL) vitC/E/Zn/c 2020-0 Yes Take by Uni vers opper/lutei 6-22 mouth 2 ity o f n/zeaxan 19:00: (two) [place] (ICAPS 40 times Medical AREDS2 daily. Branch ORAL) vitC/E/Zn/c 2020-0 Yes Take by Uni vers opper/lutei 6-22 mouth 2 ity o f n/zeaxan 19:00: (two) [place] (ICAPS 40 times Medical AREDS2 daily. Branch ORAL) aspirin 81 2020-0 Yes 81mg Take 81 mg U nivers mg chewable 6-22 by mouth ity of tablet 19:00: daily. [address] insulin 2020-0 Yes 50U inject 50 Unive rs glargine 6-22 Units ity of U-300 conc 19:00: [place] (TOUJEO MAX 39 skin 2 Medica l U-300 (two) [place] [facility]) times 300 unit/mL daily. (3 mL) InPn dulaglutide 2020-0 Yes 1.5U inject 1.5 Univers (TRULICITY) 6-22 Units ity of 1.5 mg/0.5 19:00: [place] mL PnIj 39 skin Medical weekly. Branch aspirin 81 2020-0 Yes 81mg Take 81 mg U nivers mg chewable 6-22 by mouth ity of tablet 19:00: daily. [address] insulin 2020-0 Yes 50U inject 50 Unive rs glargine 6-22 Units ity of U-300 conc 19:00: [place] (TOUJEO MAX 39 skin 2 Medica l U-300 (two) [place] [facility]) times 300 unit/mL daily. (3 mL) InPn dulaglutide 2020-0 Yes 1.5U inject 1.5 Univers (TRULICITY) 6-22 Units ity of 1.5 mg/0.5 19:00: under the [place] mL PnIj 39 skin Medical weekly. Branch aspirin 81 2020-0 Yes 81mg Take 81 mg U nivers mg chewable 6-22 by mouth ity of tablet 19:00: daily. [address] Branch insulin 2020-0 Yes 50U inject 50 Unive rs glargine 6-22 Units ity of U-300 conc 19:00: [place] (TOUJEO MAX 39 skin 2 Medica l U-300 (two) Branch [facility]) times 300 unit/mL daily. (3 mL) InPn dulaglutide 2020-0 Yes 1.5U inject 1.5 Univers (TRULICITY) 6-22 Units ity of 1.5 mg/0.5 19:00: under the [place] mL PnIj 39 skin Medical weekly. Branch aspirin 81 2020-0 Yes 81mg Take 81 mg U nivers mg chewable 6-22 by mouth ity of tablet 19:00: daily. [address] Branch insulin 2020-0 Yes 50U inject 50 Unive rs glargine 6-22 Units ity of U-300 conc 19:00: [place] the [place] (TOUJEO MAX 39 skin 2 Medica l U-300 (two) Branch [facility]) times 300 unit/mL daily. (3 mL) InPn dulaglutide 2020-0 Yes 1.5U inject 1.5 Univers (TRULICITY) 6-22 Units ity of 1.5 mg/0.5 19:00: [place] the [place] mL PnIj 39 skin Medical weekly. Branch SITagliptin 2020-0 Yes 100mg Take 100 U nivers 100 mg 6-22 mg by ity of tablet 18:57: mouth [place] [id number] daily. Medical Branch atorvastati 2020-0 Yes 80mg Take 80 mg Univers n 80 mg 6-22 by mouth ity of tablet 18:57: at [place] [id number] bedtime. Medical Branch furosemide 2020-0 Yes 20mg Take 20 mg U nivers 20 mg 6-22 by mouth ity of tablet 18:57: every [place] morning Medical and Branch evening. SITagliptin 2020-0 Yes 100mg Take 100 U nivers 100 mg 6-22 mg by ity of tablet 18:57: mouth [place] [id number] daily. Medical Branch atorvastati 2020-0 Yes 80mg [...] 00 daily. Medical Branch carvediloL 2020-0 Yes [id number] 25mg Take 1 U nivers 25 mg 6-22 tablet by ity of tablet 00:00: mouth 2 00 (two) Medical times Branch daily with meals. ramipril 10 2020-0 Yes 10mg Take 1 [...] 00 daily. Medical Branch carvediloL 2020-0 Yes [id number] 25mg Take 1 U nivers 25 mg 6-22 tablet by ity of tablet 00:00: mouth 2 00 (two) Medical times Branch daily with meals. ramipril 10 2020-0 Yes 10mg Take 1 [...] daily. Medical Branch carvediloL 2020-0 2020- No [id number] 25mg Take 1 Univers 25 mg 6-22 07-03 tablet by ity of tablet 00:00: 00:00 [...] 00 (two) Medical times Branch daily. metoprolol Yes 100mg Take 100 Un rupinder tartrate 6-09 mg by ity of 100 mg 00:00: mouth 2 [place] tablet 00 (two) Medical times Branch daily. metoprolol Yes 100mg Take 100 Un rupinder tartrate 6-09 mg by ity of 100 mg 00:00: mouth 2 [place] tablet 00 (two) Medical times Branch daily. atorvastati Yes 1{tbl} 1 tablet. Methodi n (LIPITOR) 3-03 st 80 MG 00:00: Hospita tablet 00 l lisinopril 2017-09 Yes 10mg QD Take 1 Metho di (PRINIVIL,Z 1-01 tablet (10 st ESTRIL) 10 00:00: mg total) [facility] mg tablet 00 by mouth l daily. apixaban 2017-09- No 5mg Q.5D Take 1 Method i (ELIQUIS) 5 03-22 tablet (5 st mg tablet 00:00: 00:00 mg total) [facility]ita 00 :00 by mouth 2 l (two) times a day. clopidogrel No 75mg QD 75 mg Meth crissy (PLAVIX) 75 06-[address] mg tablet 00:00: 00:00 Hospita 00 :00 l TOUJEO 2021- No daily. Methodi SOLOSTAR 06-01 st U-300 00:00: 00:00 Hospita INSULIN 300 00 :00 l unit/mL (1.5 mL) insulin pen TRULICITY No Q7D once a Metho di 0.75 mg/0.5 06-[address] mL pen 00:00: 00:00 Hospita injector 00 :00 l levothyroxi 2021- No 50ug QD 50 mcg Met hodi ne 04-[address] (SYNTHROID, 00:00: 00:00 morning. H ospita LEVOXYL) 50 00 :00 l mcg tablet 1.5 ML 2016-09 No Notes: [facility]oria Insulin 16 Same as: l Glargine 03:00: Lantus) Do Her camara 300 UNT/ML 00 not hold Prefilled insulin Syringe without [Tomas] contacting prescriber WASTE: F/P - Black; E - Municipal Trash Bin atorvastati 2016-09 No Notes: [place] el n 1-16 (Same as: l 03:00: Lipitor) metoprolol 2016-09 No Notes: Memor ia tartrate 1-15 (Same as: l 15:00: Lopressor) Furosemide 2016-09 No Notes: Memor ia 40 MG Oral 1-15 (Same as: l Tablet 15:00: Lasix) May cause GI upset. Give with food or milk. Fenofibrate 2016-09 No Notes: Judson el 145 MG Oral 1-15 (Same as: l Tablet 15:00: Tricor) clopidogrel 2016-09 No Notes: Judson el 1-15 (Same As: l 15:00: Plavix) carvedilol 2016-09 No Notes: Memor ia 1-15 Give with l 15:00: food. (Same As: Coreg) aspirin 81 2016-09 No Notes: Do Me moria mg tablet, 1-15 not crush l enteric 15:00: or chew. Bruce n coated 00 (Same As: Ecotrin) Docusate 2016-09 No Notes: Memoria 1-15 (Same as: l 15:00: Colace) (Do Not Crush) gabapentin 2016-09 No Notes: Memor ia 300 MG Oral 1-15 (Same as: l Capsule 14:00: Neurontin) Ondansetron 2016-09 No Notes: Judson el 1-15 (Same as: l 07:06: Zofran) MEDICATION WASTE Product Size: 4 mg Product Wasted: 0 mg carvedilol 2016-09 Yes 12.5 mg = Me moria 12.5 mg 1-15 1 tab, PO, l oral tablet 05:15: Daily, 0 [place] 00 Refill(s) 1.5 ML 2016-09 Yes 15 unit, Memoria Insulin 1-15 SUB-Q, l Glargine 05:15: Bedtime, 0 Her camara 300 UNT/ML 00 Refill(s) Prefilled Syringe [Toujeo] Amiodarone 2016-09 No Notes: Memor ia 0-11 (Same as: l 22:00: Cordarone) [place] 00 Furosemide 2016-09 No Notes: Memor ia 40 MG Oral 0-10 (Same as: l Tablet 14:00: Lasix) [place] 00 cause GI upset. Give with food or milk. NPH 2016-09 Yes See [facility]oria Insulin, 0-09 Instructio l Human 70 18:28: ns, 10 [place] UNT/ML / 00 units Regular SUB-Q Insulin, before Human 30 breakfast UNT/ML and Injectable dinner, # Suspension 10 mL, 0 [Novolin Refill(s) 70/30] Furosemide 2016-09 Yes 40 mg = 1 Me moria 40 MG Oral 0-09 tab, PO, l Tablet 17:06: Daily, # 7 Radha nn 00 tab, 0 Refill(s) Fenofibrate 2016-09 Yes 145 mg = 1 Memoria 145 MG Oral 0-09 tab, PO, l Tablet 17:06: Daily, # [place] 00 30 tab, 0 Refill(s) insulin 2016-09 No 10 unit, Memori a detemir 100 0-09 SUB-Q, l units/mL 17:06: Daily, # 3 camara subcutaneou 00 mL, 0 s solution Refill(s) Docusate 2016-09 Yes 1 tab, PO, Mem oria Sodium 50 0-09 Daily, X l MG / 17:06: 10 day, # Caleb sennosides, 00 10 tab, 0 CORRECTION 8.6 MG Refill(s) Oral Tablet clopidogrel 2016-09 Yes 75 mg = 1 M emoria 75 mg oral 0-09 tab, PO, l tablet 17:06: Daily, # [place] 00 30 tab, 0 Refill(s) atorvastati 2016-09 Yes 40 mg = 1 M emoria n 40 mg 0-09 tab, PO, l oral tablet 17:06: Bedtime, # [place] 00 30 tab, 0 Refill(s) Cardiac 2016-09 Yes See [facility] 0-09 Instructio l ion 17:06: ns, [place] cardiac rehab Phase II, # 1 ea, 0 Refill(s) aspirin 81 2016-09 Yes 162 mg = 2 M emoria mg tablet, 0-09 tab, PO, l enteric 17:06: Daily, # Bruce n coated 00 60 tab, 0 Refill(s) metoprolol 2016-09 Yes 50 mg = 1 Me moria tartrate 50 0-09 tab, PO, l mg oral 17:06: BID, # 60 Radha nn tablet 00 tab, 0 Refill(s) levofloxaci 2016-09 Yes 750 mg = 1 Memoria n 750 mg 0-09 tab, PO, l oral tablet 17:06: [id number], X [place] 00 3 day, # 3 tab, 0 Refill(s) gabapentin 2016-09 Yes 300 mg = 1 M emoria 300 MG Oral 0-09 cap, PO, l Capsule 17:06: Q8H, # 63 Radha nn 00 cap, 0 Refill(s) insulin 2016-09 No See Memoria lispro 100 0-09 Instructio l units/mL 17:06: ns, 2 unit Her camara subcutaneou 00 SUB-Q s injection TID-Before Meals, # 3 mL, 0 Refill(s) Levofloxaci 2016-09 No Notes: Do M emoria n 0-09 not give l 17:00: w/antacids , dairy pdt & minerals Take 1 hr before or 2 hr after dairy products tramadol 2016-09 Yes 50 mg = 1 Judson el hydrochlori 0-09 tab, PO, l de 50 MG 16:58: Q6H, X 10 Herm maynor Oral Tablet 00 day, # 40 tab, 0 Refill(s) Insulin 2016-09 No 60 units) Judson le Lispro 0-09 WASTE: F/P l 02:14: - Black; E - Municipal Trash Bin Stable for 28 days at room temperatur e. Expires in days from ____Date molasses 2016-09 No Notes: Memoria 0-08 (Same l 17:13: as:Molasse [place] 00 s) Metoclopram 2016-09 No Notes: Judson el damian 0-08 (Same as: l 16:30: Reglan) [place] 00 Lasix 2016-09 No Notes: [facility]oria 0-08 (Same as: l 14:00: Lasix) MEDICATION WASTE Product Size: 40 mg Product Wasted: ___ mg Protonix 2016-09 No Notes: For Mem oria 0-08 IV push l 13:00: reconstitu [place] 00 te with 10 ml 0.9% sodium chloride and push over 2 minutes. (Same as: Protonix) Insulin 2016-09 No 60 units) Judson el Lispro 0-06 WASTE: F/P l 21:30: - Black; E [place] 00 - Municipal Trash Bin Stable for 28 days at room temperatur e. 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 Give with food or milk. Lovenox 2016-09 No Notes: Memoria 0-05 Nurse to l 16:00: ensure [place] 00 documentat ion of patient education per anticoagul ation policy. (Same as: Lovenox) Garrickhin 2016-09 No Notes: Memoria 0-05 (Same As: l 15:00: Rocephin). [place] 00 Use with 100 mL NS and infuse over 30 min MEDICATION WASTE Product Size: 1000 mg Product Wasted: __0_ mg Magnesium 2016-09 No Notes: Memori a Oxide 0-05 (Same as: l 14:59: Mag-Ox [place] 00 400) Magnesium oxide 166ni=579h g elemental magnesium Dose=____m g magnesium oxide (___mg elemental magnesium) sodium 2016-09 No 15 mmol, 5 Memor ia phosphate 0-05 mL, Route: l 14:59: IVPB, PRN, [place] 00 Dosing Weight 82.33, kg, PRN Abnormal Lab Result, For NON-ICU Patients Only., Start date: 06/12/17 9:59:00 CDT, Duration: 30 day, Stop date: 07/12/17 9:58:00 CDT Magnesium 2016-09 No Notes: Memori a Sulfate 0-05 WASTE: F/P l 14:59: - Sink; E [place] - Municipal Trash Bin Potassium 2016-09 No Notes: Memori a Chloride 0-05 (Same as: l 14:59: K-Dur 20) [place] 00 "Do Not Crush" With food and full glass of water Calcium 2016-09 No Notes: [facility]oria Gluconate 0-05 WASTE: F/P l 14:59: - Sink; E [place] - Municipal Trash Bin potassium 2016-09 No Notes: Memori a phosphate-s 0-05 (Same as: l odium 14:59: Phos-NaK) [place] phosphate 00 Each 1.5 250 mg-280 gm pkt has mg-160 mg 250mg oral powder phosphorou for s. Mix reconstitut w/2.5oz ion water and stir. potassium 2016-09 No Notes: Memori a phosphate 0-05 (Same as: l 14:59: K [place] Phosphate. ) 1 mMol phoshate has 1.47 mEq potassium Infuse over 4 hours Doc-Q-Lax 2016-09 No Notes: Memori a 0-05 (Same as l 14:00: Senokot-S) [place] 00 Equiv. to Doris-Colac e. pneumococca 2016-09 No Notes: Judson el l capsular 0-05 (Same as: l polysacchar 14:00: Pneumovax H ermann damian type 1 00 23) vaccine / Refrigerat pneumococca e l capsular polysacchar damian type 10A vaccine / pneumococca l capsular polysacchar damian type 11A vaccine / pneumococca l capsular polysacchar damian type 12F vaccine / pneumococca l capsular polysacchar Amiodarone 2016-09 No Notes: Memor ia 0-04 (Same as: l 22:00: Cordarone) Insulin 2016-09 No 60 units) Judson el Lispro 0-04 WASTE: F/P l 19:58: - Black; E - [facility] Trash Bin Stable for 28 days at room temperatur e. Expires in days from ____Date Dextrose 2016-09 No 12.5 gm, Memor ia 50% Syringe 0-04 25 mL, l 19:58: Route: IVP, Drug Form: INJ, Dosing Weight 82.33, kg, PRN, PRN Blood Glucose Results, Start date: 06/11/17 14:58:00 CDT, Duration: 30 day, Stop date: 07/11/17 14:57:00 CDT Glucagon 2016-09 No 1 mg, Memoria 0-04 Route: IM, l 19:58: Drug form: PDR/INJ, PRN, Dosing Weight 82.33, kg, PRN Blood Glucose Results, Start date: 06/11/17 14:58:00 CDT, Duration: 30 day, Stop date: 07/11/17 14:57:00 CDT Ipratropium 2016-09 No Notes: SEE Memoria [place] 0.2 0-04 RT l MG/ML 17:16: DOCUMENTAT Bruce n Inhalant 00 ION (Same Solution as:Atroven t) metoprolol 2016-09 No Notes: Memor ia tartrate 0-04 (Same as: l 16:08: Lopressor) Amiodarone 2016-09 No Notes: Memor ia 0-04 (Same as: l 16:08: Cordarone) Amiodarone 2016-09 No Notes: Memor ia 0-04 (Same as: l 14:07: Cordarone) metoprolol 2016-09 No Notes: Memor ia tartrate 0-04 (Same as: l 04:00: Lopressor) [place] 00 Versed 2016-09 No Notes: Memoria 0-03 (Same as: l 16:00: Versed) [place] 00 MEDICATION WASTE Product Size: 2 mg Product Wasted: ___ mg Fentanyl 2016-09 No Notes: Memoria 0-03 (Same as: l 16:00: Sublimaze) [place] 00 Preservati ve free. Levemir 2016-09 No Notes: Memoria 0-03 Non-Formul l 15:35: nicko Drug (Same as Levemir) Do not hold insulin without contacting prescriber WASTE: F/P - Black; E - Municipal Trash Bin "single patient use only" Xopenex 2016-09 No Notes: SEE Judson el 0-03 RT l 14:57: DOCUMENTAT [place] 00 ION (Same as:Xopenex ) Non-Formul nicko potassium 2016-09 No Notes: Memori a phosphate 0-03 (Same as: l 14:43: K Phosphate. ) 1 mMol phoshate has 1.47 mEq potassium Infuse over 4 hours potassium 2016-09 No Notes: Memori a phosphate-s 0-03 (Same as: l odium 14:43: Phos-NaK) phosphate 00 Each 1.5 250 mg-280 gm pkt has mg-160 mg 250mg oral powder phosphorou for s. Mix reconstitut w/2.5oz ion water and stir. Magnesium 2016-09 No Notes: Memori a Sulfate 0-03 WASTE: F/P l 14:43: - Sink; E - Municipal Trash Bin Potassium 2016-09 No Notes: Memori a Chloride 0-03 (Same as: l 14:43: KCL) [place] 00 Infuse over 2 hours. Magnesium 2016-09 No Notes: Memori a Oxide 0-03 (Same as: l 14:43: Mag-Ox [place] 00 400) Magnesium oxide 145jj=169x g elemental magnesium Dose=____m g magnesium oxide (___mg elemental magnesium) sodium 2016-09 No 30 mmol, Memoria phosphate 0-03 10 mL, l 14:43: Route: [place] 00 IVPB, PRN, Dosing Weight 82.33, kg, PRN Abnormal Lab Result, Start date: 06/10/17 9:43:00 CDT, Duration: 30 day, Stop date: 07/10/17 9:42:00 CDT, FOR ICU USE ONLY Calcium 2016-09 No Notes: Memoria Carbonate 0-03 (Same As: l 500 MG 14:43: Tums) [place] Chewable 00 Calcium Tablet Carbonate 500 mg = 200 mg elemental calcium Dose = mg calcium carbonate ( mg elemental calcium) Calcium 2016-09 No Notes: [facility]oria Gluconate 0-03 WASTE: F/P l 14:43: - Sink; E [place] 00 - Municipal Trash Bin Ipratropium 2016-09 No Notes: SEE Memoria [place] 0.2 0-03 RT l MG/ML 14:14: DOCUMENTAT Bruce n Inhalant 00 ION (Same Solution as:Atroven t) 200 ACTUAT 2016-09 No Notes: Memor ia Ipratropium 0-03 (ipratropi l [place] 14:00: um [place] 0.017 00 17microgra MG/ACTUAT m/inh 14gm Metered AER) (Same Dose as:Atroven Inhaler t) WASTE: [Atrovent] Aerosol - Return to Pharmacy Furosemide 2016-09 No Notes: Memor ia 0-03 (Same as: l 14:00: Lasix) [place] 00 MEDICATION WASTE Product Size: 40 mg Product Wasted: ___ mg SMOG Enema 2016-09 No Notes: Non M emoria 0-03 formulary l 12:19: item [place] 00 saline for irrigation (1L bottle) 100 mL, mineral oil 100 mL, glycerine 100 mL. Dispense (300 ml) in 1L NS bottle Ofirmev 2016-09 No Notes: Memoria 0-03 Infuse l 09:37: over 15 [place]aleb 00 minutes Do not exceed 4gm/day of acetaminop hen MEDICATION WASTE Product Size: 1000 mg Product Wasted: ___ mg Lasix 2016-09 No Notes: Memoria 0-03 (Same as: l 09:35: Lasix) [place] 00 AMIODarone 2016-09 No 2 mg/ml. Me moria INJ 900 mg 0-03 Use Glass l + D5W 500 09:35: Bottle or Her camara ml INJ 482 00 Non PVC mL Bag "Use 0.22 micron in-line filter" MEDICATION WASTE Product Size: 900 mg Product Wasted: ___ mg Amiodarone 2016-09 No 2 mg/ml. Me moria 0-03 "Recommend l 09:35: ation: Use [place] 00 an in-line filter during administra tion for continuous infusions to reduce the incidence of phlebitis" (Same as Codarone) MEDICATION WASTE Product Size: 150 mg Product Wasted: ___ mg Metoprolol 2016-09 No Notes: Memor ia 0-03 (Same as: l 09:23: Lopressor) [place]aleb Push over 2 minutes Glucagon 2016-09 No 1 mg, Memoria 0-02 Route: IM, l 22:19: PRN, [place] Dosing Weight 82.33, kg, PRN Blood Glucose Results, Start date: 06/09/17 17:19:00 CDT, Duration: 30 day, Stop date: 07/09/17 17:18:00 CDT Dextrose 2016-09 No 50 mL, Memoria 50% Syringe 0 Route: l 22:19: IVP, [place] 00 Dosing Weight 82.33, kg, PRN, PRN Blood Glucose Results, Start date: 06/09/17 17:19:00 CDT, Duration: 30 day, Stop date: 07/09/17 17:18:00 CDT Sodium 2016-09 No Notes: SEE Memor ia Chloride 3% 0-02 RT l inhalation 15:56: DOCUMENTAT H ermann solution 00 ION (Same as: Hypertonic Saline 3%, Inhalation ) Lasix 2016-09 No 20 mg, Memoria 0-02 Route: l 14:00: IVP, Drug [place]aleb 00 form: INJ, Q12H, Dosing Weight 82.33, kg, Start date: 06/09/17 9:00:00 CDT, Duration: 1 day, Stop date: 06/09/17 21:00:00 CDT Lasix 2016-09 No Notes: [facility]oria 0-02 (Same as: l 12:17: Lasix) [place] 00 Melatonin 2016-09 No Notes: Memori a 0-02 (Same as: l 04:14: Melatonin) Caleb Levemir 2016-09 No Notes: Memoria 0-02 Non-Formul l 02:00: nicko Drug [place] (Same as Levemir) Do not hold insulin without contacting prescriber WASTE: F/P - Black; E - Municipal Trash Bin "single patient use only" Magnesium 2016-09 No Notes: Memori a Sulfate 0- WASTE: F/P l 23:16: - Sink; E - Municipal Trash Bin Magnesium 2016-09 No Notes: Memori a Oxide 0-01 (Same as: l 23:16: Mag-Ox [place] 00 400) Magnesium oxide 815rd=307r g elemental magnesium Dose=____m g magnesium oxide (___mg elemental magnesium) Calcium 2016-09 No Notes: Memoria Gluconate 0- WASTE: F/P l 23:16: - Sink; E - Municipal Trash Bin sodium 2016-09 No 15 mmol, 5 Memor ia phosphate 0-01 mL, Route: l 23:16: IVPB, PRN, Dosing Weight 82.33, kg, PRN Abnormal Lab Result, For NON-ICU Patients Only., Start date: 06/08/17 18:16:00 CDT, Duration: 30 day, Stop date: 07/08/17 18:15:00 CDT potassium 2016-09 No Notes: Memori a phosphate 0-01 (Same as: l 23:16: K [place] Phosphate. ) 1 mMol phoshate has 1.47 mEq potassium Infuse over 4 hours potassium 2016-09 No Notes: Memori a phosphate-s 0-01 (Same as: l odium 23:16: Phos-NaK) phosphate 00 Each 1.5 250 mg-280 gm pkt has mg-160 mg 250mg oral powder phosphorou for s. Mix reconstitut w/2.5oz ion water and stir. Potassium 2016-09 No Notes: Memori a Chloride 0-01 (Same as: l 23:16: K-Dur 20) "Do Not Crush" With food and full glass of water Acetaminoph 2016-09 No Notes: Do M emoria en 300 MG / 0-01 not exceed l Codeine 23:15: 4gm/day of Herm maynor Phosphate acetaminop 30 MG Oral hen. (Same Tablet as: [Tylenol Tylenol with with Codeine #3] Codeine # 3) tramadol 2016-09 No Notes: Not Mem oria hydrochlori 0 to exceed l de 50 MG 17:00: 400mg/day. Her camara Oral Tablet 00 (Same As: Ultram) Insulin 2016-09 No 60 units) Judson el Lispro WASTE: F/P l 16:30: - Black; E - Municipal Trash Bin Stable for 28 days at room temperatur e. Expires in days from ____Date Ativan 2016-09 No Notes: Memoria 0 (Same as: l 09:20: Ativan) Caleb 00 Insulin No 60 units) Judson el Lispro 06-07 WASTE: F/P l 18:35: - Black; E - Municipal Trash Bin Stable for 28 days at room temperatur e. Expires in days from ____Date Dextrose No 12.5 gm, Memor ia 50% Syringe 06-07 25 mL, l 18:35: Route: Caleb 00 IVP, Drug Form: INJ, Dosing Weight 82.33, kg, PRN, PRN Blood Glucose Results, Start date: 06/07/17 13:35:00 CDT, Duration: 30 day, Stop date: 07/07/17 13:34:00 CDT Glucagon No 1 mg, Memoria 06-07 Route: IM, l 18:35: Drug form: Caleb 00 PDR/INJ, PRN, Dosing Weight 82.33, kg, PRN Blood Glucose Results, Start date: 06/07/17 13:35:00 CDT, Duration: 30 day, Stop date: 07/07/17 13:34:00 CDT Isolyte S No Notes: Memori a PH-7.4 06-07 (Same as: l (Bolus) IV 17:14: Isolyte S He rm PH7.4) Metoprolol No Notes: Memor ia 06-07 (Same as: l 17:11: Lopressor) Caleb 00 Push over 2 minutes metoprolol No Notes: Memor ia tartrate 06-07 (Same as: l 16:00: Lopressor) 12.5 mg=1/2 X 25 mg TAB Levemir No Notes: Memoria 06-07 Non-Formul l 15:29: nicko Drug (Same as Levemir) Do not hold insulin without contacting prescriber WASTE: F/P - Black; E - Municipal Trash Bin "single patient use only" Acetaminoph No Notes: Judson el en 325 MG / 06-07 (Same as: l Hydrocodone 15:17: [place] Radha nn Bitartrate 00 325/5) Do 5 MG Oral not exceed Tablet 4gm/day of [[place] acetaminop 5/325] hen. Flomax No Notes: Memoria 06-07 (Same As: l 14:56: Flomax) "Do Not Crush" Dextrose No 12.5 gm, Memor ia 50% Syringe 06-07 25 mL, l 14:56: Route: IVP, Drug Form: INJ, Dosing Weight 82.33, kg, PRN, PRN Blood Glucose Results, Start date: 06/07/17 9:56:00 CDT, Duration: 30 day, Stop date: 07/07/17 9:55:00 CDT Insulin No Notes: Memoria regular 100 06-07 (Same as: l unit + 14:56: Humulin R Bruce n sodium 00 and chloride NovoLIN R) 0.9% INJ 99 WASTE: F/P mL - Black; E - Municipal Trash Bin (Do not shake) Insulin No 1 unit, Memoria Lispro 06-07 Route: l 14:42: SUB-Q, Bedtime, Dosing Weight 82.33, kg, PRN Blood Glucose Results, Start date: 06/07/17 9:42:00 CDT, Duration: 30 day, Stop date: 07/07/17 9:41:00 CDT Dextrose No 25 mL, Memoria 50% Syringe 06-07 Route: l 14:42: IVP, Dosing Weight 82.33, kg, PRN, PRN Blood Glucose Results, Start date: 06/07/17 9:42:00 CDT, Duration: 30 day, Stop date: 07/07/17 9:41:00 CDT Glucagon No 1 mg, Memoria 06-07 Route: IM, l 14:42: PRN, [place] 00 Dosing Weight 82.33, kg, PRN Blood Glucose Results, Start date: 06/07/17 9:42:00 CDT, Duration: 30 day, Stop date: 07/07/17 9:41:00 CDT Insulin No 10 unit, Memori a Glargine 06-07 Route: l 14:42: SUB-Q, [place] Daily, Dosing Weight 82.33, kg, Priority: NOW, Start date: 06/07/17 9:42:00 CDT, Duration: 30 day, Stop date: 07/07/17 9:00:00 CDT Miralax No Notes: Memoria 06-07 Dissolve l 14:00: in 8 oz of Caleb 00 water or juice. (Same as: Miralax) Calcium No 1,000 mg, Memor ia Gluconate 06-07 Route: l 09:40: IVPB, Drug form: INJ, ONCE, Dosing Weight 82.33, kg, Start date: 06/07/17 4:40:00 CDT, Stop date: 06/07/17 4:40:00 CDT Magnesium No 2 gm, Memoria Sulfate 06-07 Route: l 09:38: IVPB, Drug form: INJ, ONCE, Dosing Weight 82.33, kg, Total dose = 2 gm, Start date: 06/07/17 4:38:00 CDT, Duration: 1 doses or times, Stop date: 06/07/17 4:38:00 CDT albumin 2016-0 No Notes: Memoria human 5% 06-06 LOT#: l intravenous 17:55: [place] solution 00 ___ Mfg: WASTE: F/P - Red; E -Red (Same as: Albuminar) "blood product derivative " Metoclopram 0 No 10 mg, Judson el damian 06-06 Route: l 17:00: IVP, Drug form: INJ, Q6H, Dosing Weight 82.33, kg, Start date: 06/06/17 12:00:00 CDT, Duration: 30 day, Stop date: 07/06/17 6:00:00 CDT clopidogrel No Notes: Judson el 06-06 (Same As: l 15:00: Plavix) Metoclopram No Notes: Judson el damian 06-06 (Same as: l 14:45: Reglan) Blistex Lip No 1 appl, Mem oria Revitalizer 06-06 Route: l 14:00: TOP, TID, Drug form: STIC, PRN Dry Lips, Start date: 06/06/17 9:00:00 CDT, Stop date: 07/05/17 17:00:00 CDT Milk of No Notes: Memoria Magnesia 06-06 (Same as: l 14:00: Milk of Magnesia, MOM) pantoprazol No Notes: Judson el e 06-06 Tablet l 14:00: should not be chewed or crushed. (Same as: Protonix) aspirin 81 No Notes: Do Me moria mg tablet, 06-06 not crush l enteric 14:00: or chew. Bruce n coated 00 (Same As: Ecotrin) Fenofibrate No Notes: Judson el 145 MG Oral 06-06 (Same as: l Tablet 14:00: Tricor) NS (Bolus) No 500 mL, Judson el IV 06-06 500 ml/hr, l 12:57: Infuse Over: 1 hr, Route: IV, 500, Drug form: INJ, ONCE, Priority: STAT, Dosing Weight 82.33 kg, Start date: 06/06/17 7:57:00 CDT, Duration: 1 doses or times, Stop date: 06/06/17 7:57:00 CDT Isolyte S No Notes: Memori a PH-7.4 06-06 (Same as: l (Bolus) IV 11:13: Isolyte S He rmann 00 PH 7.4) Isolyte S No Notes: Memori a PH-7.4 06-06 (Same as: l (Bolus) IV 09:49: Isolyte S He rmann 00 PH 7.4) remove No Notes: Memoria patch 06-06 Remove l 09:00: patch 12 [place] 00 hours after applicatio n each day. sennosides, No Notes: Judson el CORRECTION 06-06 (Same as: l 02:00: Senokot) Caleb phenol No Notes: Memoria topical 06-06 Chlorasept l 1.4% spray 02:00: ic [place] Her (Same as: Chlorasept ic, Sore Throat [place]) WASTE: F/P - Black; E - Municipal Trash Bin chlorhexidi No Notes: Judson el ne 06-06 (Same As: l gluconate 02:00: Peridex) Herm maynor 1.2 MG/ML 00 Mouthwash Vancomycin No 2000 mg: Me moria 06-06 infuse l 02:00: over 2.5 Caleb 00 hours atorvastati No Notes: Judson el n 06-06 (Same as: l 02:00: Lipitor) Cefazolin No Notes: Memori a 06-06 Same as: l 01:15: Ancef Albuterol No Notes: Memori a 0.833 MG/ML 06-06 (Same as: l / 01:00: Duoneb) Ipratropium 00 [place] 0.167 MG/ML Inhalant Solution [DuoNeb] Hydromorpho No Notes: Judson el ne 06-05 (Same as: l 23:02: Dilaudid) conc = 0.5 mg/ml 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: ;Delay: ;Basal: Naloxone No Notes: Memoria 06-05 Same as l 23:02: Narcan [place] 00 Simethicone No Notes: Judson el 06-05 (Same as: l 23:00: Mylicon) ocular No Notes: Memoria lubricant 06-05 (Same as: l 23:00: Lacri-Lube Caleb 00 , Duratears Naturale, Artificial Tears, and Tears Again ) Docusate No Notes: Memoria 06-05 (Same as: l 22:00: Colace) Caleb 00 (Do Not Crush) chlorhexidi No Notes: Judson el ne 06-05 (Same As: l gluconate 21:34: Peridex) Herm maynor 1.2 MG/ML 00 Mouthwash gabapentin No Notes: Memor ia 06-05 (Same as: l 21:00: Neurontin) Caleb 00 Lidocaine No Notes: Memori a Hydrochlori 06-05 Apply only l de 0.05 21:00: once for Bruce n MG/MG 00 up to 12 Transdermal hours in a Patch 24-hour [Lidoderm] period (12 hours on and 12 hours off). (Same as: Lidoderm) "Remove old patch before applicatio n of new patch" Al No Notes: Memoria hydroxide/M 06-05 (aluminum l g 20:20: hydroxide- Caleb hydroxide/s 00 magnesium imethicone hyd-simeth 200 mg-200 icone mg-20 mg/5 200-200-20 mL oral mg/5ml 30 suspension ml ud BRET) Bisacodyl No Notes: Memori a 06-05 (Same As: l 20:20: Dulcolax, [place] 00 Correctol) (Do Not Crush) "Do Not Crush" Oxycodone No Notes: Memori a Hydrochlori 06-05 (Same as: l de 5 MG 20:20: Roxicodone Herm maynor Oral Tablet 00 ) Zofran No Notes: Memoria 06-05 (Same as: l 20:15: Zofran) [place] 00 MEDICATION WASTE Product Size: 4 mg Product Wasted: _0_ mg Isolyte S No Notes: Memori a (PH 7.4) 06-05 (Same as: l 1000 mL 20:14: Isolyte S Radha nn 1,000 mL 00 PH 7.4) Isolyte S No Notes: Memori a (PH 7.4) 06-05 (Same as: l 500 mL 500 20:14: Isolyte S He rmann mL 00 PH7.4) Ofirmev No Notes: Memoria 06-05 Infuse l 20:14: over 15 Caleb 00 minutes Do not exceed 4gm/day of acetaminop hen MEDICATION WASTE Product Size: 1000 mg Product Wasted: _0_ mg Albuterol No Notes: Memori a 0.833 MG/ML 06-05 (Same as: l / 20:14: Duoneb) Ipratropium 00 [place] 0.167 MG/ML Inhalant Solution [DuoNeb] Hydralazine No Notes: Judson el 06-05 (Same as: l 20:14: Apresoline Caleb 00 ) Push over 5 minutes Metoprolol No Notes: Memor ia 06-05 (Same as: l 20:14: Lopressor) [place] 00 Push over 2 minutes Fentanyl No Notes: Memoria 06-05 (Same as: l 20:13: Sublimaze) [place] 00 Preservati ve free. Magnesium No Notes: Memori a Sulfate 06-05 WASTE: F/P l 19:00: - Sink; E Caleb 00 - Municipal Trash Bin Calcium No Notes: Memoria Carbonate 06-05 (Same As: l 500 MG 19:00: Tums) Caleb Chewable 00 Calcium Tablet Carbonate 500 mg = 200 mg elemental calcium Dose = mg calcium carbonate ( mg elemental calcium) Calcium No Notes: Memoria Gluconate 06-05 WASTE: F/P l 19:00: - Sink; E [place] - Municipal Trash Bin Magnesium No Notes: Memori a Oxide 06-05 (Same as: l 19:00: Mag-Ox Caleb 00 400) Magnesium oxide 396rn=766i g elemental magnesium Dose=____m g magnesium oxide (___mg elemental magnesium) potassium No Notes: Memori a phosphate 06-05 (Same as: l 19:00: K [place] 00 Phosphate. ) 1 mMol phoshate has 1.47 mEq potassium Infuse over 4 hours sodium No 45 mmol, Memoria phosphate 06-05 15 mL, l 19:00: Route: IVPB, PRN, Dosing Weight 82.33, kg, PRN Abnormal Lab Result, Start date: 06/05/17 14:00:00 CDT, Duration: 30 day, Stop date: 07/05/17 13:59:00 CDT, FOR ICU USE ONLY potassium No Notes: Memori a phosphate-s 06-05 (Same as: l odium 19:00: Phos-NaK) Caleb phosphate 00 Each 1.5 250 mg-280 gm pkt has mg-160 mg 250mg oral powder phosphorou for s. Mix reconstitut w/2.5oz ion water and stir. Potassium No Notes: Memori a Chloride 06-05 (Same as: l 19:00: K-Dur 20) "Do Not Crush" With food and full glass of water Dextrose No 25 gm, 50 Judson el 50% Syringe 06-05 mL, Route: l 19:00: IVP, Drug Form: INJ, Dosing Weight 82.33, kg, PRN, PRN Blood Glucose Results, Start date: 06/05/17 14:00:00 CDT, Duration: 30 day, Stop date: 07/05/17 13:59:00 CDT Insulin No Notes: Memoria regular 100 06-05 Final l unit + 19:00: Concentrat Radha ion 1unit/1ml WASTE: F/P - Black; E - Municipal Trash Bin protamine No Route: IV, Me moria (ANES) 06-05 Drug form: l (ANES) 17:39: INJ, Start Radha date: 06/05/17 12:39:00 CDT, Stop date: 06/05/17 13:39:00 CDT EPINEPHrine No Route: IV, Memoria (ANES) 06-05 Drug form: l (ANES) 17:38: INJ, Start Radha nn date: 06/05/17 12:38:00 CDT, Stop date: 06/05/17 13:38:00 CDT cisatracuri No Route: IV, Memoria um (ANES) 06-05 Drug form: l 16:42: INJ, ONCE, [place] 00 Stop date: 06/05/17 11:42:00 CDT heparin No Route: IV, Judson el (ANES) 06-05 Drug form: l 16:12: INJ, ONCE, Stop date: 06/05/17 11:12:00 CDT esmolol No Route: IV, Judson el (ANES) 06-05 Drug form: l 14:52: INJ, ONCE, Stop date: 06/05/17 9:52:00 CDT ceFAZolin No Route: IV, Me moria (ANES) 06-05 Drug form: l 14:47: INJ, ONCE, Stop date: 06/05/17 9:47:00 CDT vancomycin No Route: IV, M emoria (ANES) 06-05 Drug form: l 14:47: INJ, ONCE, Stop date: 06/05/17 9:47:00 CDT propofol No Route: IV, Mem oria (ANES) 06-05 Drug form: l 14:37: INJ, ONCE, Stop date: 06/05/17 9:37:00 CDT fentaNYL No Route: IV, Mem oria (ANES) 06-05 Drug form: l 14:37: INJ, ONCE, Stop date: 06/05/17 9:37:00 CDT rocuronium No Route: IV, M emoria (ANES) 06-05 Drug form: l 14:37: INJ, ONCE, Stop date: 06/05/17 9:37:00 CDT tranexamic No Route: IV, M emoria acid (ANES) 06-05 Drug form: l (ANES) 14:15: INJ, Start Radha nn date: 06/05/17 9:15:00 CDT, Stop date: 06/05/17 10:15:00 CDT midazolam No Route: IV, Me moria (ANES) 06-05 Drug form: l 14:11: SOLN, 00 ONCE, Stop date: 06/05/17 9:11:00 CDT sodium No Route: IV, Memor ia chloride 06-05 Total l 0.9% 1000 13:38: Volume: Radha nn ml INJ 00 1,000, (ANES) Start date: 06/05/17 8:38:00 CDT, Stop date: 06/05/17 9:38:00 CDT NovoLIN No SUB-Q, 0 Memori a 70/30 9-25 Refill(s) l 18:42: [place] 00 Xarelto No Notes: Memoria 05-29 (Same as: l 22:00: Xarelto) [place] Do Not Crush insulin Yes 10 unit, Memori a lispro 100 05-29 SUB-Q, l units/mL 17:39: TID-Before Her camara subcutaneou 00 Meals, # s injection 15 mL, 2 Refill(s) insulin Yes 20 unit, Memori a isophane 05-29 SUB-Q, l (NPH) 100 17:39: Q12H, # 10 He rmann units/mL 00 mL, 2 human Refill(s) recombinant subcutaneou s suspension rivaroxaban Yes 20 mg = 1 M emoria 20 MG Oral 21 tab, PO, l Tablet 16:43: QPM, # 30 Bruce n [Xarelto] 00 tab, 0 Refill(s) Fenofibrate Yes 145 mg = 1 Memoria 145 MG Oral -21 tab, PO, l Tablet 16:43: Daily, # Caleb 00 30 tab, 0 Refill(s) atorvastati Yes 80 mg = 1 M emoria n 80 mg -21 tab, PO, l oral tablet 16:43: Bedtime, # [place] 00 30 tab, 0 Refill(s) aspirin 81 Yes 81 mg = 1 Me moria mg tablet, 21 tab, PO, l enteric 16:43: Daily, # Bruce n coated 00 30 tab, 0 Refill(s) carvedilol Yes 12.5 mg = Me moria 12.5 mg 05-29 1 tab, PO, l oral tablet 16:43: Q12H, # 60 Caleb 00 tab, 0 Refill(s) Coreg No Notes: Memoria - Give with l 14:00: food. [place] (Same As: Coreg) Xarelto No Notes: Memoria 9-20 (Same as: l 23:45: Xarelto) Caleb 00 Do Not Crush Reglan No Notes: Memoria 9-20 (Same as: l 18:47: Reglan) [place] 00 Reglan No Notes: Memoria 9-20 (Same as: l 18:29: Reglan) Humalog No Notes: Memoria 9-20 Roll in l 16:30: palms of [place] 00 hands gently; Do not shake `vigorousl y. (Same as: Humalog ) "Single Patient Use Only " WASTE: F/P - Black; E - Municipal Trash Bin Stable for 28 days at room temperatur e. Expires in days from ____Date Insulin, No 10 unit, Memor ia Aspart, - Route: l Human 16:30: SUB-Q, [place] 00 TID-Before Meals, Dosing Weight 81.005, kg, Start date: 05/28/17 11:30:00 CDT, Duration: 30 day, Stop date: 06/27/17 7:30:00 CDT Fenofibrate No Notes: Judson el 145 MG Oral 9-20 (Same as: l Tablet 15:10: Tricor) Coreg No Notes: Memoria 9-20 Give with l 14:58: food. (Same As: Coreg) influenza No Notes: Memori a virus 9-20 (Same as: l vaccine, 14:00: Fluzone Bruce n inactivated 00 Quadrivale nt, Fluarix Quadrivale nt) For 3 years of age and older (0.5 mL IM) Shake well before use Ambien No Notes: Memoria 9-20 (Same As: l 02:50: Ambien) atorvastati No Notes: Judson el n 9-20 (Same as: l 02:00: Lipitor) heparin No 5,000 Memoria 9-19 unit, l 21:00: Route: [place] 00 SUB-Q, Q8H, Dosing Weight 81.005, kg, Start date: 05/27/17 16:00:00 CDT, Duration: 30 day, Stop date: 06/26/17 8:00:00 CDT metoprolol No Notes: Memor ia tartrate 05-27 (Same as: l 14:52: Lopressor) [place] 00 Plavix No Notes: ( Memoria 05-27 Same as: l 14:51: Plavix) Lovenox No Notes: Memoria 05-27 Nurse to l 14:50: ensure [place] 00 documentat ion of patient education per [facility] ation policy. (Same as: Lovenox) Budesonide No Notes: Memor ia 0.25 MG/ML 05-27 (Same As: l Inhalant 14:40: Pulmicort) Her camara Solution 00 Xopenex No Notes: SEE Judson el 05-27 RT l 14:37: DOCUMENTAT Caleb 00 ION (Same as:Xopenex ) Non-Formul nicko Docusate No Notes: Memoria 05-27 (Same as: l 14:00: Colace) (Do Not Crush) insulin, No Notes: Memoria isophane 05-27 Roll in l 14:00: palms of hands gently; Do not shake vigorously . (Same as: NovoLIN N, Humulin N) Do not hold insulin without contacting prescriber "single patient use only" WASTE: F/P - Black; E - Municipal Trash Bin Stable for 14 days at room temperatur e Expires in days from ____Date Dextrose No 12.5 gm, Memor ia 50% Syringe 05-27 25 mL, l 13:59: Route: IVP, Drug Form: INJ, Dosing Weight 81.005, kg, PRN, PRN Blood Glucose Results, Start date: 05/27/17 8:59:00 CDT, Duration: 30 day, Stop date: 06/26/17 8:58:00 CDT Glucagon No 1 mg, Memoria 05-27 Route: IM, l 13:59: Drug form: C[place] 00 PDR/INJ, PRN, Dosing Weight 81.005, kg, PRN Blood Glucose Results, Start date: 05/27/17 8:59:00 CDT, Duration: 30 day, Stop date: 06/26/17 8:58:00 CDT Insulin No Notes: Memoria Lispro 05-27 Roll in l 13:59: palms of [place] 00 hands gently; Do not shake `vigorousl y. (Same as: Humalog ) "Single Patient Use Only " WASTE: F/P - Black; E - Municipal Trash Bin Stable for 28 days at room temperatur e. Expires in days from ____Date Hydralazine No Notes: Judson el 05-27 (Same as: l 00:58: Apresoline ) Push over 5 minutes sodium No 1,000 mL, Memori a chloride 05-27 Rate: 50 l 0.9% 1000 00:50: ml/hr, Bruce n ml INJ 00 Infuse 1,000 mL over: 20 hr, Route: IV, Dosing Weight 81.005 kg, Total Volume: 1,000, Start date: 05/26/17 19:50:00 CDT, Stop date: 06/25/17 19:49:00 CDT Diltiazem No Notes: Memori a 05-27 (Same as: l 00:49: Cardizem) Caleb 00 Lovenox No Notes: Memoria 05-27 Nurse to l 00:47: ensure Caleb 00 documentat ion of patient education per [facility] ation policy. (Same as: Lovenox) aspirin 81 No Notes: Do Me moria mg tablet, 05-27 not crush l enteric 00:47: or chew. Bruce n coated 00 (Same As: Ecotrin) Ondansetron No Notes: Judson el 05-26 (Same as: l 22:33: Zofran) Caleb MEDICATION WASTE Product Size: 4 mg Product Wasted: ___ mg Acetaminoph No Notes: Judson el en 325 MG / 05-26 (Same as: l Hydrocodone 22:33: [place] Radha nn Bitartrate 00 325/5) Do 5 MG Oral not exceed Tablet 4gm/day of acetaminop hen. Acetaminoph No Notes: Do M emoria en 05-26 not exceed l 22:33: 4 gm/day. [place] 00 (Same as: Tylenol) NovoLIN Yes 40 units, Memor ia /30 1-21 SUB-Q, l 01:04: QAM, 0 [place] 00 Refill(s) NPH Yes See Memoria Insulin, 09-27 Instructio l Human 70 22:28: ns, 40 [place] UNT/ML / 00 units in Regular the AM, 25 Insulin, units in Human 30 the PM, UNT/ML SUB-Q, # 3 Injectable mL, 0 Suspension Refill(s) [Novolin ] Levemir No Notes: Memoria -20 Same as l 16:41: Levemir Do [place] not hold insulin without contacting prescriber WASTE: F/P - Black; E - [facility] "single patient use only" sodium No 1,000 mL, Memori a chloride 09-27 Rate: 100 l 0.45% 1000 16:38: ml/hr, Radha nn ml INJ 00 Infuse 1,000 mL over: 10 hr, Route: IV, Dosing Weight 84.801 kg, Total Volume: 1,000, Start date: 09/27/16 10:38:00 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 Bruce n coated 00 (Same As: Ecotrin) Amlodipine No Notes: Memor ia - (Same as: l 15:00: Norvasc) Insulin, No Notes: Memoria Aspart, -19 Roll in l Human 11:57: palms of hands gently; Do not shake vigorously . (Same as: NovoLOG) "single patient use only" WASTE: F/P - Black; E - Municipal Trash Bin Stable for 28 days at room temperatur e. 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, Duration: 30 day, Stop date: 10/26/16 5:56:00 SCREW DRIVER OPERATOR Dilaudid No Notes: Memoria -19 Same as: l 11:55: Dilaudid Saline No Notes: Memoria Flush 0.9% - (Same as: l 11:55: BD Posiflush) Sodium No 1,000 mL, Memori a Chloride - Rate: 125 l 0.154 11:55: ml/hr, Caleb MEQ/ML 00 Infuse Injectable over: 8 Solution hr, Route: IV, Dosing Weight 81.591 kg, Total Volume: 1,000, Start date: 09/26/16 5:55:00 SCREW DRIVER 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 Acetaminoph No Notes: Do M emoria en 09-26 not exceed l 11:55: 4 gm/day. Caleb 00 (Same as: Tylenol) lisinopril Yes 20 mg = 1 Me moria 20 mg oral 1-19 tab, PO, l tablet 11:43: Daily, # Caleb 00 30 tab, 0 Refill(s) amLODIPine Yes 5 mg = 1 Mem oria 5 mg oral 1-19 tab, PO, l tablet 11:40: Daily, # [place] 00 30 tab, 0 Refill(s) aspirin 81 Yes 81 mg = 1 Me moria mg tablet, 1-19 tab, PO, l enteric 11:40: Daily, # Bruce n coated 00 90 tab, 3 Refill(s) lisinopril No 2, PO, Memor ia 10 mg oral -19 Daily, # l tablet 11:40: 30 tab, 0 Bruce n 00 Refill(s) Glycopyrrol 2014-09 No 2 mg, Memor ia ate 0-27 Route: PO, l 18:00: Drug form: Caleb 00 TAB, TID, Dosing Weight 81.591, kg, Start date: 07/04/15 13:00:00, Duration: 30 day, Stop date: 08/03/15 9:00:00 Dicyclomine 2014-09 Yes 10 mg = 1 M emoria Hydrochlori 0-27 cap, PO, l de 10 MG 16:42: QID-Before Her camara Oral 00 Meals, # Capsule 28 cap, 0 [Bentyl] Refill(s) naproxen 2014-09 Yes 500 mg = 1 Mem oria 500 mg oral 0-27 tab, PO, l tablet 16:42: Q12H, PRN Bruce n 00 Pain, # 20 tab, 0 Refill(s) Ondansetron 2014-09 Yes 4 mg = 1 Me moria 4 MG 0-27 tab, PO, l Disintegrat 16:42: Q8H, PRN He rmann ing Tablet 00 Nausea, X 3 day, # 9 tab, 0 Refill(s) tramadol 2014-09 Yes 100 mg = 2 Mem oria hydrochlori 0-27 tab, PO, l de 50 MG 16:42: Q6H, PRN Radha nn Oral Tablet 00 Pain Score [Ultram] 4-6, X 7 day, # 56 tab, 0 Refill(s) glyBURIDE 5 2014-09 Yes 5 mg = 1 Me moria mg oral 0-27 tab, PO, l tablet 16:42: Breakfast, Radha nn 00 # 30 tab, 0 Refill(s) Benadryl 2014-09 No Notes: Memoria 0-27 (Same as: l 12:41: Benadryl) Caleb 00 Lantus 2014-09 No Notes: Memoria 0-27 Same as l 02:00: Lantus [place] 00 Solostar PEN Do not hold insulin without contacting prescriber "single patient use only" Stable for 28 days at room temperatur e. Expires in days from ____Date Levaquin 2014-09 No Notes: Do Judson el 0-26 not give l 22:30: w/antacids [place] 00 , dairy pdt & minerals Take 1 hr before or 2 hr after dairy products Oxycodone 2014-09 No Notes: Memori a Hydrochlori 0-26 (Same as: l de 5 MG 14:43: Roxicodone Herm maynor Oral Tablet 00 ) tramadol 2014-09 No Notes: Not Mem oria hydrochlori 0-26 to exceed l de 50 MG 14:43: 400mg/day. Her camara Oral Tablet 00 (Same As: [Ultram] Ultram) docusate 2014-09 No Notes: Memoria sodium 100 0-26 (Same as: l mg oral 14:00: Colace) Caleb capsule 00 (Do Not Crush) Miralax 2014-09 No Notes: Memoria 0-26 Dissolve l 14:00: in 8 oz of Caleb 00 water or juice. (Same as: Miralax) heparin 2014-09 No Notes: Memoria sodium, 0-26 porcine l porcine 13:00: heparin [place] 2500 UNT/ML 00 Injectable Solution Zofran ODT 2014-09 No Notes: Memor ia 0-26 (Same as: l 11:31: Zofran ODT) Milk of 2014-09 No Notes: Memoria Magnesia 0-26 (Same as: l 11:07: Milk of Magnjuanjo, MOM) senna 8.6 2014-09 No Notes: Memori a mg oral 0-26 (Same as: l tablet 11:07: Senokot) Metformin 2014-09 Yes PO, 0 Memoria 0-26 Refill(s) l 11:05: Insulin, 2014-09 No Notes: Memoria Aspart, 0-26 Roll in l Human 10:20: palms of hands gently; Do not shake vigorously . (Same as: NovoLOG) "single patient use only" Stable for 28 days at room temperatur e. Expires in days from ____Date Dextrose 2014-09 No 25 gm, 50 Judson el 50% Syringe 0-26 mL, Route: l 10:20: IVP, Drug Form: INJ, Dosing Weight 77.273, kg, PRN, PRN Blood Glucose Results, Start date: 07/03/15 5:20:00, Duration: 30 day, Stop date: 08/02/15 4:19:00 Glucagon 2014-09 No 1 mg, Memoria 0-26 Route: IM, l 10:20: Drug form: PDR/INJ, PRN, Dosing Weight 77.273, kg, PRN Blood Glucose Results, Start date: 07/03/15 5:20:00, Duration: 30 day, Stop date: 08/02/15 4:19:00 Morphine 2014-09 No Notes: Memoria 0-26 (Same l 10:17: as:MORPhin e Sulfate) Acetaminoph 2014-09 No Notes: Judson el en 325 MG / 0-26 (Same as: l Hydrocodone 10:17: [place] Radha nn Bitartrate 00 325/5) Do 5 MG Oral not exceed Tablet 4gm/day of [[place] acetaminop 5/325] hen. Sodium 2014-09 No 1,000 mL, Memori a Chloride 0-26 Rate: 100 l 0.154 10:15: ml/hr, [place] MEQ/ML 00 Infuse Injectable over: 10 Solution hr, Route: IV, Dosing Weight 77.273 kg, Total Volume: 1,000, Start date: 07/03/15 5:15:00, Duration: 30 day, Stop date: 08/02/15 5:14:00 Saline 2014-09 No Notes: Memoria Flush 0.9% 0-26 Same as: l 10:15: BD Caleb 00 Posiflush Sterile Dilaudid 2014-09 No 0.5 mg, Memori a 0-26 Route: l 09:49: IVP, ONCE, [place]aleb 00 Dosing Weight 77.273, kg, Priority: STAT, Start date: 07/03/15 4:49:00, Stop date: 07/03/15 4:49:00 Insulin 2014-09 No 60 units) Judson el regular 0-26 Stable for l 03:56: 28 days at Caleb 00 room temperatur e Expires in days from ____Date PlasmaLyte 2014-09 No Notes: Memor ia A PH-7.4 0- (Same as: l 1,000 mL 03:55: Isolyte S Herm PH 7.4) Tylenol 2014-09 No 975 mg, Memoria 0-26 Route: PO, l 03:17: Drug form: Caleb 00 TAB, ONCE, Dosing Weight 77.273, kg, Priority: STAT, Start date: 07/02/15 22:17:00, Stop date: 07/02/15 22:17:00 Sodium 2014-09 No 1,000 mL, Memori a Chloride 0-26 1,000 l 0.154 01:28: ml/hr, Caleb MEQ/ML 00 Infuse Injectable Over: 1 Solution hr, Route: IV, 1,000, Drug form: INJ, ONCE, Priority: STAT, Dosing Weight 77.273 kg, Start date: 07/02/15 20:28:00, Duration: 1 doses or times, Stop date: 07/02/15 20:28:00 Vancomycin 2014-09 No 2001 mg: Me moria 0-26 infuse l 01:28: over 2.5 Caleb 00 hours MEDICATION WASTE Product Size: 1000 mg Product Wasted: 0 mg Dilaudid 2014-09 No 0.5 mg, Memori a 0- Route: l 01:11: IVP, ONCE, [place] 00 Dosing Weight 77.273, kg, Priority: STAT, Start date: 07/02/15 20:11:00, Stop date: 07/02/15 20:11:00 Morphine 2014-09 No Notes: Memoria 0-26 (Same l 00:46: as:MORPhin Caleb 00 e Sulfate) Iohexol 2014-09 No 99 mL, Memoria 0-25 Route: l 22:48: IVP, Drug [place] 00 Form: SOLN, Dosing Weight 77.273, kg, ONCALL, STAT, Start date: 07/02/15 17:48:00, Duration: 1 doses or times, Dose = 2.2ml/kg, Max dose = 100ml -- "To be infused by Radiology Staff ONLY" Flagyl 2014-09 No Notes: Memoria 0-25 (Same as: l 21:42: Flagyl) [place] 00 Avoid alcohol. Levaquin 2014-09 No Notes: Memoria 0-25 (Same l 21:42: as:Levaqui Caleb 00 n) Hydromorpho 2014-09 No Notes: Judson el ne 0-25 Same as: l 21:36: Dilaudid Caleb 00 Ondansetron 2014-09 No Notes: Judson el 0-25 (Same as: l 20:57: Zofran) Caleb MEDICATION WASTE Product Size: 4 mg Product Wasted: ___ mg Sodium 2014-09 No 1,000 mL, Memori a Chloride 0-25 1,000 l 0.154 20:57: ml/hr, Caleb MEQ/ML 00 Infuse Injectable Over: 1 Solution hr, Route: IV, 1,000, Drug form: INJ, ONCE, Priority: STAT, Dosing Weight 77.273 kg, Start date: 07/02/15 15:57:00, Duration: 1 doses or times, Stop date: 07/02/15 15:57:00 Eliquis Eliquis Yes He [address] [facility] Aspirin Aspirin Yes He [address] [facility] ProAir HFA ProAir HFA Yes He 2 puffs as Common [facility] needed [facility] Furosemide Furosemide Yes He T C ommon Keller [facility] Linzess Linzess Yes He 1 capsule Co mmon [facility] on an Spirit empty - CHI stomach [facility] Breo Breo Yes He 1 puff Common Ellipta Ellipta Keller [facility] Toujeo Tousanjayo Yes He inject 50 Comm on SoloStar SoloStar Keller units Spiri t [facility] Trulicity Trulicity Yes He 1 Com mon [facility] injection [facility] Januvia Januvia Yes He 1 tablet Com mon Keller [facility] Ramipril Ramipril Yes He 1 capsule Common Keller [facility] Atorvastati Atorvastati Yes He 1 tablet Common n Calcium n Calcium Keller Spir it [facility] Colace Colace Yes He 1 capsule Comm on Keller as needed [facility] Metoprolol Metoprolol Yes He 1 tablet Common Tartrate Tartrate Keller with food S pirit [facility] Synthroid Synthroid Yes He 1 tablet Common [facility] on an Spirit empty - CHI stomach in [facility] No known No Univers medications ity [facility] Immunizations Ordered Filled Immunization Date Status Comments [facility] e Immunization Name Name Influenza Virus 2020-08-18 Completed Universit y of Vaccine Quad .5 mL 00:00:00 [facility] 6+ [place] Branch Influenza Virus 2020-08-18 Completed Universit y of Vaccine Quad .5 mL 00:00:00 [facility] 6+ [place] Branch Influenza Virus 2020-08-18 Completed Universit y of Vaccine Quad .5 mL 00:00:00 [facility] 6+ MO Branch Influenza Virus 2020-08-18 Completed Universit y of Vaccine Quad .5 mL 00:00:00 [facility] 6+ [place] Branch Influenza Virus 2019-05-27 Completed Universit y of Vaccine Quad IM 3+ 00:00:00 [facility] Influenza Virus 2019-05-27 Completed Universit y of Vaccine Quad IM 3+ 00:00:00 [facility] Influenza Virus 2019-05-27 Completed Universit y of Vaccine Quad IM 3+ 00:00:00 [facility] Influenza Virus 2019-05-27 Completed Universit y of Vaccine Quad IM 3+ 00:00:00 [facility] Influenza Virus 2019-05-27 Completed Universit y of Vaccine Quad IM 3+ 00:00:00 [facility] Influenza Virus 2019-05-27 Completed Universit y of Vaccine Quad IM 3+ 00:00:00 [facility] Influenza Virus 2019-05-27 Completed Universit y of Vaccine Quad IM 3+ 00:00:00 [facility] Influenza Virus 2019-05-27 Completed Universit y of Vaccine Quad IM 3+ 00:00:00 [facility] Influenza Virus 2019-05-27 Completed Universit y of Vaccine Quad IM 3+ 00:00:00 [facility] Influenza Virus 2019-05-27 Completed Universit y of Vaccine Quad IM 3+ 00:00:00 [facility] Afluria single dose Afluria single dose 2019-05-27 Completed [facility] - 00:00:00 [facility] pneumococcal 2017-06-16 Completed [facility] camara 23-valent vaccine 18:57:00 influenza virus 2017-05-28 Completed [facility] vaccine, 21:08:00 inactivated influenza virus 2016-09-27 Completed [facility] [place] vaccine, 16:27:00 inactivated Vital Signs Vital Name Observation Time Observation Value Comments Source Systolic blood 2020-08-18 17:53:00 145 mm[Hg] Univer sity of pressure [facility] Diastolic blood 2020-08-18 17:53:00 77 mm[Hg] Unive rsity of pressure [facility] Heart rate 2020-08-18 17:53:00 68 /min [facility] Body temperature 2020-08-18 17:53:00 36.61 Mónica [facility] 2020-08-18 17:53:00 20 /min [facility] Oxygen saturation in 2020-08-18 17:53:00 95 /min [facility] Arterial blood by [facility] Pulse oximetry Branch Body height 2020-08-17 14:22:00 157.5 cm Universi ty [facility] Body weight 2020-08-17 14:22:00 87.5 kg [facility] BMI 2020-08-17 14:22:00 35.27 kg/m2 [facility] Systolic blood 2020-08-01 20:08:00 147 mm[Hg] Univer sity of pressure [facility] Diastolic blood 2020-08-01 20:08:00 85 mm[Hg] Unive rsity of pressure [facility] Heart rate 2020-08-01 20:07:00 98 /min [facility] Body height 2020-08-01 20:07:00 157.5 cm [facility] Body weight 2020-08-01 20:07:00 86.682 kg [facility] BMI 2020-08-01 20:07:00 34.95 kg/m2 [facility] Oxygen saturation in 2020-08-01 20:07:00 95 /min [facility] of [facility]ial blood by [facility] Pulse oximetry Branch Systolic blood 2020-07-03 19:00:00 137 mm[Hg] Univer sity of pressure [facility] Diastolic blood 2020-07-03 19:00:00 81 mm[Hg] Unive rsity of pressure [facility] Heart rate 2020-07-03 19:00:00 87 /min [facility] Respiratory rate 2020-07-03 19:00:00 19 /min Univ ers[facility] Body height 2020-07-03 19:00:00 160 cm [facility] Body weight 2020-07-03 19:00:00 87.091 kg [facility] BMI 2020-07-03 19:00:00 34.01 kg/m2 [facility] Oxygen saturation in 2020-07-03 19:00:00 96 /min [facility]terial blood by [facility] Pulse oximetry [facility] Systolic blood 2020-05-22 13:00:00 131 mm[Hg] Univer sity of pressure [facility] Diastolic blood 2020-05-22 13:00:00 114 mm[Hg] Unive rsity of pressure [facility] Heart rate 2020-05-22 13:00:00 66 /min [facility] Respiratory rate 2020-05-22 13:00:00 17 /min Univ ersity [facility] Oxygen saturation in 2020-05-22 13:00:00 100 /min [facility]ial blood by [facility] Pulse oximetry [facility] Body temperature 2020-05-22 12:19:00 35.72 Mónica Univ ersity [facility] Body weight 2020-05-21 14:01:00 92.806 kg [facility] BMI 2020-05-21 14:01:00 37.42 kg/m2 [facility] Systolic blood 2020-05-22 13:00:00 131 mm[Hg] Univer sity of pressure [facility] Diastolic blood 2020-05-22 13:00:00 114 mm[Hg] Unive rsity of pressure [facility] Heart rate 2020-05-22 13:00:00 66 /min [facility] Respiratory rate 2020-05-22 13:00:00 17 /min Univ ersity [facility] Oxygen saturation in 2020-05-22 13:00:00 100 /min University of Arterial blood by [facility] [place] Pulse oximetry Branch Body temperature 2020-05-22 12:19:00 35.72 Mónica Univ ersity [facility] Body weight 2020-05-21 14:01:00 92.806 kg [facility] BMI 2020-05-21 14:01:00 37.42 kg/m2 [facility] Systolic blood 2020-03-29 19:13:00 155 mm[Hg] Univer sity of pressure [facility] Diastolic blood 2020-03-29 19:13:00 89 mm[Hg] Unive rsity of pressure [facility] Heart rate 2020-03-29 19:07:00 105 /min [facility] Respiratory rate 2020-03-29 19:07:00 19 /min Univ ersity [facility] Body height 2020-03-29 19:07:00 160 cm [facility] Body weight 2020-03-29 19:07:00 90.357 kg [facility] BMI 2020-03-29 19:07:00 35.29 kg/m2 [facility] Oxygen saturation in 2020-03-29 19:07:00 94 /min [facility] Arterial blood by [facility] Pulse oximetry [facility] Systolic blood 2020-03-29 19:13:00 155 mm[Hg] Univer sity of pressure [facility] Diastolic blood 2020-03-29 19:13:00 89 mm[Hg] Unive rsity of pressure [facility] Heart rate 2020-03-29 19:07:00 105 /min [facility] Respiratory rate 2020-03-29 19:07:00 19 /min Univ ersity [facility] Body height 2020-03-29 19:07:00 160 cm [facility] Body weight 2020-03-29 19:07:00 90.357 kg [facility] BMI 2020-03-29 19:07:00 35.29 kg/m2 Universi ty of [facility] Oxygen saturation in 2020-03-29 19:07:00 94 /min University of Arterial blood by [facility] Pulse oximetry Branch Respiratory rate 2020-04-26 15:39:00 20 /min Univ ersity of [facility] Body height 2020-04-26 15:39:00 157.5 cm [facility] Body weight 2020-04-26 15:39:00 89.177 kg [facility] BMI 2020-04-26 15:39:00 35.96 kg/m2 [facility] Oxygen saturation in 2020-04-26 15:39:00 98 /min University of Arterial blood by [facility] Pulse oximetry Branch Systolic blood 2020-04-21 15:21:00 157 mm[Hg] Univer sity of pressure [facility] Diastolic blood 2020-04-21 15:21:00 79 mm[Hg] Unive rsity of pressure [facility] Heart rate 2020-04-21 15:21:00 75 /min [facility] Body temperature 2020-04-21 15:21:00 36.11 Mónica Univ ersity of [facility] Respiratory rate 2020-04-21 15:21:00 18 /min Univ ersity of [facility] Body weight 2020-04-21 15:21:00 90.266 kg [facility] BMI 2020-04-21 15:21:00 35.25 kg/m2 [facility] Systolic blood 2020-02-28 19:09:00 171 mm[Hg] Univer sity of pressure [facility] Diastolic blood 2020-02-28 19:09:00 92 mm[Hg] Unive rsity of pressure [facility] Heart rate 2020-02-28 19:09:00 88 /min Universi ty [facility] Respiratory rate 2020-02-28 18:56:00 20 /min [facility] Body height 2020-02-28 18:56:00 160 cm Universi ty [facility] Body weight 2020-02-28 18:56:00 92.579 kg Universi [facility] BMI 2020-02-28 18:56:00 36.15 kg/m2 [facility] Oxygen saturation in 2020-02-28 18:56:00 100 /min [facility] Arterial blood by [facility] Pulse oximetry [place] Body height 2022-04-14 13:30:00 157.5 cm [facility] Body weight 2022-04-14 13:30:00 87.181 kg [facility] BMI 2022-04-14 13:30:00 35.15 kg/m2 [facility] Systolic blood 2022-04-10 19:46:00 177 mm[Hg] [facility] pressure Diastolic blood 2022-04-10 19:46:00 78 mm[Hg] [facility] pressure Heart rate 2022-04-10 19:46:00 90 /min [facility] Body temperature 2022-04-10 19:46:00 36.89 Mónica [facility] Respiratory rate 2022-04-10 19:46:00 14 /min [facility] Oxygen saturation in 2022-04-10 19:46:00 100 /min [facility] Arterial blood by Pulse oximetry Systolic (mm Hg) 2017-07-23 16:01:00 Judson rial [place] Diastolic (mm Hg) 2017-07-23 16:01:00 Mem orial [place] Respitory Rate 2017-07-23 16:01:00 Memori al [place] Temperature Oral (F) 2017-07-23 14:04:00 97.5 F [facility] [place] Systolic (mm Hg) 2017-07-23 14:04:00 Judson rial [place] Diastolic (mm Hg) 2017-07-23 14:04:00 Mem orial [place] Respitory Rate 2017-07-23 14:04:00 Memori al [place] Heart Rate 2017-07-23 14:04:00 [facility] [place] Systolic (mm Hg) 2017-07-23 09:56:00 Judson rial [place] Diastolic (mm Hg) 2017-07-23 09:56:00 Mem orial [place] Temperature Oral (F) 2017-07-23 09:56:00 96.4 F [facility] [place] Heart Rate 2017-07-23 09:56:00 [facility] [place] Respitory Rate 2017-07-23 09:56:00 Memori al [place] Temperature Oral (F) 2017-07-23 05:09:00 97.8 F [facility] [place] Heart Rate 2017-07-23 05:09:00 [facility] [place] Weight 2017-07-23 04:59:00 [facility] [place] Height 2017-07-23 04:59:00 157.48 cm [facility] [place] BMI Calculated 2017-07-23 04:59:00 Memori al [place] Respitory Rate 2017-06-16 19:11:00 Memori al [place] Respitory Rate 2017-06-16 18:29:00 Memori al [place] Systolic (mm Hg) 2017-06-16 17:00:00 Judson rial [place] Diastolic (mm Hg) 2017-06-16 17:00:00 Mem orial [place] Respitory Rate 2017-06-16 17:00:00 Memori al [place] Systolic (mm Hg) 2017-06-16 16:00:00 Judson rial [place] Diastolic (mm Hg) 2017-06-16 16:00:00 Mem orial [place] Temperature Oral (F) 2017-06-16 16:00:00 97.3 F [facility] [place] Systolic (mm Hg) 2017-06-16 15:00:00 Judson rial [place] Diastolic (mm Hg) 2017-06-16 15:00:00 Mem orial [place] Temperature Oral (F) 2017-06-16 12:00:00 96.1 F [facility] [place] Temperature Oral (F) 2017-06-16 09:00:00 98.4 F [facility] [place] Height 2017-06-05 19:25:00 157.48 cm [facility] [place] BMI Calculated 2017-06-05 11:56:00 Memori al [place] Height 2017-06-05 11:56:00 157.48 cm [facility] [place] Weight 2017-06-05 11:56:00 [facility] [place] BMI Calculated 2017-06-02 20:33:00 Mem[facility] al [place] Weight 2017-06-02 20:33:00 [facility] [place] Height 2017-06-02 20:33:00 157.48 cm [facility] [place] Temperature Oral (F) 2017-05-29 17:00:00 97.7 F [facility] [place] Respitory Rate 2017-05-29 17:00:00 Mem[facility] [place] Systolic (mm Hg) 2017-05-29 17:00:00 Judson rial [place] Diastolic (mm Hg) 2017-05-29 17:00:00 Mem orial [place] Heart Rate 2017-05-29 17:00:00 [facility] [place] Respitory Rate 2017-05-29 12:31:00 Memori al [place] Heart Rate 2017-05-29 12:31:00 [facility] [place] Temperature Oral (F) 2017-05-29 12:31:00 98.4 F [facility] [place] Systolic (mm Hg) 2017-05-29 12:31:00 Judson rial [place] Diastolic (mm Hg) 2017-05-29 12:31:00 Mem orial [place] Respitory Rate 2017-05-29 12:29:00 Memori al [place] Temperature Oral (F) 2017-05-29 09:03:00 98.3 F [facility] [place] Systolic (mm Hg) 2017-05-29 09:03:00 Judson rial [place] Diastolic (mm Hg) 2017-05-29 09:03:00 Mem orial [place] BMI Calculated 2017-05-26 22:26:00 Memori al [place] Weight 2017-05-26 22:26:00 [facility] [place] Height 2017-05-26 22:26:00 157.48 cm [facility] [place] Respitory Rate 2016-09-27 22:27:00 Memori al [place] Systolic (mm Hg) 2016-09-27 22:27:00 Judson rial [place] Diastolic (mm Hg) 2016-09-27 22:27:00 Mem orial [place] Temperature Oral (F) 2016-09-27 22:27:00 97.5 F [facility] [place] Heart Rate 2016-09-27 22:27:00 [facility] [place] Systolic (mm Hg) 2016-09-27 17:19:00 Judson rial [place] Diastolic (mm Hg) 2016-09-27 17:19:00 Mem orial [place] Heart Rate 2016-09-27 17:19:00 [facility] [place] Temperature Oral (F) 2016-09-27 17:19:00 97.8 F [facility] [place] Respitory Rate 2016-09-27 17:19:00 Memori al [place] Respitory Rate 2016-09-27 15:21:00 Memori al [place] Systolic (mm Hg) 2016-09-27 15:21:00 Judson rial [place] Diastolic (mm Hg) 2016-09-27 15:21:00 Mem orial [place] Heart Rate 2016-09-27 15:21:00 [facility] [place] Temperature Oral (F) 2016-09-27 15:21:00 97.7 F [facility] [place] BMI Calculated 2016-09-26 12:51:00 Memori al [place] Height 2016-09-26 12:51:00 160.02 cm [facility] [place] Weight 2016-09-26 12:51:00 [facility] [place] Temperature Oral (F) 2015-07-04 16:45:00 98.1 F [facility] [place] Respitory Rate 2015-07-04 16:45:00 Mem[facility] [place] Systolic (mm Hg) 2015-07-04 16:45:00 Judson rial [place] Diastolic (mm Hg) 2015-07-04 16:45:00 Mem orial [place] Heart Rate 2015-07-04 16:45:00 [facility] [place] Systolic (mm Hg) 2015-07-04 13:00:00 Judson rial [place] Diastolic (mm Hg) 2015-07-04 13:00:00 Mem orial [place] Respitory Rate 2015-07-04 13:00:00 Mem[facility] al [place] Temperature Oral (F) 2015-07-04 13:00:00 97.5 F [facility] [place] Heart Rate 2015-07-04 13:00:00 [facility] [place] Systolic (mm Hg) 2015-07-04 10:03:00 Judson rial [place] Diastolic (mm Hg) 2015-07-04 10:03:00 Mem orial [place] Respitory Rate 2015-07-04 10:03:00 Memori al [place] Heart Rate 2015-07-04 10:03:00 [facility] [place] Temperature Oral (F) 2015-07-04 10:03:00 98.0 F [facility] [place] Weight 2015-07-04 00:33:00 [facility] [place] Height 2015-07-03 10:59:[address] [facility] Weight 2015-07-03 10:59:[address] [facility] BMI Calculated 2015-07-03 10:59:00 Phil beck [place] Height 2015-07-02 20:34:[address] [facility] BMI Calculated 2015-07-02 20:34:00 Phil [facility] Weight 2015-07-02 20:34:[address] [facility] Procedures Procedure Date / Time Performing Clinician Source Performed POLYSOMNOGRAPHY 4 OR 2022-04-16 Iker Saavedra [facility] MORE PARAMETERS 21:27:00 XR CHEST 2 VW 2022-03-20 Iker Saavedra [facility] 20:11:24 [id number] 2022-01-23 Provider, Not In System [facility] 00:00:00 POCT GLUCOSE (AUTOMATED) 2020-08-18 [facility] 17:53:00 [facility] POCT GLUCOSE (AUTOMATED) 2020-08-18 [facility] 13:37:00 [facility] URIC ACID 2020-08-18 [facility] 11:15:00 [facility] MAGNESIUM 2020-08-18 [facility] 11:15:00 [facility] COMP. METABOLIC PANEL 2020-08-[address] [facility] ([id number]) 11:15:00 [facility] CBC WITH DIFF 2020-08-18 [facility] 11:15:00 [facility] N-TERMINAL PRO-BNP 2020-08-[address] [facility] 11:15:00 [facility] FOLATE 2020-08-18 [facility] 00:52:00 [facility] VITAMIN D, 25-[place] 2020-08-18 [facility] exas 00:52:00 [facility] POCT GLUCOSE (AUTOMATED) 2020-08-17 [facility] 22:36:00 [facility] POCT GLUCOSE (AUTOMATED) 2020-08-17 [facility] 19:35:00 [facility] ASPIRATE OR ABSCESS 2020-08-17 Ruslan [facility] CULTURE(AEROBIC/ANAEROBI 17:30:00 [facility] C) INCISION AND DRAINAGE OF 2020-08-17 Vivian Mercer [facility] ABSCESS 16:52:00 [facility] ECHO ROUTINE W/DOPPLER 2020-08-17 Annabelle Chairez [facility] COLOR 15:01:45 [facility] POCT GLUCOSE (AUTOMATED) 2020-08-17 [facility] 13:26:00 [facility] URIC ACID 2020-08-17 [facility] 11:32:00 [facility] VITAMIN B12, LEVEL 2020-08-17 [facility] 11:32:00 [facility] N-TERMINAL PRO-BNP 2020-08-[address] [facility] 11:32:00 [facility] BASIC METABOLIC PANEL 2020-08-17 [facility] (NA, K, CL, CO2, 11:31:00 [facility] GLUCOSE, BUN, CREATININE, CA) IRON PANEL 2020-08-17 [facility] xas 11:31:00 [facility] CBC WITH DIFF 2020-08-17 [facility] xa 11:31:00 [facility] VITAMIN D, 25-[place] 2020-08-17 [facility] exas 11:30:00 [facility] POCT TEST 2020-08-17 Elicia Kwong [facility] 00:23:00 [facility] BLOOD CULTURE SCREEN 2020-08-17 Elicia Kwong [facility] 00:14:00 [facility] MAGNESIUM 2020-08-17 [facility] xa 00:14:00 [facility] COMP. METABOLIC PANEL 2020-08-17 Elicia Kwong [facility] ([id number]) 00:14:00 [facility] CBC WITH DIFF 2020-08-[address] [facility] xa 00:14:00 [facility] URINALYSIS 2020-08-17 Kwong [facility] 00:14:00 [facility] Branch LACTIC ACID WHOLE BLOOD 2020-08-17 Elicia Kwong [facility] 00:14:00 Medical Branch COVID-19 (ID NOW RAPID 2020-08-17 Elicia Kwong [facility] TESTING) 00:14:00 [facility] CONSENT/REFUSAL FOR 2020-08-16 Doctor Unassigned, No [facility] DIAGNOSIS AND TREATMENT 21:52:53 Name [facility] POCT GLUCOSE (AUTOMATED) 2020-05-22 [facility] 12:18:00 [facility] PHOSPHORUS 2020-05-22 [facility] 07:03:00 [facility] MAGNESIUM 2020-05-22 [facility] 07:03:00 [facility] BASIC METABOLIC PANEL 2020-05-[address] [facility] (NA, K, CL, CO2, 07:03:00 [facility] GLUCOSE, BUN, CREATININE, CA) CBC WITH DIFF 2020-05-22 [facility] 07:03:00 [facility] N-TERMINAL PRO-BNP 2020-05-[address] [facility] 07:03:00 [facility] POCT GLUCOSE (AUTOMATED) 2020-05-22 [facility]20[facility]00 [facility] POCT GLUCOSE (AUTOMATED) 2020-05-21 [facility] 21:57:00 [facility] BASIC METABOLIC PANEL 2020-05-[address] [facility] (NA, K, CL, CO2, 18:54:00 [facility] GLUCOSE, BUN, CREATININE, CA) CBC WITH DIFF 2020-05-21 [facility] 18:54:00 [facility] POCT GLUCOSE (AUTOMATED) 2020-05-21 [facility] 16:44:00 [facility] TRANSFUSE PACKED RBC 2020-05-[address] [facility] 15:01:57 [facility] PREPARE PACKED RBC 2020-05-[address] [facility] 12:44:57 [facility] [facility]UCOSE (AUTOMATED) 2020-05-21 [facility] 11:17:00 [facility] TRANSFUSE PACKED RBC 2020-05-21 Tamar Nash [facility] 11:06:21 [facility] PHOSPHORUS 2020-05-21 [facility] xa 09:54:00 [facility] MAGNESIUM 2020-05-21 [facility] 09:54:00 [facility] BASIC METABOLIC PANEL 2020-05-[address] [facility] (NA, K, CL, CO2, 09:54:00 Medical Branch GLUCOSE, BUN, CREATININE, CA) CBC WITH DIFF 2020-05-21 [facility] 09:54:00 [facility] GLYCOSYLATED HEMOGLOBIN 2020-05-21 [facility] (A1C) 09:54:00 [facility] PROTHROMBIN TIME / INR 2020-05-21 [facility] 09:54:00 [facility] N-TERMINAL PRO-BNP 2020-05-[address] [facility] 09:54:00 [facility] PREPARE PACKED RBC 2020-05-21 Tamar Nash [facility] 08:33:02 [facility] TRANSFUSE PACKED RBC 2020-05-21 Tamar Nash [facility] 08:15:36 [facility] SODIUM, URINE RANDOM 2020-05-[address] [facility] 08:06:00 [facility] PROTEIN CREAT RATIO 2020-05-21 [facility] URINE RANDOM 08:06:00 [facility] URINE CULTURE 2020-05-21 [facility] 07:53:00 [facility] UREA NITROGEN, URINE 2020-05-[address] [facility] RANDOM 07:52:00 [facility] PROCALCITONIN 2020-05-21 [facility] xa 07:43:00 [facility] POCT GLUCOSE (AUTOMATED) 2020-05-21 [facility] 06:58:00 [facility] COVID-19 (ID NOW RAPID 2020-05-21 [facility] 01:33:00 [facility] HB ABO GROUPING 2020-05-[facility] 01:[facility] ASSIGNMENT OF BENEFITS 2020-05-21 Doctor Unassigned, No [facility] 01:21:20 Name Medical [place] XR CHEST 2 VW 2020-05-21 [facility] exas 00:39:17 Medical Branch CREATINE KINASE 2020-05-21 [facility] 00:34:00 Medical [facility] URIC ACID 2020-05-21 [facility] 00:34:00 [facility] Branch TROPONIN I 2020-05-21 [facility]as 00:34:00 Medical Branch THYROID STIMULATING 2020-05-21 [facility] HORMONE 00:34:00 Medical Branch HEPATIC FUNCTION PANEL 2020-05-21 [facility] ([id number]) (ALB,T.PRO,BILI 00:34:00 Medical Branch T,BU/BC,ALT,AST,ALK PHOS) BASIC METABOLIC PANEL 2020-05-21 [facility] (NA, K, CL, CO2, 00:34:00 Medical Branch GLUCOSE, BUN, CREATININE, CA) LIPID PANEL 2020-05-21 [facility] ([id number])(TOTAL 00:34:00 Medical Branch CHOLESTEROL, TRIGLYCERIDES, HDL) CBC WITH DIFF 2020-05-21 [facility] exas 00:34:00 Medical Branch URINALYSIS 2020-05-21 [facility]as 00:34:00 Medical Branch N-TERMINAL PRO-BNP 2020-05-21 [facility] 00:34:00 Medical Branch EKG-12 LEAD 2020-05-21 [facility] exas 00:17:58 Medical Branch CONSENT/REFUSAL FOR 2020-05-21 Doctor Unassigned, No [facility] DIAGNOSIS AND TREATMENT 00:02:02 Name Medical Branch MEDICAL 2020-05-17 Doctor Unassigned, No [facility] RELEASE/CLEARANCE FORMS 05:01:00 Name Medical Branch EXTERNAL PROVIDER 2020-05-08 Doctor Unassigned, No [facility] RECORDS 05:01:00 Name Medical Branch REFERRAL- 2020-04-18 Doctor Unassigned, No [facility] REQUEST/RESPONSE 05:01:00 Name Medical Branch EXTERNAL PROVIDER - ADC 2020-02-15 [facility] 05:01:00 Name Medical Branch Tonsillectomy [facility] Abdominal wall [facility] operations<sup>1</sup> Plan of Care Planned Activity Planned Date Details Comments Source Future Scheduled 2022-05-09 HEPATITIS B VACCINES Met [facility] Test 14:06:05 (1 of 3 - 3-dose series) [code = HEPATITIS B VACCINES (1 of 3 - 3-dose series)] Future Scheduled 2022-05-09 Pneumococcal Vaccine: [facility] Test 14:06:05 Pediatrics (0 to 5 Years) and At-Risk Patients (6 to 64 Years) (1 - PCV) [code = Pneumococcal Vaccine: Pediatrics (0 to 5 Years) and At-Risk Patients (6 to 64 Years) (1 - PCV)] Future Scheduled 2022-05-09 Hepatitis C screening [facility] Test 14:06:05 (procedure) [code = 336895546] Future Scheduled 2022-05-09 Screening for [facility] Test 14:06:05 malignant neoplasm of cervix (procedure) [code = 783533466] Future Scheduled 2022-05-09 BREAST CANCER [facility] Test 14:06:05 SCREENING [code = BREAST CANCER SCREENING] Future Scheduled 2022-05-09 COLONOSCOPY SCREENING [facility] Test 14:06:05 [code = COLONOSCOPY SCREENING] Future Scheduled 2022-05-09 INFLUENZA VACCINE Method [facility] Test 14:06:05 [code = INFLUENZA VACCINE] Encounters Start End Encounter Admission Attending Care Care Encounter Source Date/Time Date/Time Type Type Clinicians Facility Department ID 2022-04-29 Outpatient Keller, [facility] [id number] Common 16:06:00 He [facility] 2022-01-29 Outpatient Keller, [facility] [id number] Common 14:36:00 He [facility] 2021-10-04 Outpatient Keller, STLMLC STLMLC [id number] Common 15:04:00 He [facility] 2021-10-03 Outpatient Keller, STLMLC STLMLC [id number] Common 14:37:38 He [facility] 2021-10-03 Outpatient Keller, STLMLC STLMLC [id number] Common 13:51:33 He [facility] 2021-10-03 Outpatient Keller, STLMLC STLMLC [id number] Common 13:41:18 He [facility] 2021-10-03 Outpatient Keller, STLMLC STLMLC [id number] Common 13:35:07 He [facility] 2021-10-03 Outpatient Keller, STLMLC STLMLC [id number] Common 13:34:23 He [facility] 2021-10-03 Outpatient Keller, STLMLC STLMLC [id number] Common 12:50:20 He [id number] [facility] 2021-10-03 Outpatient Keller, STLMLC STLMLC [id number] Common 12:49:08 He 38902 [facility] 2021-10-03 Outpatient Keller, STLMLC STLMLC [id number] Common 12:19:59 He 69698 [facility] 2021-10-03 Outpatient Keller, STLMLC STLMLC [id number] Common 12:11:36 He 40879 [facility] 2021-10-03 Outpatient Keller, STLMLC STLMLC [id number] Common 12:09:34 He 17040 [facility] 2021-10-03 Outpatient Keller, STLMLC STLMLC [id number] Common 12:02:08 He 58920 [facility] 2021-10-03 Outpatient Keller, STLMLC STLMLC [id number] Common 11:49:34 He 99634 [facility] 2021-10-03 Outpatient Keller, STLMLC STLMLC [id number] Common 11:36:47 He 66647 [facility] 2021-10-03 Outpatient Keller, STLMLC STLMLC [id number] Common 11:25:31 He 26992 [facility] 2021-10-03 Outpatient Keller, STLMLC STLMLC [id number] Common 11:25:05 He 12084 [facility] 2021-10-03 Outpatient Keller, STLMLC STLMLC [id number] Common 11:18:31 He 16916 [facility] 2021-10-03 Outpatient Keller, STLMLC STLMLC [id number] Common 11:14:19 He 59849 [facility] 2021-07-07 Emergency [facility] [id number] Univers 10:18:41 [facility] 2021-07-06 Outpatient X [facility] JACQUELINE [id number] Univers 17:22:44 [facility] 2021-07-06 Emergency [facility] [id number] Univers 17:13:41 [facility] 2020-06-15 Inpatient JUAN FRANCISCO Shepard, [facility] [id number] [facility] 14:00:00 [facility] 2022-05-01 2022-05-01 ambulatory STLMLC STLMLC [id number] Common 00:00:00 00:00:00 [facility] 2022-04-26 2022-04-26 ambulatory STLMLC STLMLC [id number] Common 00:00:00 00:00:00 [facility] 2022-04-25 2022-04-25 ambulatory STLMLC STLMLC [id number] Common 00:00:00 00:00:00 [facility] 2022-04-22 2022-04-22 Telephone Jeyson, 1.2.840.1 [id number] Methodi 00:00:00 00:00:[address] 3.430.2.7 Hospit a .3.798614 l .8 2022-04-13 2022-04-13 Clinical Quentin, 1.2.840.1 [id number] 52154 82491 Methodi 20:30:00 20:40:17 Support Iker Foster. 32151.1.[address] 3.430.2.7 Hospit a .3.261977 l .8 2022-04-13 2022-04-13 Travel 1.2.840.1 1.2.376.434 3770 188016 Methodi 00:00:00 00:00:[address] 3.430.2.7 0.2.7.3.698 Ho spita .3.590355 084.8 l .8 2022-04-13 2022-04-13 Outpatient [facility] [id number] [address] [place] 00:00:00 00:00:[address] 2022-04-12 2022-04-12 Travel 1.2.840.1 1.2.186.686 5785 696642 Methodi 00:00:00 00:00:[address] 3.430.2.7 0.2.7.3.698 Ho spita .3.458240 084.8 l .8 2022-04-11 2022-04-11 Lindsey Abdi, 1.2.840.1 [id number] 1454 Methodi 00:00:00 00:00:00 Only Yandy 95766.1.[address] 3.430.2.7 Hospit a .3.233890 l .8 2022-04-10 2022-04-10 Office Quentin, 1.2.840.1 [id number] 783683 4926 Methodi 14:00:00 15:27:07 Visit Iker Foster. 00582.1.[address] 3.430.2.7 Hospit a .3.170807 l .8 2022-04-10 2022-04-10 Travel 1.2.840.1 1.2.797.988 3844 728610 Methodi 00:00:00 00:00:[address] 3.430.2.7 0.2.7.3.698 Ho spita .3.788113 084.8 l .8 2022-04-10 2022-04-10 Outpatient [facility] [id number] [address] [place] 00:00:00 00:00:[address] 2022-03-28 2022-03-29 Outpatient nullFlavo MNA [id number] Memoria 13:15:00 04:59:59 r Neurology 01 l Monique Ellis 2022-03-28 2022-03-28 [id number] 08:15:00 23:59:59 Hang 01 Leonel 2022-03-28 2022-03-28 Outpatient LUL NELLI [id number] Memoria 08:15:00 08:15:00 01 l Caleb 2022-03-26 2022-03-26 Telephone Quentin, 1.2.840.1 [id number] [id number] Methodi 00:00:00 00:00:[address].1.[address] 3.430.2.7 Hospit a .3.549768 l .8 2022-03-25 2022-03-25 Orders Provider, 1.2.840.1 [id number] 2100 482386 Methodi 00:00:00 00:00:00 Only [place] 54504.1.[address] System 3.430.2.7 Hospit a .3.991615 l .8 2022-03-20 2022-03-20 Hospital Quentin, 1.2.840.1 [id number] 31692 70848 Methodi 14:58:43 23:59:00 Encounter Iker Castellon 53502.1.[address] 3.430.2.7 Hospit a .3.104339 l .8 2022-03-20 2022-03-20 Office Quentin 1.2.840.1 [id number] 445884 9618 Methodi 12:45:00 14:18:30 Visit Iker Castellon 53835.1.[address] 3.430.2.7 Hospit a .3.671671 l .8 2022-03-20 2022-03-20 Travel 1.2.840.1 1.2.645.699 6481 769931 Methodi 00:00:00 00:00:[address] 3.430.2.7 0.2.7.3.698 Ho spita .3.621987 084.8 l .8 2022-03-20 2022-03-20 Outpatient [facility] [id number] [place] 00:00:00 00:00:00 IKER [address] 2022-03-20 2022-03-20 Outpatient [facility] [id number] [address] [place] 00:00:00 00:00:00 IKER [address] 2022-02-28 2022-02-28 ambulatory STLMLC STLMLC [id number] Common 00:00:00 00:00:00 [facility] 2022-02-15 2022-02-15 ambulatory STLMLC STLMLC [id number] Common 00:00:00 00:00:00 [facility] 2022-01-30 2022-01-30 ambulatory STLMLC STLMLC [id number] Common 00:00:00 00:00:00 [facility] 2021-12-10 2021-12-10 ambulatory STLMLC STLMLC [id number] Common 00:00:00 00:00:00 [facility] 2021-12-04 2021-12-04 ambulatory STLMLC STLMLC [id number] Common 00:00:00 00:00:00 [facility] 2021-10-29 2021-10-29 ambulatory STLMLC STLMLC [id number] Common 00:00:00 00:00:00 [facility] 2021-10-17 2021-10-17 ambulatory STLMLC STLMLC [id number] Common 00:00:00 00:00:00 [facility] 2021-10-15 2021-10-15 ambulatory STLMLC STLMLC [id number] Common 00:00:00 00:00:00 [facility] 2021-10-112021-10-11 ambulatory STLMLC STLMLC [id number] Common 00:00:00 00:00:00 [facility] 2021-09-26 2021-09-26 ambulatory STLMLC STLMLC [id number] Common 00:00:00 00:00:00 [facility] 2021-09-07 2021-09-07 Outpatient R [facility] [id number] Univers 16:15:00 16:15:00 [id number] [facility] 2021-09-07 2021-09-07 Outpatient R MARKO [facility] [id number] Univers 16:15:00 16:15:00 [facility] 2021-09-07 2021-09-07 Laboratory Only, Ang Db Test [facility] 1.2.8 40.114 [id number] Univers 16:15:00 16:15:00 Only [facility] 350.1.13.10 [facility] 4.2.7.2.686 Raji as CLIFF?BLEA [phone] [address] MEDICAL OFFICE BUILDING 2021-07-31 2021-07-31 ambulatory STLMLC STLMLC [id number] Common 00:00:00 00:00:00 [facility] 2021-07-30 2021-07-30 ambulatory STLMLC STLMLC [id number] Common 00:00:00 00:00:00 [facility] 2021-07-30 2021-07-30 ambulatory STLMLC STLMLC [id number] Common 00:00:00 00:00:00 [facility] 2021-06-27 2021-06-27 Outpatient STLMLC STLMLC [id number] Common 00:00:00 00:00:00 [facility] 2021-06-25 2021-06-25 Outpatient STLMLC STLMLC [id number] Common 00:00:00 00:00:00 [facility] 2021-05-30 2021-05-30 Outpatient STLMLC STLMLC [id number] Common 00:00:00 00:00:00 [facility] 2021-05-02 2021-05-02 Outpatient STLMLC STLMLC [id number] Common 00:00:00 00:00:00 [facility] 2021-04-25 2021-04-25 Outpatient STLMLC STLMLC [id number] Common 00:00:00 00:00:00 [facility] 2021-04-10 2021-04-10 Outpatient STLMLC STLMLC [id number] Common 00:00:00 00:00:00 [facility] 2021-04-05 2021-04-05 Outpatient STLMLC STLMLC [id number] Common 00:00:00 00:00:00 [facility] 2021-03-09 2021-03-09 Outpatient STLMLC STLMLC [id number] Common 00:00:00 00:00:00 [facility] 2021-03-06 2021-03-06 Outpatient STLMLC STLMLC [id number] Common 00:00:00 00:00:00 [facility] 2021-02-02 2021-02-02 Outpatient STLMLC STLMLC [id number] Common 00:00:00 00:00:00 [facility] 2021-01-31 2021-01-31 Outpatient STLMLC STLMLC [id number] Common 00:00:00 00:00:00 [facility] 2021-01-09 2021-01-09 Outpatient STLMLC STLMLC [id number] Common 00:00:00 00:00:00 [facility] 2021-01-01 2021-01-01 Outpatient R LARRY, [facility] [id number] Univers 13:00:00 13:00:00 CELSO [id number] [facility] 2021-01-01 2021-01-01 Outpatient R LARRY, [facility] [id number] Univers 13:00:00 13:00:00 CELSO [facility] 2020-12-13 2020-12-13 Outpatient STLMLC STLMLC [id number] Common 00:00:00 00:00:00 [facility] 2020-11-23 2020-11-23 Patient Kelvin [facility] 1.2.840.114 [id number] Univers 00:00:00 00:00:00 Outreach Alex PRIMARY 350.1.13.10 i ty [facility] 4.2.7.2.686 Agustin COVARRUBIAS [phone] [place] d[place] [facility] Branch 2020-10-31 2020-10-31 [facility] [id number] Univers 13:00:00 13:00:00 BRUNO [id number] ity [facility] 2020-10-31 2020-10-31 Outpatient R [facility] [id number] Univers 13:00:00 13:00:00 [facility] 2020-10-09 2020-10-09 Outpatient [facility] [id number] Univers 13:00:00 13:00:00 [id number] ity [facility] 2020-10-09 2020-10-09 Outpatient R [facility] [id number] Univers 13:00:00 13:00:00 ity [facility] 2020-09-22 2020-09-22 Outpatient R [facility] [id number] Univers 16:00:00 16:00:00 [id number] [facility] 2020-09-22 2020-09-22 Outpatient R [facility] [id number] Univers 16:00:00 16:00:00 ity [facility] 2020-09-15 2020-09-15 Outpatient STLMLC STLMLC [id number] Common 00:00:00 00:00:00 [facility] 2020-09-11 2020-09-11 Outpatient [facility] [id number] Univers 16:00:00 16:00:00 [id number] [facility] 2020-09-11 2020-09-11 Outpatient R [facility] [id number] Univers 16:00:00 16:00:00 ity [facility] 2020-08-21 2020-08-21 Transition Audelia Harrison 1.2.840.114 [id number] Univers 00:00:00 00:00:00 of Care Ailyn Bird 350.1.13.10 i ty [place] [phone] [facility] 403 Branch 2020-08-16 2020-08-18 [facility] Elicia Kwong [facility] 1.2.840.11 4 [id number] Univers 16:26:00 18:00:00 Encounter SreeElayne hernández Bruno Dodd on 350.1.13.10 ity [place].686 [place] [id number] [facility] 081 Branch 2020-08-18 2020-08-18 Outpatient Colten CELAYA [facility] [id number] Univers 10:00:00 10:00:00 FLAKITA [id number] [facility] 2020-08-18 2020-08-18 Outpatient Colten CELAYA [facility] [id number] Univers 10:00:00 10:00:00 [facility] 2020-08-18 2020-08-18 Outpatient STLMLC STLMLC [id number] Common 00:00:00 00:00:00 [facility] 2020-08-11 2020-08-11 Outpatient STLMLC STLMLC [id number] Common 00:00:00 00:00:00 [facility] 2020-08-09 2020-08-09 Outpatient STLMLC STLMLC [id number] Common 00:00:00 00:00:00 [facility] 2020-08-04 2020-08-04 Telephone [facility] 1.2.261.783 [id number] Univers 00:00:00 00:00:00 Bruno Mcdonough 350.1.13.10 [place] [phone] [place] [facility] 059 [facility] 2020-08-01 2020-08-01 Office [facility] 1.2.840.114 [id number] Univers 13:53:25 14:13:25 Visit Bruno Mcdonough 350.1.13.10 [place] [phone] [place] 059 [facility] 2020-08-01 2020-08-01 Outpatient R FAUSTINA [facility] [id number] Univers 14:00:00 14:00:00 BRUNO [id number] ity [facility] 2020-08-01 2020-08-01 Outpatient R FAUSTINA [facility] [id number] Univers 14:00:00 14:00:00 BRUNO ity [facility] 2020-07-21 2020-07-21 Outpatient STLMLC STLMLC [id number] Common 00:00:00 00:00:00 [facility] 2020-07-03 2020-07-03 Office [facility] 1.2.840.114 [id number] Univers 13:50:39 14:38:20 Visit Celso Meyer 350.1.13.10 [phone] [place] [address] [place] [address] 2020-07-03 2020-07-03 Outpatient R LARRY, [facility] [id number] Univers 14:00:00 14:00:00 ZAKPETEY [id number] ity o ariel [facility] 2020-07-03 2020-07-03 [facility] [id number] Univers 14:00:00 14:00:00 CELSO mora o f [facility] 2020-06-02 2020-06-02 Outpatient STLMLC STLMLC [id number] Common 00:00:00 00:00:00 [facility] 2020-06-02 2020-06-02 Outpatient STLMLC STLMLC [id number] Common 00:00:00 00:00:00 [facility] 2020-05-26 2020-05-26 Outpatient R BELIA, [facility] [id number] Univers 11:30:00 11:30:00 FLAKITA mora [facility] 2020-05-26 2020-05-26 Out[facility] [id number] -[id number] Univers 11:00:00 11:00:00 FLAKITA [id number] [facility] 2020-05-23 2020-05-23 Transition Audelia Jeffrey 1.2.840.114 [id number] Univers 00:00:00 00:00:00 of Care Beverley Bird 350.1.13.10 ity of [place] 4.2.7.2.686 [facility] [phone] [facility] 403 Branch 2020-05-23 2020-05-23 Transition Audelia Jeffrey 1.2.840.114 [id number] 00:00:00 00:00:00 of Care Beverley Bird 350.1.13.10 [place] 4.2.7.2.686 [phone] [facility] 2020-05-20 2020-05-22 [facility] 1.2.840. 114 [id number] [facility] 19:11:00 10:00:00 Encounter Sherrie Hope 350.1.13.10 ity of [place] 4.2.7.2.686 [facility] [phone] [facility] 080 [place] 2020-05-20 2020-05-22 [facility] 1.2.840. 114 [id number] 19:11:00 10:00:00 Encounter Sherrie Hope 350.1.13.10 [place] 4.2.7.2.686 [place] [phone] [facility] 2020-05-17 2020-05-17 Orders Doctor BOGGS 1.2.840.114 [id number] Univers 00:00:00 00:00:00 Only Unassigned, JONI 350.1.13.10 ity of [facility] 4.2.7.2.686 Raji [phone] [facility] 009 Branch 2020-05-17 2020-05-17 Orders Doctor BOGGS 1.2.840.114 [id number] 00:00:00 00:00:00 Only Unassigned, JONI 350.1.13.10 [facility] 4.2.7.2.686 [id number] 009 2020-03-29 2020-05-16 [facility] 1.2.840.114 [id number] Univers 13:49:58 10:41:42 Visit Celso Meyer 350.1.13.10 [phone] [place] [address] 2020-03-29 2020-05-16 Office [facility] 1.2.840.114 [id number] 13:49:58 10:41:42 Visit Celso [place] 350.1.13.10 [place] 4.2.7.2.686 Professio [phone] [address] 2020-05-16 2020-05-16 Telephone [facility] 1.2.027.552 [id number] Univers 00:00:00 00:00:00 Celso Meyer 350.1.13.10 [place] [phone] [address] 2020-05-16 2020-05-16 Telephone [facility] 1.2.513.635 [id number] 00:00:00 00:00:00 Zakmiguel angeljan [place] 350.1.13.10 [place] 4.2.7.2.686 Professio [phone] [address] 2020-05-08 2020-05-08 Orders Doctor FLAKITA 1.2.840.114 [id number] Univers 00:00:00 00:00:00 Only Unassigned, JONI 350.1.13.10 ity of [place] [facility] 4.2.7.2.686 Raji as [phone] [address] 2020-05-05 2020-05-05 Outpatient Colten CELAYA [facility] [id number] Univers 11:00:00 11:00:00 FLAKITA [id number] [facility] 2020-05-05 2020-05-05 Outpatient Colten CELAYA [facility] [id number] Univers 11:00:00 11:00:00 FLAKITA mora [facility] 2020-04-26 2020-04-26 Outpatient Colten CYR [facility] [id number] Univers 13:15:00 13:15:00 ANH [id number] morgan [facility] 2020-04-26 2020-04-26 Outpatient Colten CYR [facility] [id number] Univers 13:15:00 13:15:00 ANH mora [facility] 2020-04-26 2020-04-26 Office [facility] [id number] Univers 10:26:49 10:53:55 Visit Anh Corona Mitch [id number] [phone] [place] [address] 2020-04-24 2020-04-24 Telephone [facility] [id number] Univers 00:00:00 00:00:00 Flakita Mitch [id number] i ty [phone] [place] dic[address] 2020-04-21 2020-04-21 Office [facility] [id number] Univers 10:00:40 10:38:55 Visit Flakita Meyer [id number] i [id number] [phone] [address] 2020-04-21 2020-04-21 Outpatient Colten CELAYA [facility] [place] [id number] Univers 10:15:00 10:15:00 FLAKITA [id number] morgan [facility] 2020-04-21 2020-04-21 Outpatient Colten CELAYA [facility] [place] [id number] Univers 10:15:00 10:15:00 FLAKITA mora [facility] 2020-04-18 2020-04-18 Orders Doctor FLAKITA [id number] Univers 00:00:00 00:00:00 Only Unassigned, JONI 350.1.13.10 ity of [place] [facility] 4.2.7.2.686 Raji as [phone] [address] 2020-04-17 2020-04-17 [facility] 31 [id number] Common 09:32:00 09:32:00 t [employer] [address] [facility] 2020-04-12 2020-04-12 [facility] 30 [id number] Common 11:30:00 11:30:00 t [employer] [address] [facility] 2020-03-29 2020-03-29 Outpatient R LARRY, [facility] [id number] -[id number] Univers 14:00:00 14:00:00 CELSO [id number] ittwyla o f [facility] 2020-03-29 2020-03-29 Outpatient R LARRY, [facility] [id number] Univers 14:00:00 14:00:00 CELSO mora o f [facility] 2020-03-16 2020-03-16 Telephone Larry, [facility] [id number] Univers 00:00:00 00:00:00 Celso [place] 350.1.13.10 [place].2.[phone] [place] 9 [facility] 2020-03-06 2020-03-06 Telephone [facility] [id number] Univers 00:00:00 00:00:00 Celso [place] 350.1.13.10 [phone] [place] dich[place]al 9 [facility] 2020-03-02 2020-03-02 [facility] 31 [id number] Common 09:53:00 09:53:00 [employer] [facility] it Drive [facility] 2020-02-28 2020-02-28 Office [facility] [id number] Univers 13:14:31 14:34:50 Visit Celso Meyer 350.1.13.10 [phone] [place] dical [place] 059 [facility] 2020-02-28 2020-02-28 Outpatient R LARRY, [facility] [id number] Univers 13:40:00 13:40:00 CELSO mora o [facility] 2020-02-24 2020-02-24 Outpatient R CHAIREZ, [facility] [id number] Univers 14:00:00 14:00:00 SENDIL ity [facility] 2020-02-22 2020-02-22 [facility] 31 [id number] Common 16:41:00 16:41:00 t [employer] [address] [facility] 2020-02-15 2020-02-15 Orders Doctor BOGGS [id number] 00:00:00 00:00:00 Only Unassigned, JONI 350.1.13.10 [place] [facility] 4.2.7.2.686 Raji as [phone] [place] [address] [address] 2020-02-11 2020-02-11 [facility] 30 [id number] Common 10:45:00 10:45:00 t [employer] [address] [facility] 2019-11-26 2019-11-26 [facility] 30 [id number] Common 10:47:00 10:47:00 t [employer] [address] [facility] 2019-11-23 2019-11-23 [facility] 29 [id number] Common 14:00:00 14:00:00 t [employer] [address] [facility] 2019-09-28 2019-09-28 [facility] 27 [id number] Common 15:15:00 15:15:00 t [employer] [address] [facility] 2019-07-06 2019-07-06 [facility] 28 [id number] Common 10:00:00 10:00:00 t [employer] [address] [facility] 2019-06-23 2019-06-23 [facility] 27 [id number] Common 15:15:00 15:15:00 t [place] [employer] [address] [facility] 2019-05-27 2019-05-27 [facility] 26 [id number] Common 15:00:00 15:00:00 t [place] [employer] [address] [facility] 2019-04-27 2019-04-27 [facility] 27 [id number] Common 10:35:00 10:35:00 t [employer] [address] [facility] 2019-04-22 2019-04-22 [facility] 26 [id number] Common 15:15:00 15:15:00 t [employer] [address] [facility] 2019-02-25 2019-02-25 [facility] 26 [id number] Common 10:15:00 10:15:00 t [place] [employer] [address] [facility] 2018-09-21 2018-09-21 [facility] 23 [id number] Common 14:30:00 14:30:00 t [place] [employer] [address] [facility] 2018-08-25 2018-08-25 [facility] 23 [id number] Common 14:18:00 14:18:00 t [place] [employer] [address] [facility] 2018-05-01 2018-05-01 [facility] 15 [id number] Common 14:21:00 14:21:00 t [place] [employer] [address] [facility] 2018-04-23 2018-04-23 [facility] 14 [id number] Common 13:00:00 13:00:00 t [place] [address] [facility] 2018-04-01 2018-04-01 [facility] 14 [id number] Common 15:48:00 15:48:00 t [place] [address] [facility] 2018-03-31 2018-03-31 [facility] 14 [id number] Common 10:18:00 10:18:00 t [place] [address] [facility] 2018-03-12 2018-03-12 [facility] 14 [id number] Common 13:42:00 13:42:00 t [place] [address] [facility] 2018-02-23 2018-02-23 [facility] 13 [id number] Common 13:00:00 13:00:00 t [place] [employer] [address] [facility] 2017-12-23 2017-12-23 [facility] 13 [id number] Common 14:00:00 14:00:00 t [employer] Sp[facility] it [place]icata [facility] 2017-07-23 2017-07-23 [facility] [id number] Memoria 04:45:00 18:14:00 n r Caleb 18 l [facility] 2017-07-22 2017-07-23 Outpatient Coleen Saavedra [facility] [id number] 22:45:00 12:14:00 Murtaza 18 2017-06-05 2017-06-16 [facility] [id number] Memoria 11:17:00 21:30:00 [place] 01 l [facility] 2017-06-05 2017-06-16 Outpatient Maciej [facility] [id number] 06:17:00 16:30:00 Viacheslav 01 2017-05-27 2017-05-29 [facility] [id number] Memoria 14:09:00 20:46:00 r [place] 61 l [facility] 2017-05-27 2017-05-29 Outpatient Lebron [facility] [id number] 09:09:00 15:46:00 Keny 61 2016-09-26 2016-09-28 [facility] [id number] Memoria 11:20:00 01:55:00 r [place] 19 [facility] 2016-09-26 2016-09-27 Outpatient Konstantin Saavedra [facility] [id number] 05:20:00 19:55:00 Vicki 19 2015-07-02 2015-07-04 [facility] [id number] Memoria 20:26:00 20:13:00 r [place] 00 [facility] 2015-07-02 2015-07-04 Outpatient Vivienne [facility] [id number] 15:26:00 15:13:00 Jaiden 00 Peter Results Test Description Test Time Test Comments Results Result Comments Source POCT GLUCOSE (AUTOMATED) 2020-08-18 17:59:00 Test Item Value Reference Range Interpretation Comme nts POCT GLU (test code = 9554681073) 111 mg/dL 70-110 H Lab Interpretation (test code = 60761-2) [facility]normal [facility]2020-08-18 14:14:00 Test Item Value Reference Range Interpretation Comments POCT GLU (test code = 1609017751) 202 mg/dL 70-110 H Lab Interpretation (test code = Abnormal 96601-3) [facility] [id number] 13:29:00 Test Item Value Reference Range Interpretation Comments NT-proBNP (test code 2190 pg/mL See_Comment H [Autom ated = 1214844223) message] The system which generated this result transmitted reference range : <=125. The reference range was not used to interpret this result as normal/abnormal . JAQUELIN (test code = JAQUELIN) Biotin has been reported to cause a negative bias, interpret results relative to patient's use of biotin. Lab Interpretation Abnormal (test code = 53966-1) [facility]2020-12-11 13:21:00 Test Item Value Reference Range Interpretation Comments MAGNESIUM (test code = 7112135812) 2.1 mg/dL 1.7-2.4 Lab Interpretation (test code = Normal 53713-7) [facility] METABOLIC PANEL (18130)2020-08-18 13:21:00 Test Item Value Reference Range Interpretation Comments NA (test code = 135 mmol/L 135-145 6643478237) K (test code = 4.3 mmol/L 3.5-5 7113652726) CL (test code = 105 mmol/L 98-108 4657318254) CO2 TOTAL (test code = 23 mmol/L 23-31 0523537593) AGAP (test code = 2-16 7983109953) BUN (test code = 27 mg/dL 7-23 H 0103851018) GLUCOSE (test code = 213 mg/dL 70-110 H 3520700949) CREATININE (test code = 2.44 mg/dL 0.5-1.04 H 0943260565) TOTAL BILI (test code = 0.3 mg/dL 0.1-1.6 8356929512) CALCIUM (test code = 7.6 mg/dL 8.6-10.6 L 6444707929) T PROTEIN (test code = 5.8 g/dL 6.3-8.2 L 4142364445) ALBUMIN (test code = 2.8 g/dL 3.5-5 L 2214862634) ALK PHOS (test code = 91 U/L 34-122 6323004357) ALTv (test code = 10 U/L 5-35 1742-6) AST(SGOT) (test code = 18 U/L 13-40 9673535313) eGFR Calculation mL/min/1.73m2 (Non-) (test code = 1045865619) eGFR Calculation mL/min/1.73m2 () (test code = 8025924523) JAQUELIN (test code = JAQUELIN) Association of [...] tests). Lab Interpretation Abnormal (test code = 21118-8) [facility] [id number] 13:21:00 Test Item Value Reference Range Interpretation Comments URIC ACID (test code = 9893482345) 6.2 mg/dL 2.9-6 H Lab Interpretation (test code = Abnormal 02270-8) [facility] WITH [id number] 13:04:00 Test Item Value Reference Range Interpretation [...] RDW-SD (test code = 46.8 fL 39-49.9 80895-3) RDW-CV (test code = 14.7 % 12-15.5 788-0) PLT (test code = See_Comment L [Automated 777-3) message] The sy stem which generated this result transmitted reference range : 166 - 358 10*3/ ?L. The reference r michael was not used to interpret this result as normal/abnormal . MPV (test code = 11.4 fL 9.5-12.9 48036-1) NRBC/100 WBC (test See_Comment [Automat ed code = 4962362971) message] The system which generated this result transmitted reference range : 0.0 - 10.0 /100 WBCs. The refer ence range was not u sed to interpret th is result as normal/abnormal . NRBC x10^3 (test code <0.01 See_Comment [Auto mated = 1993134485) message] The s ystem which generated this result transmitted reference range : 10*3/?L. The reference range was not used to interpret this result as normal/abnormal . GRAN MAT (NEUT) % 71.6 % (test code = 770-8) IMM GRAN % (test code 0.30 % = 9145497703) LYMPH % (test code = 15.6 % 736-9) MONO % (test code = 8.7 % 5905-5) EOS % (test code = 3.5 % 713-8) BASO % (test code = 0.3 % 706-2) GRAN MAT x10^3(ANC) 4.44 10*3/uL 1.88-7.09 (test code = 8678419056) IMM GRAN x10^3 (test <0.03 0-0.06 code = 7105167108) LYMPH x10^3 (test code 0.97 10*3/uL 1.32-3.29 L = 731-0) MONO x10^3 (test code 0.54 10*3/uL 0.33-0.92 = 742-7) EOS x10^3 (test code = 0.22 10*3/uL 0.03-0.39 711-2) BASO x10^3 (test code <0.03 0.01-0.07 = 704-7) Lab Interpretation Abnormal (test code = 56470-0) [facility], [id number] 06:40:00 Test Item Value Reference Range Interpretation Comments VIT D 25OH (test code = <13 25-80 L 77134-2) JAQUELIN (test code = JAQUELIN) Deficiency: <20 ng/mLInsufficiency: 20-24 ng/mLOptimal: 25-80 ng/mL Lab Interpretation (test Abnormal code = 67911-7) [facility]2020-12-11 06:32:00 Test Item Value Reference Range Interpretation Comments FOLATE SER (test code = 9.5 ng/mL 3-20 Biot in has been 9660365080) reported to cau se a positive bias, interpret resul ts relative to patient's use o f biotin. Lab Interpretation (test Normal code = 30963-7) [facility] B12, [id number] 00:38:00 Test Item Value Reference Range Interpretation Comments VIT B12 (test code = 451 pg/mL 240-930 5290378966) JAQUELIN (test code = JAQUELIN) Biotin has been reported to cause a positive bias, interpret results relative to patient's use of biotin. Lab Interpretation (test Normal code = 75520-3) [facility] GLUCOSE (AUTOMATED)2020-08-17 22:47:00 Test Item Value Reference Range Interpretation Comments POCT GLU (test code = 271 mg/dL 70-110 H Notifi ed Provider 9257153147) Lab Interpretation (test Abnormal code = 06146-7) [facility] GLUCOSE (AUTOMATED)2020-08-17 19:45:00 Test Item Value Reference Range Interpretation Comments POCT GLU (test code = 4586003359) 180 mg/dL 70-110 H Lab Interpretation (test code = Abnormal 25833-5) [facility] [id number] 18:40:00 Test Item Value Reference Range Interpretation Comments URIC ACID (test code = 3788171018) 6.7 mg/dL 2.9-6 H Lab Interpretation (test code = Abnormal 00744-0) [facility]AL [id number] 17:32:00 Test Item Value Reference Range Interpretation Comments NT-proBNP (test code 1970 pg/mL See_Comment H Hemolyz ed = 2593950711) specimen [Automated message] The system which generated this result transmitted reference range : <=125. The reference range was not used to interpret this result as normal/abnormal . JAQUELIN (test code = JAQUELIN) Biotin has been reported to cause a negative bias, interpret results relative to patient's use of biotin. Lab Interpretation Abnormal (test code = 16247-0) [facility] D, [id number] 17:23:00 Test Item Value Reference Range Interpretation Comments VIT D 25OH (test code = <13 25-80 L 76092-8) JAQUELIN (test code = JAQUELIN) Deficiency: <20 ng/mLInsufficiency: 20-24 ng/mLOptimal: 25-80 ng/mL Lab Interpretation (test Abnormal code = 78714-6) [facility] GLUCOSE (AUTOMATED)2020-08-17 14:13:00 Test Item Value Reference Range Interpretation Comments POCT GLU (test code = 3459356677) 191 mg/dL 70-110 H Lab Interpretation (test code = Abnormal 47663-1) [facility] (NA, K, CL, CO2, GLUCOSE, BUN, CREATININE, CA)2020-08-17 13:55:00 Test Item Value Reference Range Interpretation Comments NA (test code = 134 mmol/L 135-145 L 1881067338) K (test code = 4.2 mmol/L 3.5-5 0124905117) CL (test code = 107 mmol/L 98-108 3130737335) CO2 TOTAL (test code = 21 mmol/L 23-31 L 7349085624) AGAP (test code = 2-16 1411804316) BUN (test code = 26 mg/dL 7-23 H 9015957942) GLUCOSE (test code = 185 mg/dL 70-110 H 2381168933) CREATININE (test code = 1.69 mg/dL 0.5-1.04 H 5501307015) CALCIUM (test code = 8.1 mg/dL 8.6-10.6 L 1805348614) eGFR Calculation mL/min/1.73m2 (Non-) (test code = 5930646276) eGFR Calculation mL/min/1.73m2 () (test code = 1544916382) JAQUELIN (test code = JAQUELIN) Association of [...] tests). Lab Interpretation Abnormal (test code = 49595-9) [facility]neyIRON [id number] 13:45:00 Test Item Value Reference Range Interpretation Comments IRON (test code = 40 ug/dL 50-160 L Slight hem olysis 8416632189) TIBC (test code = 197 ug/dL 250-410 L 1232712653) % FE SAT (test code = 20 % 20-50 8786165232) Lab Interpretation (test Abnormal code = 87351-6) [facility] with [id number] 13:02:00 Test Item Value Reference Range Interpretation [...] RDW-SD (test code = 47.7 fL 39-49.9 22309-6) RDW-CV (test code = 14.8 % 12-15.5 788-0) PLT (test code = See_Comment L [Automated 777-3) message] The sy stem which generated this result transmitted reference range : 166 - 358 10*3/ ?L. The reference r michael was not used to interpret this result as normal/abnormal . MPV (test code = 12.5 fL 9.5-12.9 40837-9) NRBC/100 WBC (test See_Comment [Automat ed code = 1844285923) message] The system which generated this result transmitted reference range : 0.0 - 10.0 /100 WBCs. The refer ence range was not u sed to interpret th is result as normal/abnormal . NRBC x10^3 (test code <0.01 See_Comment [Auto mated = 3569481468) message] The s ystem which generated this result transmitted reference range : 10*3/?L. The reference range was not used to interpret this result as normal/abnormal . GRAN MAT (NEUT) % 76.0 % (test code = 770-8) IMM GRAN % (test code 0.20 % = 8394554802) LYMPH % (test code = 13.0 % 736-9) MONO % (test code = 8.1 % 5905-5) EOS % (test code = 2.3 % 713-8) BASO % (test code = 0.4 % 706-2) GRAN MAT x10^3(ANC) 6.26 10*3/uL 1.88-7.09 (test code = 9345776538) IMM GRAN x10^3 (test <0.03 0-0.06 code = 3084797780) LYMPH x10^3 (test code 1.07 10*3/uL 1.32-3.29 L = 731-0) MONO x10^3 (test code 0.67 10*3/uL 0.33-0.92 = 742-7) EOS x10^3 (test code = 0.19 10*3/uL 0.03-0.39 711-2) BASO x10^3 (test code 0.03 10*3/uL 0.01-0.07 = 704-7) Lab Interpretation Abnormal (test code = 87852-1) [facility]neyMagn[facility] [id number] 02:45:00 Test Item Value Reference Range Interpretation Comments MAGNESIUM (test code = 1407639150) 1.7 mg/dL 1.7-2.4 Lab Interpretation (test code = Normal 37868-9) [facility]ney[facility]AL[facility]2020-12-10 01:13:00 Test Item Value Reference Range Interpretation Comments APPEARANCE (test code = Hazy Clear A 1658721592) COLOR (test code = Yellow Yellow 3943238718) PH (test code = 4.8-8.0 2599070640) SP GRAVITY (test code = 1.003-1.030 1883399370) GLU U QUAL (test code = 500 mg/dL Normal A 1687659509) BLOOD (test code = 1+ Negative A 2634421569) KETONES (test code = 5 mg/dL Negative A 2385321827) PROTEIN (test code = 500 mg/dL Negative A 2887-8) UROBILIN (test code = Normal Normal 8164066230) BILIRUBIN (test code = Negative Negative 4742471087) NITRITE (test code = Negative Negative 3857187855) LEUK DEBBIE (test code = Negative Negative 7025985188) RBC/HPF (test code = See_Comment H [Autom ated message] 0501147711) The system [employer] generated this result transmit benny reference range : 0 - 3 HPF. The refe rence range was not u sed to interpret th is result as normal/abnormal . WBC/HPF (test code = See_Comment H [Autom ated message] 0013986361) The system [employer] generated this result transmit benny reference range : 0 - 5 HPF. The refe rence range was not u sed to interpret th is result as normal/abnormal . BACTERIA (test code = Few Negative A 6713666720) MUCOUS (test code = Slight Negative LPF A 4967391491) SQ EPITH (test code = HPF 1018234961) HYAL CAST (test code = See_Comment H [Aut omated message] 5446711934) The system [employer] generated this result transmit benny reference range : <=2 LPF. The refere nce range was not u sed to interpret th is result as normal/abnormal . Lab Interpretation (test Abnormal code = 15734-6) [facility]neyCOM. METABOLIC PANEL (79139)2020-08-17 01:02:00 Test Item Value Reference Range Interpretation Comments NA (test code = 132 mmol/L 135-145 L 5762177197) K (test code = 4.7 mmol/L 3.5-5 1330169488) CL (test code = 101 mmol/L 98-108 7355813475) CO2 TOTAL (test code = 26 mmol/L 23-31 3566302574) AGAP (test code = 2-16 8728560511) BUN (test code = 24 mg/dL 7-23 H 1754686044) GLUCOSE (test code = 265 mg/dL 70-110 H 3150585281) CREATININE (test code = 1.33 mg/dL 0.5-1.04 H 8435686568) TOTAL BILI (test code = 0.4 mg/dL 0.1-1.4 9642245806) CALCIUM (test code = 9.2 mg/dL 8.6-10.6 8881984224) T PROTEIN (test code = 6.0 g/dL 6.3-8.2 L 9677398473) ALBUMIN (test code = 3.1 g/dL 3.5-5 L 8542622830) ALK PHOS (test code = 105 U/L 34-122 1963943846) ALTv (test code = 10 U/L 5-35 1742-6) AST(SGOT) (test code = 17 U/L 13-40 3101023386) eGFR Calculation mL/min/1.73m2 (Non-) (test code = 3188928204) eGFR Calculation mL/min/1.73m2 () (test code = 1583851272) JAQUELIN (test code = JAQUELIN) Association of [...] tests). Lab Interpretation Abnormal (test code = 98311-4) [facility]ney[facility]OVID-[facility] (ID NOW RAPID TESTING)2020-08-17 00:52:00 Test Item Value Reference Range Interpretation Comments SARS-CoV-2 Rapid ID NOW Not Detected Not Detected (test code = 78156-2) JAQUELIN (test code = JAQUELIN) ID NOW COVID-19 Assay is an isothermal nucleic acid amplification test intended for the qualitative detection of nucleic acid from SARS-CoV-2 viral RNA in nasopharyngeal (GRAPE PRUNER) specimens. It is used under Emergency Use [...] indicated. Lab Interpretation Normal (test code = 76823-1) [facility] WITH [id number] 00:40:00 Test Item Value Reference Range Interpretation [...] RDW-SD (test code = 44.7 fL 39-49.9 43409-6) RDW-CV (test code = 14.4 % 12-15.5 788-0) PLT (test code = See_Comment [Automated 777-3) message] The sy stem which generated this result transmitted reference range : 166 - 358 10*3/ ?L. The reference r michael was not used to interpret this result as normal/abnormal . MPV (test code = 11.3 fL 9.5-12.9 19175-0) NRBC/100 WBC (test See_Comment [Automat ed code = 0858933702) message] The system which generated this result transmitted reference range : 0.0 - 10.0 /100 WBCs. The refer ence range was not u sed to interpret th is result as normal/abnormal . NRBC x10^3 (test code <0.01 See_Comment [Auto mated = 6409247520) message] The s ystem which generated this result transmitted reference range : 10*3/?L. The reference range was not used to interpret this result as normal/abnormal . GRAN MAT (NEUT) % 83.2 % (test code = 770-8) IMM GRAN % (test code 0.20 % = 5752820298) LYMPH % (test code = 8.5 % 736-9) MONO % (test code = 6.7 % 5905-5) EOS % (test code = 1.1 % 713-8) BASO % (test code = 0.3 % 706-2) GRAN MAT x10^3(ANC) 8.55 10*3/uL 1.88-7.09 H (test code = 8488794062) IMM GRAN x10^3 (test <0.03 0-0.06 code = 4623524765) LYMPH x10^3 (test code 0.87 10*3/uL 1.32-3.29 L = 731-0) MONO x10^3 (test code 0.69 10*3/uL 0.33-0.92 = 742-7) EOS x10^3 (test code = 0.11 10*3/uL 0.03-0.39 711-2) BASO x10^3 (test code 0.03 10*3/uL 0.01-0.07 = 704-7) Lab Interpretation Abnormal (test code = 37909-7) [facility]neyPO[facility] [id number] 00:23:00 Test Item Value Reference Range Interpretation Comments POCT PREG (test code = 1605) negative On board controls acceptable with C present Line (test code = 3574) Lab Interpretation (test code = Normal 61782-4) [facility] McKinneyLancic Acid Whole [id number] 00:22:00 Test Item Value Reference Range Interpretation Comments LACTIC ACID (test code = 1.43 mmol/L 1265239279) [facility] PELVIS [id number] 15:08:00 Patient Name: MARIS KENNEY Unit No: [id number] EXAMS: CPT CODE: [id number] US PELVIS COMPLETE 63207 PELVIC ULTRASOUND, 06/15/2020: COMPARISON: None CLINICAL HISTORY: UTERINE VAG BLEEDING TECHNIQUE:Transabdominal and endovaginal scanning was performed. FINDINGS: The uterus measures 7.3 x 4.1 x 4.9cm. The endometrial cavity is empty with a thickness of 4 mm. No uterine fibroids were seen. There is a nabothian cyst in the region of the cervix. The right ovary measures 1.9 x 1.0 x 1.5 cm and appears normal. Doppler flow is demonstrated in the right ovary. The left ovary measures 3.5 x 2.2 x 2.1 cm and contains a 2 cm small complex cyst, likely representing hemorrhagic cyst. Doppler flow is demonstrated in the left ovary. No free fluid is evident. IMPRESSION: Probable 2 cm small hemorrhagic leftovarian cyst. at 1508 Reported and signed by: Bobby Lafleur MD CC: France Shepard MD Technologist: Hermelinda Rich RDMS Probe: TrnscrbdD/ (1508) [email or web address] Orig Print D/T: S: 06/15/2020 (1511) [facility] Radiology Department PHYS: BASILIOLorenFrance Potter [address] : 1975 AGE: 44 SEX: F [place] [address] LOC: F.RAD PHONE #: [phone] EXAM DATE: 06/15/2020 STATUS: REG CLI FAX #: [phone] RAD NO: Page 1 Signed Report Patient Name:MARIS KENNEY Unit No: [id number] EXAMS: CPT CODE: [id number] US PELVIS COMPLETE 37538 (Continued)[facility] NAME: MARIS KENNEY Radiology Department PHYS: JUAN ShepardFrance [address] : 1975 AGE: 44 SEX: F [place] [address] LOC: F.RAD PHONE #: [phone] EXAM DATE: 06/15/2020 STATUS: REG CLI FAX #: [phone] RAD NO: Page 2 Signed Report- US TRANSVAGINAL W/[id number] 15:08:00 Patient Name: MARIS KENNEY Unit No: [id number] EXAMS: CPT CODE: [id number] US TRANSVAGINAL W/PELVIS 70146 PELVIC ULTRASOUND, 06/15/2020: COMPARISON: None CLINICAL HISTORY: [...] Doppler flow is demonstrated in the right ovary. The left ovary measures 3.5 x 2.2 x 2.1 cm and contains a 2 cm small complex cyst, likely representing hemorrhagic cyst. Doppler flow is demonstrated in the left ovary. No free fluid is evident. IMPRESSION: Probable 2 cm small hemorrhagicleft ovarian cyst. at 1508 Reported and signed by: Bobby Lafleur MD CC: [place] Shepard MD Technologist: Hermelinda Rich RDMS Probe: [id number] Trnscrbd D/ (1508) [email or web address] Orig Print D/T: S: 06/15/2020 (1511) [facility] NAME: MARIS KENNEY Radiology Department PHYS: BASILIOLorenFrance Potter [address] : 1975 AGE: 44 SEX: F [place], [place] [address] LOC: BernardinoRAD PHONE #:[phone] EXAM DATE: 06/15/2020 STATUS: REG CLI FAX #: [phone] RAD NO: Page 1 Signed ReportPatient Name: MARIS KENNEY Unit No: [id number] EXAMS: CPT CODE: [id number] US TRANSVAGINAL W/PELVIS 03311 (Continued) [facility] NAME: MARIS KENNEY Radiology Department PHYS: France Covarrubias [address] : 1975 AGE: 44 SEX: F [place], [place] [address] LOC: BernardinoRAD PHONE #: [phone] EXAM DATE: 06/15/2020 STATUS: REG CLI FAX #: [phone] RAD NO: Page 2 Signed Report- DUP AB/PEL/SC/[id number] 15:08:00 Patient Name: MARIS KENNEY Unit No: [id number] EXAMS: CPT CODE: [id number] DUP AB/PEL/SC/LTD 79879 PELVIC ULTRASOUND, 06/15/2020: COMPARISON: None CLINICAL HISTORY: [...] 1.9 x 1.0 x 1.5 cm and appearsnormal. Doppler flow is demonstrated in the right ovary. The left ovary measures 3.5 x 2.2 x 2.1 cm and contains a 2 cm small complex cyst, likely representing hemorrhagic cyst. Doppler flow is demonstrated in the left ovary. No free fluid is evident. IMPRESSION: Probable 2 cm small hemorrhagic left ovarian cyst. at 1508 Reported and signedby: Bobby Lafleur MD CC: [place] Shepard MD Technologist: Hermelinda Rich RDMS Probe: Trnscrbd D/ (1508) [email or web address] Orig Print D/T: S: 06/15/2020 (1511) [facility] NAME: MARIS KENNEY Radiology Department PHYS: France Covarrubias [address] : 1975 AGE: 44 SEX: F [place] [address] LOC: F.RAD PHONE #: [phone] EXAMDATE: 06/15/2020 STATUS: REG CLI FAX #: [phone] RAD NO: Page 1 Signed Report Patient Name: MARIS KENNEY Unit No: [id number] EXAMS: CPT CODE: [id number] DUP AB/PEL/SC/LTD 10299 (Continued) [facility] NAME: MARIS KENNEY Radiology Department PHYS: France Covarrubias [address] : 1975 AGE: 44 SEX: F [place] [address] LOC: BernardinoRAD PHONE #: [phone] EXAM DATE: 06/15/2020 STATUS: REG CLI FAX #: [phone] RAD NO: Page 2 Signed ReportPOCT GLUCOSE (AUTOMATED) 2020-05-22 13:45:00 Test Item Value Reference Range Interpretation Comments POCT GLU (test code = 2663641195) 109 mg/dL 70-110 Lab Interpretation (test code = Normal 75165-0) [facility] [id number] 12:05:00 Test Item Value Reference Range Interpretation Comments URINE CULTURE (test < 10,000 CFU/mL mixed code = 630-4) aerobic organisms - suggests endogenous microbial contamination [facility]neyN-TERMINAL [id number] 09:00:00 Test Item Value Reference Range Interpretation Comments NT-proBNP (test code 3630 pg/mL See_Comment H [Autom ated = 5575687135) message] The system which generated this result transmitted reference range : <=125. The reference range was not used to interpret this result as normal/abnormal . JAQUELIN (test code = JAQUELIN) Biotin has been reported to cause a negative bias, interpret results relative to patient's use of biotin. Lab Interpretation Abnormal (test code = 17274-5) [facility] (NA, K, CL, CO2, GLUCOSE, BUN, CREATININE, CA)2020-05-22 08:51:00 Test Item Value Reference Range Interpretation Comments NA (test code = 135 mmol/L 135-145 8028616851) K (test code = 3.6 mmol/L 3.5-5 7517998039) CL (test code = 103 mmol/L 98-108 4305286435) CO2 TOTAL (test code = 25 mmol/L 23-31 6164241186) AGAP (test code = 2-16 5077282655) BUN (test code = 41 mg/dL 7-23 H 6348655351) GLUCOSE (test code = 110 mg/dL 70-110 8205306843) CREATININE (test code = 1.98 mg/dL 0.5-1.04 H 5250616533) CALCIUM (test code = 8.9 mg/dL 8.6-10.6 1263151346) eGFR Calculation mL/min/1.73m2 (Non-) (test code = 6697958891) eGFR Calculation mL/min/1.73m2 () (test code = 1457405616) JAQUELIN (test code = JAQUELIN) Association of [...] tests). Lab Interpretation Abnormal (test code = 16970-2) [facility]2020-09-14 08:51:00 Test Item Value Reference Range Interpretation Comments MAGNESIUM (test code = 8597087067) 2.3 mg/dL 1.7-2.4 Lab Interpretation (test code = Normal 30907-7) [facility]OS[facility]2020-09-14 08:51:00 Test Item Value Reference Range Interpretation Comments PHOSPHORUS (test code = 5432746384) 4.5 mg/dL 2.5-5 Lab Interpretation (test code = Normal 92061-9) [facility] WITH [id number] 08:48:00 Test Item Value Reference Range Interpretation [...] RDW-SD (test code = 43.6 fL 39-49.9 05482-5) RDW-CV (test code = 14.6 % 12-15.5 788-0) PLT (test code = See_Comment [Automated 777-3) message] The sy stem which generated this result transmitted reference range : 166 - 358 10*3/ ?L. The reference r michael was not used to interpret this result as normal/abnormal . MPV (test code = 12.2 fL 9.5-12.9 73584-2) NRBC/100 WBC (test See_Comment [Automat ed code = 8092187257) message] The system which generated this result transmitted reference range : 0.0 - 10.0 /100 WBCs. The refer ence range was not u sed to interpret th is result as normal/abnormal . NRBC x10^3 (test code See_Comment [Auto mated = 1918220006) message] The s ystem which generated this result transmitted reference range : 10*3/?L. The reference range was not used to interpret this result as normal/abnormal . GRAN MAT (NEUT) % 64.2 % (test code = 770-8) IMM GRAN % (test code 0.30 % = 1267832823) LYMPH % (test code = 24.4 % 736-9) MONO % (test code = 7.8 % 5905-5) EOS % (test code = 2.9 % 713-8) BASO % (test code = 0.4 % 706-2) GRAN MAT x10^3(ANC) 4.44 10*3/uL 1.88-7.09 (test code = 4687319756) IMM GRAN x10^3 (test <0.03 0-0.06 code = 3312055654) LYMPH x10^3 (test code 1.69 10*3/uL 1.32-3.29 = 731-0) MONO x10^3 (test code 0.54 10*3/uL 0.33-0.92 = 742-7) EOS x10^3 (test code = 0.20 10*3/uL 0.03-0.39 711-2) BASO x10^3 (test code 0.03 10*3/uL 0.01-0.07 = 704-7) Lab Interpretation Abnormal (test code = 32084-6) [facility] GLUCOSE (AUTOMATED)2020-05-22 05:24:00 Test Item Value Reference Range Interpretation Comments POCT GLU (test code = 9213086983) 100 mg/dL 70-110 Lab Interpretation (test code = Normal 79707-9) [facility] GLUCOSE (AUTOMATED)2020-05-21 21:59:00 Test Item Value Reference Range Interpretation Comments POCT GLU (test code = 3804576667) 295 mg/dL 70-110 H Lab Interpretation (test code = Abnormal 83367-9) [facility] (NA, K, CL, CO2, GLUCOSE, BUN, CREATININE, CA)2020-05-21 19:35:00 Test Item Value Reference Range Interpretation Comments NA (test code = 135 mmol/L 135-145 7763144224) K (test code = 3.9 mmol/L 3.5-5 8736239690) CL (test code = 101 mmol/L 98-108 1683612559) CO2 TOTAL (test code = 23 mmol/L 23-31 9940810554) AGAP (test code = 2-16 0761491164) BUN (test code = 39 mg/dL 7-23 H 3036024237) GLUCOSE (test code = 175 mg/dL 70-110 H 5284236360) CREATININE (test code = 1.75 mg/dL 0.5-1.04 H 0497102976) CALCIUM (test code = 8.7 mg/dL 8.6-10.6 5698504277) eGFR Calculation mL/min/1.73m2 (Non-) (test code = 1211822415) eGFR Calculation mL/min/1.73m2 () (test code = 7560395896) JAQUELIN (test code = JAQUELIN) Association of [...] tests). Lab Interpretation Abnormal (test code = 18281-9) [facility] WITH [id number] 19:09:00 Test Item Value Reference Range Interpretation [...] RDW-SD (test code = 42.5 fL 39-49.9 03034-4) RDW-CV (test code = 14.2 % 12-15.5 788-0) PLT (test code = See_Comment [Automated 777-3) message] The sy stem which generated this result transmitted reference range : 166 - 358 10*3/ ?L. The reference r michael was not used to interpret this result as normal/abnormal . MPV (test code = 11.6 fL 9.5-12.9 05419-2) NRBC/100 WBC (test See_Comment [Automat ed code = 7578334545) message] The system which generated this result transmitted reference range : 0.0 - 10.0 /100 WBCs. The refer ence range was not u sed to interpret th is result as normal/abnormal . NRBC x10^3 (test code See_Comment [Auto mated = 8350064933) message] The s ystem which generated this result transmitted reference range : 10*3/?L. The reference range was not used to interpret this result as normal/abnormal . GRAN MAT (NEUT) % 72.3 % (test code = 770-8) IMM GRAN % (test code 0.40 % = 7637113053) LYMPH % (test code = 17.5 % 736-9) MONO % (test code = 7.1 % 5905-5) EOS % (test code = 2.3 % 713-8) BASO % (test code = 0.4 % 706-2) GRAN MAT x10^3(ANC) 4.99 10*3/uL 1.88-7.09 (test code = 6634882568) IMM GRAN x10^3 (test 0.03 10*3/uL 0-0.06 code = 0669403881) LYMPH x10^3 (test code 1.21 10*3/uL 1.32-3.29 L = 731-0) MONO x10^3 (test code 0.49 10*3/uL 0.33-0.92 = 742-7) EOS x10^3 (test code = 0.16 10*3/uL 0.03-0.39 711-2) BASO x10^3 (test code 0.03 10*3/uL 0.01-0.07 = 704-7) Lab Interpretation Abnormal (test code = 99967-6) [facility]neyPROCALCITONIN2020-09-13 18:37:00 Test Item Value Reference Range Interpretation Comments Procalcitonin (test 0.06 ng/mL <0.07 code = 9456379575) JAQUELIN (test code = JAQUELIN) INTERPRETATION OF [...] lung abscess/empyema. For further information please refer to:[email or web address] Lab Interpretation Normal (test code = 27740-0) [facility]neyPO[facility] GLU[facility]SE (AUTOMATED)2020-05-21 16:46:00 Test Item Value Reference Range Interpretation Comments POCT GLU (test code = 7266853339) 99 mg/dL 70-110 Lab Interpretation (test code = Normal 48042-7) [facility]neyUREA NITROGEN, URINE [id number] 16:27:00 Test Item Value Reference Range Interpretation Comments UREA N UR (test code = 8282744016) 212 mg/dL [facility] McKinneyPrepare Packed RBC (in units), 1 Units 2020-05-21 12:44:57 Test Item Value Reference Range Interpretation Comments Cross Match Result Compatible (test code = 4409) ISBT Blood Type Code (test code = 361211) Unit Blood Type (test A Pos code = 4410) Unit Number (test [id number] code = 4411) Blood Expiration Date & Time (test code = 933297) Status Information Issued (test code = 4412) Product Red Blood Cells Identification (test code = 4413) Product Code (test I2458P37 Performed at [facility] code = 4414) Laboratory Services - [facility] Blood [address] [place] [address]Dclu Free: [phone] A No. [id number] [facility] McKinneyPROTHROMBIN TIME / [id number] 11:22:00 Test Item Value Reference Range Interpretation Comments PROTIME PATIENT (test See_Comment H [Auto mated message] code = 5964-2) The system wh ich generated this result transmitted ref erence range: 12.0 - 1 4.7 Seconds. The reference range was not used to int erpret this result as normal/abnormal . INR (test code = 6301-6) Nor mal INR <1.1; Warfarin Therap eutic range 2.0 to 3. 0 or 2.5 to 3.5, dep ending upon the indica tions. Lab Interpretation (test Abnormal code = 50753-2) [facility]PO[facility] GLU[facility]SE (AUTOMATED)2020-05-21 11:21:00 Test Item Value Reference Range Interpretation Comments POCT GLU (test code = 1316784090) 163 mg/dL 70-110 H Lab Interpretation (test code = Abnormal 61616-7) [facility]neyCB WITH [id number] 11:15:00 Test Item Value Reference Range Interpretation [...] RDW-SD (test code = 44.5 fL 39-49.9 19561-8) RDW-CV (test code = 14.4 % 12-15.5 788-0) PLT (test code = See_Comment [Automated 777-3) message] The sy stem which generated this result transmitted reference range : 166 - 358 10*3/ ?L. The reference r michael was not used to interpret this result as normal/abnormal . MPV (test code = 12.5 fL 9.5-12.9 97216-0) NRBC/100 WBC (test See_Comment [Automat ed code = 9581516584) message] The system which generated this result transmitted reference range : 0.0 - 10.0 /100 WBCs. The refer ence range was not u sed to interpret th is result as normal/abnormal . NRBC x10^3 (test code See_Comment [Auto mated = 1557290408) message] The s ystem which generated this result transmitted reference range : 10*3/?L. The reference range was not used to interpret this result as normal/abnormal . GRAN MAT (NEUT) % 67.3 % (test code = 770-8) IMM GRAN % (test code 0.50 % = 7218896090) LYMPH % (test code = 22.1 % 736-9) MONO % (test code = 7.8 % 5905-5) EOS % (test code = 2.0 % 713-8) BASO % (test code = 0.3 % 706-2) GRAN MAT x10^3(ANC) 4.14 10*3/uL 1.88-7.09 (test code = 8880311033) IMM GRAN x10^3 (test 0.03 10*3/uL 0-0.06 code = 6116175767) LYMPH x10^3 (test code 1.36 10*3/uL 1.32-3.29 = 731-0) MONO x10^3 (test code 0.48 10*3/uL 0.33-0.92 = 742-7) EOS x10^3 (test code = 0.12 10*3/uL 0.03-0.39 711-2) BASO x10^3 (test code <0.03 0.01-0.07 = 704-7) Lab Interpretation Abnormal (test code = 66840-0) [facility] METABOLIC PANEL (NA, K, CL, CO2, GLUCOSE, BUN, CREATININE, CA)2020-05-21 11:07:00 Test Item Value Reference Range Interpretation Comments NA (test code = 135 mmol/L 135-145 4103707379) K (test code = 3.9 mmol/L 3.5-5 9292307677) CL (test code = 103 mmol/L 98-108 4965076276) CO2 TOTAL (test code = 22 mmol/L 23-31 L 4885156614) AGAP (test code = 2-16 0095273808) BUN (test code = 43 mg/dL 7-23 H 9077885321) GLUCOSE (test code = 195 mg/dL 70-110 H 3160816684) CREATININE (test code = 1.73 mg/dL 0.5-1.04 H 2974475282) CALCIUM (test code = 8.5 mg/dL 8.6-10.6 L 9345237991) eGFR Calculation mL/min/1.73m2 (Non-) (test code = 8680592574) eGFR Calculation mL/min/1.73m2 () (test code = 9984804414) JAQUELIN (test code = JAQUELIN) Association of [...] tests). Lab Interpretation Abnormal (test code = 96929-2) [facility]neyN-TERMINAL [id number] 10:53:00 Test Item Value Reference Range Interpretation Comments NT-proBNP (test code 3750 pg/mL See_Comment H [Autom ated = 6917361531) message] The system which generated this result transmitted reference range : <=125. The reference range was not used to interpret this result as normal/abnormal . JAQUELIN (test code = JAQUELIN) Biotin has been reported to cause a negative bias, interpret results relative to patient's use of biotin. Lab Interpretation Abnormal (test code = 18489-7) [facility] McKinneyGlycosylated Hemoglobin (A1C)2020-05-21 10:46:00 Test Item Value Reference Range Interpretation Comments HGB A1C (test code = 9.8 % 4-6 H 4548-4) JAQUELIN (test code = JAQUELIN) %A1C (NGSP) Interpretation (ADA)4.8-5.6 ? ? Normal or (Non-Diabetic Range)5.7-6.4 ? ? Increased Risk (Pre-Diabetic)>6.5 ?Diabetes Indicated Lab Interpretation Abnormal (test code = 34540-6) [facility]neyMAGNESIUM2020-09-13 10:45:00 Test Item Value Reference Range Interpretation Comments MAGNESIUM (test code = 4279996005) 2.3 mg/dL 1.7-2.4 Lab Interpretation (test code = Normal 89687-8) [facility]neyPHOSPHORUS2020-09-13 10:45:00 Test Item Value Reference Range Interpretation Comments PHOSPHORUS (test code = 1911120527) 3.8 mg/dL 2.5-5 Lab Interpretation (test code = Normal 28209-1) [facility]neyPROTEIN CREAT RATIO URINE [id number] 09:00:00 Test Item Value Reference Range Interpretation Comments T. PROT U (test code = 123 mg/dL 2888-6) CREAT U (test code = 21.7 mg/dL 3563921318) Protein/Creatinine Ratio 0.0-2.0 H Urine (test code = 2988103312) JAQUELIN (test code = JAQUELIN) Random Urine Total Protein Reference Ranges Random Specimen: ? Less than 10 mg/dLFirst Morning Specimen: ? ?Less than 20 mg/dL ? Lab Interpretation (test Abnormal code = 38385-0) [facility] McKinneySODIUM, URINE [id number] 08:55:00 Test Item Value Reference Range Interpretation Comments NA URINE (test code = 4814974624) 105 mmol/L [facility] McKinneyTHYROID STIMULATING [id number] 08:35:00 Test Item Value Reference Range Interpretation Comments TSH (test code = See_Comment [Automated message] 9447248094) The system [employer] generated this result transmitted ref erence range: 0.45 - 4 .70 mIU/L. The refe rence range was not u sed to interpret this result as normal/abnor mal. Lab Interpretation (test Normal code = 73481-8) [facility] McKinneyPrepare Packed RBC (in units), 2 Units 2020-05-21 08:33:02 Test Item Value Reference Range Interpretation Comments Cross Match Result Compatible (test code = 4409) ISBT Blood Type Code (test code = 181062) Unit Blood Type (test A Pos code = 4410) Unit Number (test [id number] code = 4411) Blood Expiration Date & Time (test code = 764012) Status Information Issued (test code = 4412) Product Red Blood Cells Identification (test code = 4413) Product Code (test R9038V50 Performed at [facility] code = 4414) Laboratory Services - [facility] Blood [address] [place], [place] [address]Toll Free: [phone] A No. [id number] [facility] McKinneyURIC [id number] 08:15:00 Test Item Value Reference Range Interpretation Comments URIC ACID (test code = 0079013723) 10.4 mg/dL 2.9-6 H Lab Interpretation (test code = Abnormal 05788-2) [facility] McKinneyCREATINE [id number] 08:15:00 Test Item Value Reference Range Interpretation Comments CK (test code = 9100511382) 108 U/L 33-194 Lab Interpretation (test code = Normal 55340-4) [facility] McKinneyLipid Panel (Total Cholesterol, Triglycerides, HDL) - [id number] 08:05:00 Test Item Value Reference Range Interpretation Comments CHOL (test code = 101 mg/dL 120-200 L 2960122925) HDL (test code = 32 mg/dL >50 L 4726477335) HDLC RATIO (test code = See_Comment [Au tomated message] 4329168142) The system [employer] generated this result transmit benny reference range : <=4.5. The refe rence range was not u sed to interpret th is result as normal/abnormal . TRIG (test code = 277 mg/dL 30-170 H 5787511977) LDL CHOL (test code = 14 mg/dL See_Comment [Auto mated message] 20955-5) The system [employer] generated this result transmit benny reference range : <=160. The refe rence range was not u sed to interpret th is result as normal/abnormal . VLDL (test code = 55 mg/dL 5-60 2866545277) Lab Interpretation (test Abnormal code = 04413-2) [facility]neyPOCT GLUCOSE (AUTOMATED)2020-05-21 07:18:00 Test Item Value Reference Range Interpretation Comments POCT GLU (test code = 8544219369) 318 mg/dL 70-110 H Lab Interpretation (test code = Abnormal 80327-9) [facility] McKinneyChest 2 [id number] 05:14:57 Right lower lobe consolidation, atelectasis versus [...] The cardiomediastinal silhouette is enlarged, unchanged. Prior sternotomy. No acute osseous abnormality is present. [facility], Radiant Results Inft User - 05/21/2020 12:16 AM CDTXR CHEST 2 VWComparison: 07/22/2017History: SOB Technique: Frontal radiographFindings:Stable elevation of the right hemidiaphragm noted with right basilarconsolidation. Dense consol idation overlies in the lower thoracic spine inthe lateral projection. No pleural effusion, focal consolidation, orpneumothorax is identified. The cardiomediastinal silhouette is enlarged, unchanged. Prior sternotomy.No acute osseous abnormality is present.IMPRESSIONRight lower lobe consolidation, atel ectasis versus pneumonia.Stable cardiomegaly.Preliminary Report Dictated by Resident: Elvis Goldberg MD., have reviewed this study and agree with the abovereport.[facility] McKinneyType and Screen - ONCE [id number] 02:33:43 Test Item Value Reference Range Interpretation Comments ABO & RH (test AB Positive Performed at [facility] code = 20) Laboratory Serv [facility] [place], [place] [address]Toll Free: [phone] A No. [id number] IAT (test code = Negative Performed a t [facility] 1185) Laboratory Serv [facility] [address] [place], [place] [address]Toll Free: [phone] A No. [id number] [facility] McKinneyCOVID-19 (ID NOW RAPID TESTING)2020-05-21 02:15:00 Test Item Value Reference Range Interpretation Comments SARS-CoV-2 Rapid ID NOW Not Detected Not Detected (test code = 54434-8) JAQUELIN (test code = JAQUELIN) ID NOW COVID-19 Assay is an isothermal nucleic acid amplification test intended for the qualitative detection of nucleic acid from SARS-CoV-2 viral RNA in nasopharyngeal (GRAPE PRUNER) specimens. It is used under Emergency Use [...] indicated. Lab Interpretation Normal (test code = 42871-1) [facility] McKinneyTroponin [id number] 01:34:00 Test Item Value Reference Range Interpretation Comments TROPONIN I (test 0.020 ng/mL See_Comment [Automated code = 8085065691) message] The system which generated this result [...] ? Lab Interpretation Normal (test code = 61822-5) [facility] McKinneyUrinalysis2020-09-13 01:31:00 Test Item Value Reference Range Interpretation Comments APPEARANCE (test code = Hazy Clear A 4191236490) COLOR (test code = Yellow Yellow 9490643711) PH (test code = 4.8-8.0 6860058764) SP GRAVITY (test code = 1.003-1.030 9065363217) GLU U QUAL (test code = 500 mg/dL Normal A 8520430121) BLOOD (test code = 1+ Negative A 8563773175) KETONES (test code = Negative Negative 7617227525) PROTEIN (test code = 100 mg/dL Negative A 2887-8) UROBILIN (test code = Normal Normal 8207759692) BILIRUBIN (test code = Negative Negative 1215214904) NITRITE (test code = Negative Negative 9492903325) LEUK DEBBIE (test code = 500/uL Negative A 2979287257) RBC/HPF (test code = See_Comment H [Autom ated message] 0226871625) The system [employer] generated this result transmit benny reference range : 0 - 3 HPF. The refe rence range was not u sed to interpret th is result as normal/abnormal . WBC/HPF (test code = See_Comment H [Autom ated message] 3916618652) The system [employer] generated this result transmit benny reference range : 0 - 5 HPF. The refe rence range was not u sed to interpret th is result as normal/abnormal . BACTERIA (test code = Few Negative A 3686897185) MUCOUS (test code = Slight Negative LPF A 2810301264) SQ EPITH (test code = HPF 4613195690) Lab Interpretation (test Abnormal code = 22427-2) [facility] McKinneyN-TERMINAL [id number] 01:30:00 Test Item Value Reference Range Interpretation Comments NT-proBNP (test code 4010 pg/mL See_Comment H [Autom ated = 9539115142) message] The system which generated this result transmitted reference range : <=125. The reference range was not used to interpret this result as normal/abnormal . JAQUELIN (test code = JAQUELIN) Biotin has been reported to cause a negative bias, interpret results relative to patient's use of biotin. Lab Interpretation Abnormal (test code = 23285-6) [facility] Metabolic Panel (NA, K, CL, CO2, GLUCOSE, BUN, CREATININE, CA)2020-05-21 01:23:00 Test Item Value Reference Range Interpretation Comments NA (test code = 133 mmol/L 135-145 L 0422707588) K (test code = 4.7 mmol/L 3.5-5 2437915035) CL (test code = 98 mmol/L 98-108 8397704607) CO2 TOTAL (test code = 22 mmol/L 23-31 L 6854107318) AGAP (test code = 2-16 8311835516) BUN (test code = 39 mg/dL 7-23 H 2922245934) GLUCOSE (test code = 303 mg/dL 70-110 H 8485501872) CREATININE (test code = 1.96 mg/dL 0.5-1.04 H 0391212983) CALCIUM (test code = 9.0 mg/dL 8.6-10.6 7815319608) eGFR Calculation mL/min/1.73m2 (Non-) (test code = 6652001970) eGFR Calculation mL/min/1.73m2 () (test code = 0743407455) JAQUELIN (test code = JAQUELIN) Association of [...] tests). Lab Interpretation Abnormal (test code = 28288-7) [facility] (ALB, T.PRO, BILI T, BU/BC, ALT, AST, ALK PHOS)2020-05-21 01:23:00 Test Item Value Reference Range Interpretation Comments TOTAL BILI (test code = 7902351544) 0.3 mg/dL 0.1-1.1 BILI UNCON (test code = 5738643028) 0.5 mg/dL 0.1-1.1 BILI CONJ (test code = 2626854812) 0.0 mg/dL 0-0.3 T PROTEIN (test code = 9088645030) 6.2 g/dL 6.3-8.2 L ALBUMIN (test code = 8810539252) 3.4 g/dL 3.5-5 L ALK PHOS (test code = 6037881335) 90 U/L 34-122 ALTv (test code = 1742-6) 26 U/L 5-35 AST(SGOT) (test code = 8921537267) 26 U/L 13-40 Lab Interpretation (test code = Abnormal 75937-2) [facility] with Klpyechrugax9068-71-11 01:09:00 Test Item Value Reference Range Interpretation Comments WBC (test code = See_Comment [Automated 2690-2) message] The sy stem which generated this [...] RDW-SD (test code = 42.9 fL 39-49.9 21983-0) RDW-CV (test code = 14.5 % 12-15.5 788-0) PLT (test code = See_Comment [Automated 777-3) message] The sy stem which generated this result transmitted reference range : 166 - 358 10*3/ ?L. The reference r michael was not used to interpret this result as normal/abnormal . MPV (test code = 12.3 fL 9.5-12.9 44078-9) NRBC/100 WBC (test See_Comment [Automat ed code = 8743688653) message] The system which generated this result transmitted reference range : 0.0 - 10.0 /100 WBCs. The refer ence range was not u sed to interpret th is result as normal/abnormal . NRBC x10^3 (test code See_Comment [Auto mated = 8069449169) message] The s ystem which generated this result transmitted reference range : 10*3/?L. The reference range was not used to interpret this result as normal/abnormal . GRAN MAT (NEUT) % 71.5 % (test code = 770-8) IMM GRAN % (test code 0.30 % = 3286263049) LYMPH % (test code = 20.2 % 736-9) MONO % (test code = 6.2 % 5905-5) EOS % (test code = 1.5 % 713-8) BASO % (test code = 0.3 % 706-2) GRAN MAT x10^3(ANC) 4.82 10*3/uL 1.88-7.09 (test code = 1429310383) IMM GRAN x10^3 (test <0.03 0-0.06 code = 7767833592) LYMPH x10^3 (test code 1.36 10*3/uL 1.32-3.29 = 731-0) MONO x10^3 (test code 0.42 10*3/uL 0.33-0.92 = 742-7) EOS x10^3 (test code = 0.10 10*3/uL 0.03-0.39 711-2) BASO x10^3 (test code <0.03 0.01-0.07 = 704-7) Lab Interpretation Abnormal (test code = 25529-3) [facility]ARD[facility] UHPDTKZ7929-00-36 09:16:00 Test Item Value Reference Range Interpretation Comments CK MB (test code = CK MB) 0.5 0.5-3.[address] [facility] HospitalClique Intelligence HBWSPTE3749-00-64 09:16:00 Test Item Value Reference Range Interpretation Comments Troponin-I (test code 0.08 See_Comment [Auto mated message] The = Troponin-I) system which g enerated this result transmit benny reference range : <=0.40. The reference r michael was not used to interpr et this result as shahid l/abnormal. [facility] Test Item Value Reference Range Interpretation Comments Total CK (test code = Total CK) 34 12-191 [facility] 09:16:00 Test Item Value Reference Range Interpretation Comments CK MB Index (test 1.5 See_Comment [Automate d message] The code = CK MB Index) system w [facility] generated this result transmit benny reference range : <=2.5. The reference range was not used to interpr et this result as shahid l/abnormal. [facility] UIVCF7766-10-20 09:16:00 Test Item Value Reference Range Interpretation Comments Magnesium Lvl (test code = Magnesium 2.2 1.8-2.4 Lvl) [facility] ZRJLZ0670-71-96 09:16:00 Test Item Value Reference Range Interpretation Comments Phosphorus (test code = Phosphorus) 4.7 2.5-4.5 [facility] CenterAazcodjWHZJFPKMSMTR4015-30-22 09:16:00 Test Item Value Reference Range Interpretation Comments AGAP (test code = AGAP) 13.8 10.0-20.0 [facility] CenterAyjdhdfECDKVFCTBDJT4195-46-21 09:16:00 Test Item Value Reference Range Interpretation Comments Sodium Lvl (test code = Sodium Lvl) 141 135-145 [facility] CenterKvajzoqYPDLSMRYORJE8083-20-49 09:16:00 Test Item Value Reference Range Interpretation Comments Glucose Lvl (test code = Glucose Lvl) 96 70-99 [facility] CenterTidkgwwFIZFCBLJYRNB6180-36-73 09:16:00 Test Item Value Reference Range Interpretation Comments eGFR (test code = eGFR) 95 [facility] CenterIryqclnCZZNNYESJLPX8987-03-27 09:16:00 Test Item Value Reference Range Interpretation Comments BUN (test code = BUN) 22 7-22 [facility] CenterAldvacvGXVANFHFWZGT9658-67-76 09:16:00 Test Item Value Reference Range Interpretation Comments Creatinine Lvl (test code = Creatinine 0.76 0.50-1.40 Lvl) [facility] CenterLzgpweeMQGOESSPXBXL9513-41-45 09:16:00 Test Item Value Reference Range Interpretation Comments CO2 (test code = CO2) 26 24-32 [facility] CenterDqmbazfGLFMSXLRIGVF7246-70-30 09:16:00 Test Item Value Reference Range Interpretation Comments Calcium Lvl (test code = Calcium Lvl) 9.4 8.5-10.5 [facility] CenterCtdxvknCRSAOHHPZMCV2431-07-63 09:16:00 Test Item Value Reference Range Interpretation Comments Potassium Lvl (test code = Potassium 3.8 3.5-5.1 Lvl) [facility] CenterPjfjiwmNOPZZNETAGRI6961-95-47 09:16:00 Test Item Value Reference Range Interpretation Comments Chloride Lvl (test code = Chloride Lvl) 105 95-109 [facility] TempleUqyrhfxMYBRBUHWRL7972-28-67 09:16:00 Test Item Value Reference Range Interpretation Comments Monocytes # (test code 0.5 See_Comment [Aut omated message] The = Monocytes #) system which generated this result tra nsmitted reference range : <=0.8. The reference r michael was not used to int erpret this result as normal/abnormal . [facility] TempleSoflvokJHHBZOCXGY2715-12-32 09:16:00 Test Item Value Reference Range Interpretation Comments Eosinophils # (test code 0.9 See_Comment [A utomated message] The = Eosinophils #) system whic h generated this result tra nsmitted reference range : <=0.5. The reference r michael was not used to int erpret this result as normal/abnormal . [facility] TempleKlokfnsEWXGNYACUO8399-78-17 09:16:00 Test Item Value Reference Range Interpretation Comments Monocytes (test code = Monocytes) 6.9 2.0-12.0 [facility] TempleNkgqndsXVNFGIBTWI6658-76-60 09:16:00 Test Item Value Reference Range Interpretation Comments Lymphocytes (test code = Lymphocytes) 32.5 20.0-40.0 [facility] TempleDpdwjluMRAAROACNA4302-82-86 09:16:00 Test Item Value Reference Range Interpretation Comments Basophils (test code = 0.6 See_Comment [Aut omated message] The Basophils) system which ge nerated this result tra nsmitted reference range : <=1.0. The reference r michael was not used to int erpret this result as normal/abnormal . [facility] TempleZwvkxzkIWICJDTICZ4438-22-96 09:16:00 Test Item Value Reference Range Interpretation Comments Eosinophils (test code = 13.9 See_Comment [A utomated message] The Eosinophils) system which ge nerated this result tra nsmitted reference range : <=4.0. The reference r michael was not used to int erpret this result as normal/abnormal . [facility] TempleTubfyltTWATGKZGRC0416-83-35 09:16:00 Test Item Value Reference Range Interpretation Comments Segs-Bands # (test code = Segs-Bands #) 3.2 1.5-8.1 [facility] TemplePgzbrthYGPLREIILV1539-18-40 09:16:00 Test Item Value Reference Range Interpretation Comments Lymphocytes # (test code = Lymphocytes 2.2 1.0-5.5 #) [facility] TempleNjsdcqjSGTIOKAEAE0590-87-29 09:16:00 Test Item Value Reference Range Interpretation Comments Segs (test code = Segs) 46.1 45.0-75.0 [facility] TempleMmtaqpgJTRAUKHCAT9377-74-13 09:16:00 Test Item Value Reference Range Interpretation Comments Hgb (test code = Hgb) 11.7 12.0-16.0 [place] 829757-11-15 09:16:00 Test Item Value Reference Range Interpretation Comments Hct (test code = Hct) 35.0 36.0-48.0 [facility] TempleLfwanmqKVBVEHRIZG9426-64-81 09:16:00 Test Item Value Reference Range Interpretation Comments RBC (test code = RBC) 4.15 4.20-5.40 [facility] TempleJsqnpzcCTTOYDFOQI8009-25-63 09:16:00 Test Item Value Reference Range Interpretation Comments MCV (test code = MCV) 84.3 80.0-98.0 [facility] TempleJgdnlztLRDKVDLGDK4186-39-84 09:16:00 Test Item Value Reference Range Interpretation Comments MCH (test code = MCH) 28.1 pg 27.0-31.0 [facility] TempleFovxmavRGYDZETWMV1636-05-39 09:16:00 Test Item Value Reference Range Interpretation Comments MCHC (test code = MCHC) 33.4 32.0-36.0 [facility] TempleQsuepxgBHGFHTVBLF8775-70-24 09:16:00 Test Item Value Reference Range Interpretation Comments RDW (test code = RDW) 15.0 11.5-14.5 [facility] TempleHotsevwIEVGZCIQPW5511-21-70 09:16:00 Test Item Value Reference Range Interpretation Comments Platelet (test code = Platelet) 274 133-450 [facility] TempleKdfiaujHRXJGBEFYN1829-18-27 09:16:00 Test Item Value Reference Range Interpretation Comments WBC (test code = WBC) 6.8 3.7-10.4 [facility] TempleBszdgrxPKESCDOIJY4441-11-40 09:16:00 Test Item Value Reference Range Interpretation Comments MPV (test code = MPV) 8.7 7.4-10.4 [facility]2017-10-09 05:04:00 Test Item Value Reference Range Interpretation Comments eGFR (test code = eGFR) 60 [facility]2017-10-09 05:04:00 Test Item Value Reference Range Interpretation Comments Calcium Lvl (test code = Calcium Lvl) 8.5 8.5-10.5 [facility]2017-10-09 05:04:00 Test Item Value Reference Range Interpretation Comments AGAP (test code = AGAP) 12.1 10.0-20.0 [facility]2017-10-09 05:04:00 Test Item Value Reference Range Interpretation Comments CO2 (test code = CO2) 32 24-32 [facility]2017-10-09 05:04:00 Test Item Value Reference Range Interpretation Comments Chloride Lvl (test code = Chloride Lvl) 97 95-109 [facility]2017-10-09 05:04:00 Test Item Value Reference Range Interpretation Comments Potassium Lvl (test code = Potassium 4.1 3.5-5.1 Lvl) [facility]2017-10-09 05:04:00 Test Item Value Reference Range Interpretation Comments Sodium Lvl (test code = Sodium Lvl) 137 135-145 [facility]2017-10-09 05:04:00 Test Item Value Reference Range Interpretation Comments Creatinine Lvl (test code = Creatinine 1.13 0.50-1.40 Lvl) [facility]2017-10-09 05:04:00 Test Item Value Reference Range Interpretation Comments Glucose Lvl (test code = Glucose Lvl) 301 70-99 [facility]2017-10-09 05:04:00 Test Item Value Reference Range Interpretation Comments BUN (test code = BUN) 22 7-22 [facility]2017-10-09 05:04:00 Test Item Value Reference Range Interpretation Comments Phosphorus (test code = Phosphorus) 2.9 2.5-4.5 [facility] TempleRhrtxngONVARUQEYN4441-68-29 05:04:00 Test Item Value Reference Range Interpretation Comments Eosinophils # (test code 0.2 See_Comment [A utomated message] The = Eosinophils #) system whic h generated this result tra nsmitted reference range : <=0.5. The reference r michael was not used to int erpret this result as normal/abnormal . [facility] TempleDwmclnyKABEDVHSWS8948-42-44 05:04:00 Test Item Value Reference Range Interpretation Comments Monocytes # (test code 0.4 See_Comment [Aut omated message] The = Monocytes #) system which generated this result tra nsmitted reference range : <=0.8. The reference r michael was not used to int erpret this result as normal/abnormal . [facility] TempleUotmyirNKILGMSIHA1269-99-26 05:04:00 Test Item Value Reference Range Interpretation Comments Segs (test code = Segs) 67.3 45.0-75.0 [facility] TempleCjakbpxXKVBONJDDS2336-99-93 05:04:00 Test Item Value Reference Range Interpretation Comments Eosinophils (test code = 2.9 See_Comment [A utomated message] The Eosinophils) system which ge nerated this result tra nsmitted reference range : <=4.0. The reference r michael was not used to int erpret this result as normal/abnormal . [facility] TempleOszjcosWZOGAURJPM2017-62-79 05:04:00 Test Item Value Reference Range Interpretation Comments Segs-Bands # (test code = Segs-Bands #) 3.6 1.5-8.1 [facility] TempleVpxobceABNHYGQPQF1613-18-23 05:04:00 Test Item Value Reference Range Interpretation Comments Lymphocytes # (test code = Lymphocytes 1.2 1.0-5.5 #) [facility] TempleGtpxzjiXLGKLRFPOT5188-53-56 05:04:00 Test Item Value Reference Range Interpretation Comments Basophils (test code = 0.7 See_Comment [Aut omated message] The Basophils) system which ge nerated this result tra nsmitted reference range : <=1.0. The reference r michael was not used to int erpret this result as normal/abnormal . [facility] TempleCooxhppADDUBSJITR7705-12-16 05:04:00 Test Item Value Reference Range Interpretation Comments Lymphocytes (test code = Lymphocytes) 21.5 20.0-40.0 [facility] TempleNogqvqdQGEQPIDKCL4850-29-01 05:04:00 Test Item Value Reference Range Interpretation Comments Monocytes (test code = Monocytes) 7.6 2.0-12.0 [facility] TempleZjafjggZMCRCSHZJE6091-86-50 05:04:00 Test Item Value Reference Range Interpretation Comments Platelet (test code = Platelet) 228 133-450 [facility] TempleYvhbqszHNMWQETJLF7620-61-68 05:04:00 Test Item Value Reference Range Interpretation Comments MPV (test code = MPV) 8.5 7.4-10.4 [facility] TempleIgqlqwrANSFTDZQZQ2580-74-29 05:04:00 Test Item Value Reference Range Interpretation Comments RDW (test code = RDW) 13.7 11.5-14.5 [facility] TempleImsbnqoREUTYBMUVB7871-09-05 05:04:00 Test Item Value Reference Range Interpretation Comments MCHC (test code = MCHC) 34.6 32.0-36.0 [facility] TempleYnpvawxWDJCMROBNF3591-52-79 05:04:00 Test Item Value Reference Range Interpretation Comments WBC (test code = WBC) 5.4 3.7-10.4 [facility] TempleHtedfnqVWTSZQZUNF5090-15-87 05:04:00 Test Item Value Reference Range Interpretation Comments RBC (test code = RBC) 2.94 4.20-5.40 [facility] TempleXugffsdNQWZFWOOMF3155-15-45 05:04:00 Test Item Value Reference Range Interpretation Comments Hgb (test code = Hgb) 8.8 12.0-16.0 [facility] TempleSelyqwaAJBLAIBLMJ5491-64-70 05:04:00 Test Item Value Reference Range Interpretation Comments Hct (test code = Hct) 25.4 36.0-48.0 [facility] TempleMrodguqNNBFYMVIRI2883-61-67 05:04:00 Test Item Value Reference Range Interpretation Comments MCH (test code = MCH) 29.9 pg 27.0-31.0 [facility] TempleZgcwdhfDUHPUSCNBH7027-47-69 05:04:00 Test Item Value Reference Range Interpretation Comments MCV (test code = MCV) 86.4 80.0-98.0 [facility]2017-10-08 09:59:00 Test Item Value Reference Range Interpretation Comments Phosphorus (test code = Phosphorus) 3.5 2.5-4.5 [facility] CenterGjeyjtiWJZXEUJHNDLX8471-72-63 09:59:00 Test Item Value Reference Range Interpretation Comments AGAP (test code = AGAP) 10.3 10.0-20.0 [facility] CenterRqetbqhMRDRRWPUEUNM1069-10-74 09:59:00 Test Item Value Reference Range Interpretation Comments eGFR (test code = eGFR) 64 [facility] CenterXcjicwsHCZWGOPUXNPS5116-55-71 09:59:00 Test Item Value Reference Range Interpretation Comments Calcium Lvl (test code = Calcium Lvl) 8.7 8.5-10.5 [facility] CenterFqtxiplDHTXVEZWYSCH6773-04-30 09:59:00 Test Item Value Reference Range Interpretation Comments CO2 (test code = CO2) 34 24-32 [facility] CenterZqpuwxjUZKNIQYHUJST1235-98-75 09:59:00 Test Item Value Reference Range Interpretation Comments Sodium Lvl (test code = Sodium Lvl) 135 135-145 [facility] CenterQlsahbyXKJTIYVDIZJG7551-49-58 09:59:00 Test Item Value Reference Range Interpretation Comments Creatinine Lvl (test code = Creatinine 1.06 0.50-1.40 Lvl) [facility] CenterQghofpnRQQFSHTLYDYV2364-67-67 09:59:00 Test Item Value Reference Range Interpretation Comments Chloride Lvl (test code = Chloride Lvl) 95 95-109 [facility] CenterYncdfmnNZHLVKTESZXB0879-40-42 09:59:00 Test Item Value Reference Range Interpretation Comments Potassium Lvl (test code = Potassium 4.3 3.5-5.1 Lvl) [facility] CenterFgueggqPOXTKBIOHVSE0746-03-40 09:59:00 Test Item Value Reference Range Interpretation Comments BUN (test code = BUN) 18 7-22 [facility] CenterDylrwclQIXKNERSKQBE0806-68-21 09:59:00 Test Item Value Reference Range Interpretation Comments Glucose Lvl (test code = Glucose Lvl) 172 70-99 [facility] TempleFzkpcreGYJKYGYFYF0115-60-30 09:59:00 Test Item Value Reference Range Interpretation Comments MPV (test code = MPV) 8.3 7.4-10.4 [facility] TempleAganspnJAVEEDVQQU0802-40-60 09:59:00 Test Item Value Reference Range Interpretation Comments Platelet (test code = Platelet) 266 133-450 [facility] TempleShopzvuUYOLKIGHCV2510-31-66 09:59:00 Test Item Value Reference Range Interpretation Comments MCHC (test code = MCHC) 33.1 32.0-36.0 [facility] TempleAlwrmtjOJDTGDBMTW5934-21-39 09:59:00 Test Item Value Reference Range Interpretation Comments RDW (test code = RDW) 13.9 11.5-14.5 [facility] TempleAcfngrjQKKALFPXRW3409-92-39 09:59:00 Test Item Value Reference Range Interpretation Comments Hgb (test code = Hgb) 8.5 12.0-16.0 [facility] TempleXqkqpmrENYGGFIMZQ6922-82-70 09:59:00 Test Item Value Reference Range Interpretation Comments RBC (test code = RBC) 2.93 4.20-5.40 [facility] TempleAgdozcuSBTYQWAGZQ7843-43-27 09:59:00 Test Item Value Reference Range Interpretation Comments MCH (test code = MCH) 29.2 pg 27.0-31.0 [facility] TempleLkroeymSINRHAHULZ5203-24-05 09:59:00 Test Item Value Reference Range Interpretation Comments WBC (test code = WBC) 6.7 3.7-10.4 [facility] TempleHncdouwASIPJAGKDV4511-47-43 09:59:00 Test Item Value Reference Range Interpretation Comments MCV (test code = MCV) 88.3 80.0-98.0 [facility] TempleIywwsbtBLXHIGDCJM3824-90-57 09:59:00 Test Item Value Reference Range Interpretation Comments Hct (test code = Hct) 25.8 36.0-48.0 [facility] TempleIybphipQTUSSWMYEE9190-72-36 09:59:00 Test Item Value Reference Range Interpretation Comments Eosinophils (test code = 3.6 See_Comment [A utomated message] The Eosinophils) system which ge nerated this result tra nsmitted reference range : <=4.0. The reference r michael was not used to int erpret this result as normal/abnormal . [facility] TempleTlozypvYUNYJHBTQM0149-70-00 09:59:00 Test Item Value Reference Range Interpretation Comments Basophils (test code = 0.3 See_Comment [Aut omated message] The Basophils) system which ge nerated this result tra nsmitted reference range : <=1.0. The reference r michael was not used to int erpret this result as normal/abnormal . [facility] TempleYbdraebXRXBZFWFTU1921-04-35 09:59:00 Test Item Value Reference Range Interpretation Comments Lymphocytes (test code = Lymphocytes) 21.1 20.0-40.0 [facility] TempleOqhdlgnSXXSJQDDGI6357-34-64 09:59:00 Test Item Value Reference Range Interpretation Comments Monocytes (test code = Monocytes) 6.1 2.0-12.0 [facility] TempleEgdjzkzIOJVUBNAHP9931-37-55 09:59:00 Test Item Value Reference Range Interpretation Comments Segs (test code = Segs) 68.9 45.0-75.0 [facility] TempleRbdfozkUNKJYCMYBV7542-09-85 09:59:00 Test Item Value Reference Range Interpretation Comments Eosinophils # (test code 0.2 See_Comment [A utomated message] The = Eosinophils #) system whic h generated this result tra nsmitted reference range : <=0.5. The reference r michael was not used to int erpret this result as normal/abnormal . [facility] TempleApnoyauBIHKBUMITF5719-97-51 09:59:00 Test Item Value Reference Range Interpretation Comments Monocytes # (test code 0.4 See_Comment [Aut omated message] The = Monocytes #) system which generated this result tra nsmitted reference range : <=0.8. The reference r michael was not used to int erpret this result as normal/abnormal . [facility] TemplePepwecyBWZWZRZKYY4467-23-11 09:59:00 Test Item Value Reference Range Interpretation Comments Lymphocytes # (test code = Lymphocytes 1.4 1.0-5.5 #) [facility] TempleWtjvombDDFUVOCOFH5448-04-42 09:59:00 Test Item Value Reference Range Interpretation Comments Segs-Bands # (test code = Segs-Bands #) 4.6 1.5-8.1 [facility]2017-10-07 09:02:00 Test Item Value Reference Range Interpretation Comments Phosphorus (test code = Phosphorus) 3.3 2.5-4.5 [facility] CenterIzbacdjWUWKUDQXTWRQ2869-82-25 09:02:00 Test Item Value Reference Range Interpretation Comments CO2 (test code = CO2) 32 24-32 [facility] CenterHfcdaowEZKCFLTUWEHQ0834-60-54 09:02:00 Test Item Value Reference Range Interpretation Comments Chloride Lvl (test code = Chloride Lvl) 97 95-109 [facility] CenterNkemptnOTMUYLUVAQML2794-05-12 09:02:00 Test Item Value Reference Range Interpretation Comments Potassium Lvl (test code = Potassium 4.2 3.5-5.1 Lvl) [facility] CenterOogzhlcYGYVNFWWHFSK9334-33-34 09:02:00 Test Item Value Reference Range Interpretation Comments Calcium Lvl (test code = Calcium Lvl) 8.1 8.5-10.5 [facility] CenterMpuurntZMSVAHEBTHBM8455-99-09 09:02:00 Test Item Value Reference Range Interpretation Comments Sodium Lvl (test code = Sodium Lvl) 136 135-145 [facility] CenterAtdwknrXBNVLLTDTYGF9907-78-20 09:02:00 Test Item Value Reference Range Interpretation Comments Creatinine Lvl (test code = Creatinine 0.96 0.50-1.40 Lvl) [facility] CenterZijrljtBBHZHTVNKCNB0255-40-08 09:02:00 Test Item Value Reference Range Interpretation Comments Glucose Lvl (test code = Glucose Lvl) 296 70-99 [facility] CenterZovedgqIZJOJDBUWINB0653-94-07 09:02:00 Test Item Value Reference Range Interpretation Comments AGAP (test code = AGAP) 11.2 10.0-20.0 [facility] CenterInpotxtPVRLEWFIJLQT8917-42-95 09:02:00 Test Item Value Reference Range Interpretation Comments BUN (test code = BUN) 19 7-22 [facility]YgkqtgkZRNAEWTQNZMC8309-73-47 09:02:00 Test Item Value Reference Range Interpretation Comments eGFR (test code = eGFR) 72 [facility] TempleRnnpksjARTKHCXSHA8093-71-56 09:02:00 Test Item Value Reference Range Interpretation Comments Eosinophils # (test code 0.2 See_Comment [A utomated message] The = Eosinophils #) system whic h generated this result tra nsmitted reference range : <=0.5. The reference r michael was not used to int erpret this result as normal/abnormal . [facility] TempleEipgdgdBJFCWVFORM2749-46-33 09:02:00 Test Item Value Reference Range Interpretation Comments Eosinophils (test code = 3.3 See_Comment [A utomated message] The Eosinophils) system which ge nerated this result tra nsmitted reference range : <=4.0. The reference r michael was not used to int erpret this result as normal/abnormal . [facility] TempleSdlthiwZBFJCGMDUL9748-47-40 09:02:00 Test Item Value Reference Range Interpretation Comments Segs (test code = Segs) 64.2 45.0-75.0 [facility] TempleCckpclrKRMHOTHMLY7649-31-65 09:02:00 Test Item Value Reference Range Interpretation Comments Monocytes (test code = Monocytes) 8.6 2.0-12.0 [facility] TempleBzbzcrhGEFMWAEIOQ8163-64-31 09:02:00 Test Item Value Reference Range Interpretation Comments Lymphocytes (test code = Lymphocytes) 23.5 20.0-40.0 [facility] TempleRlaazkwUSYFGRUCKD1467-33-96 09:02:00 Test Item Value Reference Range Interpretation Comments Basophils (test code = 0.4 See_Comment [Aut omated message] The Basophils) system which ge nerated this result tra nsmitted reference range : <=1.0. The reference r michael was not used to int erpret this result as normal/abnormal . [facility] TempleWcgaboqFDIFPVKUPL0495-15-84 09:02:00 Test Item Value Reference Range Interpretation Comments Monocytes # (test code 0.5 See_Comment [Aut omated message] The = Monocytes #) system which generated this result tra nsmitted reference range : <=0.8. The reference r michael was not used to int erpret this result as normal/abnormal . [facility] TempleRmohlpbXTFZQAVPNE6990-46-53 09:02:00 Test Item Value Reference Range Interpretation Comments Lymphocytes # (test code = Lymphocytes 1.2 1.0-5.5 #) [facility] TempleDzgyawfOACIRLLVOL9432-36-45 09:02:00 Test Item Value Reference Range Interpretation Comments Segs-Bands # (test code = Segs-Bands #) 3.4 1.5-8.1 [facility] TempleXhadutbMUDLTRLFOI3504-70-79 09:02:00 Test Item Value Reference Range Interpretation Comments MCV (test code = MCV) 86.5 80.0-98.0 [facility] TempleFggipuqAHMFFMUCBS4801-68-70 09:02:00 Test Item Value Reference Range Interpretation Comments RDW (test code = RDW) 13.8 11.5-14.5 [facility] TempleDraarxmKLRRLKHUVL8337-94-08 09:02:00 Test Item Value Reference Range Interpretation Comments MCHC (test code = MCHC) 35.1 32.0-36.0 [facility] TempleMprvcmqMLKDYRUVGC0910-67-67 09:02:00 Test Item Value Reference Range Interpretation Comments MCH (test code = MCH) 30.3 pg 27.0-31.0 [facility] TempleYydszmjOZFXHBFDSK3147-71-57 09:02:00 Test Item Value Reference Range Interpretation Comments Hct (test code = Hct) 23.9 36.0-48.0 [facility] TempleGhupopcEVKZZKDVHO2505-10-57 09:02:00 Test Item Value Reference Range Interpretation Comments MPV (test code = MPV) 8.3 7.4-10.4 [facility] TempleDrquhcvQSXCOHJURS0654-81-48 09:02:00 Test Item Value Reference Range Interpretation Comments Platelet (test code = Platelet) 233 133-450 [facility] TempleFjxsvknIBHWMDIMRK9876-87-27 09:02:00 Test Item Value Reference Range Interpretation Comments Hgb (test code = Hgb) 8.4 12.0-16.0 [facility] TempleOrygsrwQBFJASJNSD4763-11-41 09:02:00 Test Item Value Reference Range Interpretation Comments RBC (test code = RBC) 2.76 4.20-5.40 [facility] TempleRyqjhqqPFGJZNIZGO9477-16-86 09:02:00 Test Item Value Reference Range Interpretation Comments WBC (test code = WBC) 5.3 3.7-10.4 [facility] TempleSghukroDPOMAUIAKY8826-96-09 22:14:00 Test Item Value Reference Range Interpretation Comments Sed Rate (test code = 77 See_Comment [Auto mated message] The Sed Rate) system which ge nerated this result transmit benny reference range : <=20. The reference range was not used to interpr et this result as shahid l/abnormal. [facility] HospitalGvagagcJLELADHSIU1438-48-76 22:14:00 Test Item Value Reference Range Interpretation Comments C-REACTIVE PROTEIN (test code = 22.0 C-REACTIVE PROTEIN) [facility] [id number] 11:18:00 Test Item Value Reference Range Interpretation Comments RBC product (test code Product available = RBC product) (06/13/17 6:18 AM) [facility] HospitalRefer.com [id number] 09:59:00 Test Item Value Reference Range Interpretation Comments Magnesium Lvl (test code = Magnesium 2.3 1.8-2.4 Lvl) [facility] TempleOpxdpjsGFVGXMAYLD0128-03-34 09:59:00 Test Item Value Reference Range Interpretation Comments PTT (test code = PTT) 36.3 s 22.9-35.8 [facility] TempleOttcgisIPWESPQOVB9741-50-50 09:59:00 Test Item Value Reference Range Interpretation Comments PT (test code = PT) 16.3 s 12.0-14.7 [facility] TempleTyupfrtEYTIPTSZCH1862-70-16 09:59:00 Test Item Value Reference Range Interpretation Comments INR (test code = INR) 1.29 0.85-1.[address] [facility] HospitalCHEM [id number] 08:17:00 Test Item Value Reference Range Interpretation Comments Magnesium Lvl (test code = Magnesium 2.3 1.8-2.4 Lvl) [facility] TempleZyfawrpBFFHPEDSMO0514-51-60 08:17:00 Test Item Value Reference Range Interpretation Comments PT (test code = PT) 15.9 s 12.0-14.7 [facility] TempleWjvliqwAGDTXUPWES9342-08-42 08:17:00 Test Item Value Reference Range Interpretation Comments INR (test code = INR) 1.24 0.85-1.17 [facility] TempleOchgjimCTFLDKZIVA3275-82-44 08:17:00 Test Item Value Reference Range Interpretation Comments PTT (test code = PTT) 31.9 s 22.9-35.[address] [facility] HospitalPARATHYROID UKVTMPX8525-30-85 08:17:00 Test Item Value Reference Range Interpretation Comments Ca Ion WB (test code = Ca Ion WB) 1.13 1.05-1.25 [facility]2017-10-05 08:17:00 Test Item Value Reference Range Interpretation Comments Ca Norm WB (test code = Ca Norm WB) 1.13 1.05-1.25 [facility] EGRFHKQ7878-62-98 08:30:00 Test Item Value Reference Range Interpretation Comments Antibody Scrn (test Negative (06/11/17 3:30 code = Antibody Scrn) AM) [facility] [id number] 08:30:00 Test Item Value Reference Range Interpretation Comments ABO/Rh (test code = ABO/Rh) AB POS [facility] HospitalCHEM [id number] 08:30:00 Test Item Value Reference Range Interpretation Comments Magnesium Lvl (test code = Magnesium 2.4 1.8-2.4 Lvl) [facility]RofztzpZHSGARIEOA5441-84-29 08:30:00 Test Item Value Reference Range Interpretation Comments INR (test code = INR) 1.24 0.85-1.17 [facility] TemplePnoqtfyGIQSIVRYDX4014-73-30 08:30:00 Test Item Value Reference Range Interpretation Comments PT (test code = PT) 15.9 s 12.0-14.7 [facility] TempleHcbolrkVNGBQJTXFI6532-61-21 08:30:00 Test Item Value Reference Range Interpretation Comments PTT (test code = PTT) 35.2 s 22.9-35.8 [facility]2017-10-04 08:30:00 Test Item Value Reference Range Interpretation Comments Ca Norm WB (test code = Ca Norm WB) 1.10 1.05-1.25 [facility]2017-10-04 08:30:00 Test Item Value Reference Range Interpretation Comments Ca Ion WB (test code = Ca Ion WB) 1.10 1.05-1.25 [facility] [id number] 16:02:00 Test Item Value Reference Range Interpretation Comments Influenza A PCR (test Negative (06/10/17 code = Influenza A PCR) 11:02 AM) [facility] [id number] 16:02:00 Test Item Value Reference Range Interpretation Comments Source Respiratory Panel Bronch Tesfaye. Lavage PCR (test code = Source (06/10/17 11:02 AM) Respiratory Panel PCR) [facility] CenterKuaidi DacheASC[facility] [id number] 16:02:00 Test Item Value Reference Range Interpretation Comments Influenza B PCR (test Negative (06/10/17 code = Influenza B PCR) 11:02 AM) [facility] CenterKuaidi [facility]acheASC[facility] [id number] 16:02:00 Test Item Value Reference Range Interpretation Comments RSV PCR (test code = Negative (06/10/17 11:02 RSV PCR) AM) [facility] CenterKuaidi DacheCOLUMBIA BASIN HOSPITALROID [id number] 08:00:00 Test Item Value Reference Range Interpretation Comments Ca Ion WB (test code = Ca Ion WB) 0.98 1.05-1.25 [facility] CenterEventoCU[facility] UCZLWWL1584-68-36 08:00:00 Test Item Value Reference Range Interpretation Comments Ca Norm WB (test code = Ca Norm WB) 1.02 1.05-1.25 [facility] [employer] [id number] 09:30:00 Test Item Value Reference Range Interpretation Comments RBC product (test code Product available = RBC product) (06/08/17 4:30 AM) [facility] CenterTawkers [id number] 02:01:00 Test Item Value Reference Range Interpretation Comments ABO/Rh (test code = ABO/Rh) AB POS [facility] [employer] [id number] 02:01:00 Test Item Value Reference Range Interpretation Comments Antibody Scrn (test Negative (06/06/17 9:01 code = Antibody Scrn) PM) [facility] CenterKuaidi DacheCHEM [id number] 20:27:00 Test Item Value Reference Range Interpretation Comments Lactic Acid Lvl (test code = Lactic 1.4 0.5-2.2 Acid Lvl) [facility] CenterKuaidi DacheSPECIAL [id number] 23:30:00 Test Item Value Reference Range Interpretation Comments Hgb A1C (test code = Hgb A1C) 11.7 [facility] CenterKuaidi DacheBACTERIAL - [id number] 19:30:00 Test Item Value Reference Range Interpretation Comments MRSA by PCR (test Negative (06/05/17 2:30 code = MRSA by PCR) PM) [facility] CenterKuaidi DacheCHEM [id number] 19:30:00 Test Item Value Reference Range Interpretation Comments ALT (test code = ALT) 27 See_Comment [Auto mated message] The system which ge nerated this result transmit benny reference range : <=65. The reference range was not used to interpr et this result as shahid l/abnormal. [facility]2017-09-28 19:30:00 Test Item Value Reference Range Interpretation Comments Alk Phos (test code = Alk Phos) 30 39-136 [facility] CenterKuaidi DacheCRITICAL ACCESS HOSPITALZSHNV5600-22-18 19:30:00 Test Item Value Reference Range Interpretation Comments Albumin Lvl (test code = Albumin Lvl) 2.1 3.5-5.0 [facility] CenterKuaidi DacheCRITICAL ACCESS [id number] 19:30:00 Test Item Value Reference Range Interpretation Comments Total Protein (test code = Total 4.3 6.4-8.4 Protein) [facility]2017-09-28 19:30:00 Test Item Value Reference Range Interpretation Comments AST (test code = AST) 38 See_Comment [Auto mated message] The system which ge nerated this result transmit benny reference range : <=37. The reference range was not used to interpr et this result as shahid l/abnormal. [facility]2017-09-28 19:30:00 Test Item Value Reference Range Interpretation Comments Bili Total (test code = Bili Total) 0.4 0.2-1.3 [facility]2017-09-28 19:30:00 Test Item Value Reference Range Interpretation Comments Globulin (test code = Globulin) 2.2 2.7-4.2 [facility]2017-09-28 19:30:00 Test Item Value Reference Range Interpretation Comments A/G Ratio (test code = A/G Ratio) 1.0 0.7-1.6 [facility]2017-09-28 19:30:00 Test Item Value Reference Range Interpretation Comments B/C Ratio (test code = B/C Ratio) 29 6-25 [facility]HzaojhoTFKYRX0366-22-30 19:30:00 Test Item Value Reference Range Interpretation Comments VLDL (test code = VLDL) 38 [facility] HospitalNbkodgxPKDXSJ2949-93-12 19:30:00 Test Item Value Reference Range Interpretation Comments LDL (Calculated) (test code = LDL -1 (Calculated)) [facility] HospitalEbwnkitNQDKNQ0861-92-69 19:30:00 Test Item Value Reference Range Interpretation Comments HDL (test code = HDL) [address] [facility] [address] HospitalSeotkabQCLKYO9696-10-76 19:30:00 Test Item Value Reference Range Interpretation Comments Chol (test code = Chol) 79 [facility] HospitalPoxqkdhSQXXUZ9121-58-47 19:30:00 Test Item Value Reference Range Interpretation Comments CHD Risk (test code = CHD Risk) 1.88 3.90-5.80 [facility] HospitalMyjeierTKFXEL2051-56-96 19:30:00 Test Item Value Reference Range Interpretation Comments Trig (test code = Trig) 188 [facility] [id number] 11:40:00 Test Item Value Reference Range Interpretation Comments Platelet product (test Product available code = Platelet (06/05/17 6:40 AM) product) [facility] [id number] 11:40:00 Test Item Value Reference Range Interpretation Comments RBC product (test code Product available = RBC product) (06/05/17 6:40 AM) [facility] [id number] 11:39:00 Test Item Value Reference Range Interpretation Comments FFP product (test code Product available = FFP product) (06/05/17 6:39 AM) [facility] [id number] 11:38:00 Test Item Value Reference Range Interpretation Comments FFP product (test code Product available = FFP product) (06/05/17 6:38 AM) [facility] [id number] 11:34:00 Test Item Value Reference Range Interpretation Comments FFP product (test code Product available = FFP product) (06/05/17 6:34 AM) [facility] [id number] 20:52:00 Test Item Value Reference Range Interpretation Comments Antibody Scrn (test Negative (06/02/17 3:52 code = Antibody Scrn) PM) [facility] [id number] 20:52:00 Test Item Value Reference Range Interpretation Comments ABO/Rh (test code = ABO/Rh) AB POS [facility] AND [id number] 20:25:00 Test Item Value Reference Range Interpretation Comments UA Blood (test code = Trace *ABN*(06/02/17 UA Blood) 3:25 PM) [facility] AND [id number] 20:25:00 Test Item Value Reference Range Interpretation Comments UA Protein (test code = UA >=300 mg/dL Protein) [facility] AND [id number] 20:25:00 Test Item Value Reference Range Interpretation Comments UA Bili (test code = Negative *NA*(06/02/17 UA Bili) 3:25 PM) [facility] AND [id number] 20:25:00 Test Item Value Reference Range Interpretation Comments UA Ketones (test code = UA Negative mg/dL Ketones) [facility] AND [id number] 20:25:00 Test Item Value Reference Range Interpretation Comments UA WBC (test code = 5 See_Comment [Automa benny message] The UA WBC) system which ge nerated this result transmit benny reference range : <=5. The reference range was not used to interpr et this result as shahid l/abnormal. [facility] AND [id number] 20:25:00 Test Item Value Reference Range Interpretation Comments UA RBC (test code = 2 See_Comment [Automa benny message] The UA RBC) system which ge nerated this result transmit benny reference range : <=2. The reference range was not used to interpr et this result as shahid l/abnormal. [facility] AND [id number] 20:25:00 Test Item Value Reference Range Interpretation Comments UA Sq Epi (test code = UA Sq Epi) Many /LPF [facility] AND [id number] 20:25:00 Test Item Value Reference Range Interpretation Comments UA Nitrite (test code Negative (06/02/17 3:25 = UA Nitrite) PM) [facility] AND [id number] 20:25:00 Test Item Value Reference Range Interpretation Comments UA Leuk Est (test Negative (06/02/17 3:25 code = UA Leuk Est) PM) [facility] AND [id number] 20:25:00 Test Item Value Reference Range Interpretation Comments UA Bacteria (test code = UA Occasional /HPF Bacteria) [facility] AND [id number] 20:25:00 Test Item Value Reference Range Interpretation Comments UA Mucus (test code = UA Mucus) Few /LPF [facility] AND [id number] 20:25:00 Test Item Value Reference Range Interpretation Comments UA Glucose (test code = UA >=1000 mg/dL Glucose) [facility] AND [id number] 20:25:00 Test Item Value Reference Range Interpretation Comments Micro? (test code = Performed *NA*(06/02/17 Micro?) 3:25 PM) [facility] AND [id number] 20:25:00 Test Item Value Reference Range Interpretation Comments UA Urobilinogen (test code = UA <=1.0 mg/dL 0.1-1.0 Urobilinogen) [facility] AND [id number] 20:25:00 Test Item Value Reference Range Interpretation Comments UA Color (test code = Yellow *NA*(06/02/17 UA Color) 3:25 PM) [facility] AND [id number] 20:25:00 Test Item Value Reference Range Interpretation Comments UA pH (test code = UA pH) 6.0 5.0-8.0 [facility] AND [id number] 20:25:00 Test Item Value Reference Range Interpretation Comments UA Turbidity (test code Slight *ABN*(06/02/17 = UA Turbidity) 3:25 PM) [facility] AND [id number] 20:25:00 Test Item Value Reference Range Interpretation Comments UA Spec Grav (test code = UA Spec Grav) 1.011 [facility]NkaflseGPYVPVGKRQRJ0332-30-00 14:01:00 Test Item Value Reference Range Interpretation Comments AGAP (test code = AGAP) 12.3 10.0-20.0 [facility] CenterNejzvqtGEOXEBHWPELK8716-04-50 14:01:00 Test Item Value Reference Range Interpretation Comments eGFR (test code = eGFR) 110 [facility] CenterDozvwtnXHEHSLVSQKHH0664-94-56 14:01:00 Test Item Value Reference Range Interpretation Comments Glucose Lvl (test code = Glucose Lvl) 222 70-99 [facility] CenterUshvacpOURCQTJOAPKO2364-20-75 14:01:00 Test Item Value Reference Range Interpretation Comments BUN (test code = BUN) 12 7-22 [facility] CenterMtaehiiPWXNMBNWTMZS5740-66-84 14:01:00 Test Item Value Reference Range Interpretation Comments Sodium Lvl (test code = Sodium Lvl) 140 135-145 [facility] CenterNlplwvvQUNSXFGEFBRQ9689-25-64 14:01:00 Test Item Value Reference Range Interpretation Comments Creatinine Lvl (test code = Creatinine 0.62 0.50-1.40 Lvl) [facility] CenterSzdwfhjABWAAXJWPHPZ0428-80-86 14:01:00 Test Item Value Reference Range Interpretation Comments CO2 (test code = CO2) 23 24-32 [facility] CenterUrddqltQBADTEIBTKOW7872-02-93 14:01:00 Test Item Value Reference Range Interpretation Comments Potassium Lvl (test code = Potassium 4.3 3.5-5.1 Lvl) [facility] CenterKslfdwaZEHPMAXBPDGA3084-92-43 14:01:00 Test Item Value Reference Range Interpretation Comments Chloride Lvl (test code = Chloride Lvl) 109 95-109 [facility] CenterMbsdnuwXYMZEUXOSSDD4680-00-31 14:01:00 Test Item Value Reference Range Interpretation Comments Calcium Lvl (test code = Calcium Lvl) 8.0 8.5-10.5 [facility] TemplePzbveftIDVIDXGNRR9665-77-33 14:01:00 Test Item Value Reference Range Interpretation Comments Segs-Bands # (test code = Segs-Bands #) 3.9 1.5-8.1 [facility] TempleNhgdtnsEVVYQMWINS8561-67-64 14:01:00 Test Item Value Reference Range Interpretation Comments Basophils (test code = 0.8 See_Comment [Aut omated message] The Basophils) system which ge nerated this result tra nsmitted reference range : <=1.0. The reference r michael was not used to int erpret this result as normal/abnormal . [facility] TempleXacdrxfHXANDNWGAA4990-89-24 14:01:00 Test Item Value Reference Range Interpretation Comments Monocytes # (test code 0.3 See_Comment [Aut omated message] The = Monocytes #) system which generated this result tra nsmitted reference range : <=0.8. The reference r michael was not used to int erpret this result as normal/abnormal . [facility] TempleIjwqcloDJNGZPEHVR8697-02-16 14:01:00 Test Item Value Reference Range Interpretation Comments Lymphocytes # (test code = Lymphocytes 1.4 1.0-5.5 #) [facility] TempleColeebzBRCUOLUHTR3286-01-68 14:01:00 Test Item Value Reference Range Interpretation Comments Lymphocytes (test code = Lymphocytes) 23.4 20.0-40.0 [facility] TempleBzvwlxmOHNTDJBTKL2282-76-20 14:01:00 Test Item Value Reference Range Interpretation Comments Eosinophils (test code = 2.7 See_Comment [A utomated message] The Eosinophils) system which ge nerated this result tra nsmitted reference range : <=4.0. The reference r michael was not used to int erpret this result as normal/abnormal . [facility] TempleVnwspqoYQOFDSMQUS5036-40-89 14:01:00 Test Item Value Reference Range Interpretation Comments Monocytes (test code = Monocytes) 6.0 2.0-12.0 [facility] TempleZziektdMQFMPNNOIB5680-14-63 14:01:00 Test Item Value Reference Range Interpretation Comments Eosinophils # (test code 0.2 See_Comment [A utomated message] The = Eosinophils #) system whic h generated this result tra nsmitted reference range : <=0.5. The reference r michael was not used to int erpret this result as normal/abnormal . [facility] TempleSvlepxlSCQMBNCGGX7805-67-99 14:01:00 Test Item Value Reference Range Interpretation Comments Segs (test code = Segs) 67.1 45.0-75.0 [facility] TempleAsgbkyvJRACGHFHEI0946-06-06 14:01:00 Test Item Value Reference Range Interpretation Comments MPV (test code = MPV) 8.7 7.4-10.4 [facility] TempleRdeootzALEWTPUMHP3984-84-88 14:01:00 Test Item Value Reference Range Interpretation Comments RDW (test code = RDW) 13.9 11.5-14.5 [facility] TempleFsqllscMZWSZALKRN5726-91-14 14:01:00 Test Item Value Reference Range Interpretation Comments Platelet (test code = Platelet) 197 133-450 [facility] TempleGeasgabNCOQMACFPQ9832-06-62 14:01:00 Test Item Value Reference Range Interpretation Comments WBC X 10x3 (test code = WBC X 10x3) 5.8 3.7-10.4 [facility] TempleCirrqtqRTPVXYIPXK3429-06-10 14:01:00 Test Item Value Reference Range Interpretation Comments RBC X 10x6 (test code = RBC X 10x6) 4.32 4.20-5.40 [facility] TempleGgkjssaQLTGBPLQFY9033-44-52 14:01:00 Test Item Value Reference Range Interpretation Comments Hgb (test code = Hgb) 12.7 12.0-16.0 [facility] TempleUeikaroDKKKEGIINF4407-83-50 14:01:00 Test Item Value Reference Range Interpretation Comments MCH (test code = MCH) 29.4 pg 27.0-31.0 [facility] TempleUmnkcowMMBIDFEVKN9326-68-19 14:01:00 Test Item Value Reference Range Interpretation Comments MCHC (test code = MCHC) 34.0 32.0-36.0 [facility] TempleLbsgjycZIHFIKBDMA9421-75-13 14:01:00 Test Item Value Reference Range Interpretation Comments MCV (test code = MCV) 86.3 80.0-98.0 [facility] TempleJgpesibTKSYDKXIGG7254-53-77 14:01:00 Test Item Value Reference Range Interpretation Comments Hct (test code = Hct) 37.3 36.0-48.0 [facility]2017-09-20 08:50:00 Test Item Value Reference Range Interpretation Comments Calcium Lvl (test code = Calcium Lvl) 8.0 8.5-10.5 [facility]2017-09-20 08:50:00 Test Item Value Reference Range Interpretation Comments eGFR (test code = eGFR) 114 [facility] [facility]2017-09-20 08:50:00 Test Item Value Reference Range Interpretation Comments Creatinine Lvl (test code = Creatinine 0.57 0.50-1.40 Lvl) [facility]2017-09-20 08:50:00 Test Item Value Reference Range Interpretation Comments Sodium Lvl (test code = Sodium Lvl) 140 135-145 [facility]2017-09-20 08:50:00 Test Item Value Reference Range Interpretation Comments Potassium Lvl (test code = Potassium 3.6 3.5-5.1 Lvl) [facility]2017-09-20 08:50:00 Test Item Value Reference Range Interpretation Comments Chloride Lvl (test code = Chloride Lvl) 108 95-109 [facility]2017-09-20 08:50:00 Test Item Value Reference Range Interpretation Comments CO2 (test code = CO2) 26 24-32 [facility]2017-09-20 08:50:00 Test Item Value Reference Range Interpretation Comments Glucose Lvl (test code = Glucose Lvl) 229 70-99 [facility]2017-09-20 08:50:00 Test Item Value Reference Range Interpretation Comments BUN (test code = BUN) 15 7-22 [place] 660557-09-20 08:50:00 Test Item Value Reference Range Interpretation Comments AGAP (test code = AGAP) 9.6 10.0-20.0 [facility] TempleKmuhwymACSWVBPHVK3534-83-47 08:50:00 Test Item Value Reference Range Interpretation Comments Eosinophils # (test code 0.2 See_Comment [A utomated message] The = Eosinophils #) system whic h generated this result tra nsmitted reference range : <=0.5. The reference r michael was not used to int erpret this result as normal/abnormal . [facility] TempleRquuzqlUYNJBXOVQZ0946-99-38 08:50:00 Test Item Value Reference Range Interpretation Comments Monocytes # (test code 0.3 See_Comment [Aut omated message] The = Monocytes #) system which generated this result tra nsmitted reference range : <=0.8. The reference r michael was not used to int erpret this result as normal/abnormal . [facility] TempleUamspggXQCHDUDVGT3889-92-33 08:50:00 Test Item Value Reference Range Interpretation Comments Lymphocytes # (test code = Lymphocytes 2.1 1.0-5.5 #) [facility] TempleKphleuwQHUCKFTODX9915-88-80 08:50:00 Test Item Value Reference Range Interpretation Comments Segs-Bands # (test code = Segs-Bands #) 3.3 1.5-8.1 [facility] TempleRlkguhjGHNLIMDBOY7715-85-97 08:50:00 Test Item Value Reference Range Interpretation Comments Eosinophils (test code = 2.7 See_Comment [A utomated message] The Eosinophils) system which ge nerated this result tra nsmitted reference range : <=4.0. The reference r michael was not used to int erpret this result as normal/abnormal . [facility] TempleVcuhqdzMMXFMVUYMS9555-65-08 08:50:00 Test Item Value Reference Range Interpretation Comments Basophils (test code = 0.8 See_Comment [Aut omated message] The Basophils) system which ge nerated this result tra nsmitted reference range : <=1.0. The reference r michael was not used to int erpret this result as normal/abnormal . [facility] TempleJiqdceqVPLLXWBXGY3819-63-70 08:50:00 Test Item Value Reference Range Interpretation Comments Monocytes (test code = Monocytes) 5.5 2.0-12.0 [place] [address]-09-20 08:50:00 Test Item Value Reference Range Interpretation Comments Lymphocytes (test code = Lymphocytes) 35.0 20.0-40.0 [facility]BrgawgsEZNGXFDKHC8073-36-34 08:50:00 Test Item Value Reference Range Interpretation Comments Segs (test code = Segs) 56.0 45.0-75.0 [facility] HospitalPumxfilJLRWNVUFAA3716-34-97 08:50:00 Test Item Value Reference Range Interpretation Comments MPV (test code = MPV) 8.6 7.4-10.4 [facility] HospitalFojztkySDFHFGFPLA3015-59-35 08:50:00 Test Item Value Reference Range Interpretation Comments MCH (test code = MCH) 29.5 pg 27.0-31.0 [facility] TempleDrchhopQTFCSLXIMC1294-26-23 08:50:00 Test Item Value Reference Range Interpretation Comments MCV (test code = MCV) 86.4 80.0-98.0 [facility] TempleJqmgsznIGBLKANWMC6067-19-73 08:50:00 Test Item Value Reference Range Interpretation Comments RDW (test code = RDW) 13.7 11.5-14.5 [facility] HospitalBbxjzopTHMBEFLWMC1315-16-76 08:50:00 Test Item Value Reference Range Interpretation Comments MCHC (test code = MCHC) 34.2 32.0-36.0 [facility] TempleHcitjiaEMAWRRFLBI2570-41-44 08:50:00 Test Item Value Reference Range Interpretation Comments Platelet (test code = Platelet) 207 133-450 [facility] TempleZyilgotBNOVXNCVKG9428-57-71 08:50:00 Test Item Value Reference Range Interpretation Comments RBC X 10x6 (test code = RBC X 10x6) 4.16 4.20-5.40 [facility] HospitalDhgpqzeWWHMPSEFLC3008-22-11 08:50:00 Test Item Value Reference Range Interpretation Comments WBC X 10x3 (test code = WBC X 10x3) 5.9 3.7-10.4 [facility] HospitalBftvsliBCKJEVYUIB6597-84-04 08:50:00 Test Item Value Reference Range Interpretation Comments Hgb (test code = Hgb) 12.3 12.0-16.0 [facility] HospitalOluedimKJTZRDQNTQ7811-48-44 08:50:00 Test Item Value Reference Range Interpretation Comments Hct (test code = Hct) 35.9 36.0-48.0 [facility] [id number] 11:31:00 Test Item Value Reference Range Interpretation Comments UA pH (test code = UA pH) 5.5 1 5.0-8.0 [facility] AND [id number] 11:31:00 Test Item Value Reference Range Interpretation Comments UA Protein (test code = UA Protein) 100 mg/dL [facility] AND [id number] 11:31:00 Test Item Value Reference Range Interpretation Comments UA Spec Grav (test code = UA Spec 1.015 1 Grav) [facility] [id number] 11:31:00 Test Item Value Reference Range Interpretation Comments UA Turbidity (test code = Clear (05/27/17 6:31 UA Turbidity) AM) [facility] AND [id number] 11:31:00 Test Item Value Reference Range Interpretation Comments UA RBC (test code = 3-5 /HPF See_Comment [Automa benny message] The UA RBC) system which ge nerated this result tra nsmitted reference range : <=2. The reference range was not used to interpr et this result as shahid l/abnormal. [facility] AND [id number] 11:31:00 Test Item Value Reference Range Interpretation Comments UA Bacteria (test code = None Seen (05/27/17 UA Bacteria) 6:31 AM) [facility] [id number] 11:31:00 Test Item Value Reference Range Interpretation Comments UA Leuk Est (test Negative (05/27/17 6:31 code = UA Leuk Est) AM) [facility] AND [id number] 11:31:00 Test Item Value Reference Range Interpretation Comments UA Sq Epi (test code = UA Sq Occasional /LPF Epi) [facility] AND [id number] 11:31:00 Test Item Value Reference Range Interpretation Comments UA Nitrite (test code Negative (05/27/17 6:31 = UA Nitrite) AM) [facility] AND [id number] 11:31:00 Test Item Value Reference Range Interpretation Comments UA WBC (test code = UA WBC) 3-5 /HPF [facility] AND [id number] 11:31:00 Test Item Value Reference Range Interpretation Comments UA Color (test code = Yellow *NA*(05/27/17 UA Color) 6:31 AM) [facility] [id number] 11:31:00 Test Item Value Reference Range Interpretation Comments UA Urobilinogen (test code = UA 0.2 0.1-1.0 Urobilinogen) [facility] [id number] 11:31:00 Test Item Value Reference Range Interpretation Comments UA Bili (test code = Negative *NA*(05/27/17 UA Bili) 6:31 AM) [facility] AND [id number] 11:31:00 Test Item Value Reference Range Interpretation Comments UA Blood (test code = Moderate *ABN*(05/27/17 UA Blood) 6:31 AM) [facility] [id number] 11:31:00 Test Item Value Reference Range Interpretation Comments UA Ketones (test code = UA Ketones) 15 mg/dL [facility] AND [id number] 11:31:00 Test Item Value Reference Range Interpretation Comments UA Glucose (test code = UA >=1000 mg/dL Glucose) [facility] CenterJudghmcBTTSST3599-94-82 09:42:00 Test Item Value Reference Range Interpretation Comments VLDL (test code = See Note 2*NA*(05/27/17 VLDL) 4:42 AM) [facility] CenterRtagwayQASRWO6533-23-92 09:42:00 Test Item Value Reference Range Interpretation Comments CHD Risk (test code = CHD Risk) 4.95 3.90-5.80 [facility] CenterAvguhwlDOTCZI2091-54-58 09:42:00 Test Item Value Reference Range Interpretation Comments HDL (test code = HDL) 44 [facility] CenterWrjzarsBKFPGS4334-42-36 09:42:00 Test Item Value Reference Range Interpretation Comments LDL (Calculated) (test code = See Note mg/dL LDL (Calculated)) [facility] CenterShtdorqDQQCBG8571-40-83 09:42:00 Test Item Value Reference Range Interpretation Comments Chol (test code = Chol) 218 [facility] CenterKsaaxjcWLTJSG3375-72-70 09:42:00 Test Item Value Reference Range Interpretation Comments Trig (test code = Trig) [address] [facility] [address] HospitalCARDIAC [id number] 04:46:00 Test Item Value Reference Range Interpretation Comments Troponin-I (test code 1.51 See_Comment [Auto mated message] The = Troponin-I) system which g enerated this result transmit benny reference range : <=0.40. The reference r michael was not used to interpr et this result as shahid l/abnormal. [facility] [id number] 04:46:00 Test Item Value Reference Range Interpretation Comments Total CK (test code = Total CK) 67 191 [facility] [id number] 00:18:00 Test Item Value Reference Range Interpretation Comments Troponin-I (test code 0.89 See_Comment [Auto mated message] The = Troponin-I) system which g enerated this result transmit benny reference range : <=0.40. The reference r michael was not used to interpr et this result as shahid l/abnormal. [facility] [id number] 00:18:00 Test Item Value Reference Range Interpretation Comments Total CK (test code = Total CK) 65 191 [facility] [id number] 00:18:00 Test Item Value Reference Range Interpretation Comments proBNP (test code = 1346 See_Comment [Automa benny message] The proBNP) system which ge nerated this result tra nsmitted reference range : <=125. The reference r michael was not used to int erpret this result as shahid l/abnormal. [facility] [id number] 00:18:00 Test Item Value Reference Range Interpretation Comments Phosphorus (test code = Phosphorus) 3.6 2.5-4.5 [facility] [id number] 00:18:00 Test Item Value Reference Range Interpretation Comments Magnesium Lvl (test code = Magnesium 1.7 1.8-2.4 Lvl) [facility] [id number] 00:18:00 Test Item Value Reference Range Interpretation Comments eGFR (test code = eGFR) 107 [facility] [id number] 00:18:00 Test Item Value Reference Range Interpretation Comments Alk Phos (test code = Alk Phos) 82 39-136 [facility] [id number] 00:18:00 Test Item Value Reference Range Interpretation Comments Albumin Lvl (test code = Albumin Lvl) 2.3 3.5-5.0 [facility] [id number] 00:18:00 Test Item Value Reference Range Interpretation Comments Total Protein (test code = Total 6.1 6.4-8.4 Protein) [facility]2017-09-19 00:18:00 Test Item Value Reference Range Interpretation Comments Bili Total (test code = Bili Total) 0.2 0.2-1.3 [facility]2017-09-19 00:18:00 Test Item Value Reference Range Interpretation Comments ALANINE AMINOTRANSFERASE 20 See_Comment [A utomated message] (test code = ALANINE The sys tem which AMINOTRANSFERASE) generated this result transmitted ref erence range: <=65. Th e reference range was not used to int erpret this result as normal/abnormal . [facility]2017-09-19 00:18:00 Test Item Value Reference Range Interpretation Comments ASPARTATE TRANSAMINASE 15 See_Comment [Aut omated message] (test code = ASPARTATE The s ystem which TRANSAMINASE) generated this result transmitted ref erence range: <=37. Th e reference range was not used to interpr et this result as normal/abnormal . [facility]2017-09-19 00:18:00 Test Item Value Reference Range Interpretation Comments CO2 (test code = CO2) 25 24-32 [facility]2017-09-19 00:18:00 Test Item Value Reference Range Interpretation Comments Calcium Lvl (test code = Calcium Lvl) 7.8 8.5-10.5 [facility]2017-09-19 00:18:00 Test Item Value Reference Range Interpretation Comments Glucose Lvl (test code = Glucose Lvl) 282 70-99 [facility]2017-09-19 00:18:00 Test Item Value Reference Range Interpretation Comments Potassium Lvl (test code = Potassium 3.8 3.5-5.1 Lvl) [facility]2017-09-19 00:18:00 Test Item Value Reference Range Interpretation Comments Sodium Lvl (test code = Sodium Lvl) 139 135-145 [facility]2017-09-19 00:18:00 Test Item Value Reference Range Interpretation Comments Creatinine Lvl (test code = Creatinine 0.69 0.50-1.40 Lvl) [facility]2017-09-19 00:18:00 Test Item Value Reference Range Interpretation Comments BUN (test code = BUN) 14 7-22 [facility]2017-09-19 00:18:00 Test Item Value Reference Range Interpretation Comments Chloride Lvl (test code = Chloride Lvl) 106 95-109 [facility]2017-09-19 00:18:00 Test Item Value Reference Range Interpretation Comments A/G Ratio (test code = A/G Ratio) 0.6 0.7-1.6 [facility]2017-09-19 00:18:00 Test Item Value Reference Range Interpretation Comments AGAP (test code = AGAP) 11.8 10.0-20.0 [facility]2017-09-19 00:18:00 Test Item Value Reference Range Interpretation Comments Globulin (test code = Globulin) 3.8 2.7-4.2 [facility]2017-09-19 00:18:00 Test Item Value Reference Range Interpretation Comments B/C Ratio (test code = B/C Ratio) 20 6-25 [facility] TemplePunxfjuDIJPTSNYOW1170-08-86 00:18:00 Test Item Value Reference Range Interpretation Comments PROTIME (test code = PROTIME) 12.6 s 12.0-14.7 [facility] TempleUrflpxgCZYLIDUWFF5806-72-56 00:18:00 Test Item Value Reference Range Interpretation Comments aPTT (test code = aPTT) 26.4 s 22.9-35.8 [facility] TempleBuiucivGERBLSPOLU3390-13-32 00:18:00 Test Item Value Reference Range Interpretation Comments INR (test code = INR) 0.92 0.85-1.17 [facility] TempleDskbcfcYACITAVPJM3314-40-25 00:18:00 Test Item Value Reference Range Interpretation Comments WBC X 10x3 (test code = WBC X 10x3) 8.5 3.7-10.4 [facility] [id number] 00:18:00 Test Item Value Reference Range Interpretation Comments RBC X 10x6 (test code = RBC X 10x6) 4.36 4.20-5.40 [facility] TempleHlramfjDAJNPKYYMC6171-58-07 00:18:00 Test Item Value Reference Range Interpretation Comments Hct (test code = Hct) 37.4 36.0-48.0 [facility] TempleOtlwogbWJPOKXZUOL3684-68-27 00:18:00 Test Item Value Reference Range Interpretation Comments RDW (test code = RDW) 13.5 11.5-14.5 [facility] TempleEqaesbdPKXQLFBQEY0981-06-28 00:18:00 Test Item Value Reference Range Interpretation Comments MCV (test code = MCV) 85.8 80.0-98.0 [facility] TempleUznjooiXPXSWEDGSE3163-93-66 00:18:00 Test Item Value Reference Range Interpretation Comments Hgb (test code = Hgb) 12.9 12.0-16.0 [facility] TempleZeaxkfwCBNSRNPWOV0590-97-93 00:18:00 Test Item Value Reference Range Interpretation Comments MCHC (test code = MCHC) 34.4 32.0-36.0 [facility] TempleFwpxhmeQXYYKZKMUT3577-81-33 00:18:00 Test Item Value Reference Range Interpretation Comments Platelet (test code = Platelet) 229 133-450 [facility] TempleKwnokxeIEELRXOFEO1204-50-12 00:18:00 Test Item Value Reference Range Interpretation Comments MPV (test code = MPV) 8.6 7.4-10.4 [facility] TemplePggihiqVHGMRZBJJK0991-53-38 00:18:00 Test Item Value Reference Range Interpretation Comments MCH (test code = MCH) 29.6 pg 27.0-31.0 [facility] TempleScmmszzSECDUYXFDT3827-48-04 00:18:00 Test Item Value Reference Range Interpretation Comments Monocytes # (test code 0.4 See_Comment [Aut omated message] The = Monocytes #) system which generated this result tra nsmitted reference range : <=0.8. The reference r michael was not used to int erpret this result as normal/abnormal . [facility] TempleRdkilcdMRCHDTRIHV0808-04-36 00:18:00 Test Item Value Reference Range Interpretation Comments Lymphocytes # (test code = Lymphocytes 2.0 1.0-5.5 #) [facility] TempleZjiainsKKZPAYIDEV4668-71-43 00:18:00 Test Item Value Reference Range Interpretation Comments Segs-Bands # (test code = Segs-Bands #) 6.1 1.5-8.1 [facility] TempleKenkgsoUIHBHNGNRV8256-22-93 00:18:00 Test Item Value Reference Range Interpretation Comments Basophils (test code = 0.2 See_Comment [Aut omated message] The Basophils) system which ge nerated this result tra nsmitted reference range : <=1.0. The reference r michael was not used to int erpret this result as normal/abnormal . [facility] TempleAhgfpnvXPSCUQUKTJ9960-49-32 00:18:00 Test Item Value Reference Range Interpretation Comments Eosinophils (test code = 1.3 See_Comment [A utomated message] The Eosinophils) system which ge nerated this result tra nsmitted reference range : <=4.0. The reference r michael was not used to int erpret this result as normal/abnormal . [facility] TempleMcpmrykXYNANKUJGC8742-19-23 00:18:00 Test Item Value Reference Range Interpretation Comments Eosinophils # (test code 0.1 See_Comment [A utomated message] The = Eosinophils #) system whic h generated this result tra nsmitted reference range : <=0.5. The reference r michael was not used to int erpret this result as normal/abnormal . [facility] TempleOnnntslWREMROMLWG3130-43-12 00:18:00 Test Item Value Reference Range Interpretation Comments Segs (test code = Segs) 71.1 45.0-75.0 [facility] HospitalBfcwexfRSTGYQIMAP7046-64-26 00:18:00 Test Item Value Reference Range Interpretation Comments Lymphocytes (test code = Lymphocytes) 23.0 20.0-40.0 [facility] HospitalFmxcedlFPHBPRQJXD0684-90-77 00:18:00 Test Item Value Reference Range Interpretation Comments Monocytes (test code = Monocytes) 4.4 2.0-12.[address] [facility] HospitalEutsydtAADCCE7469-53-89 00:18:00 Test Item Value Reference Range Interpretation Comments VLDL (test code = VLDL) [address] [facility] HospitalSpvgibvTIOZPG3949-41-75 00:18:00 Test Item Value Reference Range Interpretation Comments LDL (Calculated) (test code = LDL 135 (Calculated)) [facility] HospitalWrqahbaNMRHNS0829-32-60 00:18:00 Test Item Value Reference Range Interpretation Comments Trig (test code = Trig) [address] [facility] HospitalOggytjpAGPHBM4851-78-32 00:18:00 Test Item Value Reference Range Interpretation Comments HDL (test code = HDL) [address] [facility] HospitalNvznioqSRLIHN6419-60-48 00:18:00 Test Item Value Reference Range Interpretation Comments Chol (test code = Chol) [address] [facility] HospitalRvvywrrTDUGCG0499-32-04 00:18:00 Test Item Value Reference Range Interpretation Comments CHD Risk (test code = CHD Risk) 5.14 3.90-5.80 [facility] XENZCUHBN8771-27-48 00:18:00 Test Item Value Reference Range Interpretation Comments Hgb A1C (test code = Hgb A1C) 13.[address] [facility] HospitalBACTERIAL - [id number] 23:56:00 Test Item Value Reference Range Interpretation Comments MRSA by PCR (test Negative (05/26/17 6:56 code = MRSA by PCR) PM) [facility] [id number] 10:15:00 Test Item Value Reference Range Interpretation Comments eGFR (test code = eGFR) 109 [facility]2017-01-20 10:15:00 Test Item Value Reference Range Interpretation Comments A/G Ratio (test code = A/G Ratio) 0.9 0.7-1.6 [facility]2017-01-20 10:15:00 Test Item Value Reference Range Interpretation Comments Globulin (test code = Globulin) 3.0 2.7-4.2 [facility]2017-01-20 10:15:00 Test Item Value Reference Range Interpretation Comments B/C Ratio (test code = B/C Ratio) 29 6-25 [facility]2017-01-20 10:15:00 Test Item Value Reference Range Interpretation Comments ASPARTATE TRANSAMINASE 11 See_Comment [Aut omated message] (test code = ASPARTATE The s ystem which TRANSAMINASE) generated this result transmitted ref erence range: <=37. Th e reference range was not used to interpr et this result as normal/abnormal . [facility]2017-01-20 10:15:00 Test Item Value Reference Range Interpretation Comments Total Protein (test code = Total 5.6 6.4-8.4 Protein) [facility]2017-01-20 10:15:00 Test Item Value Reference Range Interpretation Comments Bili Total (test code = Bili Total) 0.4 0.2-1.3 [facility]2017-01-20 10:15:00 Test Item Value Reference Range Interpretation Comments AGAP (test code = AGAP) 17.0 10.0-20.0 [facility]2017-01-20 10:15:00 Test Item Value Reference Range Interpretation Comments CO2 (test code = CO2) 21 24-32 [facility]2017-01-20 10:15:00 Test Item Value Reference Range Interpretation Comments Calcium Lvl (test code = Calcium Lvl) 7.7 8.5-10.5 [facility]2017-01-20 10:15:00 Test Item Value Reference Range Interpretation Comments Chloride Lvl (test code = Chloride Lvl) 112 95-109 [facility]2017-01-20 10:15:00 Test Item Value Reference Range Interpretation Comments Potassium Lvl (test code = Potassium 4.0 3.5-5.1 Lvl) [facility]2017-01-20 10:15:00 Test Item Value Reference Range Interpretation Comments BUN (test code = BUN) 19 7-22 [facility]2017-01-20 10:15:00 Test Item Value Reference Range Interpretation Comments Sodium Lvl (test code = Sodium Lvl) 146 135-145 [facility]2017-01-20 10:15:00 Test Item Value Reference Range Interpretation Comments Creatinine Lvl (test code = Creatinine 0.65 0.50-1.40 Lvl) [facility]2017-01-20 10:15:00 Test Item Value Reference Range Interpretation Comments Alk Phos (test code = Alk Phos) 72 39-136 [facility]2017-01-20 10:15:00 Test Item Value Reference Range Interpretation Comments ALANINE AMINOTRANSFERASE 18 See_Comment [A utomated message] (test code = ALANINE The sys tem which AMINOTRANSFERASE) generated this result transmitted ref erence range: <=65. Th e reference range was not used to int erpret this result as normal/abnormal . [facility]2017-01-20 10:15:00 Test Item Value Reference Range Interpretation Comments Albumin Lvl (test code = Albumin Lvl) 2.6 3.5-5.0 [facility]2017-01-20 10:15:00 Test Item Value Reference Range Interpretation Comments Glucose Lvl (test code = Glucose Lvl) 208 70-99 [facility] TempleEigqmszZMRGDQIFJX6996-60-27 10:15:00 Test Item Value Reference Range Interpretation Comments MPV (test code = MPV) 9.4 7.4-10.4 [facility] TempleAntufceRGHOYWDZMO6932-53-04 10:15:00 Test Item Value Reference Range Interpretation Comments RDW (test code = RDW) 14.2 11.5-14.5 [facility] TempleQrxxuqdSNKXNXXFPT1977-85-50 10:15:00 Test Item Value Reference Range Interpretation Comments Platelet (test code = Platelet) 166 133-450 [facility] TempleNyhoeasBUFLWMIDOB5659-87-88 10:15:00 Test Item Value Reference Range Interpretation Comments WBC X 10x3 (test code = WBC X 10x3) 5.0 3.7-10.4 [facility] TempleDuxyyslHUTIROGHFJ3887-10-76 10:15:00 Test Item Value Reference Range Interpretation Comments RBC X 10x6 (test code = RBC X 10x6) 3.96 4.20-5.40 [facility] TempleVxxglxiSRYIESLGWU5645-36-37 10:15:00 Test Item Value Reference Range Interpretation Comments Hgb (test code = Hgb) 11.7 12.0-16.0 [facility] TempleWglmtjrINNNFIYFLC9661-44-33 10:15:00 Test Item Value Reference Range Interpretation Comments Hct (test code = Hct) 34.3 36.0-48.0 [facility] TempleOfcniyzDHXQFJEUEM5968-69-33 10:15:00 Test Item Value Reference Range Interpretation Comments MCH (test code = MCH) 29.5 pg 27.0-31.0 [facility] TempleLyswjpkILODDAAUBH3348-67-75 10:15:00 Test Item Value Reference Range Interpretation Comments MCHC (test code = MCHC) 34.0 32.0-36.0 [facility] TempleErtubbzDUDXLTSBNQ8543-97-77 10:15:00 Test Item Value Reference Range Interpretation Comments MCV (test code = MCV) 86.6 80.0-98.0 [facility] TempleEcsvjtdGOSNVJPQCN1530-12-94 10:15:00 Test Item Value Reference Range Interpretation Comments Basophils (test code = 0.2 See_Comment [Aut omated message] The Basophils) system which ge nerated this result tra nsmitted reference range : <=1.0. The reference r michael was not used to int erpret this result as normal/abnormal . [facility] TemplePtjypfwFHGGXLIIKA7923-77-57 10:15:00 Test Item Value Reference Range Interpretation Comments Segs-Bands # (test code = Segs-Bands #) 3.4 1.5-8.1 [facility] TempleAmnilkwINTDKSLKPV2025-37-24 10:15:00 Test Item Value Reference Range Interpretation Comments Eosinophils (test code = 1.9 See_Comment [A utomated message] The Eosinophils) system which ge nerated this result tra nsmitted reference range : <=4.0. The reference r michael was not used to int erpret this result as normal/abnormal . [facility]AZ[facility]U6686-[facility]-69 10:15:00 Test Item Value Reference Range Interpretation Comments Lymphocytes (test code = Lymphocytes) 24.5 20.0-40.0 [facility]TweamvlLGFNXIJHGN7075-33-06 10:15:00 Test Item Value Reference Range Interpretation Comments Monocytes (test code = Monocytes) 5.9 2.0-12.0 [facility] TempleNzrxstnSABVNRXJMM1231-58-97 10:15:00 Test Item Value Reference Range Interpretation Comments Segs (test code = Segs) 67.5 45.0-75.0 [facility] TempleRvwabfpALAYJAIWAF6178-78-28 10:15:00 Test Item Value Reference Range Interpretation Comments Lymphocytes # (test code = Lymphocytes 1.2 1.0-5.5 #) [facility] TempleTvitzrbSRIIPTGZOJ2229-21-03 10:15:00 Test Item Value Reference Range Interpretation Comments Monocytes # (test code 0.3 See_Comment [Aut omated message] The = Monocytes #) system which generated this result tra nsmitted reference range : <=0.8. The reference r michael was not used to int erpret this result as normal/abnormal . [facility] TempleYjbgfmnSQMJGQSPTC3089-66-84 10:15:00 Test Item Value Reference Range Interpretation Comments Eosinophils # (test code 0.1 See_Comment [A utomated message] The = Eosinophils #) system whic h generated this result tra nsmitted reference range : <=0.5. The reference r michael was not used to int erpret this result as normal/abnormal . [facility] KNOXGJDTW5946-24-02 10:15:00 Test Item Value Reference Range Interpretation Comments Hgb A1C (test code = Hgb A1C) 10.[address] [facility] HospitalRefer.[facility] ODMVK7304-04-85 12:14:00 Test Item Value Reference Range Interpretation Comments Globulin (test code = Globulin) 3.3 2.7-4.[address] [facility] Hospital[facility] HFNSQ1325-17-24 12:14:00 Test Item Value Reference Range Interpretation Comments B/C Ratio (test code = B/C Ratio) 38 6-25 [facility]2017-01-19 12:14:00 Test Item Value Reference Range Interpretation Comments A/G Ratio (test code = A/G Ratio) 0.9 0.7-1.6 [facility]2017-01-19 12:14:00 Test Item Value Reference Range Interpretation Comments AGAP (test code = AGAP) 16.0 10.0-20.0 [facility]2017-01-19 12:14:00 Test Item Value Reference Range Interpretation Comments eGFR (test code = eGFR) 78 [facility]2017-01-19 12:14:00 Test Item Value Reference Range Interpretation Comments Bili Total (test code = Bili Total) 0.3 0.2-1.3 [facility]2017-01-19 12:14:00 Test Item Value Reference Range Interpretation Comments Total Protein (test code = Total 6.3 6.4-8.4 Protein) [facility]2017-01-19 12:14:00 Test Item Value Reference Range Interpretation Comments ASPARTATE TRANSAMINASE 10 See_Comment [Aut omated message] (test code = ASPARTATE The s ystem which TRANSAMINASE) generated this result transmitted ref erence range: <=37. Th e reference range was not used to interpr et this result as normal/abnormal . [facility]2017-01-19 12:14:00 Test Item Value Reference Range Interpretation Comments CO2 (test code = CO2) 22 24-32 [facility]2017-01-19 12:14:00 Test Item Value Reference Range Interpretation Comments Calcium Lvl (test code = Calcium Lvl) 8.6 8.5-10.5 [facility]2017-01-19 12:14:00 Test Item Value Reference Range Interpretation Comments Chloride Lvl (test code = Chloride Lvl) 107 95-109 [facility]2017-01-19 12:14:00 Test Item Value Reference Range Interpretation Comments Potassium Lvl (test code = Potassium 5.0 3.5-5.1 Lvl) [facility]2017-01-19 12:14:00 Test Item Value Reference Range Interpretation Comments Sodium Lvl (test code = Sodium Lvl) 140 135-145 [facility]2017-01-19 12:14:00 Test Item Value Reference Range Interpretation Comments ALANINE AMINOTRANSFERASE 22 See_Comment [A utomated message] (test code = ALANINE The sys tem which AMINOTRANSFERASE) generated this result transmitted ref erence range: <=65. Th e reference range was not used to int erpret this result as normal/abnormal . [facility]2017-01-19 12:14:00 Test Item Value Reference Range Interpretation Comments Creatinine Lvl (test code = Creatinine 0.91 0.50-1.40 Lvl) [facility]2017-01-19 12:14:00 Test Item Value Reference Range Interpretation Comments BUN (test code = BUN) 35 7-22 [facility]2017-01-19 12:14:00 Test Item Value Reference Range Interpretation Comments Albumin Lvl (test code = Albumin Lvl) 3.0 3.5-5.0 [facility]2017-01-19 12:14:00 Test Item Value Reference Range Interpretation Comments Alk Phos (test code = Alk Phos) 77 39-136 [facility]2017-01-19 12:14:00 Test Item Value Reference Range Interpretation Comments Glucose Lvl (test code = Glucose Lvl) 322 70-99 [facility] TempleIbjowdkJTDMUIALUQ5522-04-22 12:14:00 Test Item Value Reference Range Interpretation Comments MPV (test code = MPV) 9.3 7.4-10.4 [facility] TempleRshwnojRIDNFCTOWO4326-45-16 12:14:00 Test Item Value Reference Range Interpretation Comments RDW (test code = RDW) 14.0 11.5-14.5 [facility] TempleUjfdhbhZQTHIPZIQR7916-94-72 12:14:00 Test Item Value Reference Range Interpretation Comments Platelet (test code = Platelet) 162 133-450 [facility] TempleAphceibDYCEBNRANE0035-73-89 12:14:00 Test Item Value Reference Range Interpretation Comments MCHC (test code = MCHC) 33.5 32.0-36.0 [facility] TempleRzfmkjzLLYCMWSKIO6228-98-66 12:14:00 Test Item Value Reference Range Interpretation Comments MCH (test code = MCH) 28.9 pg 27.0-31.0 [facility] TempleQjwpzuqXPXBUFGJAP0096-76-59 12:14:00 Test Item Value Reference Range Interpretation Comments Hgb (test code = Hgb) 12.4 12.0-16.0 [facility] TempleRwtwonvUUSFVBHITU1355-60-54 12:14:00 Test Item Value Reference Range Interpretation Comments WBC X 10x3 (test code = WBC X 10x3) 7.8 3.7-10.4 [facility] TempleMulcyhwHDHBZLNUQO2076-05-20 12:14:00 Test Item Value Reference Range Interpretation Comments RBC X 10x6 (test code = RBC X 10x6) 4.31 4.20-5.40 [facility] TempleRostrkhVNWHOQSUFS8116-36-51 12:14:00 Test Item Value Reference Range Interpretation Comments MCV (test code = MCV) 86.0 80.0-98.0 [facility] TempleFszhchuXNSCUGMGBW2553-99-60 12:14:00 Test Item Value Reference Range Interpretation Comments Hct (test code = Hct) 37.1 36.0-48.0 [facility] TempleDawpehkABPCHWGADN6363-44-00 12:14:00 Test Item Value Reference Range Interpretation Comments Eosinophils (test code = 1.2 See_Comment [A utomated message] The Eosinophils) system which ge nerated this result tra nsmitted reference range : <=4.0. The reference r michael was not used to int erpret this result as normal/abnormal . [facility] TempleWhtoddsFVBUPHFOTZ9207-14-25 12:14:00 Test Item Value Reference Range Interpretation Comments Segs-Bands # (test code = Segs-Bands #) 6.0 1.5-8.1 [facility] TempleThyancsOLVTCPIRMF5907-93-44 12:14:00 Test Item Value Reference Range Interpretation Comments Monocytes (test code = Monocytes) 6.2 2.0-12.0 [facility] TempleIzulxqpOBNRDMZVGH5859-18-56 12:14:00 Test Item Value Reference Range Interpretation Comments Lymphocytes # (test code = Lymphocytes 1.2 1.0-5.5 #) [facility] TempleOoaqhmeTGWNADDYHI9183-85-47 12:14:00 Test Item Value Reference Range Interpretation Comments Basophils (test code = 0.3 See_Comment [Aut omated message] The Basophils) system which ge nerated this result tra nsmitted reference range : <=1.0. The reference r michael was not used to int erpret this result as normal/abnormal . [facility] TempleAhzbtwpNMPVSISJYN6115-68-16 12:14:00 Test Item Value Reference Range Interpretation Comments Monocytes # (test code 0.5 See_Comment [Aut omated message] The = Monocytes #) system which generated this result tra nsmitted reference range : <=0.8. The reference r michael was not used to int erpret this result as normal/abnormal . [facility] TempleBkxaqhxECGZQQXNNJ9002-85-84 12:14:00 Test Item Value Reference Range Interpretation Comments Eosinophils # (test code 0.1 See_Comment [A utomated message] The = Eosinophils #) system whic h generated this result tra nsmitted reference range : <=0.5. The reference r michael was not used to int erpret this result as normal/abnormal . [facility] TempleXhddmmrFEOWDQCIIU3145-70-67 12:14:00 Test Item Value Reference Range Interpretation Comments Lymphocytes (test code = Lymphocytes) 15.8 20.0-40.0 [facility] TemplePsbwwgzWRPDOWWASL6638-92-55 12:14:00 Test Item Value Reference Range Interpretation Comments Segs (test code = Segs) 76.5 45.0-75.0 [facility]2015-10-27 08:39:00 Test Item Value Reference Range Interpretation Comments Magnesium Lvl (test code = Magnesium 1.9 1.8-2.4 Lvl) [facility]2015-10-27 08:39:00 Test Item Value Reference Range Interpretation Comments Phosphorus (test code = Phosphorus) 2.0 2.5-4.5 [facility]2015-10-27 08:39:00 Test Item Value Reference Range Interpretation Comments Globulin (test code = Globulin) 4.6 2.0-4.0 [facility]2015-10-27 08:39:00 Test Item Value Reference Range Interpretation Comments AGAP (test code = AGAP) 14.6 10.0-20.0 [facility]2015-10-27 08:39:00 Test Item Value Reference Range Interpretation Comments B/C Ratio (test code = B/C Ratio) 10 6-25 [facility]2015-10-27 08:39:00 Test Item Value Reference Range Interpretation Comments A/G Ratio (test code = A/G Ratio) 0.4 0.7-1.6 [facility]2015-10-27 08:39:00 Test Item Value Reference Range Interpretation Comments eGFR (test code = eGFR) 120 [facility]2015-10-27 08:39:00 Test Item Value Reference Range Interpretation Comments Bili Total (test code = Bili Total) 0.3 0.2-1.3 [facility]2015-10-27 08:39:00 Test Item Value Reference Range Interpretation Comments Calcium Lvl (test code = Calcium Lvl) 8.2 8.5-10.5 [place] 660555-10-27 08:39:00 Test Item Value Reference Range Interpretation Comments CO2 (test code = CO2) 22 24-32 [place] 660555-10-27 08:39:00 Test Item Value Reference Range Interpretation Comments Chloride Lvl (test code = Chloride Lvl) 102 95-109 [facility]2015-10-27 08:39:00 Test Item Value Reference Range Interpretation Comments Sodium Lvl (test code = Sodium Lvl) 135 135-145 [place] 660555-10-27 08:39:00 Test Item Value Reference Range Interpretation Comments Potassium Lvl (test code = Potassium 3.6 3.5-5.1 Lvl) [facility]2015-10-27 08:39:00 Test Item Value Reference Range Interpretation Comments AST (test code = AST) 25 See_Comment [Auto mated message] The system which ge nerated this result transmit benny reference range : <=37. The reference range was not used to interpr et this result as shahid l/abnormal. [place] 660555-10-27 08:39:00 Test Item Value Reference Range Interpretation Comments ALT (test code = ALT) 39 See_Comment [Auto mated message] The system which ge nerated this result transmit benny reference range : <=65. The reference range was not used to interpr et this result as shahid l/abnormal. [place] 660555-10-27 08:39:00 Test Item Value Reference Range Interpretation Comments Alk Phos (test code = Alk Phos) 193 39-136 [place] 660555-10-27 08:39:00 Test Item Value Reference Range Interpretation Comments Albumin Lvl (test code = Albumin Lvl) 1.8 3.5-5.0 [place] 660555-10-27 08:39:00 Test Item Value Reference Range Interpretation Comments Total Protein (test code = Total 6.4 6.4-8.4 Protein) [facility]2015-10-27 08:39:00 Test Item Value Reference Range Interpretation Comments Glucose Lvl (test code = Glucose Lvl) 178 70-99 [facility]2015-10-27 08:39:00 Test Item Value Reference Range Interpretation Comments Creatinine Lvl (test code = Creatinine 0.5 0.5-1.4 Lvl) [facility]2015-10-27 08:39:00 Test Item Value Reference Range Interpretation Comments BUN (test code = BUN) 5 7-22 [facility] TempleIanyowpQRNNTMBBLO9539-34-76 08:39:00 Test Item Value Reference Range Interpretation Comments MPV (test code = MPV) 8.9 7.4-10.4 [facility] TempleYpldpzzIMGJYJYJMP9426-02-00 08:39:00 Test Item Value Reference Range Interpretation Comments Platelet (test code = Platelet) 195 133-450 [facility] TempleYlxlvvjRBHWNKYMCO9350-73-69 08:39:00 Test Item Value Reference Range Interpretation Comments Hct (test code = Hct) 30.9 36.0-48.0 [facility] TempleAcqfrmpJWYVDIHUDN4935-36-48 08:39:00 Test Item Value Reference Range Interpretation Comments Hgb (test code = Hgb) 10.0 12.0-16.0 [facility] TempleFdubsmjKZPWLVWADS7655-50-43 08:39:00 Test Item Value Reference Range Interpretation Comments RBC (test code = RBC) 3.52 4.20-5.40 [facility] TempleUjfovsgRTCQAXETWT2110-30-05 08:39:00 Test Item Value Reference Range Interpretation Comments MCV (test code = MCV) 87.8 80.0-98.0 [facility] TempleTpobxrrRKAZBTRZIV2090-27-29 08:39:00 Test Item Value Reference Range Interpretation Comments MCHC (test code = MCHC) 32.5 32.0-36.0 [facility] TempleFnmwqhaUXCDWKFDMT1934-47-92 08:39:00 Test Item Value Reference Range Interpretation Comments MCH (test code = MCH) 28.5 pg 27.0-31.0 [facility] TempleHytskeaKMMQERJYBT9323-32-96 08:39:00 Test Item Value Reference Range Interpretation Comments WBC (test code = WBC) 7.8 3.7-10.4 [facility] TempleVsnohkaGDPIRFRMLD0598-73-84 08:39:00 Test Item Value Reference Range Interpretation Comments RDW (test code = RDW) 14.0 11.5-14.5 [facility] TempleUhwabypZEMRHWJLJR1024-82-40 08:39:00 Test Item Value Reference Range Interpretation Comments Eosinophils # (test code 0.1 See_Comment [A utomated message] The = Eosinophils #) system [facility] h generated this result tra nsmitted reference range : <=0.5. The reference r michael was not used to int erpret this result as normal/abnormal . [facility] TempleHxpujihWCJXWTGMRN0832-82-49 08:39:00 Test Item Value Reference Range Interpretation Comments Lymphocytes # (test code = Lymphocytes 1.0 1.0-5.5 #) [facility] TempleHltjppbTBLQKKQRWG7064-40-19 08:39:00 Test Item Value Reference Range Interpretation Comments Monocytes # (test code 0.5 See_Comment [Aut omated message] The = Monocytes #) system which generated this result tra nsmitted reference range : <=0.8. The reference r michael was not used to int erpret this result as normal/abnormal . [facility] TempleCgvluazXCUWXKFZMT0581-09-33 08:39:00 Test Item Value Reference Range Interpretation Comments Monocytes (test code = Monocytes) 6.7 2.0-12.0 [facility] TempleQjpptzzKHAJZWIMDQ4808-47-09 08:39:00 Test Item Value Reference Range Interpretation Comments Segs-Bands # (test code = Segs-Bands #) 6.1 1.5-8.1 [facility] TempleMezvyrbXRNCQNPVBJ8927-55-43 08:39:00 Test Item Value Reference Range Interpretation Comments Basophils (test code = 0.6 See_Comment [Aut omated message] The Basophils) system which ge nerated this result tra nsmitted reference range : <=1.0. The reference r michael was not used to int erpret this result as normal/abnormal . [facility] TempleZopxcgdHRWICSQDXT5595-80-32 08:39:00 Test Item Value Reference Range Interpretation Comments Eosinophils (test code = 1.8 See_Comment [A utomated message] The Eosinophils) system which ge nerated this result tra nsmitted reference range : <=4.0. The reference r michael was not used to int erpret this result as normal/abnormal . [facility] TempleNskdxzmNKKFZWGNVT4313-47-49 08:39:00 Test Item Value Reference Range Interpretation Comments Lymphocytes (test code = Lymphocytes) 13.1 20.0-40.0 [facility] TempleXryfuzbLHXNTHKRNJ3294-29-05 08:39:00 Test Item Value Reference Range Interpretation Comments Segs (test code = Segs) 77.8 45.0-75.0 [facility] TemplePzsdexsTEPAFQLCQV9075-94-34 15:19:00 Test Item Value Reference Range Interpretation Comments Lup Interp (test Positive for lupus code = Lup Interp) anticoagulant (Positive dRVVT, positive hexagonal phospholipid neutralization). Thrombin Time is normal (17.4 sec) which rules out heparin as interference substance. CPT: 38053 [facility] TempleOwcovnjWQYVWIISRN1261-80-06 15:19:00 Test Item Value Reference Range Interpretation Comments Hex Phos N (test code Positive (07/03/15 10:19 = Hex Phos N) AM) [facility] TempleFfjixqmFFFLKKPTRN1941-66-88 15:19:00 Test Item Value Reference Range Interpretation Comments dRVV Ratio (test code = dRVV Ratio) 1.50 [facility] TempleBlsopqxUYQJMKEZGH1054-36-35 15:19:00 Test Item Value Reference Range Interpretation Comments F5 Leiden Intrp FACTOR V LEIDEN: Negative (test code = F5 INTERPRETATION: Molecular Leiden Intrp) analysis for the Factor V Leiden, R506Q mutation was negative. Other causes of activated protein C resistance and hereditary forms of venous thrombosis are not ruled out. Final diagnosis requires correlation with clinical history and other pertinent laboratory findings. Where appropriate, medical consultation and/or genetic counseling should be offered to inform and explain the risk implications and genetic implications of these test results. ASSAY LIMITATIONS: The assay uses the FDA-cleared [employer] Factor V Leiden IVD(Poymerase chain reaction/FRET detection)kit, [employer] LC Instrument and the [employer] LightCycler 1.2 Instrument. A 222-bp fragment of Factor V gene (FV) containing the Factor V Leiden sequence is amplified in the assay. The assay is designed to detect the G 1691A mutation only. Other causes of activated protein C resistance and hereditary forms of venous thrombosis are not ruled out. However,the melting curve analysis may implicate the presence of possible rare mutations at positions 1689, 1692 and 1696. (Further testing will be recommended in the report). A minimum detection level is 202 copies of Factor V Leiden per reaction. The level of agreement between the Factor V Leiden Kit and sequence analysis was 99.4%. The test result must be interpreted along with the patient's clinical history and relevant laboratory data. This assay has been validated by [facility]. [facility] TempleDesgxbaFUDRPFNCKU9557-64-49 15:19:00 Test Item Value Reference Range Interpretation Comments F5 Leiden PCR (test Negative (07/03/15 code = F5 Leiden PCR) 10:19 AM) [facility] TempleJpvfrxlPJPGGJJQXV3440-29-96 15:19:00 Test Item Value Reference Range Interpretation Comments Protein C Func (test code = Protein C 77 72-147 Func) [facility] TempleOecmmacSFDMHMLBWT5206-24-12 15:19:00 Test Item Value Reference Range Interpretation Comments Protein S Func (test code = Protein S 83 54-137 Func) [facility] TempleWebdhmwJWVWLVYUAJ6697-19-41 15:19:00 Test Item Value Reference Range Interpretation Comments AT III Func (test code = AT III Func) 93 77-140 [facility]IkrrfahMNNTWQICDX2996-99-39 15:19:00 Test Item Value Reference Range Interpretation Comments Beta2-Glycoprotein IgM (test code = 0.2 Beta2-Glycoprotein IgM) [facility]landSmjyiyxPGFVOONKII3795-52-05 15:19:00 Test Item Value Reference Range Interpretation Comments Beta2-Glycoprotein IgA (test code = 5.3 Beta2-Glycoprotein IgA) [facility]landHeubisnQDFPZFMSCF9201-42-33 15:19:00 Test Item Value Reference Range Interpretation Comments Beta2-Glycoprotein IgG (test code = no gt Beta2-Glycoprotein IgG) [facility]2015-10-26 11:26:00 Test Item Value Reference Range Interpretation Comments Ferritin Lvl (test code = Ferritin Lvl) 345 5-[address] [facility]2015-10-26 11:26:00 Test Item Value Reference Range Interpretation Comments Iron (test code = Iron) 32 30-[address] [facility]2015-10-26 11:26:00 Test Item Value Reference Range Interpretation Comments TIBC (test code = TIBC) 348 228-[address] [facility]2015-10-26 11:26:00 Test Item Value Reference Range Interpretation Comments % Satur Fe (test code = % Satur Fe) 9 12-[address] [facility]2015-10-26 11:26:00 Test Item Value Reference Range Interpretation Comments UIBC (test code = UIBC) 316 110-[address] [facility] HospitalGlbzsrbBKLTAGHGPH1157-26-67 11:26:00 Test Item Value Reference Range Interpretation Comments Sed Rate (test >100 mm/hr See_Comment [Automated m essage] The code = Sed Rate) system whic h generated this result tra nsmitted reference range : <=20. The reference r michael was not used to int erpret this result as normal/abnormal . [facility]MucvnboKIVQKKFWLG9867-99-95 11:26:00 Test Item Value Reference Range Interpretation Comments Sm Ab (test code = Sm Ab) no gt 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 HospitalHpznefkWAZORWZODI8861-04-79 11:26:00 Test Item Value Reference Range Interpretation Comments SS-B (La) Ab (test code = SS-B (La) Ab) no gt [facility] HospitalDrkvmrtYANENVOJPW1236-97-81 11:26:00 Test Item Value Reference Range Interpretation Comments SS-A (Ro) Ab (test code = SS-A (Ro) Ab) no gt [facility] CenterIoeotwkYQQSTQOCNS0650-12-63 11:26:00 Test Item Value Reference Range Interpretation Comments JIA Interp (test code Pattern appears = JIA Interp) speckled [facility] HospitalErvtsnxIZTESONFRW0060-50-62 11:26:00 Test Item Value Reference Range Interpretation Comments JIA Titer (test code = 1:40 *ABN*(07/03/15 JIA Titer) 6:26 AM) [facility] HospitalLtnhdaaLYBKJSXRAQ6655-68-00 11:26:00 Test Item Value Reference Range Interpretation Comments C-REACTIVE PROTEIN (test code = 264.0 C-REACTIVE PROTEIN) [facility] HospitalUnwuicmMOKLHCQZQS6593-80-44 11:26:00 Test Item Value Reference Range Interpretation Comments Cardiolipin IgM (test code = no gt Cardiolipin IgM) [facility] HospitalEsmzczgLHDQZDQMDQ0969-85-83 11:26:00 Test Item Value Reference Range Interpretation Comments Cardiolipin IgA (test code = 17.5 Cardiolipin IgA) [facility] HospitalYgtufjfRJYVFMFJNW0290-40-22 11:26:00 Test Item Value Reference Range Interpretation Comments Cardiolipin IgG (test code = no gt Cardiolipin IgG) [facility] HospitalTkauekfQCITSFAWXU2442-20-82 11:26:00 Test Item Value Reference Range Interpretation Comments JIA (test code = JIA) Positive *ABN*(07/03/15 6:26 AM) [facility] HospitalJzcydwpOIDWEY9407-57-45 11:26:00 Test Item Value Reference Range Interpretation Comments VLDL (test code = VLDL) [address] [facility] HospitalJlwbkdsZSHXLG7887-29-59 11:26:00 Test Item Value Reference Range Interpretation Comments LDL (Calculated) (test code = LDL 63 (Calculated)) [facility] HospitalSjzmssxAGZZZR1084-94-46 11:26:00 Test Item Value Reference Range Interpretation Comments Chol (test code = Chol) [address] [facility] HospitalQkrfiirWTOMPA7325-51-33 11:26:00 Test Item Value Reference Range Interpretation Comments Trig (test code = Trig) [address] [facility] HospitalPnxgqqaAVFYSA2590-32-78 11:26:00 Test Item Value Reference Range Interpretation Comments HDL (test code = HDL) [address] [facility] HospitalKzvtgqaVXLABG7651-26-68 11:26:00 Test Item Value Reference Range Interpretation Comments CHD Risk (test code = CHD Risk) 5.23 3.90-5.80 [facility] DJYDMMNQI1788-42-42 11:26:00 Test Item Value Reference Range Interpretation Comments Hgb A1C (test code = Hgb A1C) 11.7 [facility] CenterannTHYROID [id number] 11:26:00 Test Item Value Reference Range Interpretation Comments TSH (test code = TSH) 6.270 0.360-3.[address] [facility] HospitalTHYROID [id number] 11:26:00 Test Item Value Reference Range Interpretation Comments T4 Free (test code = T4 Free) 1.30 0.76-1.[address] [facility] HospitalRefer.com [id number] 08:35:00 Test Item Value Reference Range Interpretation Comments Glucose Lvl (test code = Glucose Lvl) 210 70-[address] [facility] HospitalRefer.com [id number] 08:35:00 Test Item Value Reference Range Interpretation Comments BUN (test code = BUN) 10 7-22 [facility]2015-10-26 08:35:00 Test Item Value Reference Range Interpretation Comments Creatinine Lvl (test code = Creatinine 0.8 0.5-1.4 Lvl) [facility]2015-10-26 08:35:00 Test Item Value Reference Range Interpretation Comments Sodium Lvl (test code = Sodium Lvl) 137 135-145 [facility]2015-10-26 08:35:00 Test Item Value Reference Range Interpretation Comments Potassium Lvl (test code = Potassium 3.5 3.5-5.1 Lvl) [facility]2015-10-26 08:35:00 Test Item Value Reference Range Interpretation Comments AGAP (test code = AGAP) 15.5 10.0-20.0 [facility]2015-10-26 08:35:00 Test Item Value Reference Range Interpretation Comments eGFR (test code = eGFR) 91 [facility]2015-10-26 08:35:00 Test Item Value Reference Range Interpretation Comments CO2 (test code = CO2) 22 24-32 [place] [id number] 08:35:00 Test Item Value Reference Range Interpretation Comments Calcium Lvl (test code = Calcium Lvl) 7.9 8.5-10.5 [facility]2015-10-26 08:35:00 Test Item Value Reference Range Interpretation Comments Chloride Lvl (test code = Chloride Lvl) 103 95-109 [facility]2015-10-26 08:35:00 Test Item Value Reference Range Interpretation Comments Ketone Quantitative (test code = Ketone 2.50 Quantitative) [facility]2015-10-26 02:36:00 Test Item Value Reference Range Interpretation Comments Ketone Quantitative (test code = Ketone 3.27 Quantitative) [facility]2015-10-26 02:10:00 Test Item Value Reference Range Interpretation Comments Lactic Acid WB (test code = Lactic Acid 0.6 0.5-2.2 WB) [facility]UajuzbnNONMGFTQOQVP2987-40-25 02:10:00 Test Item Value Reference Range Interpretation Comments AGAP (test code = AGAP) 18.8 10.0-20.0 [facility] CenterKeoruggHDUDABBGWQLX9467-55-71 02:10:00 Test Item Value Reference Range Interpretation Comments eGFR (test code = eGFR) 91 [facility] CenterAnecmevQXVDNOVBLIVW3249-43-20 02:10:00 Test Item Value Reference Range Interpretation Comments Creatinine Lvl (test code = Creatinine 0.8 0.5-1.4 Lvl) [facility] CenterDjmoarlHGRVDTKZAWAB1754-47-46 02:10:00 Test Item Value Reference Range Interpretation Comments Glucose Lvl (test code = Glucose Lvl) 267 70-99 [facility] CenterJknwujiRBYTZINELHVL0614-67-54 02:10:00 Test Item Value Reference Range Interpretation Comments BUN (test code = BUN) 12 7-22 [facility] CenterPhsktfgVNLNZWMIHOFG2373-68-90 02:10:00 Test Item Value Reference Range Interpretation Comments Potassium Lvl (test code = Potassium 3.8 3.5-5.1 Lvl) [facility] CenterXuwynpqQIUUJDBNNMBM0475-56-81 02:10:00 Test Item Value Reference Range Interpretation Comments Sodium Lvl (test code = Sodium Lvl) 135 135-145 [facility] CenterMurfpmmEYCWUXYDHDPW3685-03-90 02:10:00 Test Item Value Reference Range Interpretation Comments Chloride Lvl (test code = Chloride Lvl) 100 95-109 [facility] CenterTvojprkZPWHCCTSPKQL1031-41-46 02:10:00 Test Item Value Reference Range Interpretation Comments Calcium Lvl (test code = Calcium Lvl) 8.1 8.5-10.5 [facility] CenterXrzryqtJPEYSBFTLUMP7999-45-58 02:10:00 Test Item Value Reference Range Interpretation Comments CO2 (test code = CO2) 20 24-32 [facility]2015-10-26 00:35:00 Test Item Value Reference Range Interpretation Comments UA Sq Epi (test code = UA Sq Occasional /LPF Epi) [facility]2015-10-26 00:35:00 Test Item Value Reference Range Interpretation Comments UA RBC (test code 11-20 /HPF See_Comment [Automate d message] The = UA RBC) system which ge nerated this result tra nsmitted reference range : <=2. The reference range was not used to interpr et this result as normal/abnormal . [facility]2015-10-26 00:35:00 Test Item Value Reference Range Interpretation Comments UA WBC (test code = UA None Seen (07/02/15 WBC) 7:35 PM) [facility] [id number] 00:35:00 Test Item Value Reference Range Interpretation Comments UA Ketones (test code = UA >=80 mg/dL Ketones) [facility] [id number] 00:35:00 Test Item Value Reference Range Interpretation Comments UA Bili (test code = Small *ABN*(07/02/15 UA Bili) 7:35 PM) [facility] [id number] 00:35:00 Test Item Value Reference Range Interpretation Comments UA Protein (test code = UA Protein) 100 mg/dL [facility] AND [id number] 00:35:00 Test Item Value Reference Range Interpretation Comments UA pH (test code = UA pH) 5.5 1 5.0-8.0 [facility] AND [id number] 00:35:00 Test Item Value Reference Range Interpretation Comments UA Spec Grav (test code = UA Spec 1.010 1 Grav) [facility] AND [id number] 00:35:00 Test Item Value Reference Range Interpretation Comments UA Color (test code = Yellow *NA*(07/02/15 UA Color) 7:35 PM) [facility] AND [id number] 00:35:00 Test Item Value Reference Range Interpretation Comments UA Turbidity (test code = Clear (07/02/15 7:35 UA Turbidity) PM) [facility] AND [id number] 00:35:00 Test Item Value Reference Range Interpretation Comments UA Blood (test code = Large *ABN*(07/02/15 UA Blood) 7:35 PM) [facility] AND [id number] 00:35:00 Test Item Value Reference Range Interpretation Comments UA Leuk Est (test Negative (07/02/15 7:35 code = UA Leuk Est) PM) [facility] [id number] 00:35:00 Test Item Value Reference Range Interpretation Comments UA Nitrite (test code Negative (07/02/15 7:35 = UA Nitrite) PM) [facility] [id number] 00:35:00 Test Item Value Reference Range Interpretation Comments UA Glucose (test code = UA Glucose) 500 mg/dL [facility] AND [id number] 00:35:00 Test Item Value Reference Range Interpretation Comments UA Urobilinogen (test code = UA 0.2 0.1-1.0 Urobilinogen) [facility]2015-10-25 22:22:00 Test Item Value Reference Range Interpretation Comments Lactic Acid WB (test code = Lactic Acid 0.8 0.5-2.2 WB) [facility] TempleEwhnmeaNOWFMFCVRH7197-52-07 22:22:00 Test Item Value Reference Range Interpretation Comments D-Dimer (test code = D-Dimer) 3.54 [facility] TempleAietnozGMMVVFPQDV6454-57-87 22:22:00 Test Item Value Reference Range Interpretation Comments PTT (test code = PTT) 42.8 s 22.9-35.8 [facility] TemplePilraulIZWIDDQOGM1023-42-77 22:22:00 Test Item Value Reference Range Interpretation Comments INR (test code = INR) 1.18 0.85-1.17 [place] [id number] 22:22:00 Test Item Value Reference Range Interpretation Comments PT (test code = PT) 15.3 s 12.0-14.7 [facility]2015-10-25 21:41:00 Test Item Value Reference Range Interpretation Comments Magnesium Lvl (test code = Magnesium 1.7 1.8-2.4 Lvl) [facility]2015-10-25 21:41:00 Test Item Value Reference Range Interpretation Comments Phosphorus (test code = Phosphorus) 2.7 2.5-4.5 [facility]2015-10-25 21:41:00 Test Item Value Reference Range Interpretation Comments Lipase Lvl (test code = Lipase Lvl) 77 73-393 [facility]2015-10-25 21:41:00 Test Item Value Reference Range Interpretation Comments Bili Total (test code = Bili Total) 0.5 0.2-1.3 [facility]2015-10-25 21:41:00 Test Item Value Reference Range Interpretation Comments Alk Phos (test code = Alk Phos) 153 39-136 [facility]2015-10-25 21:41:00 Test Item Value Reference Range Interpretation Comments AST (test code = AST) 11 See_Comment [Auto mated message] The system which ge nerated this result transmit benny reference range : <=37. The reference range was not used to interpr et this result as shahid l/abnormal. [facility]2015-10-25 21:41:00 Test Item Value Reference Range Interpretation Comments ALT (test code = ALT) 30 See_Comment [Auto mated message] The system which ge nerated this result transmit benny reference range : <=65. The reference range was not used to interpr et this result as shahid l/abnormal. [facility]2015-10-25 21:41:00 Test Item Value Reference Range Interpretation Comments Total Protein (test code = Total 7.0 6.4-8.4 Protein) [facility]2015-10-25 21:41:00 Test Item Value Reference Range Interpretation Comments Albumin Lvl (test code = Albumin Lvl) 2.0 3.5-5.0 [facility]2015-10-25 21:41:00 Test Item Value Reference Range Interpretation Comments Globulin (test code = Globulin) 5.0 2.0-4.0 [facility]2015-10-25 21:41:00 Test Item Value Reference Range Interpretation Comments A/G Ratio (test code = A/G Ratio) 0.4 0.7-1.6 [facility]2015-10-25 21:41:00 Test Item Value Reference Range Interpretation Comments B/C Ratio (test code = B/C Ratio) 16 6-25 [facility] TempleXxkiytsOSDRXFJIFS6269-36-25 21:41:00 Test Item Value Reference Range Interpretation Comments MPV (test code = MPV) 8.6 7.4-10.4 [facility] TempleGfofyaiAJIMBJUKPU5163-07-05 21:41:00 Test Item Value Reference Range Interpretation Comments Platelet (test code = Platelet) 210 133-450 [facility] TempleCgsyrtlJOFWATUXTT4436-83-16 21:41:00 Test Item Value Reference Range Interpretation Comments MCH (test code = MCH) 28.4 pg 27.0-31.0 [facility] TempleBuspkpvOSNMBHMYHP7054-82-40 21:41:00 Test Item Value Reference Range Interpretation Comments RDW (test code = RDW) 14.2 11.5-14.5 [facility] TempleEmnptoaRDZXEDWVWZ2179-70-50 21:41:00 Test Item Value Reference Range Interpretation Comments MCHC (test code = MCHC) 32.3 32.0-36.0 [facility] TempleByrcvxnBVLALZXOUZ3233-81-93 21:41:00 Test Item Value Reference Range Interpretation Comments MCV (test code = MCV) 88.0 80.0-98.0 [facility] TempleFyjajisVEMVNZPIYF3158-36-79 21:41:00 Test Item Value Reference Range Interpretation Comments Hgb (test code = Hgb) 10.3 12.0-16.0 [facility] TempleEkqcbtiTCVNTSMFZH0991-78-37 21:41:00 Test Item Value Reference Range Interpretation Comments WBC (test code = WBC) 10.0 3.7-10.4 [facility] TempleZvkkrxsIZFJZCQOCA9660-50-98 21:41:00 Test Item Value Reference Range Interpretation Comments Hct (test code = Hct) 32.1 36.0-48.0 [facility] TempleIeghrcpETHXMVUQUG0361-53-27 21:41:00 Test Item Value Reference Range Interpretation Comments RBC (test code = RBC) 3.65 4.20-5.40 [facility] TempleJnapqrkQUXHGUMDUU4244-22-49 21:41:00 Test Item Value Reference Range Interpretation Comments Eosinophils # (test code 0.2 See_Comment [A utomated message] The = Eosinophils #) system whic h generated this result tra nsmitted reference range : <=0.5. The reference r michael was not used to int erpret this result as normal/abnormal . [facility] TempleNzgrcpsHKRRUXRQPN8602-51-82 21:41:00 Test Item Value Reference Range Interpretation Comments Monocytes # (test code 0.7 See_Comment [Aut omated message] The = Monocytes #) system which generated this result tra nsmitted reference range : <=0.8. The reference r michael was not used to int erpret this result as normal/abnormal . [facility] TempleAeqmhcbWQNNXAQLIF4706-39-13 21:41:00 Test Item Value Reference Range Interpretation Comments Lymphocytes # (test code = Lymphocytes 1.1 1.0-5.5 #) [facility] TempleKfhipllNDXDKCNEBZ6385-53-25 21:41:00 Test Item Value Reference Range Interpretation Comments Segs-Bands # (test code = Segs-Bands #) 8.0 1.5-8.1 [facility] TempleUdlvjgxMUKAJGMOBH6561-23-28 21:41:00 Test Item Value Reference Range Interpretation Comments Basophils (test code = 0.4 See_Comment [Aut omated message] The Basophils) system which ge nerated this result tra nsmitted reference range : <=1.0. The reference r michael was not used to int erpret this result as normal/abnormal . [facility] TempleSexklmxGCVYKLDMRN7763-74-38 21:41:00 Test Item Value Reference Range Interpretation Comments Lymphocytes (test code = Lymphocytes) 10.9 20.0-40.0 [facility] TempleSqdhyfrSJKFMNLGAM4420-64-82 21:41:00 Test Item Value Reference Range Interpretation Comments Monocytes (test code = Monocytes) 6.6 2.0-12.0 [facility] TempleMoerzsyGIGORMYPXY7833-14-52 21:41:00 Test Item Value Reference Range Interpretation Comments Segs (test code = Segs) 80.1 45.0-75.0 [facility] TempleRmrkfllTZLMXJANWO7443-53-57 21:41:00 Test Item Value Reference Range Interpretation Comments Eosinophils (test code = 2.0 See_Comment [A utomated message] The Eosinophils) system which ge nerated this result tra nsmitted reference range : <=4.0. The reference r michael was not used to int erpret this result as normal/abnormal . [facility]
[2022-05-16] MEDS ORDERED: carvediloL 6.25 MG TAB ONE (10:04)
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
[2022-05-16] MEDS ORDERED: HYDROCODONE/APAP 5/325 MG TAB ONE (13:38)
[2022-05-16 14:06] VITALS: O2SAT 99
[2022-05-16 14:14] VITALS: BP 162/78; TEMP 97.2
== END 2022-05-16 13:37 | disposition home or self-care (01) ==
LOC: ER 09:30
DX: S50.12XA Contusion of left forearm, initial encounter (principal); V49.49XA Driver injured in collision with other motor vehicles in traffic accident, initial encounter
CPT/HCPCS: 70450; 71045; 72125; 99284

== ENCOUNTER 2022-08-07 09:01 | Inpatient (IN) | payer OTHER ==
[2022-08-07] MEDS ORDERED: NA CHLORIDE 0.9% 50 ML IV ONE (09:31)
[2022-08-07] MEDS ORDERED: DIPHENHYDRAMINE 50 MG/ML VIAL ONE (09:31)
[2022-08-07] MEDS ORDERED: METOCLOPRAMIDE 10 MG/2mL INJ ONE (09:31)
[2022-08-07] MEDS ORDERED: NA CHLORIDE 0.9% 1,000 ML ONE (09:31)
[2022-08-07 09:47] LABS: Absolute Lymphocytes (CBC) 1.6 K/uL (0.7-4.9); Hematocrit 37.2 % (36.0-45.0); Lymphocytes % 14.7 % (15.3-44.8); MPV 9.2 fL (7.6-11.3); Protime INR 0.98; RBC Red Blood Cell Count 4.27 M/uL (3.86-4.86)
--- NOTE | 2022-08-07 10:00 | RAD REPORT ---
EXAM DESCRIPTION: CT - Ct Stroke Brain Wo Cont - 08/07/2022 9:54 am CLINICAL HISTORY: Left-sided weakness COMPARISON: May 2022 TECHNIQUE: Computed axial tomography of the head was obtained. All CT scans are performed using dose optimization technique as appropriate and may include automated exposure control or mA/KV adjustment according to patient size. FINDINGS: An intracranial bleed is not seen . The ventricles are normal in caliber. No extra-axial fluid collection is noted. Low-density left caudate/basal ganglia without change compatible with old lacunar infarction. Fluid within the sinuses/ mastoids is not seen. IMPRESSION: No acute intracranial abnormality is seen. If patient's symptoms persist MRI of the bra in would be recommended. Dr Youssef of the emergency room was notified at 9:47 a.m. on August 07, 2022
[2022-08-07] MEDS ORDERED: TENECTEPLASE 50 MG/10 ML VIAL IV ONE (10:03)
[2022-08-07 10:13] LABS: ALT/SGPT 32 U/L (12-78); Alkaline Phosphatase 97 U/L (45-117); BUN Blood Urea Nitrogen 60 mg/dL (7-18); Bicarbonate 15 mmol/L (21-32); Bilirubin Total 0.3 mg/dL (0.2-1.0); Glomerular Filtration Rate 17 ml/min (=/>90); Glucose Level 377 mg/dL (74-106); Protein, Total 5.8 g/dL (6.4-8.2); Sodium Level 138 mmol/L (136-145)
[2022-08-07 10:14] LABS: AST/SGOT 16 U/L (15-37); Bilirubin Direct < 0.1 mg/dL (0-0.2); Magnesium 2.1 mg/dL (1.8-2.4); Potassium 3.8 mmol/L (3.5-5.1)
[2022-08-07] MEDS ORDERED: ONDANSETRON 4 MG/2 ML VIAL ONE ×2 (10:29→17:56)
[2022-08-07] MEDS ORDERED: FENTANYL CITR 100 MCG/2 ML ONE (10:29)
[2022-08-07] MEDS ORDERED: METOPROLOL TARTRATE 5 MG/5 ML INJ IV ONE (10:41)
[2022-08-07 12:08] LABS: SARS-COV-2 RT PCR NEGATIVE (NEGATIVE)
--- NOTE | 2022-08-07 12:31 | RAD REPORT ---
EXAM DESCRIPTION: MRI - Brain Wo Cont - 08/07/2022 12:09 pm CLINICAL HISTORY: Left-sided weakness COMPARISON: 2020 MRI TECHNIQUE: Axial, sagittal, and coronal magnetic resonance images of the brain were obtained. FINDINGS: Area of abnormal signal left caudate, left internal capsule left basal ganglia has the kendra earance of an old infarction. Diffusion-weighted/ADC mapping does not reveal evidence of acute infarction. The ventricles are normal caliber. An extra-axial fluid collection is not noted. Fluid within the sinuses/mastoids is not seen IMPRESSION: No acute intracranial abnormality noted
[2022-08-07] MEDS ORDERED: ACETAMINOPHEN 325 MG TABLET PO PRN (12:54)
[2022-08-07] MEDS ORDERED: GUAIFENESIN/DM 5 ML UCUP PO PRN (13:04)
--- NOTE | 2022-08-07 13:10 | P.HP ---
Certification for Inpatient Patient admitted to: Inpatient With expected LOS: >2 Midnights Patient will require the following post-hospital care: None Practitioner: I am a practitioner with admitting privileges, knowledge of patient current condition, hospital course, and medical plan of care. Services: Services provided to patient in accordance with Admission requirements found in Title 42 Section 412.3 of the Code of Federal Regulations Patient History Date of Service: 08/07/22 Reason for admission: Left sided weakness\numbness History of Present Illness: Patient is a 47-year-old female with a past medical history significant for DM 2, hypertension, NJ, CAD, CABG who presents with complaints of left-sided numbness\weakness. Patient reported that she has been having nausea and vomiting for the past 2 days. Patient indicated that she was prescribed azithromycin on Friday by her PCP and has been having nausea and vomiting since taking the medication. Patient reported associated signs and symptoms of headache, dizziness, shortness of breath, cough and rhinorrhea. Patient denies any other signs or symptoms. Symptoms are aggravated or relieved by nothing. Patient decided to present to the hospital due to worsening symptoms. Allergies morphine Allergy (Intermediate, Verified 06/25/21 15:35) Hives/Rash Home Medications: Ascorbic Acid [Vitamin C] 250 mg PO DAILY 06/25/21 Aspirin [Aspirin EC 81 MG] 81 mg PO BID 06/25/21 Aspirin [Karuna Chewable Aspirin] 81 mg PO BID 6AM 6PM 06/25/21 Atorvastatin Calcium [Lipitor] 80 mg PO BEDTIME 06/25/21 Atorvastatin Calcium [Lipitor] 80 mg PO BEDTIME 06/25/21 Cholecalciferol (Vitamin D3) [Vitamin D3] 1,000 unit PO DAILY 06/25/21 Dulaglutide [Trulicity] 1.5 mg SQ EVERY 7TH DAY 06/25/21 Furosemide 40 mg PO DAILY 06/25/21 Glipizide [Glipizide ER] 5 mg PO BEDTIME 06/25/21 Insulin Glargine,Hum.rec.anlog [Tomas Solostar] 30 unit SQ BID 06/25/21 Pantoprazole [Protonix Tab*] 40 mg PO DAILY 06/25/21 Ramipril [Altace] 10 mg PO DAILY 06/25/21 Calcitrol [Rocaltrol*] 0.5 mcg PO DAILY #30 cap 06/27/21 Guaif/Dm [Robitussin Dm*] 10 ml PO Q6H PRN #30 ucup 06/27/21 Magnesium Oxide [Mag 0X*] 400 mg PO BEDTIME #30 tab 06/27/21 carvediloL [Coreg*] 25 mg PO BID 6AM 6PM #60 tab 06/27/21 levoFLOXacin [Levaquin*] 500 mg PO Q48H #3 tab 06/27/21 - Past Medical/Surgical History Diabetic: Yes -: DM-2, insulin-dependent -: Omphalocele -: CAD s/p CABG -: Bilateral tubal ligation -: tonsilectomy -: CABG - Family History Father -: Hypertension, Lung disease, Diabetes mother' -: Hypertension, Diabetes, Stroke, Cancer - Social History Smoking Status: Unknown if ever smoked Alcohol use: No CD- Drugs: No Caffeine use: Yes Review of Systems General: Weakness Eyes: Unremarkable ENT: Other (Rhinorrhea) Respiratory: Cough, Shortness of Breath, Other (Rhinorrhea.) Cardiovascular: Unremarkable Gastrointestinal: Nausea, Vomiting Genitourinary: Unremarkable Musculoskeletal: Unremarkable Neurological: Weakness, Numbness, Other (Headache, dizziness) Lymphatics: Unremarkable Physical Examination - Physical Exam General: Alert, In no apparent distress, Oriented x3, Cooperative HEENT: Atraumatic, PERRLA, Mucous membr. moist/pink, EOMI, Sclerae nonicteric Neck: Supple, 2+ carotid pulse no bruit, No LAD, Without JVD or thyroid abnormality Respiratory: Clear to auscultation bilaterally, Diminished Cardiovascular: No edema, No murmurs, Irregular heart rate/rhythm Capillary refill: <2 Seconds Gastrointestinal: Normal bowel sounds, Soft and benign, No tenderness Musculoskeletal: No clubbing, No swelling, No contractures, No tenderness Integumentary: No rashes, No breakdown, No significant lesion, No tenderness/swelling Neurological: Normal speech, Normal tone, Normal affect, Abnormal gait, Abnormal strength Lymphatics: No axilla or inguinal lymphadenopathy - Studies Laboratory Data (last 24 hrs) 08/07/22 09:36: PT 10.8, INR 0.98 08/07/22 09:36: WBC 11.00 H, Hgb 12.1, Hct 37.2, Plt Count 256 08/07/22 09:36: Sodium 138, Potassium 3.8, BUN 60 H, Creatinine 3.23 H, Glucose 377 H, Magnesium 2.1, Total Bilirubin 0.3, AST 16, ALT 32, Alkaline Phosphatase 97 Assessment and Plan - Plan --TIA. MRI brain does not indicate any acute intracranial normality. S/P TNK in the ER. Continue aspirin and statin. Neurology consulted. PT eval and treat. Will await further recommendation. --DM2. BS monitoring with sliding scale insulin and Lantus. --Hypertension. Stable. Continue home medication. --Class II obesity. Likely secondary to excess calories intake. Patient counseled on weight reduction, diet and exercise therapy. --Atrial fibrillation. Patient placed on metoprolol. Telemetry to monitor for any malignant arrhythmia. Echocardiogram pending. Further management per live in companion. --GERD. Continue Protonix. --History of NJ\CAD\CABG. Continue aspirin and statin. --Intractable nausea and vomiting. CT abdomen does not indicate any acute intra abdominal abnormality. Continue supportive care. --Hyperlipidemia. Continue statin. -- Elevated troponin levels. Will trend troponin levels. Telemetry to monitor for any significant arrhythmia. Echocardiogram pending. Cardiology consulted. Will await further recommendations. --THONY on CKD 3B. Likely prerenal secondary to dehydration. Nephrology consulted. Will await further recommendations. --Elevated BNP. Patient placed on Lasix. Echocardiogram pending to assess LV\valvular function and wall motion. Further management per live in companion. -- Nausea vomiting. Antiemetics on board. Continue supportive care. --Hypertension. Stable. Continue home medication. --Influenza A. Patient present on Tamiflu. Continue droplet and contact precautions. --Suspected acute systolic or diastolic CHF. BNP elevated at 6261. Daily we ight and strict I/O. Continue diuresis with Lasix. Echocardiogram pending. Further management per live in companion. --DVT prophylaxis with SCDs. Discharge Plan: Home Plan to discharge in: Greater than 2 days - Advance Directives Does patient have a Living Will: No Does patient have a Durable POA for Healthcare: No - Code Status/Comfort Care Code Status Assessed: Yes Physician Review: Patient Assessed, Agree with Above Assessment and Plan Critical Care: No
--- NOTE | 2022-08-07 13:11 | ER ---
Nurse's Notes [facility] Name: Elis Smart Age: 47 yrs Sex: Female : 1975 Arrival Date: 08/07/2022 Time: 09:03 Bed 20 Private MD: He Keller Diagnosis: Cerebral infarction, unspecified;Unspecified atrial fibrillation;Acute Kidney Injury Presentation: 08/07 09:10 Chief complaint: Patient states: N/V since Friday. + CHOPRA, no known fever. Noticed her ll1 face and arms started to tingle earlier today. Coronavirus screen: Vaccine status: Patient reports receiving the 2nd dose of the covid vaccine. Client denies travel out of the [place] in the last 14 days. At this time, the client does not indicate any symptoms associated with coronavirus-19. Ebola Screen: Patient denies travel to an Ebola-affected area in the 21 days before illness onset. Initial Sepsis Screen: Does the patient meet any 2 criteria? No. Patient's initial sepsis screen is negative. Does the patient have a suspected source of infection? Yes: Acute abdominal pain. Risk Assessment: Do you want to hurt yourself or someone else? Patient reports no desire to harm self or others. Onset of symptoms was August 03, 2022. 09:10 Method Of Arrival: Wheelchair ll1 09:10 Acuity: ERIK 3 ll1 10:40 Acuity: ERIK 2 iw Triage Assessment: 09:10 General: Appears uncomfortable, ill, Behavior is appropriate for age, vomitting. Pain: ll1 Complains of pain in head. Neuro: Reports headache numbness paresthesias. GI: Reports nausea, vomiting. 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 - Social history:: Smoking status: Patient denies any tobacco usage or history of. Screenin:55 VAN Screening: Arm Drift: Patient shows no arm weakness. Patient is VAN negative. kr3 12:30 Patient has been NPO before screening. The patient is alert, able to follow commands. kr3 The patient does not exhibit slurred or garbled speech The patient is not exhibiting difficulty speaking. The patient does not exhibit difficulty understanding words. The patient is able to swallow own secretions with no drooling or need for suction. Patient tolerated one teaspoon of water. No drooling, immediate coughing, gurgling, or clearing of the throat was noted. The patient tolerated 90mL of water. No drooling, immediate coughing, gurgling, or clearing of the throat was noted. The patient passed the bedside swallow screening. Oral medications may be given as ordered. Contact Physician for further diet orders. Provider notified of bedside swallow screening results: Carmel Youssef MD. 13:07 Abuse screen: Denies threats or abuse. Denies injuries from another. Nutritional db screening: No deficits noted. Tuberculosis screening: No symptoms or risk factors identified. Fall Risk None identified. No secondary diagnosis (0 pts). IV access (20 points). Ambulatory Aid- None/Bed Rest/Nurse Assist (0 pts). Gait- Normal/Bed Rest/Wheelchair (0 pts) Mental Status- Oriented to own ability (0 pts). Total Torres Fall Scale indicates No Risk (0-24 pts). Assessment: 09:15 Reassessment: see triage note. kr3 09:22 General: Appears distressed, uncomfortable, Behavior is cooperative, agitated, fussy. kr3 Pain: Complains of pain in headache. 09:22 Neuro: Level of Consciousness is awake, alert, obeys commands, Oriented to person, kr3 place, time, situation. Cardiovascular: Patient's skin is warm and dry. Respiratory: Airway is patent Respiratory effort is even, unlabored, Respiratory pattern is regular, symmetrical. GI: Abdomen is round non-distended. : No signs and/or symptoms were reported regarding the genitourinary system. EENT: No signs and/or symptoms were reported regarding the EENT system. Derm: Skin is intact, Skin is dry, Skin is pink, warm \T\ dry. Skin temperature is warm. 09:22 Musculoskeletal: Reports weakness in left arm numbness in left arm. kr3 09:26 Reassessment: CODE STROKE CALLED. db 09:39 Reassessment: patient in CT. db 10:06 Reassessment: TNK given at 10:06, verified with Alaina Bush RN and Flip VILLAVICENCIO , consent iw form signed. 10:17 Reassessment: CRITICAL CALLED: TROP 121. db 10:22 Reassessment: No changes from previously documented assessment. Patient and/or family kr3 updated on plan of care and expected duration. Pain level reassessed. 11:22 Reassessment: Patient and/or family updated on plan of care and expected duration. Pain kr3 level reassessed. patient able to hold left leg in air for 10 seconds now without drift . 12:22 Reassessment: No changes from previously documented assessment. Patient and/or family kr3 updated on plan of care and expected duration. Pain level reassessed. Patient is alert, oriented x 3, equal unlabored respirations, skin warm/dry/pink. 13:22 Reassessment: No changes from previously documented assessment. Patient and/or family kr3 updated on plan of care and expected duration. Pain level reassessed. Patient is alert, oriented x 3, equal unlabored respirations, skin warm/dry/pink. 14:25 Reassessment: No changes from previously documented assessment. Patient and/or family kr3 updated on plan of care and expected duration. Pain level reassessed. Patient is alert, oriented x 3, equal unlabored respirations, skin warm/dry/pink. 15:32 Reassessment: Patient and/or family updated on plan of care and expected duration. Pain kr3 level reassessed. Patient is alert, oriented x 3, equal unlabored respirations, skin warm/dry/pink. 16:31 Reassessment: No changes from previously documented assessment. Patient and/or family kr3 updated on plan of care and expected duration. Pain level reassessed. Patient is alert, oriented x 3, equal unlabored respirations, skin warm/dry/pink. Vital Signs: 09:10 BP 134 / 94; Pulse 78; Resp 20; Temp 97.5; Pulse Ox 100% ; Pain 10/10; ll1 09:20 BP 105 / 75; Pulse 62; Resp 18; Temp 98.5(O); Pulse Ox 99% on R/A; kr3 10:20 BP 102 / 92; Pulse 134; Resp 18; Pulse Ox 100% on R/A; kr3 10:40 Weight 83 kg (M); iw 11:20 BP 123 / 79; Pulse 113; Resp 17; Pulse Ox 100% on R/A; kr3 13:07 Weight 86.18 kg; Height 5 ft. 2 in. (157.48 cm); db 13:07 Body Mass Index 34.75 (86.18 kg, 157.48 cm) db NIH Stroke Scale Scores: 09:48 NIHSS Score: 2 kr3 10:08 NIHSS Score: 3 [facility] ED Course: 09:03 Patient arrived in ED. am2 09:03 He Keller DO is Private Physician. am2 09:06 Flip Ruffin PA is PHCP. jmm 09:06 Carmel Youssef MD is Attending Physician. m 09:09 Arm band placed on. ll1 09:12 Triage completed. ll1 09:51 Head Brain Wo Cont In Process Unspecified. EDMS 09:56 Ct Stroke Brain Wo Cont In Process Unspecified. EDMS 09:59 EKG done, by ED staff, reviewed by Flip VILLAVICENCIO. em1 10:14 Inserted saline lock: 22 gauge in left forearm, using aseptic technique. em1 10:26 Vira Acosta, RN is Primary Nurse. iw 11:56 MRI - Brain Wo Cont In Process Unspecified. EDMS 12:45 Carotid Artery Bilateral US In Process Unspecified. EDMS 12:45 Abdomen Pelvis Scan\E\US In Process Unspecified. EDMS 13:07 Patient has correct armband on for positive identification. Bed in low position. Call db light in reach. Side rails up X2. 13:09 Ene Olson MD is Hospitalizing Provider. [facility] 08/08 08:50 No provider procedures requiring assistance completed. Patient admitted, IV remains in ap3 place. Administered Medications: 08/07 09:20 Drug: NS 0.9% 1000 ml Route: IV; Rate: 1 bolus; Site: left forearm; kr3 19:37 Follow up: Response: No adverse reaction; IV Status: Completed infusion; IV Intake: iw 1000ml 10:06 Drug: TNK FOR STROKE - Tenecteplase 0.25 mg/kg {Co-Signature: kr3 (Alaina Bush RN).} Route: IV; Rate: per protocol; Site: left forearm; 19:38 Follow up: Response: No adverse reaction; IV Status: Completed infusion; IV Intake: 15mliw 10:32 Drug: fentaNYL (PF) 25 mcg Route: IVP; Site: left forearm; iw 19:37 Follow up: Response: No adverse reaction; RASS: Alert and Calm (0) iw 10:34 Drug: Zofran (Ondansetron) 4 mg Route: IVP; Site: left forearm; iw 19:38 Follow up: Response: No adverse reaction iw 10:50 Drug: Metoprolol 5 mg Route: IVP; Site: left forearm; iw 11:04 Drug: Metoprolol 5 mg Route: IVP; Site: left forearm; iw 11:10 Drug: Metoprolol 5 mg Route: IVP; Site: left forearm; iw 19:36 Not Given (Other Intervention Used): diphenhydrAMINE 12.5 mg IVP once iw 19:37 Not Given (Other Intervention Used): Reglan (metoCLOPramide) 20 mg IVP once; put in iw bolus 19:37 Not Given (provider changed order): amiodarone 900 mg, D5W 500 ml IVPB at 1 mg/min iw continuous; for 6 hrs, then change to 0.5 mg/min Medication: 08/08 08:51 VIS not applicable for this client. ap3 Intake: 08/07 19:37 IV: 1000ml; Total: 1000ml. iw 19:38 IV: 15ml; Total: 1015ml. iw Outcome: 13:10 Decision to Hospitalize by Provider. holly 08/08 08:50 Admitted to ER Hold. Please see [facility] for further documentation. ap3 Condition: good Instructed on the need for admit. 19:09 Patient left the ED. iw NIH Stroke Scale - NIH Stroke Score Date: 08/07/2022 Time: 09:48 Total Score = 2 1a. Level of Consciousness (LOC) - 0(Alert) 1b. Level of Consciousness (LOC) (Month \T\ Age) - 0(Both) 1c. LOC Commands (Open \T\ Closes Eyes/Semiconductor Processor) - 0(Both) 2. Best Gaze (Lateral Gaze Paresis) - 0(Normal) 3. Visual Field Loss - 1(Partial hemianopia) 4. Facial Palsy - 0(Normal) 5a. Left Arm: Motor (10-second hold) - 0(No drift) 5b. Right Arm: Motor (10-second hold) - 0(No drift) 6a. Left Leg: Motor (5-second hold - always test supine) - 0(No drift) 6b. Right Leg: Motor (5-second hold - always test supine) - 1(Drift) 7. Limb Ataxia (finger/nose \T\ heel/young - test with eyes open) - 0(Absent) 8. Sensory Loss (pinprick arms/legs/face) - 0(Normal) 9. Best Language: Aphasia (description/naming/reading) - 0(No aphasia) 10. Dysarthria (speech clarity - read or repeat words) - 0(Normal) 11. Extinction and Inattention (visual/tactile/auditory/spatial/personal) - 0(No abnormality) Initials: kr3 NIH Stroke Scale - NIH Stroke Score Date: 08/07/2022 Time: 10:08 Total Score = 3 1a. Level of Consciousness (LOC) - 0(Alert) 1b. Level of Consciousness (LOC) (Month \T\ Age) - 0(Both) 1c. LOC Commands (Open \T\ Closes Eyes/Semiconductor Processor) - 0(Both) 2. Best Gaze (Lateral Gaze Paresis) - 0(Normal) 3. Visual Field Loss - 0(No visual loss) 4. Facial Palsy - 0(Normal) 5a. Left Arm: Motor (10-second hold) - 2(Drift, some effort against gravity) 5b. Right Arm: Motor (10-second hold) - 0(No drift) 6a. Left Leg: Motor (5-second hold - always test supine) - 1(Drift) 6b. Right Leg: Motor (5-second hold - always test supine) - 0(No drift) 7. Limb Ataxia (finger/nose \T\ heel/young - test with eyes open) - 0(Absent) 8. Sensory Loss (pinprick arms/legs/face) - 0(Normal) 9. Best Language: Aphasia (description/naming/reading) - 0(No aphasia) 10. Dysarthria (speech clarity - read or repeat words) - 0(Normal) 11. Extinction and Inattention (visual/tactile/auditory/spatial/personal) - 0(No abnormality) Initials: [facility] Signatures: Dispatcher [employer] EDFlip Torres PA PA jmm Williams Vira, DIANA ORTIZ iw Sohan Mosquera em1 Agnieszka Cisneros am2 Agnieszka Buckley RN RN ap3 Radha Levin RN RN ll1 Alaina Bush RN RN kr3 Ashleigh Gilbert RN RN db Alaina Bush RN kr3 Corrections: (The following items were deleted from the chart) 08/07 09:10 09:09 Allergies: PENICILLINS; ll1 ll1 09:13 09:10 Pulse 78bpm; Resp 20bpm; Pulse Ox 100%; Temp 97.5F; Pain 06/17; ll1 ll1 10:41 10:06 Reassessment: TNK given at 10:06, verified with Alaina Bush RN and Flip queen 15:01 09:22 Musculoskeletal: Reports weakness in left arm numbness in left arm kr3 kr3 15:31 09:55 NIHSS Score: 2 kr3 kr3 15:32 13:35 Reassessment: see triage note. kr3 kr3 15:32 10:35 Patient has been NPO before screening. The patient is alert, able to kr3 follow commands. The patient does not exhibit slurred or garbled speech The patient is not exhibiting difficulty speaking. The patient does not exhibit difficulty understanding words. The patient is able to swallow own secretions with no drooling or need for suction. Patient tolerated one teaspoon of water. No drooling, immediate coughing, gurgling, or clearing of the throat was noted. The patient tolerated 90mL of water. No drooling, immediate coughing, gurgling, or clearing of the throat was noted. The patient passed the bedside swallow screening. Oral medications may be given as ordered. Contact Physician for further diet orders. Provider notified of bedside swallow screening results: Carmel Youssef MD kr3 15:57 11:22 Reassessment: Patient and/or family updated on plan of care and expected kr3 duration. Pain level reassessed. kr3
--- NOTE | 2022-08-07 13:11 | EDPHYS ---
Physician Documentation [facility] Name: Elis Smart Age: 47 yrs Sex: Female : 1975 Arrival Date: 08/07/2022 Time: 09:03 Bed 20 Private MD: [facility] ED Physician Carmel Youssef HPI: 08/07 09:14 This 47 yrs old Female presents to ER via Wheelchair with complaints of Nausea, General jmm Weakness, Headache, left facial and arm tingling. 09:14 The patient presents to the emergency department with nausea, vomiting. Onset: The jmm symptoms/episode began/occurred 2 day(s) ago. Possible causes: unknown. This is a 47-year-old female with history of diabetes mellitus, hypertension, coronary artery disease the presents emerged department with complaints of headache vomiting. Patient states she was prescribed azithromycin on Friday and has had nausea and vomiting since. Patient states that she came to the ED because she developed tingling and numbness to the left side of her face and her left arm. Denies chest pain or shortness of breath.. 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 - Social history:: Smoking status: Patient denies any tobacco usage or history of. ROS: 09:14 Constitutional: Positive for body aches. jmm 09:14 Abdomen/GI: Positive for vomiting. 09:14 Neuro: Positive for headache, numbness, tingling. 09:14 All other systems are negative. Exam: 09:14 Head/Face: atraumatic. Eyes: EOMI, no conjunctival erythema appreciated ENT: Moist jmm Mucus Membranes Neck: Trachea midline, Supple Chest/axilla: Normal chest wall appearance and motion. 09:14 Constitutional: The patient appears alert, awake, anxious. 09:14 Cardiovascular: Rate: tachycardic. 09:14 Respiratory: the patient does not display signs of respiratory distress, Respirations: normal, Breath sounds: are clear throughout. 09:14 Abdomen/GI: Inspection: obese Bowel sounds: normal, Palpation: abdomen is soft and non-tender, in all quadrants. 09:14 Back: ROM is normal. 09:14 Musculoskeletal/extremity: 09:14 Neuro: Cranial nerves: Facial palsy and sensory deficits are absent. Motor: Left upper extremity pronator drift appreciated. 09:14 Psych: Behavior/mood is pleasant, cooperative, anxious. Vital Signs: 09:10 BP 134 / 94; Pulse 78; Resp 20; Temp 97.5; Pulse Ox 100% ; Pain 10/10; ll1 09:20 BP 105 / 75; Pulse 62; Resp 18; Temp 98.5(O); Pulse Ox 99% on R/A; kr3 10:20 BP 102 / 92; Pulse 134; Resp 18; Pulse Ox 100% on R/A; kr3 10:40 Weight 83 kg (M); iw 11:20 BP 123 / 79; Pulse 113; Resp 17; Pulse Ox 100% on R/A; kr3 13:07 Weight 86.18 kg; Height 5 ft. 2 in. (157.48 cm); db 13:07 Body Mass Index 34.75 (86.18 kg, 157.48 cm) db NIH Stroke Scale Scores: 09:48 NIHSS Score: 2 kr3 10:08 NIHSS Score: 3 [facility] MDM: 09:14 Patient medically screened. [facility] 10:27 ED course: I discussed the patient with Dr. Fish whom recommended administration of jmm tnk if negative ct. Risks/benefits of tnk discussed with the patient and family whom elected to receive. 5 mg of metoprolol administered. BP reduced to 90 systolic. I discussed this with Dr. Youssef whom recommended amiodarone drip. . 13:08 Data reviewed: vital signs, nurses notes. Counseling: I had a detailed discussion with holly the patient and/or guardian regarding: the historical points, exam findings, and any diagnostic results supporting the discharge/admit diagnosis, lab results, radiology results, the need for further work-up and treatment in the hospital. 08/07 09:14 Order name: Basic Metabolic Panel; Complete Time: 10:20 [facility] 08/07 09:14 Order name: CBC with Diff; Complete Time: 09:56 [facility] 08/07 09:14 Order name: LFT's; Complete Time: 10:20 [facility] 08/07 09:14 Order name: Magnesium; Complete Time: 10:20 [facility] 08/07 09:14 Order name: PT-INR; Complete Time: 09:56 [facility] 08/07 09:14 Order name: Troponin HS; Complete Time: 10:20 [facility] 08/07 09:18 Order name: COVID-19/FLU A+B; Complete Time: 12:13 [facility] 08/07 16:09 Order name: PTT, Activated Partial Thromb; Complete Time: 16:10 [facility] 08/07 16:21 Order name: Phosphorus; Complete Time: 16:23 [facility] 08/07 16:21 Order name: NT PRO-BNP; Complete Time: 16:23 [facility] 08/07 16:21 Order name: T4 Free; Complete Time: 16:23 [facility] 08/07 16:21 Order name: Magnesium; Complete Time: 16:23 [facility] 08/07 16:21 Order name: Thyroid Stimulating Hormone; Complete Time: 16:23 [facility] 08/07 17:30 Order name: Urine Dipstick-Ancillary; Complete Time: 17:34 [facility] 08/07 09:22 Order name: Head Brain Wo Cont EDID 08/07 09:30 Order name: CT Head Angio [facility] 08/07 09:36 Order name: Ct Stroke Brain Wo Cont; Complete Time: 10:09 [facility] 08/07 11:08 Order name: MRI - Brain Wo Cont; Complete Time: 12:34 [facility] 08/07 11:11 Order name: Carotid Artery Bilateral US; Complete Time: 13:21 [facility] 08/07 11:27 Order name: Abdomen Pelvis Scan\E\US; Complete Time: 13:57 [facility] 08/07 17:45 Order name: Glucose, Ancillary Testing; Complete Time: 17:49 [facility] 08/07 23:43 Order name: Glucose, Ancillary Testing EDID 08/08 02:26 Order name: CBC with Automated Diff EDID 08/08 02:36 Order name: Basic Metabolic Panel EDID 08/08 08:25 Order name: Glucose, Ancillary Testing [facility] 08/07 09:14 Order name: EKG; Complete Time: 09:17 [facility] 08/07 09:14 Order name: Cardiac monitoring; Complete Time: 12:54 [facility] 08/07 09:14 Order name: EKG - Nurse/Tech; Complete Time: 09:58 [facility] 08/07 09:14 Order name: IV Saline Lock; Complete Time: 10:14 [facility] 08/07 09:14 Order name: Labs collected and sent; Complete Time: 12:54 [facility] 08/07 09:14 Order name: O2 Per Protocol; Complete Time: 12:54 [facility] 08/07 09:14 Order name: O2 Sat Monitoring; Complete Time: 12:54 [facility] 08/07 11:46 Order name: Echo w/ Doppler [facility] 08/07 12:54 Order name: CONS Physician Consult [facility] 08/07 13:55 Order name: CT; Complete Time: 13:57 EDMS Administered Medications: 09:20 Drug: NS 0.9% 1000 ml Route: IV; Rate: 1 bolus; Site: left forearm; kr3 19:37 Follow up: Response: No adverse reaction; IV Status: Completed infusion; IV Intake: iw 1000ml 10:06 Drug: TNK FOR STROKE - Tenecteplase 0.25 mg/kg {Co-Signature: jaren (Alaina Bush RN).} Route: IV; Rate: per protocol; Site: left forearm; 19:38 Follow up: Response: No adverse reaction; IV Status: Completed infusion; IV Intake: 15mliw 10:32 Drug: fentaNYL (PF) 25 mcg Route: IVP; Site: left forearm; iw 19:37 Follow up: Response: No adverse reaction; RASS: Alert and Calm (0) iw 10:34 Drug: Zofran (Ondansetron) 4 mg Route: IVP; Site: left forearm; iw 19:38 Follow up: Response: No adverse reaction iw 10:50 Drug: Metoprolol 5 mg Route: IVP; Site: left forearm; iw 11:04 Drug: Metoprolol 5 mg Route: IVP; Site: left forearm; iw 11:10 Drug: Metoprolol 5 mg Route: IVP; Site: left forearm; iw 19:36 Not Given (Other Intervention Used): diphenhydrAMINE 12.5 mg IVP once iw 19:37 Not Given (Other Intervention Used): Reglan (metoCLOPramide) 20 mg IVP once; put in iw bolus 19:37 Not Given (provider changed order): amiodarone 900 mg, D5W 500 ml IVPB at 1 mg/min iw continuous; for 6 hrs, then change to 0.5 mg/min Disposition Summary: 08/07/22 13:10 Hospitalization Ordered Hospitalization Status: Inpatient Admission jmm Provider: Ene Olson Condition: Stable jmm Problem: new jmm Symptoms: have improved jmm Bed/Room Type: Standard [facility] Location: [facility] ER HOLD(08/07/22 20:39) Room Assignment: ERHOLD-(08/07/22 20:39) cg Diagnosis - Cerebral infarction, unspecified jmm - Unspecified atrial fibrillation jmm - Acute Kidney Injury jmm Discharge Instructions: - Discharge Summary Sheet ld1 Forms: - Medication Reconciliation Form jmm - SBAR form jmm - Work release form ld1 NIH Stroke Scale - NIH Stroke Score Date: 08/07/2022 Time: 09:48 Total Score = 2 1a. Level of Consciousness (LOC) - 0(Alert) 1b. Level of Consciousness (LOC) (Month \T\ Age) - 0(Both) 1c. LOC Commands (Open \T\ Closes Eyes/Insecticide Sprayer) - 0(Both) 2. Best Gaze (Lateral Gaze Paresis) - 0(Normal) 3. Visual Field Loss - 1(Partial hemianopia) 4. Facial Palsy - 0(Normal) 5a. Left Arm: Motor (10-second hold) - 0(No drift) 5b. Right Arm: Motor (10-second hold) - 0(No drift) 6a. Left Leg: Motor (5-second hold - always test supine) - 0(No drift) 6b. Right Leg: Motor (5-second hold - always test supine) - 1(Drift) 7. Limb Ataxia (finger/nose \T\ heel/young - test with eyes open) - 0(Absent) 8. Sensory Loss (pinprick arms/legs/face) - 0(Normal) 9. Best Language: Aphasia (description/naming/reading) - 0(No aphasia) 10. Dysarthria (speech clarity - read or repeat words) - 0(Normal) 11. Extinction and Inattention (visual/tactile/auditory/spatial/personal) - 0(No abnormality) Initials: kr3 NIH Stroke Scale - NIH Stroke Score Date: 08/07/2022 Time: 10:08 Total Score = 3 1a. Level of Consciousness (LOC) - 0(Alert) 1b. Level of Consciousness (LOC) (Month \T\ Age) - 0(Both) 1c. LOC Commands (Open \T\ Closes Eyes/Insecticide Sprayer) - 0(Both) 2. Best Gaze (Lateral Gaze Paresis) - 0(Normal) 3. Visual Field Loss - 0(No visual loss) 4. Facial Palsy - 0(Normal) 5a. Left Arm: Motor (10-second hold) - 2(Drift, some effort against gravity) 5b. Right Arm: Motor (10-second hold) - 0(No drift) 6a. Left Leg: Motor (5-second hold - always test supine) - 1(Drift) 6b. Right Leg: Motor (5-second hold - always test supine) - 0(No drift) 7. Limb Ataxia (finger/nose \T\ heel/young - test with eyes open) - 0(Absent) 8. Sensory Loss (pinprick arms/legs/face) - 0(Normal) 9. Best Language: Aphasia (description/naming/reading) - 0(No aphasia) 10. Dysarthria (speech clarity - read or repeat words) - 0(Normal) 11. Extinction and Inattention (visual/tactile/auditory/spatial/personal) - 0(No abnormality) Initials: holly Signatures: Dispatcher [employer] EDID Flip Ruffin PA PA Vira Limon, RN Michelle Roblero, RN Radha Rivera RN RN ll1 Alaina Bush RN RN kr3 Alaina Bush RN kr3 Corrections: (The following items were deleted from the chart) 09:10 09:09 Allergies: PENICILLINS; ll1 ll1 09:54 09:38 Stone Protocol+CT.RAD.BRZ ordered. EDMS EDMS 09:56 09:24 Head Brain Wo Cont+CT.RAD.BRZ ordered. EDMS EDMS 10:34 09:34 Head angio ordered. EDMS EDMS 10:35 09:36 Neck Angio+CT.RAD.BRZ ordered. EDMS EDMS 11:27 11:10 Rp Exam Complete+US.RAD.BRZ ordered. EDID EDMS 20:39 13:10 Intensive Care Unit [facility] 20:39 13:10 jmm cg
--- NOTE | 2022-08-07 13:17 | RAD REPORT ---
EXAM DESCRIPTION: US - CP - 08/07/2022 12:43 pm CLINICAL HISTORY: WEAKNESS COMPARISON: Head C Spine Mpr Wo Con dated 05/16/2022 TECHNIQUE: Real-time sonographic evaluation of both carotid systems was performed. Doppler interroga tion was performed with waveform tracing bilaterally. FINDINGS: Normal high resistance waveforms are noted in both external carotid arteries. The common c arotid arteries and internal carotid arteries show normal low resistance waveforms. Mixed hard and soft plaque is present at both carotid bifurcations. Mild elevated peak systolic veloc ities are present at the proximal right ICA measuring 125 cm/second. This corresponds with a 50-69% s tenosis. No other stenosis identified. Antegrade flow seen in both vertebral arteries. IMPRESSION: Moderate stenosis at the right proximal ICA (50-69%). No other stenosis identified.
--- NOTE | 2022-08-07 13:33 | RAD REPORT ---
EXAM DESCRIPTION: US - Abdomen Pelvis Scan US - 08/07/2022 12:44 pm CLINICAL HISTORY: High blood pressure with arterial study COMPARISON: No comparisons FINDINGS: The bilateral kidneys are normal in size, the right measuring 10.4 cm and the left measuri ng 9.5 cm. Unremarkable appearance of the bladder. Aortic velocity: 81 cm/second Right proximal renal artery: Not visualized Right mid renal artery: 69 cm/second Right distal renal artery: 64 cm/second Right renal arcuate artery resistive index: 0.7 Right renal artery / aorta ratio: 0.9 Left proximal renal artery: Not visualized Left mid renal artery: 84 cm/second Left distal renal artery: 64 cm/second Left renal arcuate artery resistive index: 0.7 Left renal artery/aorta ratio: 1.0 Normal waveforms demonstrated within the bilateral renal arteries. IMPRESSION: No evidence of hemodynamically significant stenosis within the bilateral renal arteries. No hydronephrosis.
--- NOTE | 2022-08-07 13:54 | RAD REPORT ---
EXAM DESCRIPTION: CT - Thorax Wo Con - 08/07/2022 1:37 pm CLINICAL HISTORY: Cough, PNA COMPARISON: CTANGIO CHEST FOR PE dated 06/30/2015; THORAX WO CONTRAST dated 06/14/2015; Abdomen Pelvi s Scan US dated 08/07/2022; Renal Ultrasound-Complete dated 12/10/2021 FINDINGS: Chest Wall: No suspicious thyroid nodules or pathologic lymphadenopathy. Lungs: No acute abnormality. Scarring and/or subsegmental atelectasis the right lower lobe. Pleura: No significant effusions or pneumothorax. Mediastinum/lyudmila: No pathologic lymphadenopathy. Pulmonary arteries/Aorta: Limited evaluation without contrast. No aortic aneurysm. Heart: No significant pericardial effusion. Normal heart size. Multi-vessel coronary disease. Upper abdomen: No acute abnormality. Streak artifact at the liver simulates the presence of a mass. Bones: No acute abnormality. Sternotomy. All CT scans are performed using dose optimization technique as appropriate and may include automated exposure control or mA/KV adjustment according to patient size. IMPRESSION: No acute findings within the chest. Specifically, no CT evidence of pneumonia.
[2022-08-07] MEDS: OSELTAMIVIR 30 MG CAP PO SCH (14:00)
[2022-08-07 16:20] LABS: Magnesium 2.1 mg/dL (1.8-2.4); Phosphorus 4.1 mg/dL (2.5-4.9); Thyroid Stimulating Hormone 3.51 uIU/mL (0.360-3.740)
[2022-08-07] MEDS: INSULIN -REGULAR HUMAN 50 UNIT/0.5 ML ML SQ SCH ×2 (16:30→21:00)
[2022-08-07 17:30] LABS: Urine Blood 2+ (Negative); Urine Glucose 2+ (Negative); Urine Protein 3+ (Negative); Urine pH 5.5 (5.0-7.0)
[2022-08-07] MEDS ORDERED: INSULIN -REGULAR HUMAN 50 UNIT/0.5 ML ML ONE (17:37)
[2022-08-07] MEDS ORDERED: carvediloL 6.25 MG TAB ONE (17:47)
[2022-08-07] MEDS: carvediloL 25 MG TAB PO SCH (17:49)
[2022-08-07] MEDS ORDERED: GUAIFENESIN/DM 5 ML UCUP ONE (17:56)
[2022-08-07] MEDS: ONDANSETRON 4 MG/2 ML VIAL IV PRN (17:59)
[2022-08-07] MEDS ORDERED: NA CHLORIDE 0.9% 1,000 ML IV SCH (18:00)
[2022-08-07 19:54] VITALS: BMI 34.7
[2022-08-07] MEDS: HYDROCODONE/APAP 5/325 MG TAB PO PRN (20:18)
[2022-08-07] MEDS ORDERED: HYDROCODONE/APAP 5/325 MG TAB ONE (20:18)
[2022-08-07] MEDS: INSULIN GLARGINE 100 UNIT/ML SQ SCH (21:00)
[2022-08-07] MEDS ORDERED: ATORVASTATIN 80 MG TAB PO SCH (21:00)
[2022-08-07] MEDS ORDERED: MAGNESIUM OXIDE 400 MG TAB PO SCH (21:00)
[2022-08-07] MEDS ORDERED: HOME MED 1 EA UNK (Insulin Glargine,Hum.Rec.Anlog [Toujeo Solostar] 300 UNIT/ML Insuln.Pen SQ SCH (21:00)
[2022-08-07] MEDS ORDERED: FAMOTIDINE 20 MG/2 ML VIAL IV ONE (23:39)
[2022-08-08] MEDS ORDERED: FAMOTIDINE 20 MG/2 ML VIAL IV ONE (00:09)
[2022-08-08] MEDS ORDERED: INSULIN -REGULAR HUMAN 50 UNIT/0.5 ML ML ONE (00:18)
[2022-08-08 02:24] LABS: Absolute Lymphocytes (CBC) 1.4 K/uL (0.7-4.9); Hematocrit 30.6 % (36.0-45.0); Lymphocytes % 16.2 % (15.3-44.8); MPV 9.5 fL (7.6-11.3); RBC Red Blood Cell Count 3.51 M/uL (3.86-4.86)
[2022-08-08 02:32] LABS: Potassium 3.5 mmol/L (3.5-5.1)
[2022-08-08] MEDS ORDERED: HYDROCODONE/APAP 5/325 MG TAB ONE (03:09)
[2022-08-08] MEDS ORDERED: ONDANSETRON 4 MG/2 ML VIAL ONE ×2 (03:10→08:21)
[2022-08-08] MEDS ORDERED: ATORVASTATIN 20 MG TAB ONE (03:10)
[2022-08-08] MEDS ORDERED: MAGNESIUM OXIDE 400 MG TAB ONE (03:10)
[2022-08-08] MEDS: HYDROCODONE/APAP 5/325 MG TAB PO PRN (03:22)
[2022-08-08] MEDS: ONDANSETRON 4 MG/2 ML VIAL IV PRN ×2 (03:23→08:35)
[2022-08-08 04:22] VITALS: O2SAT 97
[2022-08-08] MEDS ORDERED: METOPROLOL TAR 25 MG TAB ONE (05:40)
[2022-08-08] MEDS ORDERED: carvediloL 6.25 MG TAB ONE (05:40)
[2022-08-08] MEDS: carvediloL 25 MG TAB PO SCH (05:42)
[2022-08-08] MEDS ORDERED: METOPROLOL TAR 25 MG TAB PO SCH (06:00)
[2022-08-08] MEDS: INSULIN -REGULAR HUMAN 50 UNIT/0.5 ML ML SQ SCH ×2 (07:30→11:30)
[2022-08-08] MEDS ORDERED: ASPIRIN 81 MG CHEWABLE TABLET ONE (08:20)
[2022-08-08] MEDS ORDERED: PANTOPRAZOLE 40MG TABLET PO ONE (08:20)
[2022-08-08] MEDS ORDERED: VITAMIN D 1000 UNIT TAB ONE (08:21)
[2022-08-08] MEDS: INSULIN GLARGINE 100 UNIT/ML SQ SCH (08:35)
[2022-08-08 08:37] VITALS: TEMP 98.7
[2022-08-08] MEDS ORDERED: CALCITROL 0.25 MCG CAP PO SCH (09:00)
[2022-08-08] MEDS ORDERED: ASCORBIC ACID 500 MG TABLET PO SCH (09:00)
[2022-08-08] MEDS ORDERED: VITAMIN D 1000 UNIT TAB PO SCH (09:00)
[2022-08-08] MEDS ORDERED: PANTOPRAZOLE 40MG TABLET PO SCH (09:00)
[2022-08-08] MEDS ORDERED: ASPIRIN 81 MG CHEWABLE TABLET PO SCH (09:00)
[2022-08-08] MEDS: OSELTAMIVIR 30 MG CAP PO SCH (09:00)
--- NOTE | 2022-08-08 10:58 | P.CNS ---
Date of Consult: 08/08/22 Reason for Consult: THONY/ CKD Requesting Physician: Ene Olson Chief Complaint: Left sided weakness\numbness History of Present Illness: Patient is a 47-year-old female with a past medical history significant for DM 2, hypertension, MT, CAD, CABG who presents with complaints of left-sided numbness\weakness. Patient reported that she has been having nausea and vomiting for the past 2 days. Patient indicated that she was prescribed azithromycin on Friday by her PCP and has been having nausea and vomiting since taking the medication. Patient reported associated signs and symptoms of headache, dizziness, shortness of breath, cough and rhinorrhea. Patient denies any other signs or symptoms. Symptoms are aggravated or relieved by nothing. Patient decided to present to the hospital due to worsening symptoms. 09:14 This 47 yrs old Female presents to ER via Wheelchair with complaints of Nausea, General jmm Weakness, Headache, left facial and arm tingling. 09:14 The patient presents to the emergency department with nausea, vomiting. Onset: The jmm symptoms/episode began/occurred 2 day(s) ago. Possible causes: unknown. This is a 47-year-old female with history of diabetes mellitus, hypertension, coronary artery disease the presents emerged department with complaints of headache vomiting. Patient states she was prescribed azithromycin on Friday and has had nausea and vomiting since. Patient states that she came to the ED because she developed tingling and numbness to the left side of her face and her left arm. Denies chest pain or shortness of breath.. Allergies morphine Allergy (Intermediate, Verified 06/25/21 15:35) Hives/Rash Home medications list reviewed: Yes Home Medications: Ascorbic Acid [Vitamin C] 250 mg PO DAILY 06/25/21 Aspirin [Aspirin EC 81 MG] 81 mg PO BID 06/25/21 Aspirin [Karuna Chewable Aspirin] 81 mg PO BID 6AM 6PM 06/25/21 Atorvastatin Calcium [Lipitor] 80 mg PO BEDTIME 06/25/21 Atorvastatin Calcium [Lipitor] 80 mg PO BEDTIME 06/25/21 Cholecalciferol (Vitamin D3) [Vitamin D3] 1,000 unit PO DAILY 06/25/21 Dulaglutide [Trulicity] 1.5 mg SQ EVERY 7TH DAY 06/25/21 Furosemide 40 mg PO DAILY 06/25/21 Glipizide [Glipizide ER] 5 mg PO BEDTIME 06/25/21 Insulin Glargine,Hum.rec.anlog [Toujeo Solostar] 30 unit SQ BID 06/25/21 Pantoprazole [Protonix Tab*] 40 mg PO DAILY 06/25/21 Ramipril [Altace] 10 mg PO DAILY 06/25/21 Calcitrol [Rocaltrol*] 0.5 mcg PO DAILY #30 cap 06/27/21 Guaif/Dm [Robitussin Dm*] 10 ml PO Q6H PRN #30 ucup 06/27/21 Magnesium Oxide [Mag 0X*] 400 mg PO BEDTIME #30 tab 06/27/21 carvediloL [Coreg*] 25 mg PO BID 6AM 6PM #60 tab 06/27/21 levoFLOXacin [Levaquin*] 500 mg PO Q48H #3 tab 06/27/21 - Past Medical/Surgical History Diabetic: Yes -: DM-2, insulin-dependent -: Omphalocele -: CAD s/p CABG. PAD/ Carotid Stenosis -: CKD III/IV with Proteinuria (Dr. Queen) -: Bilateral tubal ligation -: tonsilectomy -: CABG - Family History Father Medical History: Hypertension, Lung disease, Diabetes mother' Medical History: Hypertension, Diabetes, Stroke, Cancer - Social History Smoking Status: Unknown if ever smoked Alcohol use: No CD- Drugs: No Caffeine use: Yes Review of Systems 10-point ROS is otherwise unremarkable General: Weakness, Malaise Cardiovascular: Edema Gastrointestinal: Nausea, Vomiting Physical Examination Temp Pulse Resp BP Pulse Ox 98.7 F 74 17 107/72 97 08/08/22 08:00 08/08/22 08:00 08/08/22 08:00 08/08/22 08:00 08/08/22 08:00 General: In no apparent distress, Oriented x3, Cooperative HEENT: Atraumatic Neck: Supple Respiratory: Clear to auscultation bilaterally, Diminished Cardiovascular: Regular rate/rhythm, Edema Gastrointestinal: Soft and benign, Non-distended Musculoskeletal: No clubbing, No contractures Integumentary: No rashes, No cyanosis Neurological: Normal speech Blood work reviewed in the chart. Imagings Data: EXAM DESCRIPTION: US - Renal Ultrasound-Complete - 12/10/2021 3:14 pm CLINICAL HISTORY: N28.1 COMPARISON: June 2021 FINDINGS: The right kidney measures 10 cm with a normal echotexture. The left kidney measures 10 cm with a normal echotexture. 1.7 centimeter hypoechoic mass unchanged. Hydronephrosis is not seen. No gross abnormality of bladder IMPRESSION: 1.7 centimeter hypoechoic mass left kidney without change likely a benign complex cyst. Follow up ultrasound in 1 year recommended for re-evaluation EXAM DESCRIPTION: US - Abdomen Pelvis Scan US - 08/07/2022 12:44 pm CLINICAL HISTORY: High blood pressure with arterial study COMPARISON: No comparisons FINDINGS: The bilateral kidneys are normal in size, the right measuring 10.4 cm and the left measuring 9.5 cm. Unremarkable appearance of the bladder. Aortic velocity: 81 cm/second Right proximal renal artery: Not visualized Right mid renal artery: 69 cm/second Right distal renal artery: 64 cm/second Right renal arcuate artery resistive index: 0.7 Right renal artery / aorta ratio: 0.9 Left proximal renal artery: Not visualized Left mid renal artery: 84 cm/second Left distal renal artery: 64 cm/second Left renal arcuate artery resistive index: 0.7 Left renal artery/aorta ratio: 1.0 Normal waveforms demonstrated within the bilateral renal arteries. IMPRESSION: No evidence of hemodynamically significant stenosis within the bilateral renal arteries. No hydronephrosis. LEFT VENTRICULAR WALL MOTION: DECREASED LEFT VENTRICULAR COMPLIANCE DOPPLER/COLOR FLOW: MILD TRICUSPID REGURGITATION COMMENTS: DECREASED LEFT VENTRICULAR COMPLIANCE. DIASTOLIC DYSFUNCTION. MILD TRICUSPID REGURGITATION. NORMAL RIGHT VENTRICULAR SYSTOLIC PRESSURE. EXAM DESCRIPTION: CT - Thorax Wo Con - 08/07/2022 1:37 pm CLINICAL HISTORY: Cough, PNA COMPARISON: CTANGIO CHEST FOR PE dated 06/30/2015; THORAX WO CONTRAST dated 06/14/2015; Abdomen Pelvis Scan US dated 08/07/2022; Renal Ultrasound-Complete dated 12/10/2021 FINDINGS: Chest Wall: No suspicious thyroid nodules or pathologic lymphadeno ozzy. Lungs: No acute abnormality. Scarring and/or subsegmental atelectasis the right lower lobe. Pleura: No significant effusions or pneumothorax. Mediastinum/lyudmila: No pathologic lymphadenopathy. Pulmonary arteries/Aorta: Limited evaluation without contrast. No aortic aneurysm. Heart: No significant pericardial effusion. Normal heart size. Multi-vessel coronary disease. Upper abdomen: No acute abnormality. Streak artifact at the liver simulates the presence of a mass. Bones: No acute abnormality. Sternotomy. All CT scans are performed using dose optimization technique as appropriate and may include automated exposure control or mA/KV adjustment according to patient size. IMPRESSION: No acute findings within the chest. Specifically, no CT evidence of pneumonia. EXAM DESCRIPTION: US - CP - 08/07/2022 12:43 pm CLINICAL HISTORY: WEAKNESS COMPARISON: Head C Spine Mpr Wo Con dated 05/16/2022 TECHNIQUE: Real-time sonographic evaluation of both carotid systems was performed. Doppler interrogation was performed with waveform tracing bilaterally. FINDINGS: Normal high resistance waveforms are noted in both external carotid arteries. The common carotid arteries and internal carotid arteries show normal low resistance waveforms. Mixed hard and soft plaque is present at both carotid bifurcations. Mild elevated peak systolic velocities are present at the proximal right ICA measuring 125 cm/second. This corresponds with a 50-69% stenosis. No other stenosis identified. Antegrade flow seen in both vertebral arteries. IMPRESSION: Moderate stenosis at the right proximal ICA (50-69%). No other stenosis identified. Conclusions/Impression: THONY complicated by hypovolemia CKD III/ IV with proteinuria -No NSAIDs -Change IVF to LR Hypokalemia -Potassium supplement X1 NAG metabolic acidosis -Continue insulin -Change IVF to LR HTN with CKD/ CHF -Continue Metoprolol Diastolic CHF, chronic LVEF 68% LE Edema -Low sodium diet DM II with CKD -Continue Lantus -RISS -Reglan X1 for N/V Moderate malnutrition with anorexia -Advance diet as tolerated -Consider protein supplementation Anemia in chronic illness -Monitor H&H -Consider Retacrit CKD MBD -Continue Calcitriol and Cholecalciferol Influenza -Continue Tamiflu and supportive care Thank you kindly for the consultation
[2022-08-08] MEDS ORDERED: METOCLOPRAMIDE 10 MG/2mL INJ IV SCH (11:00)
[2022-08-08] MEDS ORDERED: NA CHLORIDE 0.9% 1,000 ML IV SCH (11:00)
[2022-08-08] MEDS ORDERED: POTASSIUM 25 MEQ EFFERV TAB PO ONE (11:01)
[2022-08-08] MEDS ORDERED: Ringers Lactate 1,000 ML IV SCH (11:15)
[2022-08-08 13:20] VITALS: BP 154/75
--- NOTE | 2022-08-08 13:23 | EKG ---
Test Date: 2022-08-07 Test Time: 09:56:26 [employer]eorological Equipment Repairer: SILVERIO MEASUREMENT RESULTS: Intervals: Rate: 141 RI: QRSD: 72 QT: 318 QTc: 487 Holderness: P: RI: QRS: 87 T: 267 INTERPRETIVE STATEMENTS: Atrial fibrillation with rapid ventricular response Marked ST abnormality, possible lateral subendocardial injury Abnormal ECG Compared to ECG 05/19/2017 09:56:02 Sinus tachycardia no longer present Ventricular premature complex(es) no longer present ST (T wave) deviation still present Electronically Signed On 08-08-22 13:22:35 CHIEF DEPUTY CORONER by Douglas Chin
--- NOTE | 2022-08-08 15:07 | ECHO ---
HEIGHT: 5 ft 2 in WEIGHT: 190 lb 0 oz DATE OF STUDY: 08/08/[address]: BECCA RODRIGUEZ 2-DIMENSIONAL: YES M.MODE: YES DOPPLER: YES COLOR FLOW: YES TDS: PORTABLE: YES DEFINITY: BUBBLE STUDY: DIAGNOSIS: ELEVATED TROPONIN CARDIAC HISTORY: CATHERIZATION: SURGERY: YES PROSTHETIC VALVE: PACEMAKER: MEASUREMENTS (cm) DIASTOLIC (NORMALS) SYSTOLIC (NORMALS) IVSd 1.1 (0.6-1.2) LA Diam 3.9 (1.9-4.0) LVEF 53% LVIDd 4.0 (3.5-5.7) LVIDs 2.9 (2.0-3.5) %FS 27% LVPWd 1.2 (0.6-1.2) Ao Diam 2.5 (2.0-3.7) 2 DIMENSIONAL ASSESSMENT: RIGHT ATRIUM: NORMAL LEFT ATRIUM: NORMAL RIGHT VENTRICLE: NORMAL LEFT VENTRICLE: LEFT VENTRICULAR HYPERTROPHY TRICUSPID VALVE: NORMAL MITRAL VALVE: MILD MITRAL REGURGITATION PULMONIC VALVE: NORMAL AORTIC VALVE: NORMAL PERICARDIAL EFFUSION: NONE AORTIC ROOT: NORMAL LEFT VENTRICULAR WALL MOTION: NORMAL DOPPLER/COLOR FLOW: SEE BELOW COMMENTS: 1. NORMAL LEFT VENTRICULAR EJECTION FRACTION 55-60% WITH NORMAL WALL MOTION. 2. MODERATE CONCENTRIC LEFT VENTRICULAR HYPERTROPHY 3. GRADE I DIASTOLIC DYSFUNCTION 4. MILD MITRAL REGURGITATION TECHNOLOGIST: GALILEO BERRY
== END 2022-08-08 19:19 | disposition home or self-care (01) | DRG 62 ==
LOC: ER 09:01 → ERHOLD 12:51
PROVIDERS: ADMIT Hospitalist; ATTEND Hospitalist
DX: G45.9 Transient cerebral ischemic attack, unspecified (principal); E44.0 Moderate protein-calorie malnutrition; E87.20 Acidosis, unspecified; G81.94 Hemiplegia, unspecified affecting left nondominant side; N17.9 Acute kidney failure, unspecified; N18.4 Chronic kidney disease, stage 4 (severe); I50.32 Chronic diastolic (congestive) heart failure; I13.0 Hypertensive heart and chronic kidney disease with heart failure and stage 1 through stage 4 chronic kidney disease, or unspecified chronic kidney disease; E11.22 Type 2 diabetes mellitus with diabetic chronic kidney disease; D63.1 Anemia in chronic kidney disease; I48.91 Unspecified atrial fibrillation; E66.09 Other obesity due to excess calories; E87.6 Hypokalemia; I25.10 Atherosclerotic heart disease of native coronary artery without angina pectoris; D63.8 Anemia in other chronic diseases classified elsewhere; K21.9 Gastro-esophageal reflux disease without esophagitis; J10.1 Influenza due to other identified influenza virus with other respiratory manifestations; I25.2 Old myocardial infarction; R77.8 Other specified abnormalities of plasma proteins; Z88.5 Allergy status to narcotic agent; Z95.0 Presence of cardiac pacemaker; Z79.4 Long term (current) use of insulin; Z68.34 Body mass index [BMI] 34.0-34.9, adult; Z98.51 Tubal ligation status; Z79.82 Long term (current) use of aspirin; Z79.84 Long term (current) use of oral hypoglycemic drugs; Z79.899 Other long term (current) drug therapy; Z20.822 Contact with and (suspected) exposure to COVID-19
CPT/HCPCS: 0240U; 36415; 70450; 70551; 71250; 80048; 80076; 81003; 82947; 83735; 83880; 84100; 84439; 84443; 84484; 85025; 85610; 85730; 92977; 93005; 93306; 93880; 93975; 96361; 96365; 96366; 96375; 97161; 97164; 97530; 99291; 99292; J1200; J1815; J2405; J2765; J3010; J3101; J7030

== ENCOUNTER 2024-05-03 08:11 | Day surgery (SDC) | payer OTHER ==
[2024-05-03 08:50] LABS: MPV 9.8 fL (7.6-11.3); Platelets 122 thou/uL (152-406)
[2024-05-03 08:57] LABS: PT Prothrombin Time 13.5 SECONDS (9.4-12.5); PTT, Activated Partial Thromb 29.9 SECONDS (24.3-36.9); Protime INR 1.21
[2024-05-03 09:07] VITALS: BMI 34.0
[2024-05-03 12:22] VITALS: BP 112/43; TEMP 97.4; O2SAT 95
--- NOTE | 2024-05-03 12:35 | RAD REPORT ---
EXAM DESCRIPTION: US - Paracentesis Proc Guidance - 05/03/2024 10:44 am CLINICAL HISTORY: ASCITES Ascites COMPARISON: No comparisons FINDINGS: Informed consent was obtained and time-out was performed. Patient's abdomen was prepped and draped in the usual sterile fashion. 1% lidocaine was used for loca l anesthetic purposes. A small skin incision was made. A paracentesis catheter was guided into the peroneal cavity under son ographic guidance. A small amount of fluid was sent for requested lab studies. A large volume paracentesis was performed , with a total of 2.6 liters of ascitic fluid removed. The patient tolerated the procedure well. Patient was administered IV albumin per protocol following the procedure. IMPRESSION: Successful ultrasound-guided paracentesis.
== END 2024-05-03 11:50 | disposition home or self-care (01) ==
LOC: DS 08:11
PROVIDERS: ATTEND Internal Medicine Nephrology
DX: R18.8 Other ascites (principal)
CPT/HCPCS: 36415; 49083; 85049; 85610; 85730

== ENCOUNTER 2024-05-18 09:11 | Day surgery (SDC) | payer OTHER ==
[2024-05-18 10:56] VITALS: BMI 34.9
[2024-05-18 11:16] VITALS: BP 138/58; TEMP 97.4; O2SAT 95
--- NOTE | 2024-05-18 12:20 | RAD REPORT ---
EXAM DESCRIPTION: US - Paracentesis Proc Guidance - 05/18/2024 10:24 am CLINICAL HISTORY: Liver disease with ascites FINDINGS: The risks, benefits and alternatives to the procedure were explained to the patient and in formed consent obtained. The skin and deeper tissues were anesthetized with Lidocaine. Under sonographic guidance an 8 Macedonian catheter was placed into the right lower quadrant. . 2.9 liters of yellow fluid removed The patient experienced no immediate complication. IMPRESSION: Paracentesis
== END 2024-05-18 11:30 | disposition home or self-care (01) ==
LOC: DS 09:11
PROVIDERS: ATTEND Internal Medicine Nephrology
DX: R18.8 Other ascites (principal)
CPT/HCPCS: 49083

== ENCOUNTER 2024-06-28 07:57 | Day surgery (SDC) | payer OTHER ==
[2024-06-28 09:52] LABS: MPV 9.1 fL (7.6-11.3); Platelets 134 thou/uL (152-406)
[2024-06-28 10:06] LABS: PT Prothrombin Time 13.5 SECONDS (9.4-12.5); PTT, Activated Partial Thromb 32.7 SECONDS (24.3-36.9); Protime INR 1.21
[2024-06-28 10:30] VITALS: BMI 34.0
--- NOTE | 2024-06-28 14:31 | RAD REPORT ---
PROCEDURE: ULTRASOUND GUIDED PARACENTESIS CLINICAL INDICATION: [facility] MAIN ASCITES PROCEDURE DETAILS: Consent: Informed consent for the procedure including risks, benefits and alternatives was obtained, following discussion with the patient, and time-out was performed prior to the procedure. Preparation: The site was prepared and draped using maximal sterile barrier technique including cutan eous antisepsis. Procedure: Initial limited abdominal ultrasound was performed and a moderate amount of ascites was se en. A safe window for paracentesis was identified with ultrasound to juani a suitable access site. Local anesthesia was administered. The peritoneal cavity was accessed, and fluid return confirmed pos ition. A 6F catheter was placed and clear straw-colored ascites was drained, for a total volume of 2.4 L. The catheter was removed, and a sterile bandage was applied. Following the procedure, albumin was administered per protocol. No complications were observed. IMPRESSION: Successful ultrasound-guided therapeutic paracentesis. PLAN: Aspirated fluid was not sent for analysis.
[2024-06-28 14:52] VITALS: BP 142/57; TEMP 97; O2SAT 93
== END 2024-06-28 12:15 | disposition home or self-care (01) ==
LOC: DS 07:57
PROVIDERS: ATTEND Internal Medicine Nephrology
DX: R18.8 Other ascites (principal)
CPT/HCPCS: 36415; 49083; 85049; 85610; 85730

== ENCOUNTER 2024-07-21 08:30 | Day surgery (SDC) | payer OTHER ==
[2024-07-21 09:18] VITALS: BMI 36.1
[2024-07-21 10:45] VITALS: BP 146/61; TEMP 98; O2SAT 92
--- NOTE | 2024-07-21 11:26 | RAD REPORT ---
PROCEDURE: Paracentesis Proc Guidance CLINICAL INDICATION: Renal disease with ascites TECHNIQUE: The risks, benefits and alternatives to the procedure explained to the patient and informed consent o btained. The skin and deeper tissues anesthetized with lidocaine. Under sonographic guidance an 8.3 Yi catheter was advanced into the right lower quadrant. 2.6 L of yellow fluid removed. Patient experienced no immediate consultation. IMPRESSION: Paracentesis
== END 2024-07-21 11:30 | disposition home or self-care (01) ==
LOC: DS 08:30
PROVIDERS: ATTEND Internal Medicine Nephrology
DX: R18.8 Other ascites (principal); I50.32 Chronic diastolic (congestive) heart failure; E11.21 Type 2 diabetes mellitus with diabetic nephropathy
CPT/HCPCS: 49083

== ENCOUNTER 2024-08-13 07:10 | Day surgery (SDC) | payer OTHER ==
[2024-08-13 07:59] LABS: MPV 9.7 fL (7.6-11.3); Platelets 140 thou/uL (152-406)
[2024-08-13 08:24] VITALS: BMI 37.8
[2024-08-13 08:24] LABS: PT Prothrombin Time 13.7 SECONDS (9.4-12.5); PTT, Activated Partial Thromb 31.4 SECONDS (24.3-36.9); Protime INR 1.23
[2024-08-13 11:03] VITALS: BP 121/55; TEMP 98; O2SAT 97
--- NOTE | 2024-08-13 12:37 | RAD REPORT ---
PROCEDURE: ULTRASOUND GUIDED PARACENTESIS CLINICAL INDICATION: [facility] MAIN ASCITES PROCEDURE DETAILS: Consent: Informed consent for the procedure including risks, benefits and alternatives was obtained a nd time-out was performed prior to the procedure. Preparation: The site was prepared and draped using maximal sterile barrier technique including cutan eous antisepsis. Procedure: Initial limited abdominal ultrasound was performed and a moderate amount of ascites was se en. A safe window for paracentesis was identified with ultrasound to juani a suitable access site. Local anesthesia was administered. The peritoneal cavity was accessed, and fluid return confirmed pos ition. A 6F catheter was placed and clear straw-colored ascites was drained. A total of 3 L of ascitic fluid were drained. The catheter was removed, and a sterile bandage was applied. Following th e procedure, albumin was administered per protocol. IMPRESSION: Successful ultrasound-guided therapeutic paracentesis. PLAN: Aspirated fluid was not sent for analysis.
== END 2024-08-13 11:00 | disposition home or self-care (01) ==
LOC: DS 07:10
PROVIDERS: ATTEND Internal Medicine Nephrology
DX: R18.8 Other ascites (principal); I50.23 Acute on chronic systolic (congestive) heart failure; E11.21 Type 2 diabetes mellitus with diabetic nephropathy
CPT/HCPCS: 36415; 49083; 85049; 85610; 85730

== ENCOUNTER 2024-09-20 08:22 | Day surgery (SDC) | payer OTHER ==
[2024-09-20 08:56] LABS: MPV 9.3 fL (7.6-11.3); Platelets 104 thou/uL (152-406)
[2024-09-20 09:03] LABS: PT Prothrombin Time 13.5 SECONDS (9.4-12.5); PTT, Activated Partial Thromb 30.6 SECONDS (24.3-36.9); Protime INR 1.21
--- NOTE | 2024-09-20 10:19 | RAD REPORT ---
PROCEDURE: Paracentesis Proc Guidance CLINICAL INDICATION: Renal disease with ascites TECHNIQUE: The risks, benefits and alternatives to the procedure explained to the patient and informed consent o btained. The skin and deeper tissues anesthetized with lidocaine. Under sonographic guidance an 8.3 Kyrgyz catheter was advanced into the left lower quadrant. 3.1 L of yellow fluid removed. Fluid sent to lab. Patient experienced no immediate consultation. IMPRESSION: Paracentesis
[2024-09-21 16:38] VITALS: BP 145/57; TEMP 97.4; O2SAT 95; BMI 36.8
== END 2024-09-20 11:30 | disposition home or self-care (01) ==
LOC: DS 08:22
PROVIDERS: ATTEND Internal Medicine Nephrology
DX: R18.8 Other ascites (principal); I50.32 Chronic diastolic (congestive) heart failure; E11.21 Type 2 diabetes mellitus with diabetic nephropathy
CPT/HCPCS: 36415; 49083; 85049; 85610; 85730

== ENCOUNTER → 2024-11-03 | Day surgery (SDC) | payer OTHER ==
[2024-11-03 08:38] VITALS: BMI 33.8
[2024-11-03 08:40] LABS: MPV 9.5 fL (7.6-11.3); Platelets 98 thou/uL (152-406)
[2024-11-03 08:54] LABS: PT Prothrombin Time 14.4 SECONDS (10.0-13.0); PTT, Activated Partial Thromb 30.2 SECONDS (24.3-36.9); Protime INR 1.28
[2024-11-03 11:58] VITALS: BP 152/63; TEMP 98; O2SAT 96
--- NOTE | 2024-11-03 13:48 | RAD REPORT ---
PROCEDURE: ULTRASOUND GUIDED PARACENTESIS CLINICAL INDICATION: [facility] MAIN ASCITES PROCEDURE DETAILS: Consent: Informed consent for the procedure including risks, benefits and alternatives was obtained a nd time-out was performed prior to the procedure. Preparation: The site was prepared and draped using maximal sterile barrier technique including cutan eous antisepsis. Procedure: Initial limited abdominal ultrasound was performed and a large amount of ascites was seen. A safe window for paracentesis was identified with ultrasound to juani a suitable access site. Local anesthesia was administered. The peritoneal cavity was accessed, and fluid return confirmed pos ition. A 5F Yueh catheter was placed and clear straw-colored ascites was drained. A total of 3.1 L of ascites was drained. The catheter was removed, and a sterile bandage was applied. Following the pr ocedure, albumin was administered per protocol. IMPRESSION: Successful ultrasound-guided therapeutic paracentesis. PLAN: Aspirated fluid was sent for analysis.
== END ==
LOC: DS 07:53
PROVIDERS: ATTEND Internal Medicine Nephrology
DX: R18.8 Other ascites (principal); I50.32 Chronic diastolic (congestive) heart failure; E11.21 Type 2 diabetes mellitus with diabetic nephropathy
CPT/HCPCS: 36415; 49083; 85049; 85610; 85730

== ENCOUNTER 2024-12-03 07:20 | Day surgery (SDC) | payer OTHER ==
[2024-12-03 07:55] LABS: MPV 9.9 fL (7.6-11.3); Platelets 100 thou/uL (152-406)
[2024-12-03 07:58] VITALS: BMI 34.9
[2024-12-03 07:59] LABS: PT Prothrombin Time 14.4 SECONDS (10-13.0); PTT, Activated Partial Thromb 30.2 SECONDS (27.2-37.4); Protime INR 1.28
[2024-12-03 12:13] VITALS: BP 135/50; TEMP 97.9; O2SAT 97
--- NOTE | 2024-12-03 12:40 | RAD REPORT ---
PROCEDURE: ULTRASOUND GUIDED PARACENTESIS CLINICAL INDICATION: [facility] MAIN ASCITES PROCEDURE DETAILS: Consent: Informed consent for the procedure including risks, benefits and alternatives was obtained a nd time-out was performed prior to the procedure. Preparation: The site was prepared and draped using maximal sterile barrier technique including cutan eous antisepsis. Procedure: Initial limited abdominal ultrasound was performed and a large amount of ascites was seen. A safe window for paracentesis was identified with ultrasound to juani a suitable access site. Local anesthesia was administered. The peritoneal cavity was accessed, and fluid return confirmed pos ition. A 6F catheter was placed and clear straw-colored ascites was drained. A total of 4 L were drained. The catheter was removed, and a sterile bandage was applied. Following the procedure, albumi n was administered per protocol. IMPRESSION: Successful ultrasound-guided therapeutic paracentesis. PLAN: Aspirated fluid was not sent for analysis.
== END 2024-12-03 10:52 | disposition home or self-care (01) ==
LOC: DS 07:20
PROVIDERS: ATTEND Internal Medicine Nephrology
PROC: 0W9G3ZZ Drainage of Peritoneal Cavity, Percutaneous Approach (ICD-10-PCS; principal; 2024-12-03)
DX: R18.8 Other ascites (principal); I50.32 Chronic diastolic (congestive) heart failure; E11.21 Type 2 diabetes mellitus with diabetic nephropathy
CPT/HCPCS: 36415; 49083; 85049; 85610; 85730

== ENCOUNTER → 2025-01-05 | Day surgery (SDC) | payer OTHER ==
[2025-01-05 07:47] LABS: PT Prothrombin Time 14.2 SECONDS (10-13.0); PTT, Activated Partial Thromb 29.2 SECONDS (27.2-37.4); Protime INR 1.26
[2025-01-05 07:48] LABS: MPV 10.2 fL (7.6-11.3); Platelets 93 thou/uL (152-406)
[2025-01-05 08:20] VITALS: O2SAT 96; BMI 31.7
--- NOTE | 2025-01-05 09:19 | RAD REPORT ---
PROCEDURE: ULTRASOUND GUIDED PARACENTESIS Procedural Provider: Manuel Herrera M.D. Pre-procedure diagnosis: Recurrent ascites Post-procedure diagnosis: Same as above. CLINICAL INDICATION: Uncomplicated ascites. Female, 49 years old. ASCITES COMPLICATIONS: No immediate complications. IMPRESSION: Ultrasound guided paracentesis, yielding 3100 mL of straw-colored fluid. PLAN: Aspirated fluid was not sent for analysis. PROCEDURE DETAILS: Consent: Informed consent for the procedure including risks, benefits and alternatives was obtained a nd time-out was performed prior to the procedure. Preparation: The site was prepared and draped using maximal sterile barrier technique including cutan eous antisepsis. Sedation: None Procedure: Initial limited abdominal ultrasound was performed and a large amount of ascites was seen. A safe window for paracentesis was identified with ultrasound to juani a suitable access site. Local anesthesia was administered. The peritoneal cavity was accessed, and fluid return confirmed pos ition. A catheter was placed and ascites was drained. The catheter was removed, and a sterile bandage was applied. [id number]. Estimated blood loss: Less than 10 mL.
[2025-01-05 10:41] VITALS: BP 135/80; TEMP 97.3
== END ==
LOC: DS 07:14
PROVIDERS: ATTEND Internal Medicine Nephrology
DX: R18.8 Other ascites (principal); I50.32 Chronic diastolic (congestive) heart failure; E11.21 Type 2 diabetes mellitus with diabetic nephropathy
CPT/HCPCS: 36415; 49083; 85049; 85610; 85730

== ENCOUNTER 2025-02-02 07:59 | Day surgery (SDC) | payer OTHER ==
[2025-02-02 08:46] VITALS: BMI 32.5
--- NOTE | 2025-02-02 10:47 | RAD REPORT ---
PROCEDURE: ULTRASOUND GUIDED PARACENTESIS CLINICAL INDICATION: ASCITES PROCEDURE DETAILS: Consent: Informed consent for the procedure including risks, benefits and alternatives was obtained a nd time-out was performed prior to the procedure. Preparation: The site was prepared and draped using maximal sterile barrier technique including cutan eous antisepsis. Procedure: Initial limited abdominal ultrasound was performed and a large amount of ascites was seen. A safe window for paracentesis was identified with ultrasound to juani a suitable access site. Local anesthesia was administered. The peritoneal cavity was accessed, and fluid return confirmed pos ition. A 8F pigtail drainage catheter was placed and ascites was drained. The catheter was removed, and a sterile bandage was applied. Following the procedure, albumin was administered per protocol. IMPRESSION: Technically successful ultrasound-guided paracentesis. PLAN: Aspirated fluid was sent for analysis.
[2025-02-02 12:19] VITALS: TEMP 97
[2025-02-02 12:23] VITALS: BP 151/50; O2SAT 96
== END 2025-02-02 11:45 | disposition home or self-care (01) ==
LOC: DS 07:59
PROVIDERS: ATTEND Internal Medicine Nephrology
DX: R18.8 Other ascites (principal); I50.32 Chronic diastolic (congestive) heart failure; E11.21 Type 2 diabetes mellitus with diabetic nephropathy
CPT/HCPCS: 49083

== ENCOUNTER 2025-06-07 10:40 | Emergency (ER) | payer OTHER ==
[2025-06-07 11:55] LABS: Absolute Lymphocytes (CBC) 0.5 K/uL (0.7-4.9); Hematocrit 39.5 % (36.0-45.0); Hemoglobin 12.8 g/dL (12.0-15.0); MCH 30.5 pg (27.0-35.0); MCHC 32.3 g/dL (32.0-36.0); MCV 94.2 fL (80-100); MPV 9.3 fL (7.6-11.3); Nucleated RBC Absolute Count 0.0 (0-0); Nucleated Red Blood Cells % 0.1 % (0-0); RBC Red Blood Cell Count 4.19 M/uL (3.86-4.86); White Blood Count 3.50 thou/uL (4.3-10.9)
[2025-06-07 12:04] LABS: PT Prothrombin Time 15.0 SECONDS (10-13.0); PTT, Activated Partial Thromb 32.2 SECONDS (27.2-37.4); Protime INR 1.34
[2025-06-07 12:15] LABS: ALT/SGPT 22.0 U/L (13-56); Albumin 2.6 g/dL (3.4-5.0); Albumin/Globulin Ratio 0.6 (1.1-1.8); Alkaline Phosphatase 114.0 U/L (45-117); Anion Gap 7.5 mEq/L (5.0-15.0); BUN Blood Urea Nitrogen 24.0 mg/dL (7-18); Globulin 4.4 g/dL (2.3-3.5); Glucose Level 86.0 mg/dL (74-106)
[2025-06-07 12:16] LABS: AST/SGOT 22.0 U/L (15-37); Potassium 4.5 mEq/L (3.5-5.1)
--- NOTE | 2025-06-07 12:37 | RAD REPORT ---
Exam:Foot Right 3 View CLINICAL HISTORY: Right foot pain FINDINGS: Approximately 5 mm radiopaque foreign body in soft tissues adjacent to the second phalanx. No fracture or dislocation seen
--- NOTE | 2025-06-07 13:16 | EDPHYS ---
Physician Documentation [facility] Name: Elis Smart Age: 49 yrs Sex: Female : 1975 Arrival Date: 06/07/2025 Time: 10:40 Bed 16 Private MD: ED Physician Brain Harris HPI: 06/07 10:55 This 49 yrs old Female presents to ER via Ambulatory with complaints of Foot Pain. sb4 10:58 Patient states that she has had a wound on her right second toe for a few days now. She sb4 states that it is mildly painful. States that they looked at it at dialysis today and recommended she come to the ED for further eval. She denies any fever or chills. Does have history of type 2 diabetes but states that her blood sugar has been controlled. Historical: - Allergies: 10:48 ambien; ss 10:48 Clonidine; ss 10:48 GABAPENTIN; ss 10:48 Morphine; ss - PMHx: 10:48 cirrhosis of liver; Diabetes - IDDM; ESRD on HD (Coronary artery byp); Hypertension; ss Myocardial infarction; triple bypass; - PSHx: 10:48 Coronary artery bypass graft; ss - Infectious Disease History:: Denies. - Social history:: Smoking status: Patient denies any tobacco usage or history of. ROS: 10:58 Constitutional: Negative for fever, chills, and weight loss, sb4 10:58 MS/extremity: Positive for pain, of the plantar aspect of right second toe, 10:58 Skin: Positive for wound left 2nd toe, 10:58 All other systems are negative, Exam: 10:58 Head/Face: Normocephalic, atraumatic. Eyes: Extra-ocular motions intact. Periorbital sb4 areas with no swelling, redness, or edema. ENT: Mucous membranes moist. Respiratory: No increased work of breathing, no retractions or nasal flaring. 10:58 Constitutional: The patient appears in no acute distress, alert, awake, 10:58 Musculoskeletal/extremity: Swelling noted to second toe with cellulitis. 10:58 Skin: Diabetic foot wound plantar aspect of left second toe. Vital Signs: 10:47 BP 155 / 61; Pulse 63; Resp 16; Temp 97.6(TE); Pulse Ox 98% ; Weight 82.1 kg; Height 5 ss ft. 1 in. ; Pain 8/10; 12:25 BP 141 / 64; Pulse 62; Resp 18; Pulse Ox 97% ; Pain 2/10; rg5 12:34 BP 147 / 51; Pulse 60; Resp 18; Pulse Ox 98% ; rg5 10:47 Body Mass Index 34.20 (82.10 kg, 154.94 cm) ss 10:47 Pain Scale: Adult ss 12:25 Pain Scale: Adult rg5 Procedures: 13:21 Foreign Body Removal: a piece of metal, from the right plantar aspect of right second sb4 toe, by using a hemostat, Dressing: non adherent dressing, The patient tolerated the removal well. MDM: 10:45 Medical Screening Exam initiated sb4 14:01 Differential diagnosis: Cellulitis, osteomyelitis, abscess, diabetic foot wound. Data sb4 reviewed: vital signs, nurses notes, lab test result(s), radiologic studies, and as a result, I will discharge patient. Independent interpretation of the following test(s) in the Emergency Department X-Ray: My interpretation is Right foot x-ray images - foreign body visualized the distal aspect of the right second toe. Care significantly affected by the following chronic conditions: Diabetes, Hypertension, Congestive Heart Failure, Chronic Kidney Disease. Counseling: I had a detailed discussion with the patient and/or guardian regarding the historical points, exam findings, and any diagnostic results supporting the discharge/admit diagnosis, the presence of at least one elevated blood pressure reading (>120/80) during this emergency department visit, lab results, radiology results, the need for outpatient follow up, for definitive care, to return to the emergency department if symptoms worsen or persist or if there are any questions or concerns that arise at home. Special discussion: I discussed in detail with the patient the higher chance of wound infection based on his presenting history. 06/07 10:50 Order name: Blood Culture Adult (2) sb4 06/07 10:50 Order name: CBC with Diff; Complete Time: 12:02 sb4 06/07 10:50 Order name: CMP; Complete Time: 12:17 sb4 06/07 10:50 Order name: Lactate w/ 2H reflex if indic.; Complete Time: 12:16 sb4 06/07 10:50 Order name: Protime (+inr); Complete Time: 12:04 sb4 06/07 10:50 Order name: Ptt, Activated; Complete Time: 12:04 sb4 06/07 10:50 Order name: Foot Right 3 View XRAY; Complete Time: 12:38 sb4 06/07 10:50 Order name: IV Saline Lock - Large Bore; Complete Time: 11:47 sb4 06/07 10:50 Order name: Labs collected and sent; Complete Time: 11:47 sb4 06/07 13:15 Order name: Wound Care; Complete Time: 13:24 sb4 06/07 13:15 Order name: Wound dressing; Complete Time: 13:24 sb4 Administered Medications: 13:27 Drug: Doxycycline PO 100 mg PO once Route: PO; rg5 13:36 Follow up: Response: No adverse reaction rg5 Disposition: 16:53 I was immediately available on-site in the Emergency Department for consultation in the ms3 care of the patient. Disposition Summary: 06/07/25 13:16 Discharge Ordered Notes: Location: Home sb4 Problem: new sb4 Symptoms: have improved sb4 Condition: Stable sb4 Diagnosis - Cellulitis of right toe sb4 - Puncture wound with foreign body of right lesser toe(s) without damage to nail, sb4 initial encounter Followup: sb4 - With: Emergency Department - When: As needed - Reason: Fever > 102 F, Worsening of condition Discharge Instructions: - Discharge Summary Sheet sb4 - Cellulitis, Adult sb4 - Wound Care, Adult sb4 Forms: - Antibiotic Education sb4 - Patient Portal Instructions sb4 - Leadership Thank You Letter sb4 Prescriptions: - Doxycycline Hyclate 100 mg Oral Tablet - take 1 tablet ORAL route every 12 hours; 20 tablet; Refills: 0, Product sb4 Selection Permitted Signatures: Dispatcher [employer] EDMS Shandra Paz, RN RN Brain Ledesma, DO ms3 Trina Rosenthal PA-C PA-C sb4 Tam Healy, RN RN rg5 Corrections: (The following items were deleted from the chart) 10:51 10:51 BLOOD CULTURE*+BA.LAB.BRZ ordered. EDMS EDMS 10:51 10:51 CBC+H.LAB.BRZ ordered. EDMS EDMS 10:51 10:51 COMPREHENSIVE METABOLIC PANEL+C.LAB.BRZ ordered. EDMS EDMS 10:51 10:51 LACTATE+C.LAB.BRZ ordered. EDMS EDMS 10:51 10:51 PROTIME (+INR)+COAG.LAB.BRZ ordered. EDMS EDMS 10:51 10:51 PTT, ACTIVATED+COAG.LAB.BRZ ordered. EDMS EDMS 10:51 10:51 Foot Right 3 View+RAD.RAD.BRZ ordered. EDMS EDMS
--- NOTE | 2025-06-07 13:16 | ER ---
Nurse's Notes [facility] Name: Elis Smart Age: 49 yrs Sex: Female : 1975 Arrival Date: 06/07/2025 Time: 10:40 Bed 16 Private MD: Diagnosis: Cellulitis of right toe;Puncture wound with foreign body of right lesser toe(s) without damage to nail, initial encounter Presentation: 06/07 10:47 Chief complaint: Patient states: discoloration, pain and swelling to R 2nd toe that ss began Friday. Coronavirus screen: Client denies travel out of the [place] in the last 14 days. Ebola Screen: Patient denies exposure to infectious person. Patient denies travel to an Ebola-affected area in the 21 days before illness onset. Initial Sepsis Screen: Does the patient meet any 2 criteria? No. Patient's initial sepsis screen is negative. Does the patient have a suspected source of infection? No. Patient's initial sepsis screen is negative. Risk Assessment: Do you want to hurt yourself or someone else? Patient reports no desire to harm self or others. Onset of symptoms was June 05, 2025. 10:47 Method Of Arrival: Ambulatory ss 10:47 Acuity: ERIK 3 ss Historical: - Allergies: 10:48 ambien; ss 10:48 Clonidine; ss 10:48 GABAPENTIN; ss 10:48 Morphine; ss - PMHx: 10:48 cirrhosis of liver; Diabetes - IDDM; ESRD on HD (Coronary artery byp); Hypertension; ss Myocardial infarction; triple bypass; - PSHx: 10:48 Coronary artery bypass graft; ss - Infectious Disease History:: Denies. - Social history:: Smoking status: Patient denies any tobacco usage or history of. Assessment: 12:10 General: Appears in no apparent distress. Behavior is calm, cooperative, appropriate rg5 for age. Pain: Complains of pain in plantar aspect of right second toe Quality of pain is described as aching. Neuro: Level of Consciousness is awake, alert, obeys commands. Cardiovascular: Patient's skin is warm and dry. Respiratory: Airway is patent Respiratory effort is even, unlabored. GI: Abdomen is round non-distended. : No signs and/or symptoms were reported regarding the genitourinary system. EENT: No signs and/or symptoms were reported regarding the EENT system. Derm: Skin is intact, Skin is dry, Skin is normal, Skin temperature is warm. Musculoskeletal: Circulation, motion, and sensation intact. Range of motion: intact in all extremities. 13:37 Reassessment: No changes from previously documented assessment. Patient and/or family rg5 updated on plan of care and expected duration. Pain level reassessed. Patient is alert, oriented x 3, equal unlabored respirations, skin warm/dry/pink. Vital Signs: 10:47 BP 155 / 61; Pulse 63; Resp 16; Temp 97.6(TE); Pulse Ox 98% ; Weight 82.1 kg; Height 5 ss ft. 1 in. ; Pain 8/10; 12:25 BP 141 / 64; Pulse 62; Resp 18; Pulse Ox 97% ; Pain 2/10; rg5 12:34 BP 147 / 51; Pulse 60; Resp 18; Pulse Ox 98% ; rg5 10:47 Body Mass Index 34.20 (82.10 kg, 154.94 cm) ss 10:47 Pain Scale: Adult ss 12:25 Pain Scale: Adult rg5 ED Course: 10:44 Patient arrived in ED. al6 10:45 Trina Rosenthal PA-C is PHCP. sb4 10:45 Brain Harris DO is Attending Physician. sb4 10:48 Triage completed. ss 10:48 Arm band placed on right wrist. ss 10:52 Linette Connolly, DIANA is Primary Nurse. af3 11:34 Radiology exam delayed due to IV insertion attempt and/or patient not having az appropriate IV at this time. 11:40 First set of blood cultures drawn by me, Second set of blood cultures drawn by me. ts3 11:40 Initial lab(s) drawn, by clam bed laborer, sent to lab. ts3 11:40 Inserted saline lock: 22 gauge in left hand, using aseptic technique. Blood collected. ts3 Flushed with 10 mL NS. 12:20 Foot Right 3 View XRAY In Process Unspecified. EDMS 13:37 No provider procedures requiring assistance completed. IV discontinued, bleeding rg5 controlled, No redness/swelling at site. Pressure dressing applied. Administered Medications: 13:27 Drug: Doxycycline PO 100 mg PO once Route: PO; rg5 13:36 Follow up: Response: No adverse reaction rg5 Outcome: 13:16 Discharge ordered by sb4 13:37 Discharged to home ambulatory, rg5 13:37 Condition: stable 13:37 Discharge instructions given to patient, Instructed on discharge instructions, Demonstrated understanding of instructions, Prescriptions given X 1, 13:38 Patient left the ED. rg5 Signatures: Dispatcher [employer] EDMS Shandra Paz, DIANA RN ss Kayla Jean-Baptiste Sophia, PA-C PA-C sb4 Tam Healy RN RN rg5 Linette Connolly RN RN af3 Patti Morillo alSheyla Garcia ts3 Corrections: (The following items were deleted from the chart) 11:48 11:47 Inserted saline lock: 22 gauge in left hand, using aseptic technique. Blood ts3 collected. Flushed with 10 mL NS ts3 11:48 11:47 Initial lab(s) drawn, by clam bed laborer, sent to lab. ts3 ts3
[2025-06-07] MEDS ORDERED: DOXYCYCLINE 100 MG CAP PO ONE (13:26)
[2025-06-07 13:49] VITALS: TEMP 97.6
[2025-06-07 13:52] VITALS: BP 147/51; O2SAT 98
== END 2025-06-07 13:38 | disposition home or self-care (01) ==
LOC: ER 10:40
DX: S91.144A Puncture wound with foreign body of right lesser toe(s) without damage to nail, initial encounter (principal); L03.031 Cellulitis of right toe; E11.22 Type 2 diabetes mellitus with diabetic chronic kidney disease; I12.0 Hypertensive chronic kidney disease with stage 5 chronic kidney disease or end stage renal disease; N18.6 End stage renal disease; Z99.2 Dependence on renal dialysis; Z88.5 Allergy status to narcotic agent; Z88.8 Allergy status to other drugs, medicaments and biological substances
CPT/HCPCS: 36415; 80053; 83605; 85025; 85610; 85730; 87040; 99284